=== PATIENT | female | born 1950 | race African-American/Black ===

== ENCOUNTER 2023-01-16 14:50 | Emergency (ER) | payer OTHER, MEDICAID, SELFPAY ==
--- NOTE | ~2023-01-16 | XR_ITS ---
EXAMINATION: XR CHEST CLINICAL INFORMATION: Cough and shortness of breath COMPARISON: None available. TECHNIQUE: 2 views of the chest were obtained. FINDINGS: The cardiac silhouette is slightly enlarged. The thoracic aorta is tortuous. Hilar and mediastinal contours are unremarkable. The lungs are clear. No pleural effusion or pneumothorax. Degenerative changes of the spine and right shoulder. Stent in the left upper arm. XR/XR chest 2V IMPRESSION: Slightly enlarged cardiac silhouette. No evidence for acute disease in the chest.
--- NOTE | ~2023-01-16 | CT_ITS ---
EXAMINATION: CT ABDOMEN AND PELVIS WITHOUT CONTRAST CLINICAL INFORMATION: Suprapubic abdominal pain. Nausea. COMPARISON: None available. TECHNIQUE: Multidetector volumetric imaging was performed from the superior aspect of the liver through the pubic symphysis. Sagittal and coronal reformatted images were obtained on the technologist's workstation. This CT examination was performed using dose optimization techniques as appropriate, variously including the following: *Automated exposure control *Adjustment of mA and/or kV according to patient size (this includes techniques or standardized protocols for targeted exams where dose is matched to indication/reason for exam; i.e. extremities or head) *Use of iterative reconstruction technique DLP: 768 mGy-cm FINDINGS: LUNG BASES: The visualized lung bases are clear. Coronary artery calcifications. LIVER, GALLBLADDER, AND BILIARY TREE: The liver is normal in size, shape, and attenuation. No biliary ductal dilatation. Nonspecific hypoattenuating lesion in segment 7 of the liver measuring 2.5 cm. This measures greater than simple fluid. Additional tiny liver lesions are too small to fully characterize.. Layering high attenuation in the gallbladder lumen could be stones or sludge. No wall thickening or adjacent inflammation. PANCREAS: Unremarkable. SPLEEN: Unremarkable. ADRENAL GLANDS: Unremarkable. KIDNEYS AND URETERS: Somewhat atrophic kidneys with polycystic appearance. These renal lesions, varying attenuation. While some of these have simple appearance, other lesions are hyperdense. For instance in the right lower pole there is a 1.9 cm hypodense lesion, series 3 image 48. This is a left lower pole 0.9 cm hypodense lesion on image 44. No hydronephrosis. Multiple right-sided calcifications are seen, possibly representing renal calculi at the mid to upper pole. These measure up to 0.3 cm, 11 cm from the posterior axillary line. BLADDER: Decompressed with no gross abnormality. GASTROINTESTINAL TRACT: Small hiatal hernia. Normal caliber small bowel. No obstruction. Normal appendix. No colonic wall thickening or acute inflammation. No free air or free fluid. ABDOMINAL WALL: No significant hernia is appreciated. LYMPH NODES: Normal. VASCULAR: Normal caliber aorta with mild atherosclerotic calcification. PELVIC VISCERA: Uterus not seen. No adnexal mass. OSSEOUS STRUCTURES: No acute or suspicious osseous abnormality. Mild degenerative change throughout the spine and of both hips. CT/CT abdomen pelvis wo IV con IMPRESSION: 1. No acute findings in the abdomen or pelvis. No inflammatory changes. 2. Atrophic kidneys with polycystic appearance. Multiple renal lesions are noted, some of which are simple cysts, while others are hyperdense. This could be evaluated with nonemergent MRI. 3. Nonspecific hypoattenuating lesion in the right lobe of the liver. This can also be evaluated at the time of MRI. 4. Possible small nonobstructing right renal calculi. 5. Layering high attenuation in the gallbladder lumen could be sludge or stones. No evidence of acute cholecystitis. Fleischner guidelines were followed.
--- NOTE | 2023-01-16 15:05 | ED.SOB ---
HPI - SOB/Dyspnea General Chief Complaint: General Medical Stated Complaint: Diff breathing/Lots of congestion Time Seen by Provider: 01/16/23 16:52 Source: patient, RN notes reviewed and old records reviewed Mode of arrival: ambulatory Limitations: no limitations History of Present Illness HPI Narrative: 72 year old female with history significant for ESRD on HD T/TH/Sun dialysis, HTN, DM, presenting to the ED complaining of intermittent shortness of breath, productive cough, and chest discomfort x months. Reports being seen in 2d ago for SOB and was told she needs a CT scan and CXR . Also reports suprapubic tenderness x years. Patient is anuric. Received HD today. Denies fever, chills, cough, chest pain, new or worsening LE edema, N/V/D, constipation. No hx of VTE or asthma. Related Data Allergies Allergy/AdvReac Type Severity Reaction Status Date / Time IV contrast Allergy Severe Anaphylaxis Uncoded 01/16/23 15:13 Review of Systems Review of Systems: Constitutional: No Fever, No Chills ENT/Mouth: No Ear Pain, No Nasal Congestion, No Sinus Pain, No Hoarseness, No sore throat, No Rhinorrhea, No Swallowing Difficulty Cardiovascular: + Chest discomfort, + SOB Respiratory: No Cough, No Sputum, No Wheezing Gastrointestinal: No Nausea, No Vomiting, No Diarrhea, No Constipation, + Abdominal pain Genitourinary: No Dysuria, No Urinary Frequency, No Hematuria, No Urinary Incontinence/retention, No Urgency, No Flank Pain Musculoskeletal: No joint pain, No Myalgias, No Joint Swelling Skin: No Skin Lesions, No rash Neuro: No Weakness, No Numbness, No Paresthesias Yes all other systems are reviewed and are negative Constitutional: Constitutional: Reports as per HPI [facility] Past Medical History Attestation statement: The following information was validated with the patient. Source: old records reviewed Social History Social History Alcohol intake: never Smoked in Last 30 Days: No Use of substances other than those prescribed or required for medical reasons: No Advance Directives: No Advance Directives Information Provided: No Physical Exam Vital Signs: Vital Signs: Last Vital Signs Temp 98.2 F 01/16/23 19:45 Pulse 94 01/16/23 19:45 Resp 18 01/16/23 19:45 BP 171/69 H 01/16/23 19:45 Pulse Ox 99 01/16/23 19:45 O2 Del Method Room Air 01/16/23 19:45 BMI result Body Mass Index 34.6 Const: General: cooperative, healthy appearing, no acute distress, alert and awake Orientation/consciousness: patient oriented x3 Limitations: no limitations HEENT: Head: Yes normal to inspection and Yes atraumatic Ears: hearing grossly normal bilaterally General nose exam: Normal external nose present Face and sinus: Yes normal facial exam Eyes: General: appearance normal, both eyes and all related structures EOM: EOMs intact bilaterally Neck: Neck: Yes normal visual inspection Chest: Chest palpation & inspection: normal inspection of the chest and normal palpation of entire chest wall Resp: Effort & Inspection: normal respiratory effort, able to speak in complete sentences, no audible wheezes, Actively coughing and no respiratory distress Auscultation: clear to auscultation bilaterally, no crackles and no wheezes Cardio: Rate: regular rate Rhythm: regular rhythm Heart sounds: S1 normal heart sound present and S2 normal heart sound present GI: Other: Abdomen without erythema, ecchymosis or obvious masses. + suprapubic region TTP. No rebound tenderness or guarding. Inspection: Yes normal to inspection, No abdominal wall ecchymosis, No distended and Yes obesity Palpation (GI): Soft to palpation, Tenderness to palpation present (GI) suprapubicly; with no rebound tenderness, no guarding and not rigid : General: Yes no CVA tenderness Back/Spine/Pelvis: Back: no CVA tenderness Skin: Rashes: no rashes Wounds: no wounds Neuro: General: patient oriented x3 and tone normal Gait exam (Neuro): Normal gait present Extrem: Other: Chronic LE edema General: Yes normal to inspection Course Course Course Narrative: RME - 72 yo female with history of ESRD on HD T//Sun, HTN, DM, who presents to the ER for evaluation of SOB and abdominal pain. She states she has been having SOB and productive cough for months. She was seen at Urgent Care 3 days ago for this and told she needed a CXR and CT scan. She also reports suprapubic pain for years, anuric. No fevers, chills, chest pain. Last had full HD session today. VSS in triage, speaking in complete sentences. Plan: CXR, basic labs - 1829 -- XR/XR chest 2V IMPRESSION: Slightly enlarged cardiac silhouette. No evidence for acute disease in the chest. -known CKD, otherwise labs reassuring -1929--ED care transferred to [facility] pending CTA PE and anticipated discharge Medical Decision Making Medical Decision Making [facility] Narrative: 72 year old female with history significant for ESRD on HD T//Sun dialysis, HTN, DM, presenting to the ED complaining of intermittent shortness of breath, productive cough, and chest discomfort x months. Also reports suprapubic tenderness x years. On exam VSS, +suprapubic tenderness without rebound or guarding. Lungs CTA b/l. Concern for PNA, bronchitis, viral syndrome. Lower suspicion for ACS/PE or CHF with chronicity of symptoms. Low suspicion for pulmonary embolism, ACS, pleural effusion, pericardial effusion. Concern for intra-abdominal pathology including diverticulitis/appendicitis. Lower suspicion for renal stone or ovarian pathology Plan: Labs, CXR, CT AP Please refer to course for remaining clinical decision making, interpretation of labs/imaging results, and discussions with consultants and/or family members. Differential Diagnosis Differential Diagnoses: The differential diagnosis associated with the presentation includes As above Lab Data [facility] Lab Attestation statement: I reviewed the patient's lab results. 01/16/23 15:27 01/16/23 15:27 Labs: Lab Results 01/16/23 01/16/23 Range/Units 15:27 15:27 WBC 5.4 (4.8-10.8) X10*3/uL RBC 4.09 L (4.20-5.50) X10*6/uL Hgb 10.5 L (12.0-16.0) g/dl Hct 33.7 L (37.0-47.0) % MCV 82.4 (80.0-98.0) fL MCH 25.7 L (27.0-33.0) pg MCHC 31.2 (31.0-35.0) g/dl RDW 19.1 H (11.0-16.0) % Plt Count 114 L (160-400) X10*3/uL MPV Not Reportable Immature Gran % (Auto) 0.4 (0.0-0.4) % Neut % (Auto) 78.0 H (45-73) % Lymph % (Auto) 13.4 L (20-40) % Posey % (Auto) 5.2 (2-11) % Eos % (Auto) 2.4 (0-4) % Baso % (Auto) 0.6 (0-2) % Lymph # (Auto) 0.7 L (1.2-4.9) X10*3/uL Posey # (Auto) 0.3 (0.1-1.2) X10*3/uL Eos # (Auto) 0.1 (0.0-0.4) X10*3/uL Baso # (Auto) 0.0 (0.0-0.2) X10*3/uL Abs Immat Gran (auto) 0.02 (0.00-0.03) X10*3/uL Absolute Neuts (auto) 4.2 (2.0-8.3) x10*3/uL Absolute Nucleated RBC 0.000 (0.0-0.012) X10*3/uL Nucleated RBC % (auto) 0.0 (0.0-0.2) /100WBC Sodium 140 (135-145) mmol/L Potassium 4.0 (3.3-5.1) mmol/L Chloride 102 (96-108) mmol/L Carbon Dioxide 31 H (22-29) mmol/L Anion Gap 11 L (12-20) BUN 13 (9-16) mg/dL Creatinine 3.80 H (0.5-1.4) mg/dL Estim Creat Clear Calc 13.5 Estimated GFR 12 Random Glucose 263 H (60-115) mg/dL Calcium 9.0 (8.4-10.2) mg/dL Magnesium 1.8 (1.6-2.6) mg/dL Total Bilirubin 1.1 H (0.0-1.0) mg/dL Direct Bilirubin 0.3 (0.0-0.5) mg/dL AST 12 (5-31) U/L ALT 6 (0-31) U/L Alkaline Phosphatase 100 (39-117) U/L Total Protein 6.6 (6.5-8.0) g/dL Albumin 3.8 (3.5-5.0) g/dL Independent Interpretation I performed an independent interpretation of an: Plain X-Ray and CT Scan Radiology Impression Discussion of test interpretation with radiology: I have reviewed the radiologist's reading. External Record Review External record reviewed: Inpatient record, Office record, Outpatient record, Prior outpatient labs, Prior outpatient radiology, Primary care record and Outside ED record Tests considered The following testing was considered but not selected: As above Chronic Conditions Patient?s care impacted by: Diabetes and Hypertension Discharge Plan Discharge Clinical Impression: Upper respiratory symptom, Abdominal pain, suprapubic Patient Disposition: Home, Self-Care Instructions: Abdominal Pain (ED) Additional Instructions: Your blood work is reassuring. Continue with home prescribed medications. You need to follow-up with your doctor Your x-rays unremarkable If symptoms persist or worsen return to the ED CT/CT abdomen pelvis wo IV con IMPRESSION: 1.? No acute findings in the abdomen or pelvis. No inflammatory changes. 2.? Atrophic kidneys with polycystic appearance. Multiple renal lesions are noted, some of which are simple cysts, while others are hyperdense. This could be evaluated with nonemergent MRI. 3.? Nonspecific hypoattenuating lesion in the right lobe of the liver. This can also be evaluated at the time of MRI. 4.? Possible small nonobstructing right renal calculi. 5.? Layering high attenuation in the gallbladder lumen could be sludge or stones. No evidence of acute cholecystitis. Referrals: [facility] [place] Gastroenterology Services [Provider Group] - 2 days [facility] [place] [facility] Kylie Marti [Provider Group] [facility] [place] [facility] [Provider Group]
[2023-01-16 15:07] VITALS: BP 142/57; PULSE 96; RESP 18; TEMP 37; O2SAT 100; BMI 34.6
[2023-01-16 15:33] LABS: MANUAL DIFF FLAG NO
[2023-01-16 15:41] LABS: Basophils Percent Auto 0.6 % (0-2); Eosinophils Absolute Auto 0.1 X10*3/uL (0.0-0.4); Eosinophils Percent Auto 2.4 % (0-4); Hematocrit 33.7 % (37.0-47.0); Hemoglobin 10.5 g/dl (12.0-16.0); Imm Gran Abs Auto 0.02 X10*3/uL (0.00-0.03); Imm Gran Pct Auto 0.4 % (0.0-0.4); Lymphocytes Absolute Auto 0.7 X10*3/uL (1.2-4.9); Lymphocytes Percent Auto 13.4 % (20-40); Mean Corpuscular HGB Conc 31.2 g/dl (31.0-35.0); Mean Corpuscular Hemoglobin 25.7 pg (27.0-33.0); Mean Corpuscular Volume 82.4 fL (80.0-98.0); Monocytes Absolute Auto 0.3 X10*3/uL (0.1-1.2); Monocytes Percent Auto 5.2 % (2-11); Neutrophils Absolute Auto 4.2 x10*3/uL (2.0-8.3); Platelet Count 114 X10*3/uL (160-400); Red Blood Count 4.09 X10*6/uL (4.20-5.50); Red Cell Distribution Width 19.1 % (11.0-16.0); White Blood Count 5.4 X10*3/uL (4.8-10.8)
[2023-01-16 15:52] LABS: Alanine Aminotransferase 6 U/L (0-31); Albumin Level 3.8 g/dL (3.5-5.0); Alkaline Phosphatase 100 U/L (39-117); Anion Gap 11 (12-20); Aspartate Amino Transferase 12 U/L (5-31); Bilirubin Direct 0.3 mg/dL (0.0-0.5); Bilirubin Total 1.1 mg/dL (0.0-1.0); Blood Urea Nitrogen 13 mg/dL (9-16); Carbon Dioxide 31 mmol/L (22-29); Chloride 102 mmol/L (96-108); Creatinine Clr Calc Pharmacy 13.5; Estimated Glomerular Filt Rate 12; Glucose Random 263 mg/dL (60-115); Magnesium 1.8 mg/dL (1.6-2.6); Sodium 140 mmol/L (135-145); Total Protein 6.6 g/dL (6.5-8.0)
[2023-01-16 19:45] VITALS: BP 171/69; PULSE 94; RESP 18; TEMP 36.8; O2SAT 99
--- NOTE | 2023-01-16 21:00 | PC.NURSE ---
IV started in patient's left hand, blood return noted. Patient getting IV antibiotics and fluids through IV now.
--- NOTE | 2023-01-16 21:03 | PC.NURSE ---
Patient resting on stretcher at this time, no s/s of distress noted. Awaiting CT results.
== END 2023-01-16 21:57 | disposition home or self-care (01) ==
PROVIDERS: Physician Assistant; Emergency Provider Emergency Medicine
DX: J06.9 Acute upper respiratory infection, unspecified (principal); R10.30 Lower abdominal pain, unspecified; R06.02 Shortness of breath; E11.22 Type 2 diabetes mellitus with diabetic chronic kidney disease; I12.0 Hypertensive chronic kidney disease with stage 5 chronic kidney disease or end stage renal disease; N18.6 End stage renal disease; Z99.2 Dependence on renal dialysis
CPT/HCPCS: 36415; 71046; 74176; 80048; 80076; 83735; 85025; 99284

== ENCOUNTER 2023-01-30 17:41 | Emergency (ER) | payer MEDICARE, MEDICAID, SELFPAY ==
--- NOTE | ~2023-01-30 | CT_ITS ---
EXAMINATION: CT HEAD WITHOUT CONTRAST CLINICAL INFORMATION: Altered mental status COMPARISON: None. TECHNIQUE: Contiguous axial imaging was performed from the skull base to vertex without intravenous administration of contrast. Coronal and sagittal reformatted images are performed at the CT scanner. [This CT examination was performed using dose optimization techniques as appropriate, variously including the following: *Automated exposure control *Adjustment of mA and/or kV according to patient size (this includes techniques or standardized protocols for targeted exams where dose is matched to indication/reason for exam; i.e. extremities or head) *Use of iterative reconstruction technique] DLP: 640 mGy-cm. FINDINGS: There is no evidence of acute intracranial hemorrhage or territorial infarction. No abnormal mass-effect or midline shift is seen. Givens to white matter differentiation is well preserved. No extra-axial fluid collections are identified. There is generalized global volume loss. There is moderate prominence of the ventricles and the sulci . There is mild hypodensity of the periventricular white matter due to chronic small vessel ischemic disease. There are vascular calcifications of the internal carotid arteries bilaterally. There is no osseous abnormality. The mastoid air cells and visualized portions of the paranasal sinuses are well-aerated. CT/CT head/brain wo IV con IMPRESSION: No acute intracranial pathology.
--- NOTE | ~2023-01-30 | XR_ITS ---
EXAMINATION: XR CHEST CLINICAL INFORMATION: Shortness of breath. COMPARISON: Chest x-ray 01/16/2023 TECHNIQUE: 2 views of the chest were obtained. FINDINGS: Lungs are clear. No pulmonary vascular congestion. There is no pleural effusion. The heart size is top normal. The cardiac and mediastinal contours are normal. There are calcifications of the thoracic aorta. There are multilevel degenerative changes of dorsal spine. Vascular stents in the left axillary region. XR/XR chest 2V IMPRESSION: No acute abnormality of chest.
[2023-01-30 17:57] VITALS: BP 185/67; PULSE 88; RESP 16; TEMP 36.3; O2SAT 99; BMI 33.1
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
--- NOTE | 2023-01-30 18:50 | MHC.EDTECH ---
patient blood drawn and sent to lab.
[2023-01-30 18:52] LABS: MANUAL DIFF FLAG NO
[2023-01-30 18:57] LABS: Basophils Percent Auto 0.8 % (0-2); Eosinophils Absolute Auto 0.2 X10*3/uL (0.0-0.4); Eosinophils Percent Auto 3.1 % (0-4); Hematocrit 29.7 % (37.0-47.0); Hemoglobin 9.4 g/dl (12.0-16.0); Imm Gran Abs Auto 0.02 X10*3/uL (0.00-0.03); Imm Gran Pct Auto 0.4 % (0.0-0.4); Lymphocytes Percent Auto 19.2 % (20-40); Mean Corpuscular HGB Conc 31.6 g/dl (31.0-35.0); Mean Corpuscular Hemoglobin 26.1 pg (27.0-33.0); Mean Corpuscular Volume 82.5 fL (80.0-98.0); Monocytes Absolute Auto 0.4 X10*3/uL (0.1-1.2); Monocytes Percent Auto 7.1 % (2-11); Neutrophils Absolute Auto 3.6 x10*3/uL (2.0-8.3); Neutrophils Percent Auto 69.4 % (45-73); Platelet Count 121 X10*3/uL (160-400); Red Cell Distribution Width 19.1 % (11.0-16.0); White Blood Count 5.2 X10*3/uL (4.8-10.8)
[2023-01-30 19:05] LABS: Ammonia 26 umol/L (13-55)
[2023-01-30 19:23] LABS: Alanine Aminotransferase 6 U/L (0-31); Albumin Level 3.6 g/dL (3.5-5.0); Alkaline Phosphatase 84 U/L (39-117); Anion Gap 16 (12-20); Aspartate Amino Transferase 9 U/L (5-31); Bilirubin Total 0.6 mg/dL (0.0-1.0); Blood Urea Nitrogen 64 mg/dL (9-16); Calcium 9.4 mg/dL (8.4-10.2); Carbon Dioxide 24 mmol/L (22-29); Chloride 104 mmol/L (96-108); Creatinine Clr Calc Pharmacy 5.6; Estimated Glomerular Filt Rate 4; Glucose Random 230 mg/dL (60-115); Lipase 28 U/L (8-78); Potassium 4.5 mmol/L (3.3-5.1); Sodium 139 mmol/L (135-145); Total Protein 6.6 g/dL (6.5-8.0)
--- NOTE | 2023-01-30 19:56 | PC.NURSE ---
pt brought into ED bed 17 from waiting room. pt ambulates into room, family at bedside. CT scan, xray, labs done in triage. pt waiting to be seen by ED provider. will CTM.
[2023-01-30 20:00] VITALS: BP 191/77; PULSE 89; RESP 16; TEMP 36.1; O2SAT 99
[2023-01-30] MEDS: amLODIPine Besylate 5 MG TABLET PO (22:13)
--- NOTE | 2023-01-30 23:51 | PC.NURSE ---
CM Nisha in room to see patient. Pt and sister at bedside being assessed. Per pt and sister, pt just moved here 3 weeks ago from [place]. pt brought with her whatever medications she had prescribed from [place], however has no pharmacy here as of yet so has not had any of her medications refilled. unsure of the pharmacy name in [place]. pt has not taken her blood pressure medications in 1 month. pt's pcp set up dialysis for her here prior to her moving from [place]. pt goes to [facility] and states they have a list of her current medications. Nurse will need to call in AM to obtain list of pt medications. CM questioning if patient has intellectual disability vs dementia and if pt has mental capacity to make health care decisions. Per CM will need psychiatry consult for capacity. Also need PT eval. Pt uses a walker at baseline and has it with her in ED. Pt unable to go home with sister as sister lives in [facility] for low income housing. For the past 3 weeks pt has been taking a bus from [facility] (vising sister) to hotel every night but recently has presented with increased confusion, missed dialysis today, and is becoming unable to care for self. Pt is an insulin dependent diabetic - MD Block aware and ordering SS for pt. Will CTM.
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
[2023-01-31] VITALS: BP 155/68; PULSE 77; RESP 16; TEMP 36.7; O2SAT 97
--- NOTE | 2023-01-31 03:53 | PC.NURSE ---
per provider repeat cbc & chemistry in AM to determine whether or not pt will need admission for dialysis prior to CM finding placement for pt.
[2023-01-31 04:35] VITALS: BP 174/65; PULSE 81; RESP 12; TEMP 36.7; O2SAT 99
[2023-01-31 05:14] LABS: MANUAL DIFF FLAG NO
[2023-01-31 05:16] LABS: Basophils Percent Auto 0.8 % (0-2); Eosinophils Absolute Auto 0.3 X10*3/uL (0.0-0.4); Eosinophils Percent Auto 5.2 % (0-4); Hematocrit 29.3 % (37.0-47.0); Hemoglobin 9.2 g/dl (12.0-16.0); Imm Gran Abs Auto 0.01 X10*3/uL (0.00-0.03); Imm Gran Pct Auto 0.2 % (0.0-0.4); Lymphocytes Absolute Auto 1.4 X10*3/uL (1.2-4.9); Lymphocytes Percent Auto 27.9 % (20-40); Mean Corpuscular HGB Conc 31.4 g/dl (31.0-35.0); Mean Corpuscular Hemoglobin 26.2 pg (27.0-33.0); Mean Corpuscular Volume 83.5 fL (80.0-98.0); Mean Platelet Volume 10.5 fL (9.4-12.3); Monocytes Absolute Auto 0.4 X10*3/uL (0.1-1.2); Monocytes Percent Auto 9.1 % (2-11); Neutrophils Absolute Auto 2.8 x10*3/uL (2.0-8.3); Neutrophils Percent Auto 56.8 % (45-73); Platelet Count 115 X10*3/uL (160-400); Red Blood Count 3.51 X10*6/uL (4.20-5.50); Red Cell Distribution Width 19.4 % (11.0-16.0); White Blood Count 4.8 X10*3/uL (4.8-10.8)
[2023-01-31 05:31] LABS: Anion Gap 20 (12-20); Blood Urea Nitrogen 66 mg/dL (9-16); Carbon Dioxide 22 mmol/L (22-29); Chloride 104 mmol/L (96-108); Creatinine Clr Calc Pharmacy 4.9; Estimated Glomerular Filt Rate 4; Glucose Random 160 mg/dL (60-115); Potassium 4.6 mmol/L (3.3-5.1); Sodium 141 mmol/L (135-145)
[2023-01-31 06:30] VITALS: BP 159/70; PULSE 82; RESP 18; TEMP 36.6; O2SAT 98
[2023-01-31 07:32] VITALS: BP 159/70; PULSE 82; O2SAT 98
[2023-01-31 08:09] LABS: Glucose, Whole Blood 236 mg/dL (60-115)
[2023-01-31] MEDS: Insulin Lispro 100 UNIT/ML 3 ML VIAL SUBCUT (08:20)
[2023-01-31 08:40] VITALS: BP 161/64; PULSE 83; RESP 16; TEMP 36.6; O2SAT 100
--- NOTE | 2023-01-31 09:35 | MHC.CM.ED ---
Patient remains in ER. Physical therapy eval completed. No therapy indicated. Patient is oriented. T/W spoke with Susan at [facility] in [place]. Patient is on a , , Sunday schedule for HD. Patient's last HD was 01/27. She missed 01/30. This is the first HD appointment she missed. They have a chair time available for her today at 245pm. Dr Hou aware and will discharge patient. They will arrange transport from HD to patient's home. Attempted to update patient's sister, Sita, via telephone at [phone]. Left message requesting return call. Attempted to meet with patient. Patient currently sleeping. Keiry ROBERSON and Dr Hou aware BLS transport booked for 145pm. Continue to monitor for d/c needs.
[2023-01-31 11:47] VITALS: BP 146/77; PULSE 79; RESP 16; TEMP 36.7; O2SAT 98
--- NOTE | 2023-01-31 12:44 | MHC.CM.ED ---
Received telephone call from [employer]. T/W is unsure of callers name. Capacity eval was requested because patient has been confused, wandering and missed multiple dialysis appointments. T/W explained patient only missed HD appointment on 01/30 due to confusion and came to the ER. T/W explained patient is now alert and oriented. Patient passed physical therapy and has actually been discharged. Patient is just waiting for 145pm transport to dialysis. Caller insistent on capacity eval. T/W explained it would not be appropriate in the ER and the [facility] [employer] could coordinate this outpatient. Caller stated It's not that easy. Thanks for nothing and hung up. Luciana Crump CM director aware.
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
== END 2023-01-31 13:50 | disposition home or self-care (01) ==
PROVIDERS: Physician Assistant; Emergency Provider Internal Medicine
DX: G93.41 Metabolic encephalopathy (principal); F03.90 Unspecified dementia, unspecified severity, without behavioral disturbance, psychotic disturbance, mood disturbance, and anxiety; E11.22 Type 2 diabetes mellitus with diabetic chronic kidney disease; R26.81 Unsteadiness on feet; I12.0 Hypertensive chronic kidney disease with stage 5 chronic kidney disease or end stage renal disease; R51.9 Headache, unspecified; N18.6 End stage renal disease; Z79.4 Long term (current) use of insulin; Z79.899 Other long term (current) drug therapy
CPT/HCPCS: 36415; 70450; 71046; 80048; 80053; 82140; 82947; 83690; 85025; 97161; 99284; 99285

== ENCOUNTER 2023-02-07 17:05 | Inpatient (IN) | payer MEDICARE, MEDICAID, SELFPAY ==
--- NOTE | ~2023-02-07 | XR_ITS ---
EXAMINATION: XR SHOULDER, RIGHT CLINICAL INFORMATION: Right shoulder pain. COMPARISON: None available. TECHNIQUE: Three views of the right shoulder. FINDINGS: Mild to moderate right glenohumeral and acromioclavicular degenerative joint changes are seen. There is no acute fracture or dislocation. A right subclavian vascular stent is noted in place. The visualized right ribs are intact. The soft tissues are unremarkable. XR/XR shoulder RT min 2V IMPRESSION: Mild to moderate right shoulder degenerative joint changes without overt fracture.
[2023-02-07 17:18] VITALS: BP 118/76; BP 157/68; PULSE 90; PULSE 94; RESP 18; TEMP 37.1; O2SAT 100; O2SAT 99; BMI 35.9
[2023-02-07 17:36] VITALS: BP 157/68; PULSE 89; RESP 15; O2SAT 100
--- NOTE | 2023-02-07 18:00 | ECG_ITS ---
Test Reason : Confusion Blood Pressure : / mmHG Vent. Rate : 086 BPM Atrial Rate : 086 BPM P-R Int : 150 ms QRS Dur : 138 ms QT Int : 428 ms P-R-T Axes : 036 -70 011 degrees QTc Int : 512 ms Normal sinus rhythm Right bundle branch block Left anterior fascicular block Bifascicular block Minimal voltage criteria for LVH, may be normal variant ( R in aVL ) Abnormal ECG No previous ECGs available Referred By: Destini Hidalgo Electronically Signed By:Alejandro Tuttle
[2023-02-07 18:12] VITALS: BP 158/65; PULSE 86; RESP 15; O2SAT 99
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
[2023-02-07 19:52] LABS: Alanine Aminotransferase 9 U/L (0-31); Albumin Level 3.7 g/dL (3.5-5.0); Alkaline Phosphatase 94 U/L (39-117); Anion Gap 14 (12-20); Aspartate Amino Transferase 13 U/L (5-31); Bilirubin Total 0.6 mg/dL (0.0-1.0); Blood Urea Nitrogen 29 mg/dL (9-16); Calcium 9.7 mg/dL (8.4-10.2); Carbon Dioxide 27 mmol/L (22-29); Chloride 99 mmol/L (96-108); Creatinine Clr Calc Pharmacy 9.4; Estimated Glomerular Filt Rate 7; Glucose Random 236 mg/dL (60-115); Potassium 4.5 mmol/L (3.3-5.1); Sodium 135 mmol/L (135-145); Total Protein 7.5 g/dL (6.5-8.0)
[2023-02-07 19:54] LABS: Imm Gran Abs Auto 0.03 X10*3/uL (0.00-0.03); Imm Gran Pct Auto 0.7 % (0.0-0.4); MANUAL DIFF FLAG SCAN; PLT CLUMP 1; Red Cell Distribution Width 19.6 % (11.0-16.0); SCAN SMEAR FLAG 1
[2023-02-07 19:56] LABS: Basophils Percent Auto 0.5 % (0-2); Eosinophils Absolute Auto 0.2 X10*3/uL (0.0-0.4); Eosinophils Percent Auto 3.4 % (0-4); Hematocrit 31.6 % (37.0-47.0); Lymphocytes Absolute Auto 0.8 X10*3/uL (1.2-4.9); Lymphocytes Percent Auto 18.6 % (20-40); Mean Corpuscular HGB Conc 31.6 g/dl (31.0-35.0); Mean Corpuscular Hemoglobin 26.6 pg (27.0-33.0); Monocytes Absolute Auto 0.4 X10*3/uL (0.1-1.2); Monocytes Percent Auto 8.4 % (2-11); Neutrophils Percent Auto 68.4 % (45-73); Red Blood Count 3.76 X10*6/uL (4.20-5.50)
[2023-02-07 20:04] LABS: PLT ABN DIST 1; White Blood Count 4.4 X10*3/uL (4.8-10.8)
[2023-02-07 20:15] LABS: SLIDE REVIEW VERIFIED
[2023-02-07 20:20] VITALS: BP 159/66; PULSE 85; RESP 16; TEMP 37; O2SAT 100
[2023-02-07 20:30] LABS: Ammonia 26 umol/L (13-55)
[2023-02-07 22:09] VITALS: BP 177/67; PULSE 85; RESP 16; TEMP 36.9; O2SAT 99
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
--- NOTE | 2023-02-07 22:52 | PC.NURSE ---
Patient alert and oriented x 3. Patient denies chest pain, sob, and dizziness. Patient ambulates with walker at baseline. Patient states does not know all her meds but told me what she knew. Patient has an old fistula on right arm that no longer works. Left av fisula + Bruit and thrill. Dialysis is on sunday, and sunday. Will continue with plan of care. Patient looking to be placed in facility.
[2023-02-07 23:38] VITALS: BP 129/51; PULSE 80; RESP 18; TEMP 36.8; O2SAT 97
--- NOTE | 2023-02-07 23:55 | MHC.EDTECH ---
this pct assumed care of pt at 2300 ,vitals sign taken ,pure wick in place pt was boosted up and reposition in bed ,red sock given ,pt belongings list done and at bedside ,pt drank sips of britni kaitlynn .
--- NOTE | 2023-02-08 05:17 | PC.NURSE ---
patint still in bed with eyes closed patient showing no distress at this time patient will continue to be monitored for safety
[2023-02-08 06:00] VITALS: BP 166/66; PULSE 79; RESP 18; TEMP 36.7; O2SAT 97
--- NOTE | 2023-02-08 06:14 | MHC.EDTECH ---
0600 ROUNDING DONE, VITALS SIGN TAKEN ,PATIENT SLEPT ALL NIGHT ,RN BRIJESH IS AWARE OF PT HIGH BLOOD PRESSURE ,PT SAID SHE TAKES BP MEDS IN THE MORNING ,UNABLE TO COLLECT URINE SAMPLE ,BECAUSE PATIENT SAID SHE DOES NOT MAKE ANY URINE .
--- NOTE | 2023-02-08 08:35 | MHC.CM.ED ---
Patient remains in ER. Outpatient dialysis was scheduled at 715am. Patient will not be able to make that chair time. T/W spoke with Sneha at [facility]. Only other available chair time today is 10:30am. It is unlikely that patient will be ready for this chair time because psych consult to see if patient has capacity is still pending. Luciana Crump CM director aware. LUCIEN Ferguson made aware and asked to follow up with nephrology about HD plan at this time. Alfred from [facility] made aware via telephone at [phone]. Continue to monitor for d/c needs.
--- NOTE | 2023-02-08 08:49 | PC.NURSE ---
spoke with bottom turning lathe tender, pt to receive dialysis this morning and return to emergency department. transporter to bring pt to dialysis
--- NOTE | 2023-02-08 13:02 | P.CONNP_ITS ---
History of Present Illness Reason for Consult Consult date: 02/21/23 Chief Complaint Chief complaint: increased confusion and HTN PMFSH Past Medical History Medical History Diabetes mellitus End stage renal disease Hemodialysis access site with arteriovenous graft Hypertension Social History Social History Alcohol intake: never Smoked in Last 30 Days: No Use of substances other than those prescribed or required for medical reasons: No Any prior treatment program specific to substance use: No Advance Directives: Yes Advance Directives on File: Yes Advance Directives Date on File: 01/31/23 Meds Allergies Allergy/AdvReac Type Severity Reaction Status Date / Time IV contrast Allergy Severe Anaphylaxis Uncoded 01/30/23 18:01 Active Medications: Current Medications Pharmacy Consult (Consult Rx Perform Med Rec) 1 each MISCELLANE ONCE PRN PRN Reason: Consult order Home Medications Medication Instructions Recorded Confirmed Last Taken Type albuterol sulfate 2.5 mg/3 mL 2.5 mg inhalation Q4H PRN 02/09/23 02/09/23 Unknown History (0.083 %) solution for nebulization Shortness Of Breath albuterol sulfate 90 mcg/actuation 1 puff inhalation QID PRN 02/09/23 02/09/23 Unknown History aerosol inhaler (ProAir HFA) Shortness Of Breath hydralazine 50 mg tablet 50 mg PO TID 02/09/23 02/09/23 Unknown History insulin glargine 100 unit/mL (3 20 unit subcut BEDTIME 02/09/23 02/09/23 Unknown History mL) subcutaneous pen (Lantus Solostar U-100 Insulin) metoprolol tartrate 25 mg tablet 12.5 mg PO BID 02/09/23 02/09/23 Unknown History repaglinide 0.5 mg tablet 0.5 mg PO TIDWM 02/09/23 02/09/23 Unknown History sevelamer carbonate 800 mg tablet 800 mg PO TIDWM 02/09/23 02/09/23 Unknown H istory (Renvela) Physical Exam Vital Signs: Last Vital Signs Temp 98.1 F 02/08/23 06:00 Pulse 79 02/08/23 06:00 Resp 18 02/08/23 06:00 BP 166/66 H 02/08/23 06:00 Pulse Ox 97 02/08/23 06:00 O2 Del Method Room Air 02/08/23 06:00 BMI result Body Mass Index 35.9 Results Lab Results 02/07/23 18:38 02/07/23 18:38 Lab results: Chemistry 02/07/23 18:38 Sodium 135 Potassium 4.5 Carbon Dioxide 27 BUN 29 H Creatinine 5.63 H* Calcium 9.7 D Hematology 02/07/23 18:38 WBC 4.4 L Hgb 10.0 L Plt Count TNP Assessment and Plan Time Spent With Patient Time: Total time managing care of this patient today ____ minutes. Procedures Date of Service Date of Service: 02/21/23
[2023-02-08 14:37] VITALS: BP 133/59; PULSE 80; RESP 16; TEMP 36.7; O2SAT 98
--- NOTE | 2023-02-08 14:40 | PC.NURSE ---
Pt returned from dialysis, denied any pain, stated she has some cramping to right leg but she is currently comfortable. Call peraza with in reach.
[2023-02-08 20:15] VITALS: BP 147/67; PULSE 79; RESP 18; TEMP 37.1; O2SAT 97
--- NOTE | 2023-02-08 21:29 | MHC.CM.ED ---
Awaiting psych consult. Pt in overflow unit. CM following for discharge planning.
--- NOTE | 2023-02-08 22:52 | PC.NURSE ---
Pt A+Ox3, no complaint of pain upon assessment, pt not on tele, left upper arm fistula + for thrill/ bruit, pt resting comfortably, plan of care continuing , call peraza within reach
[2023-02-09 05:17] VITALS: BP 139/61; PULSE 97; RESP 18; TEMP 36.4; O2SAT 96
[2023-02-09 06:00] VITALS: BP 135/64; PULSE 74; RESP 18; TEMP 36.6; O2SAT 93
--- NOTE | 2023-02-09 07:00 | PHA.MEDREC ---
Addendum entered by Caron Clark RPh 02/09/23 09:03: Med rec incomplete. Called dialysis center and got list of meds. amlodipine discontinued 01/16 Original Note: Pharmacy Consult ? Medication Reconciliation Pharmacy has completed the medication reconciliation. Completed by KAROL Wing
[2023-02-09 07:44] LABS: Glucose, Whole Blood 210 mg/dL (60-115)
[2023-02-09] MEDS: Insulin Lispro 100 UNIT/ML 3 ML VIAL SUBCUT ×3 (07:53→20:53)
[2023-02-09 09:20] LABS: MANUAL DIFF FLAG NO
[2023-02-09 09:26] LABS: Eosinophils Absolute Auto 0.2 X10*3/uL (0.0-0.4); Eosinophils Percent Auto 5.8 % (0-4); Hemoglobin 10.5 g/dl (12.0-16.0); Imm Gran Abs Auto 0.01 X10*3/uL (0.00-0.03); Imm Gran Pct Auto 0.2 % (0.0-0.4); Lymphocytes Absolute Auto 0.8 X10*3/uL (1.2-4.9); Lymphocytes Percent Auto 18.7 % (20-40); Mean Corpuscular HGB Conc 30.9 g/dl (31.0-35.0); Mean Corpuscular Hemoglobin 26.3 pg (27.0-33.0); Mean Corpuscular Volume 85.2 fL (80.0-98.0); Monocytes Absolute Auto 0.3 X10*3/uL (0.1-1.2); Monocytes Percent Auto 8.2 % (2-11); Neutrophils Absolute Auto 2.8 x10*3/uL (2.0-8.3); Neutrophils Percent Auto 66.1 % (45-73); Platelet Count 112 X10*3/uL (160-400); Red Blood Count 3.99 X10*6/uL (4.20-5.50); Red Cell Distribution Width 19.2 % (11.0-16.0); White Blood Count 4.2 X10*3/uL (4.8-10.8)
[2023-02-09] MEDS: hydrALAZINE HCl 50 MG TABLET PO ×3 (09:38→20:09)
[2023-02-09] MEDS: Metoprolol Tartrate 12.5 MG HALFTAB PO ×2 (09:38→20:09)
[2023-02-09 10:07] LABS: Alanine Aminotransferase 7 U/L (0-31); Albumin Level 3.4 g/dL (3.5-5.0); Alkaline Phosphatase 93 U/L (39-117); Anion Gap 16 (12-20); Aspartate Amino Transferase 9 U/L (5-31); Bilirubin Total 0.6 mg/dL (0.0-1.0); Blood Urea Nitrogen 21 mg/dL (9-16); Calcium 9.5 mg/dL (8.4-10.2); Carbon Dioxide 21 mmol/L (22-29); Chloride 101 mmol/L (96-108); Creatinine Clr Calc Pharmacy 9.4; Estimated Glomerular Filt Rate 8; Glucose Random 283 mg/dL (60-115); Phosphorus 2.5 mg/dL (2.7-4.5); Sodium 134 mmol/L (135-145); Total Protein 6.7 g/dL (6.5-8.0)
[2023-02-09 11:37] LABS: Glucose, Whole Blood 217 mg/dL (60-115)
--- NOTE | 2023-02-09 12:23 | MHC.CM.ED ---
Addendum entered by Kellie Morris 02/09/23 15:07: PT rec STR. [facility] have [facility] on site. Neither facilities have a bed available. Referral broadcasted to all facilities within 50 miles that are contracted with patient's insurance. Original Note: Patient remains in ER overflow. Psych consult completed. Per SHANNAN Silva, patient has capacity. Physical therapy eval ordered to see if patient can safely d/c home. If not, STR will be pursued. Continue to monitor for d/c needs.
[2023-02-09] MEDS: Sevelamer Carbonate Tablet 800 MG TABLET PO ×2 (12:58→18:36)
[2023-02-09 14:00] VITALS: BP 104/51; PULSE 92; RESP 18; TEMP 37; O2SAT 100
[2023-02-09 15:39] VITALS: BP 125/58; PULSE 75; RESP 19; TEMP 36.6; O2SAT 99
--- NOTE | 2023-02-09 15:48 | PM.PSYCN ---
History of Present Illness Date of Service: 02/09/2023 Chief Complaint: increased confusion and HTN Reason for Consult: capacity Discussed with referring provider: Yes Sources of Information: patient interviewed, chart reviewed and crisis/core team assessment reviewed HPI Narrative: Ms. Eleazar pa a 72 year-old woman with of ESRD on dialysis. Brought via EMS due to confusion. Sister expressed concern in terms of pt's ability to care for herself. This ad copy writer was not able to see pt on 02/08 as pt was in dialysis. Capacity assessment completed today. Pt presents as pleasant. She is fully oriented to place, month, and date. She reports she came to hospital 2 days ago at request of her sister who was concern about pt at times getting confused. Pt does report at times she gets confused and this worries her. She also reports that her sister is concern because she does not eat all her meals every day as she reports she is not hungry. She is able to describes all of her medical conditions and medications she receives for them. She is able to show understanding as to consequences of not treating or missing treatments. She indicates she has DM and even asked RN to correct diet from regular to DM one. She denies SI/HI. She denies depression or anxiety. No signs of psychosis or delusions. Unclear if some brief periods of confusion in between dialysis. But pt appears well aware. She identifies her sister as HCP. She agrees to additional supports in the community. [facility] Medical History Diabetes mellitus End stage renal disease Hemodialysis access site with arteriovenous graft Hypertension Diagnostics Vital Signs (24Hr): Vital Signs - 24 hr 02/08/23 20:15 02/09/23 05:17 02/09/23 06:00 Temperature 98.7 F 97.6 F 97.8 F Pulse Rate 79 97 74 Respiratory Rate 18 18 18 Blood Pressure 147/67 H 139/61 135/64 Pulse Oximetry 97 96 93 Oxygen Delivery Method Room Air Room Air Room Air 02/09/23 14:00 02/09/23 15:39 Temperature 98.6 F 97.9 F Pulse Rate 92 75 Respiratory Rate 18 19 Blood Pressure 104/51 L 125/58 L Pulse Oximetry 100 99 Oxygen Delivery Method Room Air Room Air BMI result Body Mass Index 35.9 Labs 02/09/23 09:12 02/09/23 09:12 Labs: Laboratory Results - last 48 hr 02/07/23 02/07/23 02/07/23 18:38 18:38 20:16 WBC 4.4 L RBC 3.76 L Hgb 10.0 L Hct 31.6 L MCV 84.0 MCH 26.6 L MCHC 31.6 RDW 19.6 H Plt Count TNP MPV Not Reportable Immature Gran % (Auto) 0.7 H Neut % (Auto) 68.4 Lymph % (Auto) 18.6 L [place] % (Auto) 8.4 Eos % (Auto) 3.4 Baso % (Auto) 0.5 Lymph # (Auto) 0.8 L [place] # (Auto) 0.4 Eos # (Auto) 0.2 Baso # (Auto) 0.0 Abs Immat Gran (auto) 0.03 Absolute Neuts (auto) 3.0 Absolute Nucleated RBC 0.000 Nucleated RBC % (auto) 0.0 Smear Tech's Comments VERIFIED Sodium 135 Potassium 4.5 Chloride 99 Carbon Dioxide 27 Anion Gap 14 BUN 29 H Creatinine 5.63 H* Estim Creat Clear Calc 9.4 Estimated GFR 7 POC Glucose Random Glucose 236 H Calcium 9.7 D Phosphorus Total Bilirubin 0.6 AST 13 ALT 9 Alkaline Phosphatase 94 Ammonia 26 Total Protein 7.5 Albumin 3.7 02/09/23 02/09/23 02/09/23 07:41 09:12 09:12 WBC 4.2 L RBC 3.99 L Hgb 10.5 L Hct 34.0 L MCV 85.2 MCH 26.3 L MCHC 30.9 L RDW 19.2 H Plt Count 112 L MPV Not Reportable Immature Gran % (Auto) 0.2 Neut % (Auto) 66.1 Lymph % (Auto) 18.7 L [place] % (Auto) 8.2 Eos % (Auto) 5.8 H Baso % (Auto) 1.0 Lymph # (Auto) 0.8 L [place] # (Auto) 0.3 Eos # (Auto) 0.2 Baso # (Auto) 0.0 Abs Immat Gran (auto) 0.01 Absolute Neuts (auto) 2.8 Absolute Nucleated RBC 0.000 Nucleated RBC % (auto) 0.0 Smear Tech's Comments Sodium 134 L Potassium 4.0 Chloride 101 Carbon Dioxide 21 L Anion Gap 16 BUN 21 H Creatinine 5.56 H* Estim Creat Clear Calc 9.4 Estimated GFR 8 POC Glucose 210 H Random Glucose 283 H Calcium 9.5 Phosphorus 2.5 L Total Bilirubin 0.6 AST 9 ALT 7 Alkaline Phosphatase 93 Ammonia Total Protein 6.7 Albumin 3.4 L 02/09/23 11:34 WBC RBC Hgb Hct MCV MCH MCHC RDW Plt Count MPV Immature Gran % (Auto) Neut % (Auto) Lymph % (Auto) [place] % (Auto) Eos % (Auto) Baso % (Auto) Lymph # (Auto) [place] # (Auto) Eos # (Auto) Baso # (Auto) Abs Immat Gran (auto) Absolute Neuts (auto) Absolute Nucleated RBC Nucleated RBC % (auto) Smear Tech's Comments Sodium Potassium Chloride Carbon Dioxide Anion Gap BUN Creatinine Estim Creat Clear Calc Estimated GFR POC Glucose 217 H Random Glucose Calcium Phosphorus Total Bilirubin AST ALT Alkaline Phosphatase Ammonia Total Protein Albumin Mental Status Exam Mental Status Exam Narrative: Appearance: wearing hospital gown, good hygiene, in NAD Behavior: cooperative and friendly Speech: clear, normal rate/rhythm/volume, spontaneous TP: linear TC: without signs of psychosis or delusions, accepting additional care if needed Mood: good Affect: congruent SI: none HI: none Delusions: none Insight/judgment: intact x 2. Memory/cog: alert, oriented to place, month, date, situation. grossly intact to conversational testing Medications Medications Current Medications Albuterol Sulfate (Albuterol Sulfate (0.083%) 2.5 Mg/3 Ml Vial.Neb) 2.5 mg INHALE Q4H PRN PRN Reason: Shortness Of Breath Albuterol Sulfate (Albuterol Sulfate 90 Mcg 8 Gm Inhaler) 1 puff INHALE QID PRN PRN Reason: Shortness Of Breath Dextrose (Dextrose 50 % 25 Gm/50 Ml Syringe) 25 gm IVPUSH Q15M PRN; Protocol PRN Reason: per Hypoglycemia Standing Ord. Glucose (Glucose Gel 15 Gm Gel..Gram.) 15 gm PO Q15M PRN; Protocol PRN Reason: per Hypoglycemia Standing Ord. Hydralazine HCl (Hydralazine Hcl 50 Mg Tablet) 50 mg PO TID NANCY; Protocol Last Admin: 02/09/23 15:14 Dose: 50 mg Insulin Glargine (Insulin Glargine,Hum.Rec.Anlog 100 Unit/Ml 10 Ml Vial) 20 unit SUBCUT BEDTIME [facility] Insulin Human Lispro (Insulin Lispro 100 Unit/Ml 3 Ml Vial) 0 unit SUBCUT QIDACHS NANCY; Protocol Last Admin: 02/09/23 12:46 Dose: 4 unit Metoprolol Tartrate (Metoprolol Tartrate 12.5 Mg Halftab) 12.5 mg PO BID [facility]; Protocol Last Admin: 02/09/23 09:38 Dose: 12.5 mg Sevelamer Carbonate (Sevelamer Carbonate Tablet 800 Mg Tablet) 800 mg PO TIDWM NANCY Last Admin: 02/09/23 12:58 Dose: 800 mg Allergies Allergies Allergy/AdvReac Type Severity Reaction Status Date / Time IV contrast Allergy Severe Anaphylaxis Uncoded 01/30/23 18:01 Assessment & Plan Assessment & Plan (1) ESRD on dialysis: Status: Acute Code(s): N18.6 - End stage renal disease; Z99.2 - Dependence on renal dialysis Plan Mrs. Bettencourt is a 72 year-old woman with ESRD on dialysis who was sent twice this month due to being confused. Her sister reports concern as to pt's ability to care for herself. However, pt presents as fully oriented, able to show understanding of medical condition and need for treatment. Pt knows her medications, the fact that she should be on DM diet. She does report at times some confusion and is in agreement to receive additional resources in the community. Pt HAS CAPACITY TO MAKE MEDICAL DECISIONS AT THIS TIME AND THROUGH UNDERSTANDING OF MEDICAL CONDITIONS AND TREATMENTS THAT SHE IS CURRENTLY RECEIVING. FURTHERMORE, SHE IS ABLE TO SHOW APPRECIATION OF RISK VERSUS BENEFITS OF MEDICAL TREATMENTS AND VERBALIZE HER DECISIONS. Total time managing care of this patient today ____ minutes.
[2023-02-09 16:14] LABS: Glucose, Whole Blood 116 mg/dL (60-115)
[2023-02-09 20:00] VITALS: BP 171/72; PULSE 82
[2023-02-09 20:42] LABS: Glucose, Whole Blood 275 mg/dL (60-115)
[2023-02-09] MEDS: Insulin Glargine,Hum.rec.anlog 100 UNIT/ML 10 ML VIAL 20 UNIT SUBCUT (20:52)
--- NOTE | 2023-02-09 23:45 | MHC.EDTECH ---
THIS PCT ASSUMED CARE OF PT AT 2300 ,PT AWAKE AND IS RESTING IN BED ,FLUIDS OFFER ,BUT PATIENT SAID SHE WAS FINE .
[2023-02-10 00:46] VITALS: BP 119/70; PULSE 87; RESP 16; TEMP 36.8; O2SAT 100
--- NOTE | 2023-02-10 00:53 | PC.NURSE ---
Assumed care for patient at 1900, A&O x3, denies pain, resting comfortably , call peraza within reach.
[2023-02-10 06:34] VITALS: BP 142/53; PULSE 71; RESP 16; TEMP 36.1; O2SAT 98
--- NOTE | 2023-02-10 10:20 | PC.NURSE ---
pt at the HD place since 07:00 transport by the transporter. when she coming back will give all other meds. will monitor for any symptoms changes.
--- NOTE | 2023-02-10 10:54 | PC.NURSE ---
pt finished w dialysis, transport notified.
[2023-02-10 11:57] VITALS: BP 139/60; PULSE 80; RESP 16; TEMP 36.8; O2SAT 99
[2023-02-10] MEDS: hydrALAZINE HCl 50 MG TABLET PO (11:58)
[2023-02-10] MEDS: Metoprolol Tartrate 12.5 MG HALFTAB PO (11:58)
[2023-02-10] MEDS: Sevelamer Carbonate Tablet 800 MG TABLET PO ×2 (11:58→16:54)
--- NOTE | 2023-02-10 12:01 | PC.NURSE ---
pt medicated per OCT. reports feeling tired after dialysis, but this is normal for pt, denies any pain, no insulin coverage needed, resting quietly.
--- NOTE | 2023-02-10 12:39 | PC.NURSE ---
pt ate 100% of lunch, 1 assist to bathroom with walker, pt washed her self independently with ready wipes, pt became dizzy and nauseous after bending over, one episode of vomiting, pt cleaned and assisted back into bed. linens changed and pt repositioned with warm blankets provided. pt denies any dizziness on returning to bed, nausea improved.
[2023-02-10 14:05] VITALS: BP 94/47; PULSE 78; RESP 16; TEMP 36.8; O2SAT 99
--- NOTE | 2023-02-10 14:24 | PC.NURSE ---
Addendum entered by Ariela Mreino 02/10/23 14:26: provider notified. Original Note: pt a&ox3, pt 94/47 - asymptomatic, denies any dizziness/nausea at this time, other vss, pt denies any needs at this time, resting quietly in bed.
[2023-02-10] MEDS: Insulin Lispro 100 UNIT/ML 3 ML VIAL SUBCUT ×2 (16:52→20:51)
--- NOTE | 2023-02-10 16:54 | PC.NURSE ---
pt medicated per MAR, insulin given in R upper arm per sliding scale protocol
[2023-02-10 20:49] VITALS: BP 99/52; PULSE 76; RESP 17; O2SAT 98
[2023-02-10] MEDS: Insulin Glargine,Hum.rec.anlog 100 UNIT/ML 10 ML VIAL 20 UNIT SUBCUT (20:51)
--- NOTE | 2023-02-10 21:47 | PC.NURSE ---
Pt BP 94/47 at 2044. BP meds held, ok per PA. Insulin administered and snack given. Pt resting comfortably in bed.
[2023-02-11 05:38] VITALS: BP 97/43; PULSE 75; RESP 17; TEMP 36.6; O2SAT 100
[2023-02-11 06:00] VITALS: BP 109/58; PULSE 77; RESP 16; TEMP 36.1; O2SAT 98
[2023-02-11] MEDS: Insulin Lispro 100 UNIT/ML 3 ML VIAL SUBCUT ×4 (07:40→20:55)
[2023-02-11] MEDS: Sevelamer Carbonate Tablet 800 MG TABLET PO ×3 (07:41→16:40)
[2023-02-11 14:00] VITALS: BP 103/50; PULSE 98; RESP 18; TEMP 37; O2SAT 98
[2023-02-11] MEDS: hydrALAZINE HCl 50 MG TABLET PO ×2 (16:00→20:54)
--- NOTE | 2023-02-11 17:05 | PC.NURSE ---
Pt very pleasant and cooperative. Up in recliner during the day. Offers no complaints. Awaiting rehab placement
[2023-02-11 20:39] VITALS: BP 106/49
[2023-02-11] MEDS: Metoprolol Tartrate 12.5 MG HALFTAB PO (20:54)
[2023-02-11] MEDS: Insulin Glargine,Hum.rec.anlog 100 UNIT/ML 10 ML VIAL 20 UNIT SUBCUT (20:55)
[2023-02-11 21:11] VITALS: BP 129/52; PULSE 89; RESP 18; TEMP 36.3; O2SAT 100
--- NOTE | 2023-02-11 22:47 | PC.NURSE ---
Assumed care of pt at 19:00. Pt alert & oriented x3, very pleasant and cooperative with care. Pt has a fistula to YENY, +for thrill/bruit with dialysis T/RANJEET/SAT. Pt reported feeling nauseous after being transferred to the bathroom. Pt medicated per MAR, Snacks provided to pt with insulin. Pt resting quietly in bed after being clean and repositioned. Call peraza within reach.
[2023-02-12 06:00] VITALS: BP 128/57; PULSE 74; RESP 16; TEMP 36.2; O2SAT 98
[2023-02-12] MEDS: Metoprolol Tartrate 12.5 MG HALFTAB PO ×2 (08:00→20:16)
[2023-02-12] MEDS: hydrALAZINE HCl 50 MG TABLET PO ×3 (08:00→20:16)
[2023-02-12] MEDS: Sevelamer Carbonate Tablet 800 MG TABLET PO ×3 (08:00→16:42)
--- NOTE | 2023-02-12 09:19 | PC.NURSE ---
Pt resting comfortably in bed. Denies pain. Tolerted breakfast
[2023-02-12] MEDS: Insulin Lispro 100 UNIT/ML 3 ML VIAL SUBCUT ×2 (11:39→21:06)
--- NOTE | 2023-02-12 14:38 | MHC.CM.ED ---
Addendum entered by Kellie Morris 02/12/23 14:41: Left a message for Fang at [facility] to see if they have a facility closer to [place] that patient would be able to go to HD at while receiving STR. Original Note: Patient remains in ER overflow. No bed offers at this time. [facility] still [facility]'t have a bed available. Trying to see if [facility] has a bed. Continue to monitor for d/c needs.
[2023-02-12 16:36] VITALS: BP 136/63; PULSE 63; RESP 16; TEMP 36.8; O2SAT 97
--- NOTE | 2023-02-12 16:37 | MHC.EDTECH ---
THIS PCT ASSUMED CARE OF PATIENT AT 1500 ,VITALS SXIGN TAKEN ,BLOOD SUGAR CHECK ,PT WAS REPOSITION AND BOOSTED UP IN BED ,PATIENT WAS SET UP WITH DINNER .
--- NOTE | 2023-02-12 17:25 | PC.NURSE ---
Pt been resting comfortably in bed throughout the day. Offers no complaints at this time
--- NOTE | 2023-02-12 18:00 | MHC.EDTECH ---
PATIENT ATE 100 % OF DINNER ,DRANK 240 ML FLUIDS .
[2023-02-12 20:17] VITALS: BP 111/60; PULSE 79; RESP 18; O2SAT 94
[2023-02-12 20:53] VITALS: BP 149/68; PULSE 78; RESP 16; TEMP 36.7; O2SAT 97
[2023-02-12] MEDS: Insulin Glargine,Hum.rec.anlog 100 UNIT/ML 10 ML VIAL 20 UNIT SUBCUT (21:05)
[2023-02-13 06:00] VITALS: BP 105/38; PULSE 73; RESP 16; TEMP 36.9; O2SAT 98
[2023-02-13] MEDS: Sevelamer Carbonate Tablet 800 MG TABLET PO ×3 (08:15→16:36)
[2023-02-13] MEDS: Metoprolol Tartrate 12.5 MG HALFTAB PO ×2 (08:15→20:18)
[2023-02-13] MEDS: hydrALAZINE HCl 50 MG TABLET PO ×3 (08:16→20:19)
--- NOTE | 2023-02-13 11:51 | MHC.CM.ED ---
ED CM met w/pt to review referrals - no offers: inquired on [facility] in and [facility] for any ? openings in next few days. Barriers to placement include no facility transport to HD. ? aggressive PT for a return to home with outpt HD services. ED CM to follow.
[2023-02-13 14:00] VITALS: BP 106/53; PULSE 74; RESP 16; TEMP 36.4; O2SAT 98
[2023-02-13] MEDS: Insulin Lispro 100 UNIT/ML 3 ML VIAL SUBCUT ×2 (16:35→20:19)
[2023-02-13 20:11] VITALS: BP 131/59; PULSE 85
[2023-02-13] MEDS: Insulin Glargine,Hum.rec.anlog 100 UNIT/ML 10 ML VIAL 20 UNIT SUBCUT (20:19)
--- NOTE | 2023-02-13 22:24 | PC.NURSE ---
Patient alert and oriented,resting quietly in bed,diabetic snack given,dialysis fistula present in left upper arm,denies pain.
[2023-02-13 22:51] VITALS: BP 109/48; PULSE 88; O2SAT 100
[2023-02-14 00:27] VITALS: TEMP 35.9
--- NOTE | 2023-02-14 00:51 | PC.NURSE ---
Patient resting comfortably. Denies pain . A&O x4, VSS.
[2023-02-14 05:06] VITALS: BP 139/63; PULSE 70; RESP 16; TEMP 36.1; O2SAT 93
[2023-02-14] MEDS: hydrALAZINE HCl 50 MG TABLET PO ×3 (07:47→20:26)
[2023-02-14] MEDS: Metoprolol Tartrate 12.5 MG HALFTAB PO ×2 (07:47→20:26)
[2023-02-14] MEDS: Sevelamer Carbonate Tablet 800 MG TABLET PO ×3 (07:48→16:44)
--- NOTE | 2023-02-14 09:29 | PC.NURSE ---
Patient resting on bed with eyes closed at this time.
[2023-02-14] MEDS: Insulin Lispro 100 UNIT/ML 3 ML VIAL SUBCUT ×3 (12:02→20:27)
--- NOTE | 2023-02-14 13:38 | MHC.CM.ED ---
Addendum entered by Kellie Morris 02/14/23 13:40: [facility] might have a female bed available tomorrow 02/15. Original Note: Patient remains in ER overflow. [facility] was following patient to see if HD could be moved to a location closer to their facility due to transporation issues. Closest facility is 30 miles away. They will not be able to accept patient. [facility] not [facility] beds. Physical therapy has been asked to re-eval patient to see if STR is still needed. Continue to monitor for d/c needs.
[2023-02-14 13:57] VITALS: BP 139/63; PULSE 70; O2SAT 93
[2023-02-14 14:00] VITALS: BP 142/63; PULSE 80; TEMP 37; O2SAT 100
--- NOTE | 2023-02-14 15:20 | PC.NURSE ---
Pt lying in bed with eyes closed. Answered questions appropriately. Denies pain or discomfort at this time. All needs in reach
--- NOTE | 2023-02-14 16:46 | PC.NURSE ---
Pt boosted up on bed and set up for dinner.
--- NOTE | 2023-02-14 18:06 | PC.NURSE ---
Pt ambulated to BR for BM. Currently BTB and resting watching TV
[2023-02-14] MEDS: Insulin Glargine,Hum.rec.anlog 100 UNIT/ML 10 ML VIAL 20 UNIT SUBCUT (20:27)
[2023-02-14 22:07] VITALS: BP 150/67; PULSE 78; RESP 17; TEMP 36.6; O2SAT 98
--- NOTE | 2023-02-15 02:52 | PC.NURSE ---
resting comfortably-- no distress. able to make needs known. mental status at baseline/speech clear. cont to monitor.
[2023-02-15 06:00] VITALS: BP 130/59; PULSE 76; RESP 16; TEMP 35.9; O2SAT 96
[2023-02-15 12:49] VITALS: BP 102/53; PULSE 72; TEMP 36.8; O2SAT 96
[2023-02-15] MEDS: Sevelamer Carbonate Tablet 800 MG TABLET PO ×2 (13:07→16:42)
[2023-02-15 14:53] VITALS: BP 110/57; PULSE 77
--- NOTE | 2023-02-15 15:16 | MHC.CM.ED ---
Patient remains in ER overflow. Received notification from Deedee ROBERSON that patient was requesting help obtaining a PCP. Attempted to meet with patient. Patient currently in HD. Will try to meet again to explain how patient can obtain a PCP. Continue to monitor for d/c needs.
[2023-02-15] MEDS: Insulin Lispro 100 UNIT/ML 3 ML VIAL SUBCUT ×2 (16:41→20:30)
--- NOTE | 2023-02-15 17:30 | PC.NURSE ---
Alert and oriented. BS 259, insulin given per MD order. No complaints of pain or discomfort. Ate well for dinner. On the phone talking with family.
[2023-02-15 20:21] VITALS: BP 111/56; PULSE 81; RESP 18; TEMP 36.3; O2SAT 97
[2023-02-15] MEDS: hydrALAZINE HCl 50 MG TABLET PO (20:29)
[2023-02-15] MEDS: Metoprolol Tartrate 12.5 MG HALFTAB PO (20:29)
[2023-02-15] MEDS: Insulin Glargine,Hum.rec.anlog 100 UNIT/ML 10 ML VIAL 20 UNIT SUBCUT (20:30)
[2023-02-16 05:34] VITALS: BP 117/51; PULSE 78; RESP 18; TEMP 36.5; O2SAT 99
[2023-02-16] MEDS: Insulin Lispro 100 UNIT/ML 3 ML VIAL SUBCUT ×3 (07:45→20:01)
[2023-02-16] MEDS: Sevelamer Carbonate Tablet 800 MG TABLET PO ×3 (07:45→16:42)
[2023-02-16 09:03] VITALS: BP 117/51; PULSE 78; O2SAT 99
[2023-02-16 09:27] VITALS: BP 147/57; PULSE 78; RESP 16; TEMP 36.6; O2SAT 94
[2023-02-16] MEDS: hydrALAZINE HCl 50 MG TABLET PO ×3 (09:45→20:00)
[2023-02-16] MEDS: Metoprolol Tartrate 12.5 MG HALFTAB PO ×2 (09:45→20:00)
--- NOTE | 2023-02-16 09:46 | PC.NURSE ---
pt alert and oriented, resting comfortably with no complaints at this time. medicated per mar with morning metoprolol and hydralazine, BP and HR checked by tech prior. Pt now dozing/watching television.
--- NOTE | 2023-02-16 11:53 | PC.NURSE ---
pt having lunch. POC 134, no listpro given per sliding scale. Renvela given while pt is eating. no distress noted or complaints, no pain reported. will ctm
[2023-02-16 15:15] VITALS: BP 146/65; PULSE 85; TEMP 36.2; O2SAT 99
--- NOTE | 2023-02-16 15:18 | PC.NURSE ---
pt resting, medicated per mar.
--- NOTE | 2023-02-16 16:45 | PC.NURSE ---
pt having dinner, lispro given per sliding scale.
--- NOTE | 2023-02-16 18:05 | PC.NURSE ---
pt ambulated to bathroom with steady gait and stanby assist. bed linens changed for pt comfort.
[2023-02-16 19:43] VITALS: BP 137/54; PULSE 78; RESP 14; TEMP 36.6; O2SAT 98
[2023-02-16] MEDS: Insulin Glargine,Hum.rec.anlog 100 UNIT/ML 10 ML VIAL 20 UNIT SUBCUT (20:01)
--- NOTE | 2023-02-17 08:24 | PC.NURSE ---
currently in dialysis
[2023-02-17 13:26] VITALS: BP 128/60; PULSE 62; RESP 15; TEMP 36.6; O2SAT 99
[2023-02-17] MEDS: hydrALAZINE HCl 50 MG TABLET PO ×2 (13:27→21:06)
[2023-02-17] MEDS: Sevelamer Carbonate Tablet 800 MG TABLET PO ×2 (13:29→17:06)
--- NOTE | 2023-02-17 15:32 | PC.NURSE ---
returned from dialysis around 1230, tolerated well, ate lunch. moved PT to room 6 as she stated she had a hard time sleeping last night. needs being met.
--- NOTE | 2023-02-17 16:18 | PC.NURSE ---
OOB to recliner.
[2023-02-17] MEDS: Insulin Lispro 100 UNIT/ML 3 ML VIAL SUBCUT (17:06)
--- NOTE | 2023-02-17 19:00 | PC.NURSE ---
Report received from RNKeiry about pts present condition, the reason pt is in the hospital and what the care plan is for pt during her hospital stay. Pt is resting on a recliner chair watching television. Pt states doing good, have no complaint . Pt asked if she wants anything for pain or any thing to eat or drink, but pt states she is content at the moment. Call peraza within reach, pt informed of the nurses name for any needs pt may need.
[2023-02-17 20:01] VITALS: BP 119/73; PULSE 75; RESP 16; TEMP 37; O2SAT 98
[2023-02-17] MEDS: Insulin Glargine,Hum.rec.anlog 100 UNIT/ML 10 ML VIAL 20 UNIT SUBCUT (21:06)
[2023-02-17] MEDS: Metoprolol Tartrate 12.5 MG HALFTAB PO (21:08)
--- NOTE | 2023-02-17 21:31 | PC.NURSE ---
pt is resting in the chair, denies any pain or issues at the moment. Pt given some ice chips per request.
--- NOTE | 2023-02-17 22:11 | PC.NURSE ---
pt transfers to room 10 from overflow
[2023-02-17 22:16] VITALS: BP 144/55; PULSE 82; RESP 14; TEMP 36.9; O2SAT 97
--- NOTE | 2023-02-17 22:33 | MHC.EDTECH ---
THIS PCT JUST ASSUMED CARE OF PATIENT ,UPON CHECKING VITALS ,THIS PCT NOTICE PATIENT HEART RATE WAS BETWEEN 170 -180 , AND O2 SAT WAS BETWEEN 70-80 ,RN KIWON AWARE AND PUT PATIENT ON 2 L 02 ,EKG TAKEN AND WAS READ BY PROVIDER ,PT NOW RESTING COMFORTABLE IN BED WARM BLANKET GIVEN .
[2023-02-17 22:38] VITALS: PULSE 140; O2SAT 88
[2023-02-18] VITALS (9 sets, daily range): BP systolic 132–174; BP diastolic 43–99; PULSE 71–97; RESP 16–18; TEMP 36.7–36.8; O2SAT 96–100
--- NOTE | 2023-02-18 06:20 | PC.NURSE ---
pt assessed during the shift, denies any complaints
[2023-02-18] MEDS: hydrALAZINE HCl 50 MG TABLET PO ×3 (08:54→21:22)
[2023-02-18] MEDS: Metoprolol Tartrate 12.5 MG HALFTAB PO ×2 (08:54→21:22)
[2023-02-18] MEDS: Sevelamer Carbonate Tablet 800 MG TABLET PO ×3 (08:55→18:39)
--- NOTE | 2023-02-18 08:56 | PC.NURSE ---
pt up oob walked approx 30 ft with a wheeled walker with supervision. medicated as charted pt in a bedside recliner
[2023-02-18] MEDS: Insulin Lispro 100 UNIT/ML 3 ML VIAL SUBCUT ×2 (12:58→21:22)
--- NOTE | 2023-02-18 14:20 | PC.NURSE ---
pt assisted back to bed after eating lunch.
--- NOTE | 2023-02-18 15:43 | MHC.CM.ED ---
Review of ED CM notes and referrals: No SNF offers as of this note: beds are not available, transportation to HD is not available, or pt's payor, [place], is not contracted w/facility. VM left for pt's sister Sita w/[employer] member services number for assistance w/PCP assignment. ( ) CM notes indicate this case has been escalated to [facility] management for assistance w/placement d/t d/c preventing barriers. CM to continue following
--- NOTE | 2023-02-18 17:58 | PC.NURSE ---
patient sitting up in chair, talking on the phone with family. resp equal and unlabored
--- NOTE | 2023-02-18 19:53 | MHC.EDTECH ---
Addendum entered by Rafaela Wright 02/18/23 19:55: to comfort and call peraza is within reach. Original Note: Tech assume care pt at 1900 pt ate supper 50% of meal and drank a can of britni kaitlynn. Vitals taken and pt reposinted
[2023-02-18] MEDS: Insulin Glargine,Hum.rec.anlog 100 UNIT/ML 10 ML VIAL 20 UNIT SUBCUT (21:22)
--- NOTE | 2023-02-19 01:13 | PC.NURSE ---
Report to Dianne ROBERSON for continued care
[2023-02-19 01:19] VITALS: BP 154/56; PULSE 68; RESP 18; TEMP 37.1; O2SAT 100
--- NOTE | 2023-02-19 03:00 | PC.NURSE ---
Addendum entered by Amna Pierre 02/19/23 06:43: Pt appears to be sleeping at this time, RR equal and non labored, no apparent distress noted. VSS, will CTM. Original Note: This freelance writer assumed care of this Pt at 0130, Pt A&Ox3, denies any pain, lying in bed at this time.
[2023-02-19 06:00] VITALS: BP 108/60; PULSE 71; RESP 16; TEMP 36.7; O2SAT 99
[2023-02-19 08:53] VITALS: BP 159/70; PULSE 75; RESP 20; TEMP 36; O2SAT 98
[2023-02-19] MEDS: Sevelamer Carbonate Tablet 800 MG TABLET PO ×3 (09:28→16:48)
[2023-02-19] MEDS: Metoprolol Tartrate 12.5 MG HALFTAB PO ×2 (09:28→20:28)
[2023-02-19] MEDS: hydrALAZINE HCl 50 MG TABLET PO ×3 (09:28→20:29)
--- NOTE | 2023-02-19 10:46 | PC.NURSE ---
assumed care of this pt at 0700. pt a&o x4, ate breakfast, and took meds per oct. pt did not need insulin coverage this am. pt currently resting quietly in bed in no apparent distress. rr even/unlabored. wctm pt appears to have a fungal rash under her belly. LUCIEN burger made aware and nystatin requested
--- NOTE | 2023-02-19 11:00 | PC.NURSE ---
pt washed up with assist from tech and bed linens changed
--- NOTE | 2023-02-19 11:38 | MHC.CM.ED ---
Patient remains in ER overflow. Clinical updates [facility] to [facility] and [facility]. Clifton, Dean Of Men, will reach out to [facility] directly see if there is anyway they can accommodate patient. Continue to monitor for d/c needs.
[2023-02-19 14:08] VITALS: BP 133/62; PULSE 72; RESP 20; TEMP 36.1; O2SAT 97
[2023-02-19 15:11] VITALS: BP 147/55; PULSE 68
--- NOTE | 2023-02-19 15:24 | PC.NURSE ---
pt medicated per mar and up to recliner. resting comfortably watching tv
[2023-02-19] MEDS: Insulin Lispro 100 UNIT/ML 3 ML VIAL SUBCUT ×2 (16:46→20:29)
[2023-02-19 20:24] LABS: Glucose, Whole Blood 191 mg/dL (60-115)
[2023-02-19 20:25] VITALS: BP 169/71; PULSE 74; RESP 18; TEMP 36; O2SAT 98
[2023-02-19] MEDS: Insulin Glargine,Hum.rec.anlog 100 UNIT/ML 10 ML VIAL 20 UNIT SUBCUT (20:30)
[2023-02-20 00:10] VITALS: BP 148/65; PULSE 77; RESP 15; TEMP 36.5; O2SAT 98
[2023-02-20 07:24] LABS: Glucose, Whole Blood 81 mg/dL (60-115)
[2023-02-20 07:31] VITALS: BP 156/61; PULSE 75; RESP 16; TEMP 35.9; O2SAT 99
[2023-02-20] MEDS: hydrALAZINE HCl 50 MG TABLET PO ×3 (07:56→20:51)
[2023-02-20] MEDS: Metoprolol Tartrate 12.5 MG HALFTAB PO ×2 (07:56→20:51)
[2023-02-20] MEDS: Sevelamer Carbonate Tablet 800 MG TABLET PO ×3 (07:56→16:46)
--- NOTE | 2023-02-20 08:16 | PC.NURSE ---
Pt off the unit to dialysis with transport.
[2023-02-20 12:24] LABS: Glucose, Whole Blood 87 mg/dL (60-115)
--- NOTE | 2023-02-20 12:36 | PC.NURSE ---
Pt returned from dialysis. Meal provided.
--- NOTE | 2023-02-20 13:19 | MHC.CM.ED ---
Patient remains in ER overflow. Clifton, Real Estate Agency Licensee, is waiting for Ashli to return his telephone call to see if they can offer a bed. Attempted to speak to Vashti at [facility]. Vashti is out of the office. Left a message for Kelli at [facility] at [phone] requesting voicemail to see if they would be able to offer out of network auth since placement has been difficult to find. Continue to monitor for d/c needs.
[2023-02-20 14:00] VITALS: BP 150/55; PULSE 81; RESP 16; TEMP 36.1; O2SAT 96
[2023-02-20 16:45] LABS: Glucose, Whole Blood 184 mg/dL (60-115)
[2023-02-20] MEDS: Insulin Lispro 100 UNIT/ML 3 ML VIAL SUBCUT ×2 (16:46→20:49)
--- NOTE | 2023-02-20 17:00 | PC.NURSE ---
Meal provided. pt repositioned for comfort. sister at bedside.
[2023-02-20 20:41] LABS: Glucose, Whole Blood 257 mg/dL (60-115)
[2023-02-20] MEDS: Insulin Glargine,Hum.rec.anlog 100 UNIT/ML 10 ML VIAL 20 UNIT SUBCUT (20:50)
--- NOTE | 2023-02-20 22:28 | PC.NURSE ---
pt assessed denies any complaints
[2023-02-21 06:15] VITALS: BP 142/70; PULSE 78; TEMP 36.9; O2SAT 97
[2023-02-21 07:22] LABS: Glucose, Whole Blood 46 mg/dL (60-115)
[2023-02-21 07:34] LABS: Glucose, Whole Blood 67 mg/dL (60-115)
--- NOTE | 2023-02-21 07:39 | PC.NURSE ---
POC this AM 47, patient not symptomatic. given 2 OJ and ate 2 packages of amairani crackers. rechecked and was 67.
[2023-02-21 08:10] VITALS: BP 142/70; PULSE 78; O2SAT 97
[2023-02-21 08:19] VITALS: BP 127/58; PULSE 86; RESP 20; O2SAT 99
[2023-02-21] MEDS: hydrALAZINE HCl 50 MG TABLET PO ×3 (08:20→20:23)
[2023-02-21] MEDS: Metoprolol Tartrate 12.5 MG HALFTAB PO ×2 (08:20→20:23)
[2023-02-21] MEDS: Sevelamer Carbonate Tablet 800 MG TABLET PO ×3 (08:20→17:05)
[2023-02-21 11:45] LABS: Glucose, Whole Blood 135 mg/dL (60-115)
[2023-02-21 14:29] VITALS: BP 151/54; PULSE 80; RESP 18; TEMP 36.8; O2SAT 99
[2023-02-21 15:59] VITALS: BP 177/74; PULSE 78; O2SAT 100
--- NOTE | 2023-02-21 16:26 | MHC.CM.PN ---
PEMA received telephone call from Joy Brenner LCSW at [facility] ([phone]). She visited with patient today. Was asking about housing search. PEMA explained that PT is recommending STR and CM is working on STR, not housing. Explained that we have no had any bed offers yet, and this was escalated to Clifton, Purchasing Administrative Assistant. Clifton is working with Dion Santos in hopes of gaining STR placement for this patient. CM will alert Joy when STR placement is found. Joy asked about continuing CM assistance when patient is discharge [facility]. PEMA explained that our department does not follow patients in the community. Joy asked about [facility]. Referral placed with [facility] to assess patient. Joy will also call them. CM will follow for discharge needs.
[2023-02-21 16:52] LABS: Glucose, Whole Blood 118 mg/dL (60-115)
--- NOTE | 2023-02-21 17:19 | PC.NURSE ---
pt was given meal and prescribed renvela tablet. Pt vomited approx 400 ml about 10 minutes after eating. Tech cleaned pt.
--- NOTE | 2023-02-21 17:24 | MHC.EDTECH ---
Patient vomited changed jovanny, socks, and brought warm water with mouth wash for rinsing.
--- NOTE | 2023-02-21 17:36 | PC.NURSE ---
Renvela given by mouth, Pt vomited it up 10 minutes after administration, Provider notified.
[2023-02-21 20:23] LABS: Glucose, Whole Blood 175 mg/dL (60-115)
[2023-02-21 20:24] VITALS: BP 163/69; PULSE 87; RESP 16; TEMP 36.1; O2SAT 99
[2023-02-21] MEDS: Insulin Glargine,Hum.rec.anlog 100 UNIT/ML 10 ML VIAL 20 UNIT SUBCUT (20:24)
[2023-02-21] MEDS: Insulin Lispro 100 UNIT/ML 3 ML VIAL SUBCUT (20:24)
--- NOTE | 2023-02-21 21:28 | PC.NURSE ---
A/O x4. provided snack/sandwich post insulin. speech clear, no complaints. to have dialysis in AM. cont to reinforce safety/monitor.
[2023-02-22 06:00] VITALS: BP 167/59; PULSE 83; RESP 16; TEMP 36.4; O2SAT 98
--- NOTE | 2023-02-22 06:19 | PC.NURSE ---
transported to dialysis by wheelchair without incident.
--- NOTE | 2023-02-22 07:32 | PC.NURSE ---
pt off unit at dialysis
[2023-02-22] MEDS: hydrALAZINE HCl 50 MG TABLET PO ×3 (10:12→20:42)
[2023-02-22] MEDS: Metoprolol Tartrate 12.5 MG HALFTAB PO ×2 (10:12→20:42)
[2023-02-22 10:30] LABS: Glucose, Whole Blood 133 mg/dL (60-115)
[2023-02-22 10:34] VITALS: BP 112/55; PULSE 92; RESP 20; TEMP 36.6; O2SAT 97
--- NOTE | 2023-02-22 10:52 | PC.NURSE ---
This patient is currently on dialysis & no longer prodcues urine. Unable to obtain and send UA specimen; ordered cancelled.
[2023-02-22] MEDS: Sevelamer Carbonate Tablet 800 MG TABLET PO ×2 (11:53→16:32)
[2023-02-22 16:12] VITALS: BP 109/48; PULSE 72; RESP 16; TEMP 36.2; O2SAT 99
[2023-02-22 16:40] LABS: Glucose, Whole Blood 202 mg/dL (60-115)
[2023-02-22] MEDS: Insulin Lispro 100 UNIT/ML 3 ML VIAL SUBCUT (16:45)
[2023-02-22] MEDS: Insulin Glargine,Hum.rec.anlog 100 UNIT/ML 10 ML VIAL 20 UNIT SUBCUT (20:42)
[2023-02-22 21:00] LABS: Glucose, Whole Blood 141 mg/dL (60-115)
--- NOTE | 2023-02-22 21:22 | MHC.EDTECH ---
pt provided with washcloths, towels, new mike and socks. pt washed up independently. t/w assisted pt with nystatin/baby powder application. pt provided with ice per request.
--- NOTE | 2023-02-22 21:40 | P.PNNP_ITS ---
Subjective Subjective Date of Service: 02/22/23 Interval history: Seen and examined on HD,events noted Physical Exam Vital Signs: Vital Signs: Last Vital Signs Temp 97.1 F 02/22/23 16:12 Pulse 72 02/22/23 16:12 Resp 16 02/22/23 16:12 BP 109/48 L 02/22/23 16:12 Pulse Ox 99 02/22/23 16:12 O2 Del Method Room Air 02/22/23 16:12 O2 Flow Rate 2 02/17/23 22:16 BMI result Body Mass Index 35.9 Objective Data Labs 02/09/23 09:12 02/09/23 09:12 Labs: Laboratory Results - last 24 hr 02/22/23 02/22/23 02/22/23 10:27 16:37 20:56 POC Glucose 133 H 202 H 141 H Procedures Date of Service Date of Service: 02/22/23 Assessment & Plan Assessment and plan (1) ESRD on dialysis: Status: Inactive Plan ESRD: TTS [facility] unit AMS Nephrogenic anemia MBD of CKD REC: ocnt HD TTS; meds as noted; d/cplanning to Rehab/SNF--consider [facility] vs [facility] where inhouse HD isavail Time Spent With Patient Time: Total time managing care of this patient today ____ minutes.
--- NOTE | 2023-02-22 22:30 | MHC.CM.ED ---
PEMA and Clifton Rawls, Production Cell Leader spoke with Ary Russo, Liaison for [facility] regarding possible STR bed for this patient with possible transition to LTC. MH is pending. Ary requested recent PT note and requested to obtain a copy of the [employer] application for review. PEMA explained that it was our understanding from patient's sister, Sita, that bonderite operator from [facility] assisted with this. CM will need to call [facility] regarding MH application in the morning. Ary will review and speak with the [facility] regarding this patient. Will also reach out to her sister facilities. Complicating STR is patient's ESRD and dialysis T,TH,SAT. PT notes uploaded. CM will continue to follow.
[2023-02-23 06:00] VITALS: BP 132/42; PULSE 84; RESP 18; TEMP 36.6; O2SAT 97
[2023-02-23 07:46] LABS: Glucose, Whole Blood 61 mg/dL (60-115)
[2023-02-23] MEDS: Sevelamer Carbonate Tablet 800 MG TABLET PO ×3 (08:02→18:04)
[2023-02-23] MEDS: hydrALAZINE HCl 50 MG TABLET PO ×3 (08:03→22:24)
[2023-02-23] MEDS: Metoprolol Tartrate 12.5 MG HALFTAB PO (08:03)
[2023-02-23 08:20] VITALS: BP 132/42; PULSE 84; O2SAT 97
[2023-02-23 08:26] LABS: Glucose, Whole Blood 116 mg/dL (60-115)
--- NOTE | 2023-02-23 10:36 | MHC.CM.ED ---
Addendum entered by Doris Hi 02/23/23 16:04: Received call back from [facility] - They are not able to verify if application has been submitted: states to call back on Sunday and ask for Christelle. ED CM to follow Original Note: Message left w/[facility] of [place] inquiring on [employer] application. Awaiting callback for information on completion and submission. Also awaiting callback from Ashli Henderson from [facility] about [facility] other affiliated centers.
[2023-02-23 10:55] LABS: Hematocrit 29.9 % (37.0-47.0); Hemoglobin 9.6 g/dl (12.0-16.0)
[2023-02-23 11:37] LABS: Anion Gap 17 (12-20); Blood Urea Nitrogen 44 mg/dL (9-16); Calcium 9.3 mg/dL (8.4-10.2); Carbon Dioxide 29 mmol/L (22-29); Chloride 93 mmol/L (96-108); Creatinine Clr Calc Pharmacy 8.7; Estimated Glomerular Filt Rate 7; Glucose Random 140 mg/dL (60-115); HBS Num1 192.25 mIU/mL (0-7.99); HBc Num1 0.13 S/CO (0.00-0.79); HBsAGNum1 0.34 S/CO (0.00-0.99); Hepatitis B Core Antibody Nonreactive (Nonreactive); Hepatitis B Surface Antigen Negative (Negative); Potassium 4.8 mmol/L (3.3-5.1); Sodium 134 mmol/L (135-145); ~Hepatitis B Surface Antibody REACTIVE (Nonreactive)
[2023-02-23 15:36] VITALS: BP 114/56; PULSE 98; RESP 18; TEMP 36.7; O2SAT 96
[2023-02-23 16:41] LABS: Glucose, Whole Blood 191 mg/dL (60-115)
[2023-02-23] MEDS: Insulin Lispro 100 UNIT/ML 3 ML VIAL SUBCUT (16:46)
[2023-02-23] MEDS: Insulin Glargine,Hum.rec.anlog 100 UNIT/ML 10 ML VIAL 20 UNIT SUBCUT (22:20)
--- NOTE | 2023-02-23 22:28 | PC.NURSE ---
patient accu check was 133 no coverage is needed at this time
[2023-02-23 22:29] LABS: Glucose, Whole Blood 133 mg/dL (60-115)
[2023-02-24 04:30] VITALS: RESP 18
[2023-02-24 10:04] LABS: Glucose, Whole Blood 118 mg/dL (60-115)
[2023-02-24] MEDS: Sevelamer Carbonate Tablet 800 MG TABLET PO ×3 (10:21→17:02)
[2023-02-24] MEDS: hydrALAZINE HCl 50 MG TABLET PO ×2 (10:21→15:30)
[2023-02-24] MEDS: Metoprolol Tartrate 12.5 MG HALFTAB PO (10:21)
[2023-02-24 14:00] VITALS: BP 102/52; PULSE 82; RESP 16; TEMP 37.1; O2SAT 98
[2023-02-24 15:45] VITALS: BP 125/56; PULSE 80; RESP 18; TEMP 36.5; O2SAT 99
[2023-02-24 16:07] LABS: Glucose, Whole Blood 129 mg/dL (60-115)
--- NOTE | 2023-02-24 18:24 | PC.NURSE ---
Pt A/Ox3. Return from dialysis at ~1100. Plesant and cooperative. Able to ambulate with walker. BM this evening. Awaiting placement
--- NOTE | 2023-02-24 19:30 | PC.NURSE ---
patient received in bed with eyes open patient showing no signs of distress at this time patient encouraged to open up to staff if any issues should occur patient vitals are stable at this time safety will continue to be maintained
--- NOTE | 2023-02-24 19:33 | PC.NURSE ---
patient received up in the chair with eyes open patient have no distress at this time patient will continue to be monitored for safety
[2023-02-24 19:42] VITALS: BP 105/54; PULSE 85; RESP 18; TEMP 37; O2SAT 98
--- NOTE | 2023-02-24 19:49 | MHC.EDTECH ---
This tech assumed care at 1900 vitals taken pt sitting in recliner pt is comfortable at this time and call peraza within reach.
[2023-02-24] MEDS: Insulin Glargine,Hum.rec.anlog 100 UNIT/ML 10 ML VIAL 20 UNIT SUBCUT (20:10)
[2023-02-24 21:07] LABS: Glucose, Whole Blood 186 mg/dL (60-115)
[2023-02-24] MEDS: Insulin Lispro 100 UNIT/ML 3 ML VIAL SUBCUT (21:09)
--- NOTE | 2023-02-24 21:09 | MHC.EDTECH ---
POC. taken it was 186 RN was made aware, pt was given a snack chicken salad sandwich per request of pt and a can of diet britni kaitlynn.
--- NOTE | 2023-02-24 22:57 | MHC.EDTECH ---
pt assisted back to bed from recliner pt is resting comfortably call peraza within reach.
--- NOTE | 2023-02-25 00:46 | PC.NURSE ---
patient in bed with eyes closed patient showing no distress at this time patient will continue to be monitored for safety
--- NOTE | 2023-02-25 02:12 | MHC.EDTECH ---
Completed hourly rounds,pt sleeping,resp rate within normal limits.
[2023-02-25 06:03] VITALS: BP 148/67; PULSE 80; RESP 18; TEMP 36.5; O2SAT 99
--- NOTE | 2023-02-25 07:07 | PC.NURSE ---
Resumed care of patient, she is currently awake watching TV, patient denies pain at this time, she is a/ox4. All personal items within reach, call peraza in place.
[2023-02-25 07:30] LABS: Glucose, Whole Blood 95 mg/dL (60-115)
[2023-02-25] MEDS: Metoprolol Tartrate 12.5 MG HALFTAB PO ×2 (07:39→20:08)
[2023-02-25] MEDS: Sevelamer Carbonate Tablet 800 MG TABLET PO ×3 (07:39→17:14)
[2023-02-25] MEDS: hydrALAZINE HCl 50 MG TABLET PO ×3 (07:40→20:08)
--- NOTE | 2023-02-25 09:37 | PC.NURSE ---
Pt able to ambulate with staff member using walker, pt utilized shower for hygiene care this AM, pt was indendent in shower, only needed some assistance with getting dressed again post shower
[2023-02-25 12:14] LABS: Glucose, Whole Blood 135 mg/dL (60-115)
[2023-02-25 14:00] VITALS: BP 123/58; PULSE 78; RESP 18; TEMP 36.6; O2SAT 100
[2023-02-25 16:48] LABS: Glucose, Whole Blood 144 mg/dL (60-115)
[2023-02-25 19:56] VITALS: BP 141/58; PULSE 80; RESP 16; TEMP 36.1; O2SAT 98
--- NOTE | 2023-02-25 19:56 | MHC.EDTECH ---
PATIENT WAS ASSISTED TO WALK TO BATHROOM WITH WALKER ,PT HAD MEDIUM FIRM BOWEL MOVEMENT ,BACK TO RECLINER ,BLOOD SUGAR CHECK ,RN SNEHAL AWARE OF RESULT OF 197 ,VITALS SIGN TAKEN ,PT IN GREAT SPRITS WATCHING TELEVISION .
[2023-02-25] MEDS: Insulin Lispro 100 UNIT/ML 3 ML VIAL SUBCUT (20:08)
[2023-02-25] MEDS: Insulin Glargine,Hum.rec.anlog 100 UNIT/ML 10 ML VIAL 20 UNIT SUBCUT (20:09)
[2023-02-25 20:39] LABS: Glucose, Whole Blood 197 mg/dL (60-115)
[2023-02-26 06:00] VITALS: BP 146/68; PULSE 74; RESP 16; TEMP 36.7; O2SAT 97
--- NOTE | 2023-02-26 06:27 | MHC.EDTECH ---
0600 ROUNDING DONE ,VITALS SIGN TAKEN ,PT SLEPT MOST OF THE NIGHT ,FRESH ICE WATER GIVEN.
[2023-02-26 07:30] VITALS: BP 146/61; PULSE 77; RESP 20; TEMP 36.7; O2SAT 98
[2023-02-26 07:30] LABS: Glucose, Whole Blood 96 mg/dL (60-115)
--- NOTE | 2023-02-26 07:55 | PC.NURSE ---
PT IS A/O X 4 NO SOB/VICKIE NOTED SPEAKS IN FULL SENTENCES. LUNGS - CTA. HEART SOUND REGULAR. ABD SOFT AND TENDER, PT C/O 7/10 LOWER ABD. BS+ = X 4 QUADS. 1+ EDEMA NOTED TO L ANKLE. PT IS SITTING UP IN RECLINER. PT AWARE OF PLAN OF CARE.
--- NOTE | 2023-02-26 08:00 | PC.NURSE ---
PT DENIES ANY SI/HI.
[2023-02-26] MEDS: Sevelamer Carbonate Tablet 800 MG TABLET PO ×3 (08:05→16:34)
[2023-02-26] MEDS: Metoprolol Tartrate 12.5 MG HALFTAB PO ×2 (08:06→20:23)
[2023-02-26] MEDS: hydrALAZINE HCl 50 MG TABLET PO ×3 (08:06→20:23)
[2023-02-26 11:18] LABS: Glucose, Whole Blood 137 mg/dL (60-115)
--- NOTE | 2023-02-26 12:28 | MHC.CM.ED ---
Patient remains in Er overflow. T/W attempted to reach Christelle at [facility] via telephone at [phone]. Left voicemail requesting return telephone call. Spoke with patient's sister, Sita, via telephone at [phone]. [employer] application was completed with Kane Rolle of [facility] in [place]. T/W attempted to contact this person from the [facility] Main Headquarters on [facility] in [place] via telephone at [phone]. Left message requesting return telephone call. Continue to monitor for d/c needs.
[2023-02-26 14:00] VITALS: BP 137/59; PULSE 71; RESP 20; TEMP 36.5; O2SAT 99
--- NOTE | 2023-02-26 15:09 | PC.NURSE ---
PT HAD SOME CONCERNS ABOUT HER PLAN OF CARE/TX AND WISHED TO SPEAK WITH THE MLP (LANI). MLP AT BEDSIDE AT LENGTH AND SHE ALSO SPOKE TO PT'S SISTER ON PT'S PHONE.
[2023-02-26 16:20] LABS: Glucose, Whole Blood 129 mg/dL (60-115)
[2023-02-26 17:45] VITALS: BP 122/54; PULSE 84; RESP 16; TEMP 36.2; O2SAT 98
--- NOTE | 2023-02-26 19:06 | PC.NURSE ---
REPORT GIVEN TO RN
[2023-02-26 20:19] LABS: Glucose, Whole Blood 174 mg/dL (60-115)
[2023-02-26] MEDS: Insulin Lispro 100 UNIT/ML 3 ML VIAL SUBCUT (20:23)
[2023-02-26] MEDS: Insulin Glargine,Hum.rec.anlog 100 UNIT/ML 10 ML VIAL 20 UNIT SUBCUT (20:24)
--- NOTE | 2023-02-26 21:10 | MHC.EDTECH ---
patient rang call karmen asked for HS snack. [place] sandwich and diet gingerale given at this time VSS
[2023-02-26 21:14] VITALS: BP 128/56; PULSE 88; RESP 16; TEMP 36.6; O2SAT 98
[2023-02-27 06:22] VITALS: BP 120/62; PULSE 66; RESP 16; TEMP 36.7; O2SAT 94
[2023-02-27 07:52] VITALS: BP 117/42; PULSE 74; RESP 15; TEMP 36.6; O2SAT 100
[2023-02-27] MEDS: hydrALAZINE HCl 50 MG TABLET PO ×3 (08:14→21:38)
[2023-02-27] MEDS: Sevelamer Carbonate Tablet 800 MG TABLET PO ×3 (08:14→18:04)
[2023-02-27] MEDS: Metoprolol Tartrate 12.5 MG HALFTAB PO ×2 (08:14→21:38)
[2023-02-27 08:21] LABS: Glucose, Whole Blood 69 mg/dL (60-115)
--- NOTE | 2023-02-27 09:17 | PC.NURSE ---
pt reported that they slept well, ate all of breakfast. No Lispro coverage needed this morning. Pt has no complaints. Transport took pt to Dialysis
--- NOTE | 2023-02-27 13:35 | MHC.CM.ED ---
Addendum entered by Kellie Morris 02/27/23 13:51: Received return telephone call from Kane Rolle. He can be reached via telephone at [phone]. He will drop off a copy of patient's MH claudia. Original Note: Patient remains in ER overflow. T/W is still trying to contact Kane Rolle of [facility] to obtain a copy of patient's [employer] application. Another message left with [facility]. Continue to monitor for d/c needs.
[2023-02-27 15:37] LABS: Glucose, Whole Blood 80 mg/dL (60-115)
[2023-02-27 16:32] VITALS: BP 139/58; PULSE 72; RESP 13; TEMP 36.6; O2SAT 99
[2023-02-27 17:29] LABS: Glucose, Whole Blood 118 mg/dL (60-115)
[2023-02-27 21:28] LABS: Glucose, Whole Blood 139 mg/dL (60-115)
[2023-02-27] MEDS: Insulin Glargine,Hum.rec.anlog 100 UNIT/ML 10 ML VIAL 20 UNIT SUBCUT (21:37)
[2023-02-27 22:04] VITALS: BP 144/63; PULSE 83; RESP 16; TEMP 36.4; O2SAT 98
--- NOTE | 2023-02-27 23:59 | PC.NURSE ---
patient received on bed with eyes closed patient have no distress at this time patient will continue to be monitored for safety
[2023-02-28] VITALS (7 sets, daily range): BP systolic 148–184; BP diastolic 57–84; PULSE 74–80; RESP 14–18; TEMP 36.1–36.6; O2SAT 97–100
--- NOTE | 2023-02-28 04:57 | PC.NURSE ---
patient in bed with eyes closed patient respirations are unlabored patient will continue to be monitored for safety
[2023-02-28 07:42] LABS: Glucose, Whole Blood 58 mg/dL (60-115)
[2023-02-28 08:20] LABS: Glucose, Whole Blood 118 mg/dL (60-115)
[2023-02-28] MEDS: Metoprolol Tartrate 12.5 MG HALFTAB PO ×2 (08:35→21:06)
[2023-02-28] MEDS: Sevelamer Carbonate Tablet 800 MG TABLET PO ×3 (08:35→17:20)
[2023-02-28] MEDS: hydrALAZINE HCl 50 MG TABLET PO ×3 (08:36→21:06)
[2023-02-28 11:54] LABS: Glucose, Whole Blood 122 mg/dL (60-115)
--- NOTE | 2023-02-28 12:37 | MHC.CM.ED ---
Patient remains in ER overflow. Copy of [employer] application obtained from Kane Rolle on 02/27. Sent to [facility]. [facility] doesn't have a bed at this time but is checking with their [place] facility. Patient aware and would be agreeable as long as patient could transfer to [facility] when a bed is available. Continue to monitor for d/c needs.
[2023-02-28 16:28] LABS: Glucose, Whole Blood 131 mg/dL (60-115)
[2023-02-28] MEDS: Ondansetron ODT 4 MG TAB.RAPDIS TRANSLINGU (19:19)
[2023-02-28 19:36] LABS: MANUAL DIFF FLAG NO
[2023-02-28 19:39] LABS: Basophils Percent Auto 0.8 % (0-2); Eosinophils Absolute Auto 0.1 X10*3/uL (0.0-0.4); Eosinophils Percent Auto 2.8 % (0-4); Hematocrit 30.1 % (37.0-47.0); Hemoglobin 9.7 g/dl (12.0-16.0); Imm Gran Abs Auto 0.02 X10*3/uL (0.00-0.03); Imm Gran Pct Auto 0.4 % (0.0-0.4); Lymphocytes Absolute Auto 0.9 X10*3/uL (1.2-4.9); Lymphocytes Percent Auto 17.4 % (20-40); Mean Corpuscular HGB Conc 32.2 g/dl (31.0-35.0); Mean Corpuscular Hemoglobin 27.1 pg (27.0-33.0); Mean Corpuscular Volume 84.1 fL (80.0-98.0); Mean Platelet Volume 11.1 fL (9.4-12.3); Monocytes Absolute Auto 0.4 X10*3/uL (0.1-1.2); Monocytes Percent Auto 8.1 % (2-11); Neutrophils Absolute Auto 3.5 x10*3/uL (2.0-8.3); Neutrophils Percent Auto 70.5 % (45-73); Platelet Count 171 X10*3/uL (160-400); Red Blood Count 3.58 X10*6/uL (4.20-5.50); Red Cell Distribution Width 17.2 % (11.0-16.0); White Blood Count 4.9 X10*3/uL (4.8-10.8)
--- NOTE | 2023-02-28 20:31 | PC.NURSE ---
Assumed care at 07:00. Patient alert, oriented x4, compliant. Patient had POC of 58 this morning, improved to WNL with 1 cup of orange juice, and BURNISHER notified and aware. Patient ate well until dinner, which she only ate 50%, then reported some abdominal pain, distal abdomen 8/10 something between sharp and dull about her bladder location; is anuric, bladderscanned for 0 ccs also, reports last BM was today and regular formed stool--discussed with PA, and new order for sucralfate once, SL zofran once, administered with pending effect, as well as labs. Patient reported this pain started around when we were talking about her stomach problems, by which she may be referring to her discussion of recent liver cysts versus lesions from abdominal CT on previous admission and a discussion with the BURNISHER today. Patient also had been screened for HBV today. She has a graft for HD on her left arm with + thrill, + bruit. Right arm only BP and venipunture, phlebotomy had to be contacted to draw labs. Showered today, ambulates with walker and 1 assist.
[2023-02-28 20:37] LABS: Glucose, Whole Blood 145 mg/dL (60-115)
[2023-02-28] MEDS: Sucralfate Oral Suspension 1 GM/10 ML ORAL.SUSP PO (21:10)
[2023-02-28] MEDS: Insulin Glargine,Hum.rec.anlog 100 UNIT/ML 10 ML VIAL 20 UNIT SUBCUT (21:11)
--- NOTE | 2023-02-28 22:37 | PC.NURSE ---
patient received in bed with no distress patient received al medications with no issues patient have no complaints of pain at this time patient will continue be monitored for safety
[2023-02-28 23:06] LABS: Alanine Aminotransferase 6 U/L (0-31); Albumin Level 3.5 g/dL (3.5-5.0); Alkaline Phosphatase 87 U/L (39-117); Anion Gap 20 (12-20); Aspartate Amino Transferase 10 U/L (5-31); Bilirubin Total 0.5 mg/dL (0.0-1.0); Blood Urea Nitrogen 65 mg/dL (9-16); Calcium 9.4 mg/dL (8.4-10.2); Carbon Dioxide 19 mmol/L (22-29); Chloride 93 mmol/L (96-108); Creatinine Clr Calc Pharmacy 7.1; Estimated Glomerular Filt Rate 5; Glucose Random 143 mg/dL (60-115); Lipase 49 U/L (8-78); Potassium 6.1 mmol/L (3.3-5.1); Sodium 126 mmol/L (135-145); Total Protein 6.7 g/dL (6.5-8.0)
--- NOTE | 2023-02-28 23:30 | PC.NURSE ---
Assumed care at 2300. Pt sleeping in her room. Received a critical labs of Creatinine 7.31 and Potassium 6.1 Results relayed to the ED Charge nurse as not sure who is the provider this time. Charge nurse will call back.
[2023-03-01 02:35] LABS: Anion Gap 17 (12-20); Blood Urea Nitrogen 70 mg/dL (9-16); Carbon Dioxide 21 mmol/L (22-29); Chloride 94 mmol/L (96-108); Creatinine Clr Calc Pharmacy 6.7; Estimated Glomerular Filt Rate 5; Glucose Random 92 mg/dL (60-115); Potassium 5.5 mmol/L (3.3-5.1); Sodium 126 mmol/L (135-145)
[2023-03-01 05:07] LABS: HBc Num1 0.16 S/CO (0.00-0.79); HBsAGNum1 0.27 S/CO (0.00-0.99); Hepatitis B Core Antibody Nonreactive (Nonreactive); Hepatitis B Surface Antigen Negative (Negative); ~Hepatitis B Surface Antibody REACTIVE (Nonreactive)
[2023-03-01 05:19] LABS: HBS Num1 241.92 mIU/mL (0-7.99); HBc Num1 0.13 S/CO (0.00-0.79); HBsAGNum1 0.22 S/CO (0.00-0.99); Hepatitis B Core Antibody Nonreactive (Nonreactive); Hepatitis B Surface Antigen Negative (Negative); ~Hepatitis B Surface Antibody REACTIVE (Nonreactive)
[2023-03-01 05:48] VITALS: BP 185/80; PULSE 68; RESP 18; TEMP 36; O2SAT 99
[2023-03-01] MEDS: Albuterol Sulfate (0.083%) 2.5 MG/3 ML VIAL.NEB 10 MG INHALE (06:16)
[2023-03-01 06:19] VITALS: PULSE 73; RESP 16; O2SAT 99
[2023-03-01 07:26] LABS: Glucose, Whole Blood 117 mg/dL (60-115)
--- NOTE | 2023-03-01 08:00 | PC.NURSE ---
Pt. with no IV access, unable to administer Calcium Gluconate. Called over to main ED for assistance from second RN.
--- NOTE | 2023-03-01 08:11 | PC.NURSE ---
Per LUCIEN Seymour, do not administer Calcium Gluconate. Pt. will be dialyzed today, unable to obtain IV access.
--- NOTE | 2023-03-01 12:33 | PC.NURSE ---
Received call from Anny in Dialysis. Pt. has completed Dialysis treatment and is returning to Overflow bed 6. Removed 1.1L fluids during her treatment today. Otherwise uneventful per Anny.
--- NOTE | 2023-03-01 13:20 | PC.NURSE ---
Pt. returned from dialysis
[2023-03-01 13:23] VITALS: BP 153/85; PULSE 98; RESP 18; TEMP 36.2; O2SAT 100
[2023-03-01 13:30] LABS: Glucose, Whole Blood 141 mg/dL (60-115)
[2023-03-01] MEDS: Sevelamer Carbonate Tablet 800 MG TABLET PO ×2 (13:34→17:07)
[2023-03-01 14:12] VITALS: BP 103/45; PULSE 96; RESP 16; O2SAT 99
[2023-03-01 16:06] LABS: Glucose, Whole Blood 227 mg/dL (60-115)
[2023-03-01] MEDS: Insulin Lispro 100 UNIT/ML 3 ML VIAL SUBCUT ×2 (16:11→22:20)
[2023-03-01] MEDS: hydrALAZINE HCl 50 MG TABLET PO ×2 (16:12→22:20)
[2023-03-01 20:08] LABS: Glucose, Whole Blood 207 mg/dL (60-115)
[2023-03-01 20:44] VITALS: BP 124/65; PULSE 91; RESP 17; TEMP 36.8; O2SAT 97
[2023-03-01] MEDS: Metoprolol Tartrate 12.5 MG HALFTAB PO (22:20)
[2023-03-01] MEDS: Insulin Glargine,Hum.rec.anlog 100 UNIT/ML 10 ML VIAL 20 UNIT SUBCUT (22:21)
[2023-03-02 04:39] VITALS: BP 146/37; PULSE 87; RESP 15; TEMP 36.8; O2SAT 98
[2023-03-02 07:24] LABS: Glucose, Whole Blood 50 mg/dL (60-115)
[2023-03-02] MEDS: hydrALAZINE HCl 50 MG TABLET PO ×3 (07:35→20:22)
[2023-03-02] MEDS: Metoprolol Tartrate 12.5 MG HALFTAB PO ×2 (07:35→20:22)
[2023-03-02] MEDS: Sevelamer Carbonate Tablet 800 MG TABLET PO ×3 (07:36→16:43)
[2023-03-02] MEDS: Glucose Gel 15 GM GEL..GRAM. PO (07:36)
[2023-03-02 07:40] VITALS: BP 146/37; PULSE 87; O2SAT 98
[2023-03-02 08:56] VITALS: BP 128/58; PULSE 88; RESP 20; TEMP 36.9; O2SAT 100
[2023-03-02 09:13] LABS: Glucose, Whole Blood 163 mg/dL (60-115)
--- NOTE | 2023-03-02 09:19 | MHC.EDTECH ---
Assisted patient to bathroom. Pt back in chair.
[2023-03-02 11:41] LABS: Glucose, Whole Blood 126 mg/dL (60-115)
[2023-03-02 13:50] VITALS: BP 152/70; PULSE 76; RESP 18; TEMP 36.6; O2SAT 100
--- NOTE | 2023-03-02 13:51 | MHC.EDTECH ---
Assisted pt to bathroom and then back into chair. Both feet elevated.
[2023-03-02 15:16] VITALS: BP 130/50; PULSE 76
--- NOTE | 2023-03-02 15:37 | PC.NURSE ---
Patient resting on recliner calm and cooperative. No s/s of distress noted at this time.
[2023-03-02 16:33] LABS: Glucose, Whole Blood 161 mg/dL (60-115)
[2023-03-02] MEDS: Insulin Lispro 100 UNIT/ML 3 ML VIAL SUBCUT (16:43)
--- NOTE | 2023-03-02 18:12 | MHC.EDTECH ---
Changed pads and purewick. Bed bath. Power applied. Purewick emptied.
[2023-03-02 20:00] VITALS: BP 159/59; PULSE 73; RESP 18; TEMP 36.6; O2SAT 100
[2023-03-02 20:18] LABS: Glucose, Whole Blood 103 mg/dL (60-115)
--- NOTE | 2023-03-02 21:43 | PC.NURSE ---
Pt sitting up in recliner, calm and cooperative. Blood glucose was 103, insulin held and Pt had a sandwich. BP was a little elevated, Pt received her scheduled BP meds. Call light within reach, Safety measures maintained.
[2023-03-03 06:00] LABS: Glucose, Whole Blood 93 mg/dL (60-115)
[2023-03-03 06:17] VITALS: BP 125/52; PULSE 78; RESP 16; TEMP 36.6; O2SAT 100
--- NOTE | 2023-03-03 07:15 | PC.NURSE ---
Assumed care of patient at this time.
[2023-03-03] MEDS: Sevelamer Carbonate Tablet 800 MG TABLET PO ×2 (07:57→15:43)
[2023-03-03] MEDS: hydrALAZINE HCl 50 MG TABLET PO ×3 (07:57→21:09)
[2023-03-03] MEDS: Metoprolol Tartrate 12.5 MG HALFTAB PO ×2 (07:57→21:09)
--- NOTE | 2023-03-03 08:11 | PC.NURSE ---
Patient to dialysis at this time.
[2023-03-03 12:23] LABS: Glucose, Whole Blood 90 mg/dL (60-115)
--- NOTE | 2023-03-03 12:28 | PC.NURSE ---
patient back to floor at this time
[2023-03-03 14:00] VITALS: BP 151/60; PULSE 80; RESP 18; TEMP 35.9; O2SAT 99
[2023-03-03 16:50] LABS: Glucose, Whole Blood 121 mg/dL (60-115)
[2023-03-03 20:21] LABS: Glucose, Whole Blood 135 mg/dL (60-115)
[2023-03-03 21:06] VITALS: BP 144/60; PULSE 85; RESP 20; TEMP 36.9; O2SAT 100
--- NOTE | 2023-03-03 22:00 | PC.NURSE ---
Pt sitting up in recliner, calm and cooperative.received her scheduled BP meds. Call light within reach, Safety measures maintained.
[2023-03-04 05:22] VITALS: BP 136/74; PULSE 66; RESP 14; TEMP 36.8; O2SAT 95
[2023-03-04 08:02] LABS: Glucose, Whole Blood 89 mg/dL (60-115)
[2023-03-04] MEDS: Sevelamer Carbonate Tablet 800 MG TABLET PO ×3 (08:41→17:28)
[2023-03-04] MEDS: Metoprolol Tartrate 12.5 MG HALFTAB PO ×2 (08:41→21:55)
[2023-03-04] MEDS: hydrALAZINE HCl 50 MG TABLET PO ×3 (08:41→21:55)
[2023-03-04 11:48] LABS: Glucose, Whole Blood 117 mg/dL (60-115)
[2023-03-04 14:00] VITALS: BP 118/58; PULSE 68; RESP 20; TEMP 36.5; O2SAT 100
[2023-03-04 16:48] LABS: Glucose, Whole Blood 114 mg/dL (60-115)
[2023-03-04 21:22] LABS: Glucose, Whole Blood 151 mg/dL (60-115)
[2023-03-04] MEDS: Insulin Glargine,Hum.rec.anlog 100 UNIT/ML 10 ML VIAL 20 UNIT SUBCUT (21:55)
[2023-03-04 21:58] VITALS: BP 112/56; PULSE 77; RESP 14; TEMP 36.4; O2SAT 99
--- NOTE | 2023-03-05 00:29 | PC.NURSE ---
Assumed care at 20:00. A&O x4, pleasant, compliant, cooperative. OOB to chair. Denies pain. hypertensive 197/95, administered scheduled hydralazine and metoprolol, recheck 112/51, manual BPs, asymptomatic. Refused 2 U lispro for POC of 151 out of abundance of caution related to history of morning hypoglycemia. Otherwise med compliant.
--- NOTE | 2023-03-05 04:57 | PC.NURSE ---
Assumed care for patient at 2330. A&O x4. Patient cooperative and compliant with care. VSS, Will continue to monitor.
[2023-03-05 06:00] VITALS: BP 157/67; PULSE 74; RESP 16; O2SAT 98
[2023-03-05 07:18] LABS: Glucose, Whole Blood 96 mg/dL (60-115)
[2023-03-05] MEDS: Metoprolol Tartrate 12.5 MG HALFTAB PO (08:01)
[2023-03-05] MEDS: hydrALAZINE HCl 50 MG TABLET PO ×2 (08:01→17:37)
[2023-03-05] MEDS: Sevelamer Carbonate Tablet 800 MG TABLET PO ×3 (08:01→17:37)
[2023-03-05 11:11] LABS: Glucose, Whole Blood 136 mg/dL (60-115)
--- NOTE | 2023-03-05 11:59 | PC.NURSE ---
eating lunch and watching tv in chair. visitor with pt talking. no respiratory distress. LIMON equally. +CSM. no pain. answers orientation questions appropriately; alert, conversing well. steady gait. LIMON equally. fistula c/d/i. no bp etc on left arm. poc taken no coverage needed
[2023-03-05 14:00] VITALS: BP 149/65; PULSE 77; RESP 20; TEMP 36.1; O2SAT 100
--- NOTE | 2023-03-05 15:39 | PC.NURSE ---
denies pain. declined po fluids/food. resting in chair watching tv. no distress. talks well
[2023-03-05 15:48] VITALS: BP 137/48; PULSE 78; RESP 18; TEMP 36.4; O2SAT 99
[2023-03-05 16:38] LABS: Glucose, Whole Blood 122 mg/dL (60-115)
[2023-03-05 17:36] VITALS: BP 150/63; PULSE 72; RESP 16; TEMP 36.1; O2SAT 100
--- NOTE | 2023-03-05 18:26 | PC.NURSE ---
ate dinner. meds given. reading. no distress. sitting in chair.
[2023-03-05 20:03] LABS: Glucose, Whole Blood 133 mg/dL (60-115)
[2023-03-05] MEDS: Insulin Glargine,Hum.rec.anlog 100 UNIT/ML 10 ML VIAL 20 UNIT SUBCUT (20:05)
[2023-03-05 20:08] VITALS: BP 171/70; PULSE 79; RESP 16; TEMP 36.5; O2SAT 99
--- NOTE | 2023-03-05 21:03 | PC.NURSE ---
patient received up in the chair eyes open patient have no distress at this time patient received all medications with no issues patient will continue to be monitored for safety
[2023-03-05 23:51] VITALS: BP 150/66; PULSE 80; RESP 16; TEMP 36.4; O2SAT 99
[2023-03-06 07:34] LABS: Glucose, Whole Blood 74 mg/dL (60-115)
[2023-03-06] MEDS: Sevelamer Carbonate Tablet 800 MG TABLET PO ×3 (08:05→16:52)
--- NOTE | 2023-03-06 08:52 | PC.NURSE ---
BP meds held for dialysis pt just left floor to dialysis
[2023-03-06 08:55] VITALS: BP 166/74; PULSE 80; RESP 18; TEMP 37.4; O2SAT 98
--- NOTE | 2023-03-06 09:47 | PC.NURSE ---
assumed care of pt at 0700. pt a&o x4, pleasant, calm, and cooperative. poc taken, no insulin coverage needed. pt ate breakfast and medicated per oct. currently on dialysis
--- NOTE | 2023-03-06 12:40 | PC.NURSE ---
pt back from dialysis
--- NOTE | 2023-03-06 12:44 | PC.NURSE ---
pt poc 99, no insulin coverage needed
[2023-03-06 12:45] VITALS: BP 166/68; PULSE 74; RESP 16; TEMP 37; O2SAT 97
[2023-03-06 12:46] LABS: Glucose, Whole Blood 99 mg/dL (60-115)
[2023-03-06] MEDS: hydrALAZINE HCl 50 MG TABLET PO ×2 (13:19→20:38)
--- NOTE | 2023-03-06 15:42 | PC.NURSE ---
pt sleeping in recliner. rr even/unlabored. wctm
[2023-03-06 16:17] VITALS: BP 167/68; PULSE 101; RESP 16; TEMP 36.9; O2SAT 98
--- NOTE | 2023-03-06 16:19 | MHC.EDTECH ---
THIS PCT ASSUMED CARE OF PT AT 1515 ,PATIENT IN GOOD SPRITS ,WATCHING TELEVISION ,SITTING IN RECLINER ,VITALS SIGN TAKEN .
[2023-03-06] MEDS: Insulin Lispro 100 UNIT/ML 3 ML VIAL SUBCUT (16:48)
--- NOTE | 2023-03-06 18:07 | MHC.EDTECH ---
PATIENT ATE 100 % SUPPER ,DRANK 240 ML RADHA JENY .
[2023-03-06 18:45] LABS: Glucose, Whole Blood 197 mg/dL (60-115)
--- NOTE | 2023-03-06 18:59 | MHC.CM.ED ---
CM met with patient with regards to updates. Pt aware that CM is continuing to look for STR with [facility] and their sister facility in [place]. No available beds yet. MH is still pending. Pt tells CM she is doing well here and feels safe at [facility]. States that her sister and her son have visited. CM continues to follow for discharge planning.
[2023-03-06] MEDS: Insulin Glargine,Hum.rec.anlog 100 UNIT/ML 10 ML VIAL 20 UNIT SUBCUT (20:37)
[2023-03-06 20:38] LABS: Glucose, Whole Blood 136 mg/dL (60-115)
[2023-03-06] MEDS: Metoprolol Tartrate 12.5 MG HALFTAB PO (20:38)
[2023-03-06 22:47] VITALS: BP 156/70; PULSE 81; RESP 19; TEMP 37.1; O2SAT 98
--- NOTE | 2023-03-07 06:30 | PC.NURSE ---
pt slept during the shift
[2023-03-07 06:39] VITALS: BP 150/76; PULSE 79; TEMP 35.9; O2SAT 99
[2023-03-07 07:23] LABS: Glucose, Whole Blood 49 mg/dL (60-115)
--- NOTE | 2023-03-07 07:23 | PC.NURSE ---
Resumed care of patient this morning, she is a/ox4, denies any complaints of pain at this time. POC checked for breakfast and was 49, OJ given, pt asymptomatic. Will reassess POC. All needs met at this time, call peraza within reach
[2023-03-07 07:52] LABS: Glucose, Whole Blood 68 mg/dL (60-115)
[2023-03-07] MEDS: Sevelamer Carbonate Tablet 800 MG TABLET PO ×3 (08:10→17:32)
[2023-03-07] MEDS: hydrALAZINE HCl 50 MG TABLET PO ×3 (08:10→21:08)
[2023-03-07] MEDS: Metoprolol Tartrate 12.5 MG HALFTAB PO ×2 (08:11→21:08)
[2023-03-07 10:35] VITALS: BP 150/76; PULSE 79; O2SAT 99
[2023-03-07 11:22] LABS: Glucose, Whole Blood 101 mg/dL (60-115)
[2023-03-07 14:00] VITALS: BP 140/55; PULSE 79; RESP 20; TEMP 36; O2SAT 100
--- NOTE | 2023-03-07 16:27 | MHC.EDTECH ---
Groomed patients hair.
[2023-03-07 16:35] LABS: Glucose, Whole Blood 94 mg/dL (60-115)
[2023-03-07 20:57] LABS: Glucose, Whole Blood 141 mg/dL (60-115)
[2023-03-07] MEDS: Insulin Glargine,Hum.rec.anlog 100 UNIT/ML 10 ML VIAL 20 UNIT SUBCUT (21:08)
[2023-03-07 21:12] VITALS: BP 183/72; PULSE 82; RESP 18; TEMP 36.7; O2SAT 100
--- NOTE | 2023-03-07 21:17 | PC.NURSE ---
assumed care of pt at 1900 - pt sitting up in recliner watching tv. medicated per mar with bedtime medications. vital signs updated, needs met. pt offers no current complaints,. A&Ox4, speaking clear full sentences. call peraza within reach. will ctm.
[2023-03-08 06:00] VITALS: BP 144/64; PULSE 73; RESP 20; TEMP 36.8
[2023-03-08 09:40] LABS: Glucose, Whole Blood 47 mg/dL (60-115)
[2023-03-08] MEDS: Glucose Gel 15 GM GEL..GRAM. PO (09:44)
[2023-03-08] MEDS: Sevelamer Carbonate Tablet 800 MG TABLET PO ×3 (09:45→18:15)
[2023-03-08] MEDS: hydrALAZINE HCl 50 MG TABLET PO ×3 (09:45→21:35)
[2023-03-08] MEDS: Metoprolol Tartrate 12.5 MG HALFTAB PO ×2 (09:45→21:35)
--- NOTE | 2023-03-08 09:49 | PC.NURSE ---
Patient arrived back from dialysis at 0930 via wheelchair. Patient A&O x3, complaining of 10/10 right shoulder pain and requesting Tylenol - provider notified. No other complaints, appears comfortable sitting up in bed in no apparent distress. Medication per EMAR. POC 47 - Glucose gel administered - POC to be rechecked at 1005.
[2023-03-08 10:08] LABS: Glucose, Whole Blood 79 mg/dL (60-115)
--- NOTE | 2023-03-08 10:11 | ECG_ITS ---
Test Reason : cp Blood Pressure : / mmHG Vent. Rate : 076 BPM Atrial Rate : 076 BPM P-R Int : 160 ms QRS Dur : 146 ms QT Int : 464 ms P-R-T Axes : 025 -69 -08 degrees QTc Int : 522 ms Sinus rhythm with occasional Premature ventricular complexes Left axis deviation Right bundle branch block Abnormal ECG When compared with ECG of 17-FEB-2023 22:25, Premature ventricular complexes are now Present T wave inversion more evident in Anterior leads Referred By: Jessica Sawant Electronically Signed By:BRETT YANCEY MD
[2023-03-08] MEDS: Acetaminophen 325 MG TABLET 650 MG PO (10:19)
[2023-03-08 11:03] LABS: MANUAL DIFF FLAG NO
[2023-03-08 11:15] LABS: Basophils Percent Auto 0.6 % (0-2); Eosinophils Absolute Auto 0.1 X10*3/uL (0.0-0.4); Eosinophils Percent Auto 2.7 % (0-4); Hematocrit 30.4 % (37.0-47.0); Imm Gran Abs Auto 0.01 X10*3/uL (0.00-0.03); Imm Gran Pct Auto 0.3 % (0.0-0.4); Lymphocytes Absolute Auto 0.4 X10*3/uL (1.2-4.9); Lymphocytes Percent Auto 12.5 % (20-40); Mean Corpuscular HGB Conc 32.9 g/dl (31.0-35.0); Mean Corpuscular Hemoglobin 27.2 pg (27.0-33.0); Mean Corpuscular Volume 82.8 fL (80.0-98.0); Mean Platelet Volume 11.7 fL (9.4-12.3); Monocytes Absolute Auto 0.2 X10*3/uL (0.1-1.2); Monocytes Percent Auto 6.5 % (2-11); Neutrophils Absolute Auto 2.6 x10*3/uL (2.0-8.3); Neutrophils Percent Auto 77.4 % (45-73); Platelet Count 132 X10*3/uL (160-400); Red Blood Count 3.67 X10*6/uL (4.20-5.50); Red Cell Distribution Width 16.8 % (11.0-16.0); White Blood Count 3.4 X10*3/uL (4.8-10.8)
[2023-03-08 11:17] LABS: Anion Gap 18 (12-20); Blood Urea Nitrogen 21 mg/dL (9-16); Calcium 9.1 mg/dL (8.4-10.2); Carbon Dioxide 19 mmol/L (22-29); Chloride 97 mmol/L (96-108); Creatinine Clr Calc Pharmacy 14.6; Estimated Glomerular Filt Rate 12; Glucose Random 113 mg/dL (60-115); Potassium 4.1 mmol/L (3.3-5.1); Sodium 130 mmol/L (135-145)
[2023-03-08 11:24] LABS: Troponin-I High Sensitivity 16.1 ng/L (<3.5-17.0)
[2023-03-08 11:39] LABS: Glucose, Whole Blood 171 mg/dL (60-115)
[2023-03-08] MEDS: Insulin Lispro 100 UNIT/ML 3 ML VIAL SUBCUT ×2 (11:40→21:32)
[2023-03-08 13:55] VITALS: BP 156/70; PULSE 71; RESP 18; TEMP 36.5; O2SAT 99
[2023-03-08 14:44] LABS: Troponin-I High Sensitivity 15.7 ng/L (<3.5-17.0)
--- NOTE | 2023-03-08 15:23 | P.HPHOSP_ITS ---
History of Present Illness Date of Service: 03/08/23 Chief Complaint: Needs dialysis, physical deconditioning A 72 years old lady with PMH of ESRD on HD, asthma, HTN, DMII among others luiz was brought to the hospital on 02/07 for confusion. She has been sitting in ED waiting placement since then. confusion improved and she has capacity per psychiatry evaluation. but could not be placed up to this point. Seen by PT who recommended STR. she is not safe to leave the hospital. She is able to describes all of her medical conditions and medications she takes for them. Denies any fever, chills, pain, nausea, vomiting, diarrhea or urinary symptoms Admitted for the need of dialysis pending safe discharge plan Review of Systems Review of Systems: No fever, chills or weakness No chest pain, palpitation No shortness of breath or coughing No abdominal pain, nausea or vomiting No urinary symptoms No any rash or wounds [facility] Medical History (Updated 03/08/23 @ 16:34 by Yousif Hood MD) Diabetes mellitus End stage renal disease Hemodialysis access site with arteriovenous graft Hypertension Social History Alcohol intake: never Smoked in Last 30 Days: No Use of substances other than those prescribed or required for medical reasons: No Any prior treatment program specific to substance use: No Advance Directives: Yes Advance Directives on File: Yes Advance Directives Date on File: 01/31/23 Meds Allergies Allergy/AdvReac Type Severity Reaction Status Date / Time IV contrast Allergy Severe Anaphylaxis Uncoded 01/30/23 18:01 Active Medications: Current Medications Acetaminophen (Acetaminophen 325 Mg Tablet) 650 mg PO QID PRN PRN Reason: Pain, Mild (Pain Scale 1-3) Last Admin: 03/08/23 10:19 Dose: 650 mg Albuterol Sulfate (Albuterol Sulfate 90 Mcg 8 Gm Inhaler) 1 puff INHALE QID PRN PRN Reason: Shortness Of Breath Dextrose (Dextrose 50 % 25 Gm/50 Ml Syringe) 25 gm IVPUSH Q15M PRN; Protocol PRN Reason: per Hypoglycemia Standing Ord. Glucose (Glucose Gel 15 Gm Gel..Gram.) 15 gm PO Q15M PRN; Protocol PRN Reason: per Hypoglycemia Standing Ord. Last Admin: 03/08/23 09:44 Dose: 15 gm Hydralazine HCl (Hydralazine Hcl 50 Mg Tablet) 50 mg PO TID [facility]; Protocol Last Admin: 03/08/23 14:05 Dose: 50 mg Insulin Glargine (Insulin Glargine,Hum.Rec.Anlog 100 Unit/Ml 10 Ml Vial) 20 unit SUBCUT BEDTIME [facility] Last Admin: 03/07/23 21:08 Dose: 20 unit Insulin Human Lispro (Insulin Lispro 100 Unit/Ml 3 Ml Vial) 0 unit SUBCUT QIDACHS [facility]; Protocol Last Admin: 03/08/23 11:40 Dose: 2 unit Metoprolol Tartrate (Metoprolol Tartrate 12.5 Mg Halftab) 12.5 mg PO BID [facility]; Protocol Last Admin: 03/08/23 09:45 Dose: 12.5 mg Sevelamer Carbonate (Sevelamer Carbonate Tablet 800 Mg Tablet) 800 mg PO TIDWM [facility] Last Admin: 03/08/23 11:40 Dose: 800 mg Home Medications Medication Instructions Recorded Confirmed Last Taken Type albuterol sulfate 2.5 mg/3 mL 2.5 mg inhalation Q4H PRN 02/09/23 02/09/23 U nknown History (0.083 %) solution for nebulization Shortness Of Breath albuterol sulfate 90 mcg/actuation 1 puff inhalation QID PRN 02/09/23 02/09/23 Unknown History aerosol inhaler (ProAir HFA) Shortness Of Breath hydralazine 50 mg tablet 50 mg PO TID 02/09/23 02/09/23 Unknown History insulin glargine 100 unit/mL (3 20 unit subcut BEDTIME 02/09/23 02/09/23 Unknown History mL) subcutaneous pen (Lantus Solostar U-100 Insulin) metoprolol tartrate 25 mg tablet 12.5 mg PO BID 02/09/23 02/09/23 Unknown History repaglinide 0.5 mg tablet 0.5 mg PO TIDWM 02/09/23 02/09/23 Unknown History sevelamer carbonate 800 mg tablet 800 mg PO TIDWM 02/09/23 02/09/23 Unknown His tory (Renvela) Physical Exam Vital Signs and Narrative: Vital Signs: Last Vital Signs Temp 97.7 F 03/08/23 13:55 Pulse 71 03/08/23 13:55 Resp 18 03/08/23 13:55 BP 156/70 H 03/08/23 13:55 Pulse Ox 99 03/08/23 13:55 O2 Del Method Room Air 03/08/23 13:55 O2 Flow Rate 97 03/08/23 06:00 BMI result Body Mass Index 35.9 Const: Other: Constitutional : Awake, interactive, not in distress Neck : Normal inspection, Supple Cardiovascular : RRR, no JVP, no lower extremity edema Respiratory : good bilateral air entry, no crackles, wheezes or rhonchi Gastrointestinal: soft, lax, Normal bowel sounds, Non tender Skin : Warm, Dry, fistula clean Neurological : Alert & oriented x3, No focal deficit Results Labs 03/08/23 10:44 03/08/23 10:44 Labs: Laboratory Results - last 24 hr 03/07/23 03/07/23 03/08/23 16:31 20:51 09:35 MCV MCH MCHC RDW Plt Count MPV Immature Gran % (Auto) Neut % (Auto) Lymph % (Auto) [facility] % (Auto) Eos % (Auto) Baso % (Auto) Lymph # (Auto) [facility] # (Auto) Eos # (Auto) Baso # (Auto) Abs Immat Gran (auto) Absolute Neuts (auto) Absolute Nucleated RBC Nucleated RBC % (auto) Anion Gap Estim Creat Clear Calc Estimated GFR POC Glucose 94 141 H 47 L* Random Glucose Calcium 03/08/23 03/08/23 03/08/23 10:04 10:44 10:44 MCV 82.8 MCH 27.2 MCHC 32.9 RDW 16.8 H Plt Count 132 L MPV 11.7 Immature Gran % (Auto) 0.3 Neut % (Auto) 77.4 H Lymph % (Auto) 12.[address] [place] % (Auto) 6.5 Eos % (Auto) 2.7 Baso % (Auto) 0.6 Lymph # (Auto) 0.[address] [place] # (Auto) 0.2 Eos # (Auto) 0.1 Baso # (Auto) 0.0 Abs Immat Gran (auto) 0.01 Absolute Neuts (auto) 2.6 Absolute Nucleated RBC 0.000 Nucleated RBC % (auto) 0.0 Anion Gap 18 Estim Creat Clear Calc 14.6 Estimated GFR 12 POC Glucose 79 Random Glucose 113 Calcium 9.1 03/08/23 11:31 MCV MCH MCHC RDW Plt Count MPV Immature Gran % (Auto) Neut % (Auto) Lymph % (Auto) [facility] [place] % (Auto) Eos % (Auto) Baso % (Auto) Lymph # (Auto) [facility] [place] [facility] # (Auto) Eos # (Auto) Baso # (Auto) Abs Immat Gran (auto) Absolute Neuts (auto) Absolute Nucleated RBC Nucleated RBC % (auto) Anion Gap Estim Creat Clear Calc Estimated GFR POC Glucose 171 H Random Glucose Calcium Imaging Radiologist's Impressions: Impressions Shoulder X-Ray 03/08/23 11:00 IMPRESSION: Mild to moderate right shoulder degenerative joint changes without overt fracture. Assessment and Plan (1) Physical deconditioning: Status: Acute (2) End stage renal disease: Status: Acute Plan A 72 years old lady with PMH of ESRD on HD, asthma, HTN, DMII among others whi w as brought to the hospital on 02/07 for confusion. ESRD on HD TTS Nephrology consult HTN continue Hydralazine, MEtoprolol DM II SSI, diabetic diet Lantus Physical deconditioning PT rec STR The patient needs inpatient stay for >2 days for the need of dialysis pending safe discharge plan Time Spent With Patient Time: Total time managing care of this patient today ____ minutes. Quality Stroke Does the patient have a stroke diagnosis?: No VTE Prior VTE?: No VTE Risk Level:: Medical - moderate - high VTE Device Contraindication: Treatment Not Indicated VTE Drug Contraindication: N/A - Med Ordered
[2023-03-08 16:37] LABS: Glucose, Whole Blood 105 mg/dL (60-115)
[2023-03-08 17:56] LABS: Glucose, Whole Blood 144 mg/dL (60-115)
[2023-03-08 18:20] VITALS: BP 170/70; PULSE 80; RESP 16; TEMP 35.8; O2SAT 99
[2023-03-08 19:56] VITALS: BP 164/68; PULSE 80; RESP 16; TEMP 35.9; O2SAT 99
[2023-03-08 20:04] LABS: Glucose, Whole Blood 180 mg/dL (60-115)
[2023-03-08] MEDS: Insulin Glargine,Hum.rec.anlog 100 UNIT/ML 10 ML VIAL 20 UNIT SUBCUT (21:31)
[2023-03-08] MEDS: Heparin Sodium,Porcine 5,000 UNIT/ML VIAL 5000 UNIT SUBCUT (21:34)
[2023-03-08] MEDS: 0.9 % Sodium Chloride Flush 3 ML SYRINGE IVFLUSH (21:36)
[2023-03-08 23:58] VITALS: BP 132/63; PULSE 89; RESP 16; TEMP 36.2; O2SAT 99
[2023-03-09 02:40] VITALS: BP 130/60; PULSE 85; RESP 16; TEMP 36.3; O2SAT 99
[2023-03-09] MEDS: Acetaminophen 325 MG TABLET 650 MG PO (03:15)
[2023-03-09] MEDS: Glucose Gel 15 GM GEL..GRAM. PO ×2 (06:28→06:52)
--- NOTE | 2023-03-09 06:37 | PM.EVENT ---
Event Note Date of Service: 03/09/23 Event Note: Patient hypoglycemic this morning with glucose in the 40s, on review have her glucose readings over the past several days she appears to have hypoglycemia every morning morning. At this time will stop Lantus Time Spent With Patient Time: Total time managing care of this patient today ____ minutes.
[2023-03-09 07:00] LABS: Glucose, Whole Blood 66 mg/dL (60-115)
[2023-03-09 07:00] LABS: Glucose, Whole Blood 42 mg/dL (60-115)
[2023-03-09 07:12] VITALS: BP 135/61; PULSE 76; RESP 20; TEMP 36.2; O2SAT 99
[2023-03-09 07:19] LABS: Glucose, Whole Blood 130 mg/dL (60-115)
--- NOTE | 2023-03-09 07:21 | PC.NURSE ---
Approximately around 06:15, pt complained about not feeling too well with dizziness, lightheadedness, and fatigue. Pt A&Ox4. Pt asked this RN to check POC. POC was 42 at 06:20. MD Chavez notified of the critical POC. 4oz of orange juice and 15 grams of glucose gel was given to pt. This RN rechecked POC and went up to 66. Another dose of 15 grams gluocse gel was given to pt at 06:52. This RN gave report of the critical POC to kye Pearson. ANTONINA GAITAN rechecked pt's POC and now is at 130. Will continue to monitor pt's POC.
[2023-03-09] MEDS: 0.9 % Sodium Chloride Flush 3 ML SYRINGE IVFLUSH ×2 (07:49→15:48)
[2023-03-09] MEDS: Sevelamer Carbonate Tablet 800 MG TABLET PO ×3 (08:42→16:51)
[2023-03-09] MEDS: Heparin Sodium,Porcine 5,000 UNIT/ML VIAL 5000 UNIT SUBCUT ×3 (08:42→21:27)
[2023-03-09] MEDS: hydrALAZINE HCl 50 MG TABLET PO ×3 (08:42→21:28)
[2023-03-09] MEDS: Metoprolol Tartrate 12.5 MG HALFTAB PO ×2 (08:43→21:28)
[2023-03-09 11:15] LABS: Glucose, Whole Blood 140 mg/dL (60-115)
--- NOTE | 2023-03-09 11:42 | MHC.CM.PN ---
IMM 03/09/23 DX Physical deconditioning. Patient moved back from [place] 1 mo ago. She is from this area. She resided in [place] for [address] Keya Loza has resumed as her PCP after all these years away. The pt states that she became lost in [place] . [employer] is involved. She is staying in a hotel on [address]. She states that she has a associate loan officer. The associate loan officer is assisting the patient with a search for permanent housing. The plan is an GROUP HOME. Area ALFs were listed for the patient. [facility] and [facility] are 1st choices r/t HD requirement. Her community HD center is [facility]. She receives assist with transport through [facility] [employer]. [facility] is assisting with [facility] application. A Financial rehabilitation specialist consult was placed. Patient is not sure were she is in the process of receiving [facility]. DP pending PT eval STR vs return to Hot. Transport via BLS vs Sister, if dc home.
--- NOTE | 2023-03-09 11:59 | HO.PM.IMPN ---
Subjective Subjective Date of Service: 03/09/23 Interval History: Seen and evaluated No complaints wants to talk to a therapist Review of Systems Review of Systems: Yes all other systems are reviewed and are negative Physical Exam Vital Signs: Vital Signs: Last Vital Signs Temp 97.2 F 03/09/23 07:12 Pulse 76 03/09/23 07:12 Resp 20 03/09/23 07:12 BP 135/61 03/09/23 07:12 Pulse Ox 99 03/09/23 07:12 O2 Del Method Room Air 03/09/23 07:12 O2 Flow Rate 97 03/08/23 06:00 BMI result Body Mass Index 35.9 Const: Other: Constitutional : Awake, interactive, not in distress Neck : Normal inspection, Supple Cardiovascular : RRR, no JVP, no lower extremity edema Respiratory : good bilateral air entry, no crackles, wheezes or rhonchi Gastrointestinal: soft, lax, Normal bowel sounds, Non tender Skin : Warm, Dry, fistula clean Neurological : Alert & oriented x3, No focal deficit Objective Data Active Medications Acetaminophen (Acetaminophen 325 Mg Tablet) 650 mg PO QID PRN PRN Reason: Pain, Mild (Pain Scale 1-3) Last Admin: 03/09/23 03:15 Dose: 650 mg Documented By: GALLO Albuterol Sulfate (Albuterol Sulfate 90 Mcg 8 Gm Inhaler) 1 puff INHALE QID PRN PRN Reason: Shortness Of Breath Dextrose (Dextrose 50 % 25 Gm/50 Ml Syringe) 25 gm IVPUSH Q15M PRN; Protocol PRN Reason: per Hypoglycemia Standing Ord. Glucose (Glucose Gel 15 Gm Gel..Gram.) 15 gm PO Q15M PRN; Protocol PRN Reason: per Hypoglycemia Standing Ord. Last Admin: 03/09/23 06:52 Dose: 15 gm Documented By: GALLO Heparin Sodium (Porcine) (Heparin Sodium,Porcine 5,000 Unit/Ml Vial) 5,000 unit SUBCUT Q12H [facility] Last Admin: 03/09/23 08:42 Dose: 5,000 unit Documented By: FALGUIN Hydralazine HCl (Hydralazine Hcl 50 Mg Tablet) 50 mg PO TID [facility]; Protocol Last Admin: 03/09/23 08:42 Dose: 50 mg Documented By: FALGUNI Insulin Human Lispro (Insulin Lispro 100 Unit/Ml 3 Ml Vial) 0 unit SUBCUT QIDACHS [facility]; Protocol Last Admin: 03/09/23 11:19 Dose: Not Given Documented By: FALGUNI Non-Admin Reason: No Insulin Coverage Metoprolol Tartrate (Metoprolol Tartrate 12.5 Mg Halftab) 12.5 mg PO BID [facility]; Protocol Last Admin: 03/09/23 08:43 Dose: 12.5 mg Documented By: FALGUNI Ondansetron HCl (Ondansetron Hcl 4 Mg/2 Ml Vial) 4 mg IVPUSH Q8H PRN PRN Reason: Nausea and Vomiting Sevelamer Carbonate (Sevelamer Carbonate Tablet 800 Mg Tablet) 800 mg PO TIDWM [facility] Last Admin: 03/09/23 11:42 Dose: 800 mg Documented By: FALGUNI Sodium Chloride (0.9 % Sodium Chloride Flush 3 Ml Syringe) 3 ml IVFLUSH QSHIFT [facility] Last Admin: 03/09/23 07:49 Dose: 3 ml Documented By: FALGUNI Labs 03/08/23 10:44 03/08/23 10:44 Labs: Laboratory Results - last 24 hr 03/08/23 03/08/23 03/08/23 16:32 17:51 19:59 POC Glucose 105 144 H 180 H 03/09/23 03/09/23 03/09/23 06:19 06:49 07:15 POC Glucose 42 L* 66 130 H 03/09/23 11:07 POC Glucose 140 H Assessment and Plan (1) Physical deconditioning: Status: Acute (2) End stage renal disease: Status: Acute (3) Hypoglycemia associated with type 2 diabetes mellitus: Status: Acute Plan A 72 years old lady with PMH of ESRD on HD, asthma, HTN, DMII among others [facility] was brought to the hospital on 02/07 for confusion. ESRD on HD TTS Nephrology consult HTN continue Hydralazine, MEtoprolol DM II w hypoglycemia event Dropped to 40s, responded to hypoglycemia protocol SSI, diabetic diet Lantus decreased to 10 units Physical deconditioning PT rec STR The patient needs inpatient stay overnight for the need of dialysis pending safe discharge plan Time Spent With Patient Time: Total time managing care of this patient today ____ minutes. Quality Stroke Does the patient have a stroke diagnosis?: No VTE Prior VTE?: No VTE Risk Level:: Medical - moderate - high VTE Device Contraindication: Treatment Not Indicated VTE Drug Contraindication: N/A - Med Ordered
[2023-03-09 15:29] VITALS: BP 136/64; PULSE 80; RESP 20; TEMP 36.2; O2SAT 99
[2023-03-09 16:28] LABS: Glucose, Whole Blood 114 mg/dL (60-115)
--- NOTE | 2023-03-09 16:57 | PM.PNNEP ---
Subjective Subjective Date of Service: 03/09/23 Interval history: Kathleen nd examied, events noted Physical Exam Vital Signs: Vital Signs: Last Vital Signs Temp 97.2 F 03/09/23 15:29 Pulse 80 03/09/23 15:29 Resp 20 03/09/23 15:29 BP 136/64 03/09/23 15:29 Pulse Ox 99 03/09/23 15:29 O2 Del Method Room Air 03/09/23 15:29 O2 Flow Rate 97 03/08/23 06:00 BMI result Body Mass Index 35.9 Const: Other: Constitutional : Awake, interactive, not in distress Neck : Normal inspection, Supple Cardiovascular : RRR, no JVP, no lower extremity edema Respiratory : good bilateral air entry, no crackles, wheezes or rhonchi Gastrointestinal: soft, lax, Normal bowel sounds, Non tender Skin : Warm, Dry, fistula clean Neurological : Alert & oriented x3, No focal deficit Objective Data Labs 03/08/23 10:44 03/08/23 10:44 Labs: Laboratory Results - last 24 hr 03/08/23 03/08/23 03/09/23 17:51 19:59 06:19 POC Glucose 144 H 180 H 42 L* 03/09/23 03/09/23 03/09/23 06:49 07:15 11:07 POC Glucose 66 130 H 140 H 03/09/23 16:10 POC Glucose 114 Procedures Date of Service Date of Service: 03/09/23 Assessment & Plan Assessment and plan (1) ESRD on dialysis: Status: Inactive Plan ESRD: TTS [facility] unit AMS:much improved Nephrogenic anemia MBD of CKD REC: cont HD TTS; meds as noted; d/c planning to Rehab/SNF--consider [facility] vs [facility] where inhouse HD is avail Time Spent With Patient Time: Total time managing care of this patient today ____ minutes. Progress Note: Quality Stroke Does the patient have a stroke diagnosis?: No
--- NOTE | 2023-03-09 19:00 | MHC.CM.PN ---
MH application submitted via [facility]. Pending.
[2023-03-09 19:37] VITALS: BP 147/70; PULSE 78; RESP 18; TEMP 36.1; O2SAT 100
[2023-03-09 20:49] LABS: Glucose, Whole Blood 147 mg/dL (60-115)
[2023-03-09] MEDS: Insulin Glargine,Hum.rec.anlog 100 UNIT/ML 10 ML VIAL 10 UNIT SUBCUT (22:15)
[2023-03-09 23:59] VITALS: BP 122/56; PULSE 76; RESP 18; TEMP 36.4; O2SAT 98
[2023-03-10 03:12] VITALS: BP 137/64; PULSE 81; RESP 18; TEMP 36.7; O2SAT 99
[2023-03-10 07:47] LABS: Glucose, Whole Blood 95 mg/dL (60-115)
[2023-03-10 10:24] LABS: Glucose, Whole Blood 112 mg/dL (60-115)
[2023-03-10] MEDS: Metoprolol Tartrate 12.5 MG HALFTAB PO ×2 (10:24→20:47)
[2023-03-10] MEDS: Acetaminophen 325 MG TABLET 650 MG PO ×2 (10:24→20:47)
[2023-03-10] MEDS: hydrALAZINE HCl 50 MG TABLET PO ×3 (10:24→20:47)
[2023-03-10 10:29] VITALS: BP 172/70; PULSE 70; RESP 16; TEMP 36; O2SAT 99
--- NOTE | 2023-03-10 11:02 | HO.PM.IMPN ---
Subjective Subjective Date of Service: 03/10/23 Interval History: Seen and evaluated having dialysis session No complaints Review of Systems No fever, chills or weakness No chest pain, palpitation No shortness of breath or coughing No abdominal pain, nausea or vomiting No urinary symptoms No any rash or wounds Physical Exam Vital Signs: Vital Signs: Last Vital Signs Temp 96.8 F 03/10/23 10:29 Pulse 70 03/10/23 10:29 Resp 16 03/10/23 10:29 BP 172/70 H 03/10/23 10:29 Pulse Ox 99 03/10/23 10:29 O2 Del Method Room Air 03/10/23 10:29 O2 Flow Rate 97 03/08/23 06:00 BMI result Body Mass Index 35.9 Const: Other: Constitutional : Awake, interactive, not in distress Neck : Normal inspection, Supple Cardiovascular : RRR, no JVP, no lower extremity edema Respiratory : good bilateral air entry, no crackles, wheezes or rhonchi Gastrointestinal: soft, lax, Normal bowel sounds, Non tender Skin : Warm, Dry, fistula clean Neurological : Alert & oriented x3, No focal deficit Objective Data Active Medications Acetaminophen (Acetaminophen 325 Mg Tablet) 650 mg PO QID PRN PRN Reason: Pain, Mild (Pain Scale 1-3) Last Admin: 03/10/23 10:24 Dose: 650 mg Documented By: TIFFANIE Albuterol Sulfate (Albuterol Sulfate 90 Mcg 8 Gm Inhaler) 1 puff INHALE QID PRN PRN Reason: Shortness Of Breath Dextrose (Dextrose 50 % 25 Gm/50 Ml Syringe) 25 gm IVPUSH Q15M PRN; Protocol PRN Reason: per Hypoglycemia Standing Ord. Glucose (Glucose Gel 15 Gm Gel..Gram.) 15 gm PO Q15M PRN; Protocol PRN Reason: per Hypoglycemia Standing Ord. Last Admin: 03/09/23 06:52 Dose: 15 gm Documented By: GALLO Heparin Sodium (Porcine) (Heparin Sodium,Porcine 5,000 Unit/Ml Vial) 5,000 unit SUBCUT Q12H [facility] Last Admin: 03/09/23 21:27 Dose: 5,000 unit Documented By: KYLAH Hydralazine HCl (Hydralazine Hcl 50 Mg Tablet) 50 mg PO TID [facility]; Protocol Last Admin: 03/10/23 10:24 Dose: 50 mg Documented By: TIFFANIE Insulin Glargine (Insulin Glargine,Hum.Rec.Anlog 100 Unit/Ml 10 Ml Vial) 10 unit SUBCUT BEDTIME [facility] Last Admin: 03/09/23 22:15 Dose: 10 unit Documented By: KYLAH Insulin Human Lispro (Insulin Lispro 100 Unit/Ml 3 Ml Vial) 0 unit SUBCUT QIDACHS [facility]; Protocol Last Admin: 03/10/23 08:03 Dose: Not Given Documented By: TIFFANIE Non-Admin Reason: No Insulin Coverage Metoprolol Tartrate (Metoprolol Tartrate 12.5 Mg Halftab) 12.5 mg PO BID [facility]; Protocol Last Admin: 03/10/23 10:24 Dose: 12.5 mg Documented By: TIFFANIE Ondansetron HCl (Ondansetron Hcl 4 Mg/2 Ml Vial) 4 mg IVPUSH Q8H PRN PRN Reason: Nausea and Vomiting Sevelamer Carbonate (Sevelamer Carbonate Tablet 800 Mg Tablet) 800 mg PO TIDWM [facility] Last Admin: 03/10/23 10:29 Dose: Not Given Documented By: TIFFANIE Non-Admin Reason: Off unit: Dialysis Sodium Chloride (0.9 % Sodium Chloride Flush 3 Ml Syringe) 3 ml IVFLUSH QSHIFT [facility] Last Admin: 03/10/23 08:03 Dose: Not Given Documented By: TIFFANIE Non-Admin Reason: Off unit: Dialysis Labs 03/08/23 10:44 03/08/23 10:44 Labs: Laboratory Results - last 24 hr 03/09/23 03/09/23 03/09/23 11:07 16:10 20:40 POC Glucose 140 H 114 147 H 03/10/23 03/10/23 07:41 10:16 POC Glucose 95 112 Assessment and Plan (1) Physical deconditioning: Status: Acute (2) End stage renal disease: Status: Acute Plan A 72 years old lady with PMH of ESRD on HD, asthma, HTN, DMII among others whi was brought to the hospital on 02/07 for confusion. ESRD on HD TTS Nephrology consult HTN continue Hydralazine, MEtoprolol DM II w hypoglycemia event resolved SSI, diabetic diet Lantus decreased to 10 units Physical deconditioning PT rec STR The patient needs inpatient stay overnight for the need of dialysis pending safe discharge plan Time Spent With Patient Time: Total time managing care of this patient today ____ minutes. Quality Stroke Does the patient have a stroke diagnosis?: No VTE Prior VTE?: No VTE Risk Level:: Medical - moderate - high VTE Device Contraindication: Treatment Not Indicated VTE Drug Contraindication: N/A - Med Ordered
[2023-03-10 11:16] LABS: Glucose, Whole Blood 145 mg/dL (60-115)
[2023-03-10] MEDS: Sevelamer Carbonate Tablet 800 MG TABLET PO ×2 (11:48→16:35)
[2023-03-10 14:34] VITALS: BP 120/59; PULSE 80
[2023-03-10] MEDS: 0.9 % Sodium Chloride Flush 3 ML SYRINGE IVFLUSH ×2 (14:37→20:55)
[2023-03-10 15:04] VITALS: BP 120/59; PULSE 80; RESP 18; TEMP 36.7; O2SAT 100
--- NOTE | 2023-03-10 15:41 | P.PNNP_ITS ---
Subjective Subjective Date of Service: 03/10/23 Interval history: Seen and examined, events noted Physical Exam Vital Signs: Vital Signs: Last Vital Signs Temp 98.1 F 03/10/23 15:04 Pulse 80 03/10/23 15:04 Resp 18 03/10/23 15:04 BP 120/59 L 03/10/23 15:04 Pulse Ox 100 03/10/23 15:04 O2 Del Method Room Air 03/10/23 10:29 O2 Flow Rate 97 03/08/23 06:00 BMI result Body Mass Index 35.9 Const: Other: Constitutional : Awake, interactive, not in distress Neck : Normal inspection, Supple Cardiovascular : RRR, no JVP, no lower extremity edema Respiratory : good bilateral air entry, no crackles, wheezes or rhonchi Gastrointestinal: soft, lax, Normal bowel sounds, Non tender Skin : Warm, Dry, fistula clean Neurological : Alert & oriented x3, No focal deficit Objective Data Labs 03/08/23 10:44 03/08/23 10:44 Labs: Laboratory Results - last 24 hr 03/09/23 03/09/23 03/10/23 16:10 20:40 07:41 POC Glucose 114 147 H 95 03/10/23 03/10/23 10:16 11:13 POC Glucose 112 145 H Procedures Date of Service Date of Service: 03/10/23 Assessment & Plan Assessment and plan (1) ESRD on dialysis: Status: Inactive Plan ESRD: TTS [facility] unit AMS:much improved Nephrogenic anemia MBD of CKD REC: cont HD TTS; meds as noted; d/c planning to Rehab/SNF--consider [facility] vs [facility] where inhouse HD is avail Time Spent With Patient Time: Total time managing care of this patient today ____ minutes. Progress Note: Quality Stroke Does the patient have a stroke diagnosis?: No
[2023-03-10 16:27] LABS: Glucose, Whole Blood 168 mg/dL (60-115)
[2023-03-10] MEDS: Insulin Lispro 100 UNIT/ML 3 ML VIAL SUBCUT (16:35)
[2023-03-10 20:44] VITALS: BP 168/69; PULSE 83; O2SAT 100
[2023-03-10] MEDS: Heparin Sodium,Porcine 5,000 UNIT/ML VIAL 5000 UNIT SUBCUT (20:45)
[2023-03-10] MEDS: Insulin Glargine,Hum.rec.anlog 100 UNIT/ML 10 ML VIAL 10 UNIT SUBCUT (20:46)
[2023-03-10 20:58] LABS: Glucose, Whole Blood 146 mg/dL (60-115)
[2023-03-10 23:23] VITALS: BP 120/58; PULSE 81; RESP 17; TEMP 36.6; O2SAT 98
[2023-03-11 03:26] VITALS: BP 125/57; PULSE 76; RESP 16; TEMP 36.7; O2SAT 99
[2023-03-11 07:34] LABS: Glucose, Whole Blood 60 mg/dL (60-115)
[2023-03-11] MEDS: Glucose Gel 15 GM GEL..GRAM. PO (07:42)
[2023-03-11] MEDS: 0.9 % Sodium Chloride Flush 3 ML SYRINGE IVFLUSH ×3 (07:44→20:37)
[2023-03-11 08:00] VITALS: BP 141/65; PULSE 79; RESP 16; TEMP 36.4; O2SAT 99
[2023-03-11 08:33] LABS: Glucose, Whole Blood 124 mg/dL (60-115)
--- NOTE | 2023-03-11 08:33 | PC.NURSE ---
POC at 0730 was 60, pt asymptomatic and given 1 tube of glocuse gel, rechecked POC is 124
[2023-03-11] MEDS: Heparin Sodium,Porcine 5,000 UNIT/ML VIAL 5000 UNIT SUBCUT ×2 (08:38→20:49)
[2023-03-11] MEDS: hydrALAZINE HCl 50 MG TABLET PO ×3 (08:38→20:49)
[2023-03-11] MEDS: Sevelamer Carbonate Tablet 800 MG TABLET PO ×3 (08:38→16:41)
[2023-03-11] MEDS: Metoprolol Tartrate 12.5 MG HALFTAB PO ×2 (08:39→20:48)
[2023-03-11 11:25] LABS: Glucose, Whole Blood 123 mg/dL (60-115)
--- NOTE | 2023-03-11 11:57 | P.PNIM_ITS ---
Subjective Subjective Date of Service: 03/11/23 Interval History: Seen and evaluated having dialysis session No complaints Review of Systems No fever, chills or weakness No chest pain, palpitation No shortness of breath or coughing No abdominal pain, nausea or vomiting No urinary symptoms No any rash or wounds Physical Exam Vital Signs: Vital Signs: Last Vital Signs Temp 97.6 F 03/11/23 08:00 Pulse 79 03/11/23 08:00 Resp 16 03/11/23 08:00 BP 141/65 H 03/11/23 08:00 Pulse Ox 99 03/11/23 08:00 O2 Del Method Room Air 03/11/23 08:00 O2 Flow Rate 97 03/08/23 06:00 BMI result Body Mass Index 35.9 Const: Other: Constitutional : Awake, interactive, not in distress Neck : Normal inspection, Supple Cardiovascular : RRR, no JVP, no lower extremity edema Respiratory : good bilateral air entry, no crackles, wheezes or rhonchi Gastrointestinal: soft, lax, Normal bowel sounds, Non tender Skin : Warm, Dry, fistula clean Neurological : Alert & oriented x3, No focal deficit Objective Data Active Medications Acetaminophen (Acetaminophen 325 Mg Tablet) 650 mg PO QID PRN PRN Reason: Pain, Mild (Pain Scale 1-3) Last Admin: 03/10/23 20:47 Dose: 650 mg Documented By: KYLAH Albuterol Sulfate (Albuterol Sulfate 90 Mcg 8 Gm Inhaler) 1 puff INHALE QID PRN PRN Reason: Shortness Of Breath Dextrose (Dextrose 50 % 25 Gm/50 Ml Syringe) 25 gm IVPUSH Q15M PRN; Protocol PRN Reason: per Hypoglycemia Standing Ord. Glucose (Glucose Gel 15 Gm Gel..Gram.) 15 gm PO Q15M PRN; Protocol PRN Reason: per Hypoglycemia Standing Ord. Last Admin: 03/11/23 07:42 Dose: 15 gm Documented By: RITA Heparin Sodium (Porcine) (Heparin Sodium,Porcine 5,000 Unit/Ml Vial) 5,000 unit SUBCUT Q12H [facility] Last Admin: 03/11/23 08:38 Dose: 5,000 unit Documented By: RITA Hydralazine HCl (Hydralazine Hcl 50 Mg Tablet) 50 mg PO TID NANCY; Protocol Last Admin: 03/11/23 08:38 Dose: 50 mg Documented By: RITA Insulin Glargine (Insulin Glargine,Hum.Rec.Anlog 100 Unit/Ml 10 Ml Vial) 8 unit SUBCUT BEDTIME [facility] Insulin Human Lispro (Insulin Lispro 100 Unit/Ml 3 Ml Vial) 0 unit SUBCUT QIDACHS [facility]; Protocol Last Admin: 03/11/23 11:26 Dose: Not Given Documented By: RITA Non-Admin Reason: No Insulin Coverage Metoprolol Tartrate (Metoprolol Tartrate 12.5 Mg Halftab) 12.5 mg PO BID [facility]; Protocol Last Admin: 03/11/23 08:39 Dose: 12.5 mg Documented By: RITA Ondansetron HCl (Ondansetron Hcl 4 Mg/2 Ml Vial) 4 mg IVPUSH Q8H PRN PRN Reason: Nausea and Vomiting Sevelamer Carbonate (Sevelamer Carbonate Tablet 800 Mg Tablet) 800 mg PO TIDWM [facility] Last Admin: 03/11/23 11:45 Dose: 800 mg Documented By: RITA Sodium Chloride (0.9 % Sodium Chloride Flush 3 Ml Syringe) 3 ml IVFLUSH QSHIFT [facility] Last Admin: 03/11/23 07:44 Dose: 3 ml Documented By: RITA Labs 03/08/23 10:44 03/08/23 10:44 Labs: Laboratory Results - last 24 hr 03/10/23 03/10/23 03/11/23 16:20 20:53 07:12 POC Glucose 168 H 146 H 60 03/11/23 03/11/23 08:28 11:21 POC Glucose 124 H 123 H Assessment and Plan (1) Hypoglycemia associated with type 2 diabetes mellitus: Status: Acute (2) Physical deconditioning: Status: Acute (3) End stage renal disease: Status: Acute Plan A 72 years old lady with PMH of ESRD on HD, asthma, HTN, DMII among others whi was brought to the hospital on 02/07 for confusion. ESRD on HD TTS Nephrology consult HTN continue Hydralazine, MEtoprolol DM II w hypoglycemia event low at 60, responded to oral SSI, diabetic diet Lantus decreased to 5 units Physical deconditioning PT rec STR The patient needs inpatient stay overnight for the need of dialysis pending safe discharge plan Time Spent With Patient Time: Total time managing care of this patient today ____ minutes. Quality Stroke Does the patient have a stroke diagnosis?: No VTE Prior VTE?: No VTE Risk Level:: Medical - moderate - high VTE Device Contraindication: Treatment Not Indicated VTE Drug Contraindication: N/A - Med Ordered
--- NOTE | 2023-03-11 12:49 | PM.PNNEP ---
Subjective Subjective Date of Service: 03/11/23 Interval history: Seen and evaluated No complaints Physical Exam Vital Signs: Vital Signs: Last Vital Signs Temp 97.6 F 03/11/23 08:00 Pulse 79 03/11/23 08:00 Resp 16 03/11/23 08:00 BP 141/65 H 03/11/23 08:00 Pulse Ox 99 03/11/23 08:00 O2 Del Method Room Air 03/11/23 08:00 O2 Flow Rate 97 03/08/23 06:00 BMI result Body Mass Index 35.9 Const: Other: Constitutional : Awake, interactive, not in distress Neck : Normal inspection, Supple Cardiovascular : RRR, no JVP, no lower extremity edema Respiratory : good bilateral air entry, no crackles, wheezes or rhonchi Gastrointestinal: soft, lax, Normal bowel sounds, Non tender Skin : Warm, Dry, fistula clean Neurological : Alert & oriented x3, No focal deficit Objective Data Labs 03/08/23 10:44 03/08/23 10:44 Labs: Laboratory Results - last 24 hr 03/10/23 03/10/23 03/11/23 16:20 20:53 07:12 POC Glucose 168 H 146 H 60 03/11/23 03/11/23 08:28 11:21 POC Glucose 124 H 123 H Procedures Date of Service Date of Service: 03/11/23 Assessment & Plan Assessment and plan (1) ESRD on dialysis: Status: Inactive Plan ESRD: TTS [facility] unit AMS:much improved Nephrogenic anemia MBD of CKD REC: no new recs; cont HD TTS; meds as noted; d/c planning to Rehab/SNF--consider [facility] vs [facility] where inhouse HD is avail Time Spent With Patient Time: Total time managing care of this patient today ____ minutes. Progress Note: Quality Stroke Does the patient have a stroke diagnosis?: No
[2023-03-11 15:39] VITALS: BP 162/70; PULSE 75; RESP 16; TEMP 35.9; O2SAT 100
[2023-03-11 16:12] LABS: Glucose, Whole Blood 155 mg/dL (60-115)
[2023-03-11] MEDS: Insulin Lispro 100 UNIT/ML 3 ML VIAL SUBCUT (16:41)
[2023-03-11 19:39] VITALS: BP 152/65; PULSE 76; RESP 18; TEMP 35.9; O2SAT 100
[2023-03-11 20:12] LABS: Glucose, Whole Blood 149 mg/dL (60-115)
[2023-03-11] MEDS: Insulin Glargine,Hum.rec.anlog 100 UNIT/ML 10 ML VIAL SUBCUT (20:49)
[2023-03-11 23:29] VITALS: BP 154/62; PULSE 75; RESP 18; TEMP 36.7; O2SAT 98
[2023-03-12 07:10] VITALS: BP 164/72; PULSE 72; RESP 17; TEMP 36.4; O2SAT 99
[2023-03-12 07:31] LABS: Glucose, Whole Blood 104 mg/dL (60-115)
[2023-03-12] MEDS: Sevelamer Carbonate Tablet 800 MG TABLET PO ×3 (07:43→17:36)
[2023-03-12] MEDS: hydrALAZINE HCl 50 MG TABLET PO (07:43)
[2023-03-12] MEDS: Metoprolol Tartrate 12.5 MG HALFTAB PO ×2 (07:44→22:06)
[2023-03-12] MEDS: Heparin Sodium,Porcine 5,000 UNIT/ML VIAL 5000 UNIT SUBCUT ×2 (07:44→22:07)
[2023-03-12] MEDS: 0.9 % Sodium Chloride Flush 3 ML SYRINGE IVFLUSH ×3 (07:45→19:13)
--- NOTE | 2023-03-12 11:30 | P.PNIM_ITS ---
Subjective Subjective Date of Service: 03/12/23 Interval History: Seen and evaluated No complaints Review of Systems Review of Systems: Yes all other systems are reviewed and are negative Physical Exam Vital Signs: Vital Signs: Last Vital Signs Temp 97.5 F 03/12/23 07:10 Pulse 72 03/12/23 07:10 Resp 17 03/12/23 07:10 BP 164/72 H 03/12/23 07:10 Pulse Ox 99 03/12/23 07:10 O2 Del Method Room Air 03/12/23 07:10 O2 Flow Rate 97 03/08/23 06:00 BMI result Body Mass Index 35.9 Const: Other: Constitutional : Awake, interactive, not in distress Neck : Normal inspection, Supple Cardiovascular : RRR, no JVP, no lower extremity edema Respiratory : good bilateral air entry, no crackles, wheezes or rhonchi Gastrointestinal: soft, lax, Normal bowel sounds, Non tender Skin : Warm, Dry, fistula clean Neurological : Alert & oriented x3, No focal deficit Objective Data Active Medications Acetaminophen (Acetaminophen 325 Mg Tablet) 650 mg PO QID PRN PRN Reason: Pain, Mild (Pain Scale 1-3) Last Admin: 03/10/23 20:47 Dose: 650 mg Documented By: KYLAH Albuterol Sulfate (Albuterol Sulfate 90 Mcg 8 Gm Inhaler) 1 puff INHALE QID PRN PRN Reason: Shortness Of Breath Dextrose (Dextrose 50 % 25 Gm/50 Ml Syringe) 25 gm IVPUSH Q15M PRN; Protocol PRN Reason: per Hypoglycemia Standing Ord. Glucose (Glucose Gel 15 Gm Gel..Gram.) 15 gm PO Q15M PRN; Protocol PRN Reason: per Hypoglycemia Standing Ord. Last Admin: 03/11/23 07:42 Dose: 15 gm Documented By: RITA Heparin Sodium (Porcine) (Heparin Sodium,Porcine 5,000 Unit/Ml Vial) 5,000 unit SUBCUT Q12H [facility] Last Admin: 03/12/23 07:44 Dose: 5,000 unit Documented By: MADDY Hydralazine HCl (Hydralazine Hcl 50 Mg Tablet) 50 mg PO TID [facility]; Protocol Last Admin: 03/12/23 07:43 Dose: 50 mg Documented By: MADDY Insulin Glargine (Insulin Glargine,Hum.Rec.Anlog 100 Unit/Ml 10 Ml Vial) 5 unit SUBCUT BEDTIME [facility] Last Admin: 03/11/23 20:49 Dose: 5 unit Documented By: MAGNUS Insulin Human Lispro (Insulin Lispro 100 Unit/Ml 3 Ml Vial) 0 unit SUBCUT QIDACHS [facility]; Protocol Last Admin: 03/12/23 07:32 Dose: Not Given Documented By: MADDY Non-Admin Reason: No Insulin Coverage Metoprolol Tartrate (Metoprolol Tartrate 12.5 Mg Halftab) 12.5 mg PO BID [facility]; Protocol Last Admin: 03/12/23 07:44 Dose: 12.5 mg Documented By: MADDY Ondansetron HCl (Ondansetron Hcl 4 Mg/2 Ml Vial) 4 mg IVPUSH Q8H PRN PRN Reason: Nausea and Vomiting Sevelamer Carbonate (Sevelamer Carbonate Tablet 800 Mg Tablet) 800 mg PO TIDWM [facility] Last Admin: 03/12/23 07:43 Dose: 800 mg Documented By: MADDY Sodium Chloride (0.9 % Sodium Chloride Flush 3 Ml Syringe) 3 ml IVFLUSH QSHIFT [facility] Last Admin: 03/12/23 07:45 Dose: 3 ml Documented By: MADDY Labs 03/08/23 10:44 03/08/23 10:44 Labs: Laboratory Results - last 24 hr 03/11/23 03/11/23 03/12/23 16:05 20:07 07:21 POC Glucose 155 H 149 H 104 Assessment and Plan (1) Hypoglycemia associated with type 2 diabetes mellitus: Status: Acute (2) Physical deconditioning: Status: Acute (3) End stage renal disease: Status: Acute Plan A 72 years old lady with PMH of ESRD on HD, asthma, HTN, DMII among others whi was brought to the hospital on 02/07 for confusion. ESRD on HD TTS Nephrology consult HTN continue Hydralazine, MEtoprolol to increase to dose of hydralazine to 75 mg for better control DM II w hypoglycemia event low at 60, responded to oral SSI, diabetic diet Lantus decreased to 5 units Physical deconditioning PT rec STR The patient needs inpatient stay overnight for the need of dialysis pending safe discharge plan Time Spent With Patient Time: Total time managing care of this patient today ____ minutes. Quality Stroke Does the patient have a stroke diagnosis?: No VTE Prior VTE?: No VTE Risk Level:: Medical - moderate - high VTE Device Contraindication: Treatment Not Indicated VTE Drug Contraindication: N/A - Med Ordered
[2023-03-12 11:31] LABS: Glucose, Whole Blood 124 mg/dL (60-115)
--- NOTE | 2023-03-12 11:52 | PM.PNNEP ---
Subjective Subjective Date of Service: 03/12/23 Interval history: seen and examined No complaints Physical Exam Vital Signs: Vital Signs: Last Vital Signs Temp 97.5 F 03/12/23 07:10 Pulse 72 03/12/23 07:10 Resp 17 03/12/23 07:10 BP 164/72 H 03/12/23 07:10 Pulse Ox 99 03/12/23 07:10 O2 Del Method Room Air 03/12/23 07:10 O2 Flow Rate 97 03/08/23 06:00 BMI result Body Mass Index 35.9 Const: General: no acute distress HEENT: Head: Yes normocephalic and Yes atraumatic Neck: Neck: Yes supple Resp: Auscultation: clear to auscultation bilaterally Cardio: Heart sounds: S1 normal heart sound present and S2 normal heart sound present GI: Palpation (GI): Soft to palpation and nontender Extrem: General: Yes normal to inspection Objective Data Labs 03/08/23 10:44 03/08/23 10:44 Labs: Laboratory Results - last 24 hr 03/11/23 03/11/23 03/12/23 16:05 20:07 07:21 POC Glucose 155 H 149 H 104 03/12/23 11:15 POC Glucose 124 H Procedures Date of Service Date of Service: 03/12/23 Assessment & Plan Assessment and plan (1) End stage renal disease: Status: Acute (2) Anemia: Status: Acute Plan usualy has HD at [facility] t-t-s nephrogenic anemia presented with AMS REC HD in am renal diet MIEK phosphate binders dc planning Time Spent With Patient Time: Total time managing care of this patient today ____ minutes. Progress Note: Quality Stroke Does the patient have a stroke diagnosis?: No
[2023-03-12] MEDS: ondansetron HCL 4 MG/2 ML VIAL IVPUSH (12:12)
--- NOTE | 2023-03-12 13:29 | MHC.CM.PN ---
per rpounds pt not reDY FOR DC AT THIS TIME CM WILL CONTINUE TO FOLLOW
[2023-03-12 15:22] VITALS: BP 140/60; PULSE 79; RESP 20; TEMP 36.6; O2SAT 100
[2023-03-12] MEDS: hydrALAZINE HCl 25 MG TABLET 75 MG PO ×2 (15:46→22:06)
[2023-03-12 16:16] LABS: Glucose, Whole Blood 129 mg/dL (60-115)
[2023-03-12 19:41] VITALS: BP 152/66; PULSE 79; RESP 20; TEMP 37.1; O2SAT 98
[2023-03-12 21:07] LABS: Glucose, Whole Blood 168 mg/dL (60-115)
[2023-03-12] MEDS: Insulin Lispro 100 UNIT/ML 3 ML VIAL SUBCUT (22:07)
[2023-03-12] MEDS: Insulin Glargine,Hum.rec.anlog 100 UNIT/ML 10 ML VIAL SUBCUT (22:07)
[2023-03-13 00:34] VITALS: BP 138/61; PULSE 76; RESP 18; TEMP 36.4; O2SAT 98
[2023-03-13 07:12] VITALS: BP 143/65; PULSE 73; RESP 17; TEMP 36.7; O2SAT 97
[2023-03-13 07:25] LABS: Glucose, Whole Blood 111 mg/dL (60-115)
[2023-03-13] MEDS: Heparin Sodium,Porcine 5,000 UNIT/ML VIAL 5000 UNIT SUBCUT ×2 (07:28→21:24)
[2023-03-13] MEDS: Metoprolol Tartrate 12.5 MG HALFTAB PO ×2 (07:28→21:25)
[2023-03-13] MEDS: Sevelamer Carbonate Tablet 800 MG TABLET PO ×3 (07:28→16:53)
[2023-03-13] MEDS: hydrALAZINE HCl 25 MG TABLET 75 MG PO ×3 (07:28→21:25)
[2023-03-13] MEDS: 0.9 % Sodium Chloride Flush 3 ML SYRINGE IVFLUSH ×3 (07:31→23:11)
[2023-03-13] MEDS: Acetaminophen 325 MG TABLET 650 MG PO (07:36)
--- NOTE | 2023-03-13 09:55 | HO.PM.IMPN ---
Subjective Subjective Date of Service: 03/13/23 Interval History: Seen and evaluated In dialysis session No complaints Review of Systems Review of Systems: Yes all other systems are reviewed and are negative Physical Exam Vital Signs: Vital Signs: Last Vital Signs Temp 98.0 F 03/13/23 07:12 Pulse 73 03/13/23 07:12 Resp 17 03/13/23 07:12 BP 143/65 H 03/13/23 07:12 Pulse Ox 97 03/13/23 07:12 O2 Del Method Room Air 03/13/23 07:12 O2 Flow Rate 97 03/08/23 06:00 BMI result Body Mass Index 35.9 Const: Other: Constitutional : Awake, interactive, not in distress Neck : Normal inspection, Supple Cardiovascular : RRR, no JVP, no lower extremity edema Respiratory : good bilateral air entry, no crackles, wheezes or rhonchi Gastrointestinal: soft, lax, Normal bowel sounds, Non tender Skin : Warm, Dry, fistula clean Neurological : Alert & oriented x3, No focal deficit Objective Data Active Medications Acetaminophen (Acetaminophen 325 Mg Tablet) 650 mg PO QID PRN PRN Reason: Pain, Mild (Pain Scale 1-3) Last Admin: 03/13/23 07:36 Dose: 650 mg Documented By: FALGUNI Albuterol Sulfate (Albuterol Sulfate 90 Mcg 8 Gm Inhaler) 1 puff INHALE QID PRN PRN Reason: Shortness Of Breath Dextrose (Dextrose 50 % 25 Gm/50 Ml Syringe) 25 gm IVPUSH Q15M PRN; Protocol PRN Reason: per Hypoglycemia Standing Ord. Glucose (Glucose Gel 15 Gm Gel..Gram.) 15 gm PO Q15M PRN; Protocol PRN Reason: per Hypoglycemia Standing Ord. Last Admin: 03/11/23 07:42 Dose: 15 gm Documented By: RITA Heparin Sodium (Porcine) (Heparin Sodium,Porcine 5,000 Unit/Ml Vial) 5,000 unit SUBCUT Q12H [facility] Last Admin: 03/13/23 07:28 Dose: 5,000 unit Documented By: FALGUNI Hydralazine HCl (Hydralazine Hcl 25 Mg Tablet) 75 mg PO TID [facility]; Protocol Last Admin: 03/13/23 07:28 Dose: 75 mg Documented By: FALGUNI Insulin Glargine (Insulin Glargine,Hum.Rec.Anlog 100 Unit/Ml 10 Ml Vial) 5 unit SUBCUT BEDTIME [facility] Last Admin: 03/12/23 22:07 Dose: 5 unit Documented By: MAGNUS Insulin Human Lispro (Insulin Lispro 100 Unit/Ml 3 Ml Vial) 0 unit SUBCUT QIDACHS [facility]; Protocol Last Admin: 03/13/23 07:38 Dose: Not Given Documented By: FALGUNI Non-Admin Reason: No Insulin Coverage Metoprolol Tartrate (Metoprolol Tartrate 12.5 Mg Halftab) 12.5 mg PO BID [facility]; Protocol Last Admin: 03/13/23 07:28 Dose: 12.5 mg Documented By: FALGUNI Multivitamins/Vitamin C (Multivitamin Tablet) 1 tab PO DAILY [facility] Ondansetron HCl (Ondansetron Hcl 4 Mg/2 Ml Vial) 4 mg IVPUSH Q8H PRN PRN Reason: Nausea and Vomiting Last Admin: 03/12/23 12:12 Dose: 4 mg Documented By: MADDY Sevelamer Carbonate (Sevelamer Carbonate Tablet 800 Mg Tablet) 800 mg PO TIDWM [facility] Last Admin: 03/13/23 07:28 Dose: 800 mg Documented By: FALGUNI Sodium Chloride (0.9 % Sodium Chloride Flush 3 Ml Syringe) 3 ml IVFLUSH QSHIFT [facility] Last Admin: 03/13/23 07:31 Dose: 3 ml Documented By: FALGUNI Labs 03/08/23 10:44 03/08/23 10:44 Labs: Laboratory Results - last 24 hr 03/12/23 03/12/23 03/12/23 11:15 16:07 20:49 POC Glucose 124 H 129 H 168 H 03/13/23 07:09 POC Glucose 111 Assessment and Plan (1) Physical deconditioning: Status: Acute (2) ESRD needing dialysis: Status: Acute Plan A 72 years old lady with PMH of ESRD on HD, asthma, HTN, DMII among others whi was brought to the hospital on 02/07 for confusion. ESRD on HD TTS Nephrology following HTN continue MEtoprolol increase to dose of hydralazine to 75 mg for better control DM II w hypoglycemia event better controlled SSI, diabetic diet Lantus decreased to 5 units Physical deconditioning PT rec STR The patient needs inpatient stay overnight for the need of dialysis pending safe discharge plan Time Spent With Patient Time: Total time managing care of this patient today ____ minutes. Quality Stroke Does the patient have a stroke diagnosis?: No VTE Prior VTE?: No VTE Risk Level:: Medical - moderate - high VTE Device Contraindication: Treatment Not Indicated VTE Drug Contraindication: N/A - Med Ordered
--- NOTE | 2023-03-13 10:08 | W.PM.DNNEP ---
Subjective Subjective This patient was seen during dialysis. Interval history: Seen and evaluated In dialysis session No complaints Physical Exam Vital Signs: Vital Signs: Last Vital Signs Temp 98.0 F 03/13/23 07:12 Pulse 73 03/13/23 07:12 Resp 17 03/13/23 07:12 BP 143/65 H 03/13/23 07:12 Pulse Ox 97 03/13/23 07:12 O2 Del Method Room Air 03/13/23 07:12 O2 Flow Rate 97 03/08/23 06:00 BMI result Body Mass Index 35.9 Comfortable Neck is supple Lung: Air entry equal Heart: S1,S2, normal. No rub Abd: Soft. BS + NS : Alert.No asterexis Ext: No edema Const: Other: Constitutional : Awake, interactive, not in distress Neck : Normal inspection, Supple Cardiovascular : RRR, no JVP, no lower extremity edema Respiratory : good bilateral air entry, no crackles, wheezes or rhonchi Gastrointestinal: soft, lax, Normal bowel sounds, Non tender Skin : Warm, Dry, fistula clean Neurological : Alert & oriented x3, No focal deficit General: no acute distress HEENT: Head: Yes normocephalic and Yes atraumatic Neck: Neck: Yes supple Resp: Auscultation: clear to auscultation bilaterally Cardio: Heart sounds: S1 normal heart sound present and S2 normal heart sound present GI: Palpation (GI): Soft to palpation and nontender Extrem: General: Yes normal to inspection Assessment & Plan Assessment and plan (1) Physical deconditioning: Status: Acute (2) ESRD needing dialysis: Status: Acute Plan A 72 years old lady with PMH of ESRD on HD, asthma, HTN, DMII among others whi was brought to the hospital on 02/07 for confusion. ESRD on HD TTS Nephrology following HTN continue MEtoprolol increase to dose of hydralazine to 75 mg for better control DM II w hypoglycemia event better controlled SSI, diabetic diet Lantus decreased to 5 units Physical deconditioning PT rec STR Time Spent With Patient Time: Total time managing care of this patient today ____ minutes. Procedures Date of Service Date of Service: 03/13/23
[2023-03-13] MEDS: Multivitamin TABLET 1 TAB PO (11:51)
[2023-03-13 12:03] LABS: Glucose, Whole Blood 103 mg/dL (60-115)
[2023-03-13 15:33] VITALS: BP 160/67; PULSE 75; RESP 20; TEMP 36.6; O2SAT 95
--- NOTE | 2023-03-13 15:52 | MHC.CM.PN ---
spoke with gss per [facility] done by [facility] is wrong [place] pt needs ltc cl[facility] faxed request to betty giles
[2023-03-13 16:28] LABS: Glucose, Whole Blood 177 mg/dL (60-115)
[2023-03-13] MEDS: Insulin Lispro 100 UNIT/ML 3 ML VIAL SUBCUT ×2 (16:43→21:23)
[2023-03-13 19:52] VITALS: BP 163/70; PULSE 83; RESP 20; TEMP 36.6; O2SAT 100
[2023-03-13 20:15] LABS: Glucose, Whole Blood 176 mg/dL (60-115)
[2023-03-13] MEDS: Insulin Glargine,Hum.rec.anlog 100 UNIT/ML 10 ML VIAL SUBCUT (21:23)
[2023-03-14 03:19] VITALS: BP 144/66; PULSE 92; RESP 17; TEMP 37.1; O2SAT 99
[2023-03-14 07:16] VITALS: BP 132/61; PULSE 81; RESP 17; TEMP 37.1; O2SAT 97
[2023-03-14 07:34] LABS: Glucose, Whole Blood 106 mg/dL (60-115)
[2023-03-14] MEDS: Heparin Sodium,Porcine 5,000 UNIT/ML VIAL 5000 UNIT SUBCUT ×2 (08:12→21:03)
[2023-03-14] MEDS: 0.9 % Sodium Chloride Flush 3 ML SYRINGE IVFLUSH ×3 (08:12→23:37)
[2023-03-14] MEDS: Metoprolol Tartrate 12.5 MG HALFTAB PO ×2 (08:13→21:04)
[2023-03-14] MEDS: hydrALAZINE HCl 25 MG TABLET 75 MG PO ×3 (08:13→21:04)
[2023-03-14] MEDS: Multivitamin TABLET 1 TAB PO (08:13)
[2023-03-14] MEDS: Sevelamer Carbonate Tablet 800 MG TABLET PO ×3 (08:13→16:56)
[2023-03-14 08:52] VITALS: BP 132/61; PULSE 81; O2SAT 97
--- NOTE | 2023-03-14 10:55 | HO.PM.IMPN ---
Subjective Subjective Date of Service: 03/14/23 Interval History: shoulder pain Physical Exam Vital Signs: Vital Signs: Last Vital Signs Temp 98.7 F 03/14/23 07:16 Pulse 81 03/14/23 08:52 Resp 17 03/14/23 07:16 BP 132/61 03/14/23 08:52 Pulse Ox 97 03/14/23 08:52 O2 Del Method Room Air 03/14/23 07:16 O2 Flow Rate 97 03/08/23 06:00 BMI result Body Mass Index 35.9 Comfortable Neck is supple Lung: Air entry equal Heart: S1,S2, normal. No rub Abd: Soft. BS + NS : Alert.No asterexis Ext: No edema Const: Other: Constitutional : Awake, interactive, not in distress Neck : Normal inspection, Supple Cardiovascular : RRR, no JVP, no lower extremity edema Respiratory : good bilateral air entry, no crackles, wheezes or rhonchi Gastrointestinal: soft, lax, Normal bowel sounds, Non tender Skin : Warm, Dry, fistula clean Neurological : Alert & oriented x3, No focal deficit General: no acute distress HEENT: Head: Yes normocephalic and Yes atraumatic Neck: Neck: Yes supple Resp: Auscultation: clear to auscultation bilaterally Cardio: Heart sounds: S1 normal heart sound present and S2 normal heart sound present GI: Palpation (GI): Soft to palpation and nontender Extrem: General: Yes normal to inspection Objective Data Active Medications Acetaminophen (Acetaminophen 325 Mg Tablet) 650 mg PO QID PRN PRN Reason: Pain, Mild (Pain Scale 1-3) Last Admin: 03/13/23 07:36 Dose: 650 mg Documented By: FALGUNI Albuterol Sulfate (Albuterol Sulfate 90 Mcg 8 Gm Inhaler) 1 puff INHALE QID PRN PRN Reason: Shortness Of Breath Dextrose (Dextrose 50 % 25 Gm/50 Ml Syringe) 25 gm IVPUSH Q15M PRN; Protocol PRN Reason: per Hypoglycemia Standing Ord. Glucose (Glucose Gel 15 Gm Gel..Gram.) 15 gm PO Q15M PRN; Protocol PRN Reason: per Hypoglycemia Standing Ord. Last Admin: 03/11/23 07:42 Dose: 15 gm Documented By: RITA Heparin Sodium (Porcine) (Heparin Sodium,Porcine 5,000 Unit/Ml Vial) 5,000 unit SUBCUT Q12H [facility] Last Admin: 03/14/23 08:12 Dose: 5,000 unit Documented By: FALGUNI Hydralazine HCl (Hydralazine Hcl 25 Mg Tablet) 75 mg PO TID [facility]; Protocol Last Admin: 03/14/23 08:13 Dose: 75 mg Documented By: FALGUNI Insulin Glargine (Insulin Glargine,Hum.Rec.Anlog 100 Unit/Ml 10 Ml Vial) 5 unit SUBCUT BEDTIME [facility] Last Admin: 03/13/23 21:23 Dose: 5 unit Documented By: JORGE LUIS-CHRISTINE Insulin Human Lispro (Insulin Lispro 100 Unit/Ml 3 Ml Vial) 0 unit SUBCUT QIDACHS [facility]; Protocol Last Admin: 03/14/23 07:37 Dose: Not Given Documented By: FALGUNI Non-Admin Reason: No Insulin Coverage Metoprolol Tartrate (Metoprolol Tartrate 12.5 Mg Halftab) 12.5 mg PO BID [facility]; Protocol Last Admin: 03/14/23 08:13 Dose: 12.5 mg Documented By: FALGUNI Multivitamins/Vitamin C (Multivitamin Tablet) 1 tab PO DAILY [facility] Last Admin: 03/14/23 08:13 Dose: 1 tab Documented By: FALGUNI Ondansetron HCl (Ondansetron Hcl 4 Mg/2 Ml Vial) 4 mg IVPUSH Q8H PRN PRN Reason: Nausea and Vomiting Last Admin: 03/12/23 12:12 Dose: 4 mg Documented By: MADDY Sevelamer Carbonate (Sevelamer Carbonate Tablet 800 Mg Tablet) 800 mg PO TIDWM [facility] Last Admin: 03/14/23 08:13 Dose: 800 mg Documented By: FALGUNI Sodium Chloride (0.9 % Sodium Chloride Flush 3 Ml Syringe) 3 ml IVFLUSH QSHIFT [facility] Last Admin: 03/14/23 08:12 Dose: 3 ml Documented By: FALGUNI Labs 03/08/23 10:44 03/08/23 10:44 Labs: Laboratory Results - last 24 hr 03/13/23 03/13/23 03/13/23 11:57 16:24 19:51 POC Glucose 103 177 H 176 H 03/14/23 07:21 POC Glucose 106 Assessment and Plan (1) Physical deconditioning: Status: Acute (2) ESRD needing dialysis: Status: Acute Plan A 72 years old lady with PMH of ESRD on HD, asthma, HTN, DMII among others whi was brought to the hospital on 02/07 for confusion. ESRD on HD TTS Nephrology following HTN continue MEtoprolol increase to dose of hydralazine to 75 mg for better control DM II w hypoglycemia event better controlled SSI, diabetic diet Lantus decreased to 5 units Physical deconditioning PT rec STR The patient needs inpatient stay overnight for the need of dialysis pending safe discharge plan Time Spent With Patient Time: Total time managing care of this patient today ____ minutes. Quality Stroke Does the patient have a stroke diagnosis?: No VTE Prior VTE?: No VTE Risk Level:: Medical - moderate - high VTE Device Contraindication: Treatment Not Indicated VTE Drug Contraindication: N/A - Med Ordered
[2023-03-14 11:41] LABS: Glucose, Whole Blood 131 mg/dL (60-115)
--- NOTE | 2023-03-14 14:29 | MHC.CM.PN ---
left message pts chd worker sharan quilesur [phone] and explined that [facility] completed [facility] and needs to be changed to a [facility] claudia ..request also faxed to betty giles in [facility] to change claudia to ltc
[2023-03-14 14:55] VITALS: BP 179/70
[2023-03-14 15:32] VITALS: BP 160/71; PULSE 75; RESP 20; TEMP 37.2; O2SAT 99
[2023-03-14 16:17] LABS: Glucose, Whole Blood 166 mg/dL (60-115)
[2023-03-14] MEDS: Insulin Lispro 100 UNIT/ML 3 ML VIAL SUBCUT ×2 (16:56→21:02)
[2023-03-14 19:47] VITALS: BP 141/93; PULSE 76; RESP 20; TEMP 37.1; O2SAT 99
[2023-03-14 20:23] LABS: Glucose, Whole Blood 161 mg/dL (60-115)
[2023-03-14] MEDS: Insulin Glargine,Hum.rec.anlog 100 UNIT/ML 10 ML VIAL SUBCUT (21:02)
[2023-03-15 02:55] VITALS: BP 166/70; PULSE 75; RESP 16; TEMP 36.1; O2SAT 100
[2023-03-15 07:22] VITALS: BP 163/69; PULSE 73; RESP 16; TEMP 36.4; O2SAT 99
[2023-03-15 07:42] LABS: Glucose, Whole Blood 99 mg/dL (60-115)
[2023-03-15] MEDS: Metoprolol Tartrate 12.5 MG HALFTAB PO ×2 (09:02→20:35)
[2023-03-15] MEDS: Multivitamin TABLET 1 TAB PO (09:02)
[2023-03-15] MEDS: hydrALAZINE HCl 25 MG TABLET 75 MG PO ×2 (09:02→20:36)
[2023-03-15] MEDS: Sevelamer Carbonate Tablet 800 MG TABLET PO ×3 (09:02→17:12)
[2023-03-15] MEDS: Heparin Sodium,Porcine 5,000 UNIT/ML VIAL 5000 UNIT SUBCUT ×2 (09:02→20:35)
[2023-03-15] MEDS: 0.9 % Sodium Chloride Flush 3 ML SYRINGE IVFLUSH ×3 (09:02→20:36)
--- NOTE | 2023-03-15 09:35 | HO.PM.IMPN ---
Subjective Subjective Date of Service: 03/15/23 Interval History: no complaints Physical Exam Vital Signs: Vital Signs: Last Vital Signs Temp 97.6 F 03/15/23 07:22 Pulse 73 03/15/23 07:22 Resp 16 03/15/23 07:22 BP 163/69 H 03/15/23 07:22 Pulse Ox 99 03/15/23 07:22 O2 Del Method Room Air 03/15/23 07:22 O2 Flow Rate 97 03/08/23 06:00 BMI result Body Mass Index 35.9 Comfortable Neck is supple Lung: Air entry equal Heart: S1,S2, normal. No rub Abd: Soft. BS + NS : Alert.No asterexis Ext: No edema Const: Other: Constitutional : Awake, interactive, not in distress Neck : Normal inspection, Supple Cardiovascular : RRR, no JVP, no lower extremity edema Respiratory : good bilateral air entry, no crackles, wheezes or rhonchi Gastrointestinal: soft, lax, Normal bowel sounds, Non tender Skin : Warm, Dry, fistula clean Neurological : Alert & oriented x3, No focal deficit General: no acute distress HEENT: Head: Yes normocephalic and Yes atraumatic Neck: Neck: Yes supple Resp: Auscultation: clear to auscultation bilaterally Cardio: Heart sounds: S1 normal heart sound present and S2 normal heart sound present GI: Palpation (GI): Soft to palpation and nontender Extrem: General: Yes normal to inspection Objective Data Active Medications Acetaminophen (Acetaminophen 325 Mg Tablet) 650 mg PO QID PRN PRN Reason: Pain, Mild (Pain Scale 1-3) Last Admin: 03/13/23 07:36 Dose: 650 mg Documented By: FALGUNI Albuterol Sulfate (Albuterol Sulfate 90 Mcg 8 Gm Inhaler) 1 puff INHALE QID PRN PRN Reason: Shortness Of Breath Dextrose (Dextrose 50 % 25 Gm/50 Ml Syringe) 25 gm IVPUSH Q15M PRN; Protocol PRN Reason: per Hypoglycemia Standing Ord. Glucose (Glucose Gel 15 Gm Gel..Gram.) 15 gm PO Q15M PRN; Protocol PRN Reason: per Hypoglycemia Standing Ord. Last Admin: 03/11/23 07:42 Dose: 15 gm Documented By: RITA Heparin Sodium (Porcine) (Heparin Sodium,Porcine 5,000 Unit/Ml Vial) 5,000 unit SUBCUT Q12H [facility] Last Admin: 03/15/23 09:02 Dose: 5,000 unit Documented By: DORETHA Hydralazine HCl (Hydralazine Hcl 25 Mg Tablet) 75 mg PO TID [facility]; Protocol Last Admin: 03/15/23 09:02 Dose: 75 mg Documented By: DORETHA Insulin Glargine (Insulin Glargine,Hum.Rec.Anlog 100 Unit/Ml 10 Ml Vial) 5 unit SUBCUT BEDTIME [facility] Last Admin: 03/14/23 21:02 Dose: 5 unit Documented By: TORRES Insulin Human Lispro (Insulin Lispro 100 Unit/Ml 3 Ml Vial) 0 unit SUBCUT QIDACHS [facility]; Protocol Last Admin: 03/15/23 08:49 Dose: Not Given Documented By: DORETHA Non-Admin Reason: No Insulin Coverage Metoprolol Tartrate (Metoprolol Tartrate 12.5 Mg Halftab) 12.5 mg PO BID [facility]; Protocol Last Admin: 03/15/23 09:02 Dose: 12.5 mg Documented By: DORETHA Multivitamins/Vitamin C (Multivitamin Tablet) 1 tab PO DAILY [facility] Last Admin: 03/15/23 09:02 Dose: 1 tab Documented By: DORETHA Ondansetron HCl (Ondansetron Hcl 4 Mg/2 Ml Vial) 4 mg IVPUSH Q8H PRN PRN Reason: Nausea and Vomiting Last Admin: 03/12/23 12:12 Dose: 4 mg Documented By: MADDY Sevelamer Carbonate (Sevelamer Carbonate Tablet 800 Mg Tablet) 800 mg PO TIDWM [facility] Last Admin: 03/15/23 09:02 Dose: 800 mg Documented By: DOREHTA Sodium Chloride (0.9 % Sodium Chloride Flush 3 Ml Syringe) 3 ml IVFLUSH QSHIFT [facility] Last Admin: 03/15/23 09:02 Dose: 3 ml Documented By: DORETHA Labs 03/08/23 10:44 03/08/23 10:44 Labs: Laboratory Results - last 24 hr 03/14/23 03/14/23 03/14/23 11:31 16:12 20:19 POC Glucose 131 H 166 H 161 H 03/15/23 07:29 POC Glucose 99 Assessment and Plan (1) Physical deconditioning: Status: Acute (2) ESRD needing dialysis: Status: Acute Plan A 72 years old lady with PMH of ESRD on HD, asthma, HTN, DMII among others whi was brought to the hospital on 02/07 for confusion. ESRD on HD TTS Nephrology following HTN continue MEtoprolol increase to dose of hydralazine to 75 mg for better control DM II w hypoglycemia event better controlled SSI, diabetic diet Lantus decreased to 5 units Physical deconditioning PT rec STR The patient needs inpatient stay overnight for the need of dialysis pending safe discharge plan Time Spent With Patient Time: Total time managing care of this patient today ____ minutes. Quality Stroke Does the patient have a stroke diagnosis?: No VTE Prior VTE?: No VTE Risk Level:: Medical - moderate - high VTE Device Contraindication: Treatment Not Indicated VTE Drug Contraindication: N/A - Med Ordered
--- NOTE | 2023-03-15 10:14 | P.PNNP_ITS ---
Subjective Subjective Date of Service: 03/19/23 Interval history: no complaints Physical Exam Vital Signs: Vital Signs: Last Vital Signs Temp 97.6 F 03/15/23 07:22 Pulse 73 03/15/23 07:22 Resp 16 03/15/23 07:22 BP 163/69 H 03/15/23 07:22 Pulse Ox 99 03/15/23 07:22 O2 Del Method Room Air 03/15/23 07:22 O2 Flow Rate 97 03/08/23 06:00 BMI result Body Mass Index 35.9 Const: General: no acute distress Neck: Neck: Yes supple Resp: Auscultation: clear to auscultation bilaterally GI: Palpation (GI): nontender Extrem: General: Yes normal to inspection Objective Data Labs 03/08/23 10:44 03/08/23 10:44 Labs: Laboratory Results - last 24 hr 03/14/23 03/14/23 03/14/23 11:31 16:12 20:19 POC Glucose 131 H 166 H 161 H 03/15/23 07:29 POC Glucose 99 Procedures Date of Service Date of Service: 03/19/23 Assessment & Plan Assessment and plan (1) Physical deconditioning: Status: Acute (2) ESRD needing dialysis: Status: Acute Plan ESRD: TTS [facility] unit AMS:much improved Nephrogenic anemia MBD of CKD Time Spent With Patient Time: Total time managing care of this patient today ____ minutes. Progress Note: Quality Stroke Does the patient have a stroke diagnosis?: No
[2023-03-15 11:29] LABS: Glucose, Whole Blood 161 mg/dL (60-115)
[2023-03-15] MEDS: Insulin Lispro 100 UNIT/ML 3 ML VIAL SUBCUT ×2 (11:35→20:55)
--- NOTE | 2023-03-15 13:32 | MHC.CM.PN ---
A VM was left for Jenn Knutson. T/W explained that the patients [employer] application needs to be addressed. A request for a return call was made. Looking for assist in locating the person that submitted the original form.
--- NOTE | 2023-03-15 14:49 | MHC.CM.PN ---
Addendum entered by Michelle Domingo 03/15/23 16:03: A call was received from KRISTI Fernández. She stated that she has been in touch with Phyllis, [facility] Financial controlled area checker. She works 08/14 [facility] 08/14 [facility] contact [phone]. She stated that Eddie, [facility] manager case, is also available to help [phone]. Original Note: [facility] was contacted re [employer] claudia. T/W spoke with Eddie PEREZ, pts manager case. He stated that they can not assist with the [employer] claudia. He stated that Kane Rolle, Community out reach (the person that filled out the claudia) would no longer have the patient financial information. He stated that Kane brought the info that he had to the hospital. The [employer] claudia is attached in forms+attachments. The claudia was done 3 months ago. He instructed to have our financial councilors submit the claudia. A referral has been sent to [facility] Financial councilors.
[2023-03-15 16:00] VITALS: BP 160/68; PULSE 70; RESP 16; TEMP 36.4; O2SAT 98
[2023-03-15 17:12] LABS: Glucose, Whole Blood 120 mg/dL (60-115)
[2023-03-15 19:04] VITALS: BP 142/63; PULSE 74; RESP 16; TEMP 36.8; O2SAT 99
[2023-03-15] MEDS: Insulin Glargine,Hum.rec.anlog 100 UNIT/ML 10 ML VIAL SUBCUT (20:36)
[2023-03-15 20:46] LABS: Glucose, Whole Blood 219 mg/dL (60-115)
--- NOTE | 2023-03-16 00:32 | PC.NURSE ---
pt IV site is over dated, this nurse tried twice and other nurse tried twice and we can't get it. however, asymptomatic of iv site, working okay for R.W. will CONT monitor s/s, or any changes it. will try new IV in the morning.
[2023-03-16 04:00] VITALS: BP 153/67; PULSE 79; RESP 18; TEMP 36.6; O2SAT 99
[2023-03-16 06:44] LABS: Hematocrit 25.3 % (37.0-47.0); Hemoglobin 8.2 g/dl (12.0-16.0); Mean Corpuscular HGB Conc 32.4 g/dl (31.0-35.0); Mean Corpuscular Hemoglobin 27.4 pg (27.0-33.0); Mean Corpuscular Volume 84.6 fL (80.0-98.0); Platelet Count 152 X10*3/uL (160-400); Red Blood Count 2.99 X10*6/uL (4.20-5.50); Red Cell Distribution Width 16.9 % (11.0-16.0); White Blood Count 3.9 X10*3/uL (4.8-10.8)
[2023-03-16 07:11] VITALS: BP 162/70; PULSE 79; RESP 18; TEMP 36.9; O2SAT 99
[2023-03-16 07:35] LABS: Anion Gap 14 (12-20); Blood Urea Nitrogen 43 mg/dL (9-16); Calcium 8.6 mg/dL (8.4-10.2); Carbon Dioxide 22 mmol/L (22-29); Chloride 102 mmol/L (96-108); Creatinine Clr Calc Pharmacy 10.8; Estimated Glomerular Filt Rate 9; Glucose Fasting 68 mg/dL (60-99); Potassium 4.4 mmol/L (3.3-5.1); Sodium 134 mmol/L (135-145)
[2023-03-16 07:44] LABS: Glucose, Whole Blood 95 mg/dL (60-115)
[2023-03-16] MEDS: Sevelamer Carbonate Tablet 800 MG TABLET PO ×3 (08:39→16:57)
[2023-03-16] MEDS: Heparin Sodium,Porcine 5,000 UNIT/ML VIAL 5000 UNIT SUBCUT ×2 (08:39→20:46)
[2023-03-16] MEDS: Metoprolol Tartrate 12.5 MG HALFTAB PO ×2 (08:39→20:46)
[2023-03-16] MEDS: Multivitamin TABLET 1 TAB PO (08:39)
[2023-03-16] MEDS: hydrALAZINE HCl 25 MG TABLET 75 MG PO ×3 (08:39→20:46)
[2023-03-16] MEDS: 0.9 % Sodium Chloride Flush 3 ML SYRINGE IVFLUSH ×3 (08:40→20:47)
--- NOTE | 2023-03-16 08:50 | HO.PM.IMPN ---
Subjective Subjective Date of Service: 03/16/23 Interval History: no complaints Physical Exam Vital Signs: Vital Signs: Last Vital Signs Temp 98.5 F 03/16/23 07:11 Pulse 79 03/16/23 07:11 Resp 18 03/16/23 07:11 BP 162/70 H 03/16/23 07:11 Pulse Ox 99 03/16/23 07:11 O2 Del Method Room Air 03/16/23 07:11 O2 Flow Rate 97 03/08/23 06:00 BMI result Body Mass Index 35.9 Const: General: no acute distress Neck: Neck: Yes supple Resp: Auscultation: clear to auscultation bilaterally GI: Palpation (GI): nontender Extrem: General: Yes normal to inspection Objective Data Active Medications Acetaminophen (Acetaminophen 325 Mg Tablet) 650 mg PO QID PRN PRN Reason: Pain, Mild (Pain Scale 1-3) Last Admin: 03/13/23 07:36 Dose: 650 mg Documented By: FALGUNI Albuterol Sulfate (Albuterol Sulfate 90 Mcg 8 Gm Inhaler) 1 puff INHALE QID PRN PRN Reason: Shortness Of Breath Dextrose (Dextrose 50 % 25 Gm/50 Ml Syringe) 25 gm IVPUSH Q15M PRN; Protocol PRN Reason: per Hypoglycemia Standing Ord. Glucose (Glucose Gel 15 Gm Gel..Gram.) 15 gm PO Q15M PRN; Protocol PRN Reason: per Hypoglycemia Standing Ord. Last Admin: 03/11/23 07:42 Dose: 15 gm Documented By: RITA Heparin Sodium (Porcine) (Heparin Sodium,Porcine 5,000 Unit/Ml Vial) 5,000 unit SUBCUT Q12H [facility] Last Admin: 03/16/23 08:39 Dose: 5,000 unit Documented By: NADEEM Hydralazine HCl (Hydralazine Hcl 25 Mg Tablet) 75 mg PO TID [facility]; Protocol Last Admin: 03/16/23 08:39 Dose: 75 mg Documented By: NADEEM Insulin Glargine (Insulin Glargine,Hum.Rec.Anlog 100 Unit/Ml 10 Ml Vial) 5 unit SUBCUT BEDTIME [facility] Last Admin: 03/15/23 20:36 Dose: 5 unit Documented By: NADEEM Insulin Human Lispro (Insulin Lispro 100 Unit/Ml 3 Ml Vial) 0 unit SUBCUT QIDACHS [facility]; Protocol Last Admin: 03/16/23 07:54 Dose: Not Given Documented By: NADEEM Non-Admin Reason: No Insulin Coverage Metoprolol Tartrate (Metoprolol Tartrate 12.5 Mg Halftab) 12.5 mg PO BID [facility]; Protocol Last Admin: 03/16/23 08:39 Dose: 12.5 mg Documented By: NADEEM Multivitamins/Vitamin C (Multivitamin Tablet) 1 tab PO DAILY [facility] Last Admin: 03/16/23 08:39 Dose: 1 tab Documented By: NADEEM Ondansetron HCl (Ondansetron Hcl 4 Mg/2 Ml Vial) 4 mg IVPUSH Q8H PRN PRN Reason: Nausea and Vomiting Last Admin: 03/12/23 12:12 Dose: 4 mg Documented By: MADDY Sevelamer Carbonate (Sevelamer Carbonate Tablet 800 Mg Tablet) 800 mg PO TIDWM [facility] Last Admin: 03/16/23 08:39 Dose: 800 mg Documented By: NADEEM Sodium Chloride (0.9 % Sodium Chloride Flush 3 Ml Syringe) 3 ml IVFLUSH QSHIFT [facility] Last Admin: 03/16/23 08:40 Dose: 3 ml Documented By: NADEEM Labs 03/16/23 05:42 03/16/23 05:42 Labs: Laboratory Results - last 24 hr 03/15/23 03/15/23 03/15/23 11:15 16:49 20:21 MCV MCH MCHC RDW Plt Count MPV Absolute Nucleated RBC Nucleated RBC % (auto) Anion Gap Estim Creat Clear Calc Estimated GFR POC Glucose 161 H 120 H 219 H Fasting Glucose Calcium 03/16/23 03/16/23 03/16/23 05:42 05:42 07:09 MCV 84.6 MCH 27.4 MCHC 32.4 RDW 16.9 H Plt Count 152 L MPV 11.0 Absolute Nucleated RBC 0.000 Nucleated RBC % (auto) 0.0 Anion Gap 14 Estim Creat Clear Calc 10.8 Estimated GFR 9 POC Glucose 95 Fasting Glucose 68 Calcium 8.6 Assessment and Plan (1) Physical deconditioning: Status: Acute (2) ESRD needing dialysis: Status: Acute Plan A 72 years old lady with PMH of ESRD on HD, asthma, HTN, DMII among others whi was brought to the hospital on 02/07 for confusion. ESRD on HD TTS Nephrology following HTN continue MEtoprolol increase to dose of hydralazine to 75 mg for better control DM II w hypoglycemia event better controlled SSI, diabetic diet Lantus decreased to 5 units Physical deconditioning PT rec STR The patient needs inpatient stay overnight for the need of dialysis pending safe discharge plan Time Spent With Patient Time: Total time managing care of this patient today ____ minutes. Quality Stroke Does the patient have a stroke diagnosis?: No VTE Prior VTE?: No VTE Risk Level:: Medical - moderate - high VTE Device Contraindication: Treatment Not Indicated VTE Drug Contraindication: N/A - Med Ordered
[2023-03-16 10:34] VITALS: BP 162/70; PULSE 79; O2SAT 99
[2023-03-16 11:46] LABS: Glucose, Whole Blood 110 mg/dL (60-115)
[2023-03-16 15:41] VITALS: BP 149/65; PULSE 82; RESP 18; TEMP 36.6; O2SAT 98
[2023-03-16 16:29] LABS: Glucose, Whole Blood 180 mg/dL (60-115)
[2023-03-16] MEDS: Insulin Lispro 100 UNIT/ML 3 ML VIAL SUBCUT ×2 (16:56→20:46)
--- NOTE | 2023-03-16 18:26 | P.PNNP_ITS ---
Subjective Subjective Date of Service: 03/16/23 Interval history: no complaints Physical Exam Vital Signs: Vital Signs: Last Vital Signs Temp 97.8 F 03/16/23 15:41 Pulse 82 03/16/23 15:41 Resp 18 03/16/23 15:41 BP 149/65 H 03/16/23 15:41 Pulse Ox 98 03/16/23 15:41 O2 Del Method Room Air 03/16/23 15:41 O2 Flow Rate 97 03/08/23 06:00 BMI result Body Mass Index 35.9 Const: Other: Constitutional : Awake, interactive, not in distress Neck : Normal inspection, Supple Cardiovascular : RRR, no JVP, no lower extremity edema Respiratory : good bilateral air entry, no crackles, wheezes or rhonchi Gastrointestinal: soft, lax, Normal bowel sounds, Non tender Skin : Warm, Dry, fistula clean Neurological : Alert & oriented x3, No focal deficit Objective Data Labs 03/16/23 05:42 03/16/23 05:42 Labs: Laboratory Results - last 24 hr 03/15/23 03/16/23 03/16/23 20:21 05:42 05:42 WBC 3.9 L RBC 2.99 L Hgb 8.2 L Hct 25.3 L MCV 84.6 MCH 27.4 MCHC 32.4 RDW 16.9 H Plt Count 152 L MPV 11.0 Absolute Nucleated RBC 0.000 Nucleated RBC % (auto) 0.0 Sodium 134 L Potassium 4.4 Chloride 102 Carbon Dioxide 22 Anion Gap 14 BUN 43 H Creatinine 4.86 H* Estim Creat Clear Calc 10.8 Estimated GFR 9 POC Glucose 219 H Fasting Glucose 68 Calcium 8.6 03/16/23 03/16/23 03/16/23 07:09 11:24 16:23 WBC RBC Hgb Hct MCV MCH MCHC RDW Plt Count MPV Absolute Nucleated RBC Nucleated RBC % (auto) Sodium Potassium Chloride Carbon Dioxide Anion Gap BUN Creatinine Estim Creat Clear Calc Estimated GFR POC Glucose 95 110 180 H Fasting Glucose Calcium Procedures Date of Service Date of Service: 03/16/23 Assessment & Plan Assessment and plan (1) Physical deconditioning: Status: Acute (2) ESRD needing dialysis: Status: Acute Plan will continue iHD on TTS schedule currently dialyzing at [facility] unit, patient asking if transfer possible. continue sevelamer continue hydralazine monitor for HTN Time Spent With Patient Time: Total time managing care of this patient today ____ minutes. Progress Note: Quality Stroke Does the patient have a stroke diagnosis?: No
[2023-03-16 19:09] VITALS: BP 149/67; PULSE 76; RESP 18; TEMP 36.7; O2SAT 98
[2023-03-16 20:15] LABS: Glucose, Whole Blood 154 mg/dL (60-115)
[2023-03-16] MEDS: Insulin Glargine,Hum.rec.anlog 100 UNIT/ML 10 ML VIAL SUBCUT (20:46)
[2023-03-17 03:50] VITALS: BP 176/75; PULSE 72; RESP 18; TEMP 36.2; O2SAT 99
[2023-03-17] MEDS: Multivitamin TABLET 1 TAB PO (09:29)
[2023-03-17] MEDS: Heparin Sodium,Porcine 5,000 UNIT/ML VIAL 5000 UNIT SUBCUT ×2 (09:29→21:04)
[2023-03-17] MEDS: Acetaminophen 325 MG TABLET 650 MG PO (09:29)
[2023-03-17] MEDS: 0.9 % Sodium Chloride Flush 3 ML SYRINGE IVFLUSH ×3 (09:30→21:05)
[2023-03-17] MEDS: hydrALAZINE HCl 25 MG TABLET 75 MG PO ×3 (09:49→21:05)
[2023-03-17] MEDS: Metoprolol Tartrate 12.5 MG HALFTAB PO ×2 (09:49→21:05)
[2023-03-17 09:52] LABS: Glucose, Whole Blood 100 mg/dL (60-115)
--- NOTE | 2023-03-17 09:57 | P.PNIM_ITS ---
Subjective Subjective Date of Service: 03/17/23 Interval History: no complaints Physical Exam Vital Signs: Vital Signs: Last Vital Signs Temp 97.2 F 03/17/23 03:50 Pulse 72 03/17/23 03:50 Resp 18 03/17/23 03:50 BP 176/75 H 03/17/23 03:50 Pulse Ox 99 03/17/23 03:50 O2 Del Method Room Air 03/17/23 03:50 O2 Flow Rate 97 03/08/23 06:00 BMI result Body Mass Index 35.9 Const: Other: Constitutional : Awake, interactive, not in distress Neck : Normal inspection, Supple Cardiovascular : RRR, no JVP, no lower extremity edema Respiratory : good bilateral air entry, no crackles, wheezes or rhonchi Gastrointestinal: soft, lax, Normal bowel sounds, Non tender Skin : Warm, Dry, fistula clean Neurological : Alert & oriented x3, No focal deficit Objective Data Active Medications Acetaminophen (Acetaminophen 325 Mg Tablet) 650 mg PO QID PRN PRN Reason: Pain, Mild (Pain Scale 1-3) Last Admin: 03/17/23 09:29 Dose: 650 mg Documented By: FALGUNI Albuterol Sulfate (Albuterol Sulfate 90 Mcg 8 Gm Inhaler) 1 puff INHALE QID PRN PRN Reason: Shortness Of Breath Dextrose (Dextrose 50 % 25 Gm/50 Ml Syringe) 25 gm IVPUSH Q15M PRN; Protocol PRN Reason: per Hypoglycemia Standing Ord. Glucose (Glucose Gel 15 Gm Gel..Gram.) 15 gm PO Q15M PRN; Protocol PRN Reason: per Hypoglycemia Standing Ord. Last Admin: 03/11/23 07:42 Dose: 15 gm Documented By: RITA Heparin Sodium (Porcine) (Heparin Sodium,Porcine 5,000 Unit/Ml Vial) 5,000 unit SUBCUT Q12H [facility] Last Admin: 03/17/23 09:29 Dose: 5,000 unit Documented By: FALGUNI Hydralazine HCl (Hydralazine Hcl 25 Mg Tablet) 75 mg PO TID [facility]; Protocol Last Admin: 03/17/23 09:49 Dose: 75 mg Documented By: FALGUNI Insulin Glargine (Insulin Glargine,Hum.Rec.Anlog 100 Unit/Ml 10 Ml Vial) 5 unit SUBCUT BEDTIME [facility] Last Admin: 03/16/23 20:46 Dose: 5 unit Documented By: NADEEM Insulin Human Lispro (Insulin Lispro 100 Unit/Ml 3 Ml Vial) 0 unit SUBCUT QIDACHS [facility]; Protocol Last Admin: 03/17/23 09:46 Dose: Not Given Documented By: FALGUNI Non-Admin Reason: No Insulin Coverage Metoprolol Tartrate (Metoprolol Tartrate 12.5 Mg Halftab) 12.5 mg PO BID [facility]; Protocol Last Admin: 03/17/23 09:49 Dose: 12.5 mg Documented By: FALGUNI Multivitamins/Vitamin C (Multivitamin Tablet) 1 tab PO DAILY [facility] Last Admin: 03/17/23 09:29 Dose: 1 tab Documented By: FALGUNI Ondansetron HCl (Ondansetron Hcl 4 Mg/2 Ml Vial) 4 mg IVPUSH Q8H PRN PRN Reason: Nausea and Vomiting Last Admin: 03/12/23 12:12 Dose: 4 mg Documented By: MADDY Sevelamer Carbonate (Sevelamer Carbonate Tablet 800 Mg Tablet) 800 mg PO TIDWM [facility] Last Admin: 03/16/23 16:57 Dose: 800 mg Documented By: MADDY Sodium Chloride (0.9 % Sodium Chloride Flush 3 Ml Syringe) 3 ml IVFLUSH QSHIFT [facility] Last Admin: 03/17/23 09:30 Dose: 3 ml Documented By: FALGUNI Labs 03/16/23 05:42 03/16/23 05:42 Labs: Laboratory Results - last 24 hr 03/16/23 03/16/23 03/16/23 11:24 16:23 19:54 POC Glucose 110 180 H 154 H 03/17/23 09:46 POC Glucose 100 Assessment and Plan (1) Physical deconditioning: Status: Acute (2) ESRD needing dialysis: Status: Acute Plan A 72 years old lady with PMH of ESRD on HD, asthma, HTN, DMII among others whi was brought to the hospital on 02/07 for confusion. ESRD on HD TTS Nephrology following HTN continue MEtoprolol increase to dose of hydralazine to 75 mg for better control DM II w hypoglycemia event better controlled SSI, diabetic diet Lantus decreased to 5 units Physical deconditioning PT rec STR The patient needs inpatient stay overnight for the need of dialysis pending safe discharge plan Time Spent With Patient Time: Total time managing care of this patient today ____ minutes. Quality Stroke Does the patient have a stroke diagnosis?: No VTE Prior VTE?: No VTE Risk Level:: Medical - moderate - high VTE Device Contraindication: Treatment Not Indicated VTE Drug Contraindication: N/A - Med Ordered
[2023-03-17] MEDS: Sevelamer Carbonate Tablet 800 MG TABLET PO ×3 (10:12→17:29)
[2023-03-17 11:51] LABS: Glucose, Whole Blood 110 mg/dL (60-115)
--- NOTE | 2023-03-17 14:46 | P.PNNP_ITS ---
Subjective Subjective Date of Service: 03/17/23 Interval history: evaluated on HD Physical Exam Vital Signs: Vital Signs: Last Vital Signs Temp 97.2 F 03/17/23 03:50 Pulse 72 03/17/23 03:50 Resp 18 03/17/23 03:50 BP 176/75 H 03/17/23 03:50 Pulse Ox 99 03/17/23 03:50 O2 Del Method Room Air 03/17/23 03:50 O2 Flow Rate 97 03/08/23 06:00 BMI result Body Mass Index 35.9 Const: Other: Constitutional : Awake, interactive, not in distress Neck : Normal inspection, Supple Cardiovascular : RRR, no JVP, no lower extremity edema Respiratory : good bilateral air entry, no crackles, wheezes or rhonchi Gastrointestinal: soft, lax, Normal bowel sounds, Non tender Skin : Warm, Dry, fistula clean Neurological : Alert & oriented x3, No focal deficit Objective Data Labs 03/16/23 05:42 03/16/23 05:42 Labs: Laboratory Results - last 24 hr 03/16/23 03/16/23 03/17/23 16:23 19:54 09:46 POC Glucose 180 H 154 H 100 03/17/23 11:37 POC Glucose 110 Procedures Date of Service Date of Service: 03/17/23 Assessment & Plan Assessment and plan (1) Physical deconditioning: Status: Acute (2) ESRD needing dialysis: Status: Acute Plan will continue iHD on TTS schedule currently dialyzing at [facility] [place] unit, patient asking if transfer possible. continue sevelamer continue hydralazine Add amlodipine for HTN Time Spent With Patient Time: Total time managing care of this patient today ____ minutes. Progress Note: Quality Stroke Does the patient have a stroke diagnosis?: No
[2023-03-17] MEDS: amLODIPine Besylate 5 MG TABLET PO (15:09)
[2023-03-17 15:50] VITALS: BP 151/65; PULSE 79; RESP 20; TEMP 36; O2SAT 99
[2023-03-17 16:16] LABS: Glucose, Whole Blood 133 mg/dL (60-115)
[2023-03-17 19:46] VITALS: BP 134/62; PULSE 76; RESP 20; TEMP 36.1; O2SAT 99
[2023-03-17 20:53] LABS: Glucose, Whole Blood 137 mg/dL (60-115)
[2023-03-17] MEDS: Insulin Glargine,Hum.rec.anlog 100 UNIT/ML 10 ML VIAL SUBCUT (21:05)
[2023-03-18 01:38] VITALS: BP 140/72; PULSE 75; RESP 18; TEMP 36.9; O2SAT 97
[2023-03-18 07:41] VITALS: BP 158/70; PULSE 76; RESP 18; TEMP 36.2; O2SAT 99
--- NOTE | 2023-03-18 07:57 | HO.PM.IMPN ---
Subjective Subjective Date of Service: 03/18/23 Interval History: no complaints Physical Exam Vital Signs: Vital Signs: Last Vital Signs Temp 97.2 F 03/18/23 07:41 Pulse 76 03/18/23 07:41 Resp 18 03/18/23 07:41 BP 158/70 H 03/18/23 07:41 Pulse Ox 99 03/18/23 07:41 O2 Del Method Room Air 03/18/23 07:41 O2 Flow Rate 97 03/08/23 06:00 BMI result Body Mass Index 35.9 Const: Other: Constitutional : Awake, interactive, not in distress Neck : Normal inspection, Supple Cardiovascular : RRR, no JVP, no lower extremity edema Respiratory : good bilateral air entry, no crackles, wheezes or rhonchi Gastrointestinal: soft, lax, Normal bowel sounds, Non tender Skin : Warm, Dry, fistula clean Neurological : Alert & oriented x3, No focal deficit Objective Data Active Medications Acetaminophen (Acetaminophen 325 Mg Tablet) 650 mg PO QID PRN PRN Reason: Pain, Mild (Pain Scale 1-3) Last Admin: 03/17/23 09:29 Dose: 650 mg Documented By: FALGUNI Albuterol Sulfate (Albuterol Sulfate 90 Mcg 8 Gm Inhaler) 1 puff INHALE QID PRN PRN Reason: Shortness Of Breath Amlodipine Besylate (Amlodipine Besylate 5 Mg Tablet) [address] [facility]; Protocol Last Admin: 03/17/23 15:09 Dose: 5 mg Documented By: FALGUNI Dextrose (Dextrose 50 % 25 Gm/50 Ml Syringe) 25 gm IVPUSH Q15M PRN; Protocol PRN Reason: per Hypoglycemia Standing Ord. Glucose (Glucose Gel 15 Gm Gel..Gram.) 15 gm PO Q15M PRN; Protocol PRN Reason: per Hypoglycemia Standing Ord. Last Admin: 03/11/23 07:42 Dose: 15 gm Documented By: RITA Heparin Sodium (Porcine) (Heparin Sodium,Porcine 5,000 Unit/Ml Vial) 5,[address] [facility] Last Admin: 03/17/23 21:04 Dose: 5,000 unit Documented By: NADEEM Hydralazine HCl (Hydralazine Hcl 25 Mg Tablet) [address] [facility]; Protocol Last Admin: 03/17/23 21:05 Dose: 75 mg Documented By: NADEEM Insulin Glargine (Insulin Glargine,Hum.Rec.Anlog 100 Unit/Ml 10 Ml Vial) [address] [facility] Last Admin: 03/17/23 21:05 Dose: 5 unit Documented By: NADEEM Insulin Human Lispro (Insulin Lispro 100 Unit/Ml 3 Ml Vial) [address] [facility]; Protocol Last Admin: 03/17/23 20:57 Dose: Not Given Documented By: NADEEM Non-Admin Reason: No Insulin Coverage Metoprolol Tartrate (Metoprolol Tartrate 12.5 Mg Halftab) 12.[address] [facility]; Protocol Last Admin: 03/17/23 21:05 Dose: 12.5 mg Documented By: NADEEM Multivitamins/Vitamin C (Multivitamin Tablet) [address] [facility] Last Admin: 03/17/23 09:29 Dose: 1 tab Documented By: FALGUNI Ondansetron HCl (Ondansetron Hcl 4 Mg/2 Ml Vial) 4 mg IVPUSH Q8H PRN PRN Reason: Nausea and Vomiting Last Admin: 03/12/23 12:12 Dose: 4 mg Documented By: MADDY Sevelamer Carbonate (Sevelamer Carbonate Tablet 800 Mg Tablet) [address] [facility] Last Admin: 03/17/23 17:29 Dose: 800 mg Documented By: FALGUNI Sodium Chloride (0.9 % Sodium Chloride Flush 3 Ml Syringe) [address] [facility] Last Admin: 03/17/23 21:05 Dose: 3 ml Documented By: NADEEM Labs 03/16/23 05:42 03/16/23 05:42 Labs: Laboratory Results - last 24 hr 03/17/23 03/17/23 03/17/23 09:46 11:37 16:11 POC Glucose 100 110 133 H 03/17/23 20:46 POC Glucose 137 H Assessment and Plan (1) Physical deconditioning: Status: Acute (2) ESRD needing dialysis: Status: Acute Plan A 72 years old lady with PMH of ESRD on HD, asthma, HTN, DMII among others whi was brought to the hospital on 02/07 for confusion. ESRD on HD TTS Nephrology following HTN continue MEtoprolol increase to dose of hydralazine to 75 mg for better control DM II w hypoglycemia event better controlled SSI, diabetic diet Lantus decreased to 5 units Physical deconditioning PT rec STR The patient needs inpatient stay overnight for the need of dialysis pending safe discharge plan Time Spent With Patient Time: Total time managing care of this patient today ____ minutes. Quality Stroke Does the patient have a stroke diagnosis?: No VTE Prior VTE?: No VTE Risk Level:: Medical - moderate - high VTE Device Contraindication: Treatment Not Indicated VTE Drug Contraindication: N/A - Med Ordered
[2023-03-18 08:20] LABS: Glucose, Whole Blood 88 mg/dL (60-115)
[2023-03-18] MEDS: hydrALAZINE HCl 25 MG TABLET 75 MG PO ×3 (08:27→21:30)
[2023-03-18] MEDS: Sevelamer Carbonate Tablet 800 MG TABLET PO ×3 (08:27→17:30)
[2023-03-18] MEDS: amLODIPine Besylate 5 MG TABLET PO (08:27)
[2023-03-18] MEDS: Heparin Sodium,Porcine 5,000 UNIT/ML VIAL 5000 UNIT SUBCUT ×2 (08:28→21:41)
[2023-03-18] MEDS: Multivitamin TABLET 1 TAB PO (08:28)
[2023-03-18] MEDS: 0.9 % Sodium Chloride Flush 3 ML SYRINGE IVFLUSH ×3 (08:28→23:23)
[2023-03-18] MEDS: Metoprolol Tartrate 12.5 MG HALFTAB PO ×2 (08:29→21:30)
--- NOTE | 2023-03-18 11:48 | PM.PNNEP ---
Subjective Subjective Date of Service: 03/18/23 Interval history: no complaints Physical Exam Vital Signs: Vital Signs: Last Vital Signs Temp 97.2 F 03/18/23 07:41 Pulse 76 03/18/23 07:41 Resp 18 03/18/23 07:41 BP 158/70 H 03/18/23 07:41 Pulse Ox 99 03/18/23 07:41 O2 Del Method Room Air 03/18/23 07:41 O2 Flow Rate 97 03/08/23 06:00 BMI result Body Mass Index 35.9 Const: Other: Constitutional : Awake, interactive, not in distress Neck : Normal inspection, Supple Cardiovascular : RRR, no JVP, no lower extremity edema Respiratory : good bilateral air entry, no crackles, wheezes or rhonchi Gastrointestinal: soft, lax, Normal bowel sounds, Non tender Skin : Warm, Dry, fistula clean Neurological : Alert & oriented x3, No focal deficit Objective Data Labs 03/16/23 05:42 03/16/23 05:42 Labs: Laboratory Results - last 24 hr 03/17/23 03/17/23 03/17/23 11:37 16:11 20:46 POC Glucose 110 133 H 137 H 03/18/23 07:38 POC Glucose 88 Procedures Date of Service Date of Service: 03/18/23 Assessment & Plan Assessment and plan (1) Physical deconditioning: Status: Acute (2) ESRD needing dialysis: Status: Acute Plan will continue iHD on TTS schedule currently dialyzing at [facility] unit continue sevelamer continue hydralazine Add amlodipine for HTN Time Spent With Patient Time: Total time managing care of this patient today ____ minutes. Progress Note: Quality Stroke Does the patient have a stroke diagnosis?: No
[2023-03-18 12:02] LABS: Glucose, Whole Blood 122 mg/dL (60-115)
[2023-03-18 15:47] VITALS: BP 148/66; PULSE 69; RESP 18; TEMP 36.1; O2SAT 100
[2023-03-18 16:00] VITALS: BP 159/66; PULSE 68; RESP 18; TEMP 36.1; O2SAT 100
[2023-03-18 17:00] LABS: Glucose, Whole Blood 130 mg/dL (60-115)
[2023-03-18 19:54] VITALS: BP 148/52; PULSE 74; RESP 17; TEMP 36.7; O2SAT 100
[2023-03-18 20:45] LABS: Glucose, Whole Blood 175 mg/dL (60-115)
[2023-03-18] MEDS: Acetaminophen 325 MG TABLET 650 MG PO (21:30)
[2023-03-18] MEDS: Insulin Lispro 100 UNIT/ML 3 ML VIAL SUBCUT (21:40)
[2023-03-18] MEDS: Insulin Glargine,Hum.rec.anlog 100 UNIT/ML 10 ML VIAL SUBCUT (21:40)
[2023-03-19] VITALS (7 sets, daily range): BP systolic 140–172; BP diastolic 62–74; PULSE 66–75; RESP 18–19; TEMP 36.6–36.9; O2SAT 98–100
[2023-03-19 07:29] LABS: Glucose, Whole Blood 113 mg/dL (60-115)
[2023-03-19] MEDS: Multivitamin TABLET 1 TAB PO (07:29)
[2023-03-19] MEDS: Sevelamer Carbonate Tablet 800 MG TABLET PO ×3 (07:29→16:46)
[2023-03-19] MEDS: hydrALAZINE HCl 25 MG TABLET 75 MG PO ×3 (07:29→20:13)
[2023-03-19] MEDS: amLODIPine Besylate 5 MG TABLET PO (07:29)
[2023-03-19] MEDS: Heparin Sodium,Porcine 5,000 UNIT/ML VIAL 5000 UNIT SUBCUT ×2 (07:29→20:13)
[2023-03-19] MEDS: Metoprolol Tartrate 12.5 MG HALFTAB PO ×2 (07:29→20:13)
[2023-03-19] MEDS: 0.9 % Sodium Chloride Flush 3 ML SYRINGE IVFLUSH ×2 (07:30→16:47)
--- NOTE | 2023-03-19 08:37 | HO.PM.IMPN ---
Subjective Subjective Date of Service: 03/19/23 Interval History: no complaints Physical Exam Vital Signs: Vital Signs: Last Vital Signs Temp 98.1 F 03/19/23 07:21 Pulse 73 03/19/23 07:21 Resp 18 03/19/23 07:21 BP 172/74 H 03/19/23 07:21 Pulse Ox 100 03/19/23 07:21 O2 Del Method Room Air 03/19/23 07:21 O2 Flow Rate 97 03/08/23 06:00 BMI result Body Mass Index 35.9 Const: Other: Constitutional : Awake, interactive, not in distress Neck : Normal inspection, Supple Cardiovascular : RRR, no JVP, no lower extremity edema Respiratory : good bilateral air entry, no crackles, wheezes or rhonchi Gastrointestinal: soft, lax, Normal bowel sounds, Non tender Skin : Warm, Dry, fistula clean Neurological : Alert & oriented x3, No focal deficit Objective Data Active Medications Acetaminophen (Acetaminophen 325 Mg Tablet) 650 mg PO QID PRN PRN Reason: Pain, Mild (Pain Scale 1-3) Last Admin: 03/18/23 21:30 Dose: 650 mg Documented By: VINCE Albuterol Sulfate (Albuterol Sulfate 90 Mcg 8 Gm Inhaler) 1 puff INHALE QID PRN PRN Reason: Shortness Of Breath Amlodipine Besylate (Amlodipine Besylate 5 Mg Tablet) 5 mg PO DAILY [facility]; Protocol Last Admin: 03/19/23 07:29 Dose: 5 mg Documented By: JAYANT Dextrose (Dextrose 50 % 25 Gm/50 Ml Syringe) 25 gm IVPUSH Q15M PRN; Protocol PRN Reason: per Hypoglycemia Standing Ord. Glucose (Glucose Gel 15 Gm Gel..Gram.) 15 gm PO Q15M PRN; Protocol PRN Reason: per Hypoglycemia Standing Ord. Last Admin: 03/11/23 07:42 Dose: 15 gm Documented By: RITA Heparin Sodium (Porcine) (Heparin Sodium,Porcine 5,000 Unit/Ml Vial) 5,000 unit SUBCUT Q12H [facility] Last Admin: 03/19/23 07:29 Dose: 5,000 unit Documented By: JAYANT Hydralazine HCl (Hydralazine Hcl 25 Mg Tablet) 75 mg PO TID [facility]; Protocol Last Admin: 03/19/23 07:29 Dose: 75 mg Documented By: JAYANT Insulin Glargine (Insulin Glargine,Hum.Rec.Anlog 100 Unit/Ml 10 Ml Vial) 5 unit SUBCUT BEDTIME [facility] Last Admin: 03/18/23 21:40 Dose: 5 unit Documented By: VINCE Insulin Human Lispro (Insulin Lispro 100 Unit/Ml 3 Ml Vial) 0 unit SUBCUT QIDACHS [facility]; Protocol Last Admin: 03/19/23 07:25 Dose: Not Given Documented By: JAYANT Non-Admin Reason: No Insulin Coverage Metoprolol Tartrate (Metoprolol Tartrate 12.5 Mg Halftab) 12.5 mg PO BID [facility]; Protocol Last Admin: 03/19/23 07:29 Dose: 12.5 mg Documented By: JAYANT Multivitamins/Vitamin C (Multivitamin Tablet) 1 tab PO DAILY [facility] Last Admin: 03/19/23 07:29 Dose: 1 tab Documented By: JAYANT Ondansetron HCl (Ondansetron Hcl 4 Mg/2 Ml Vial) 4 mg IVPUSH Q8H PRN PRN Reason: Nausea and Vomiting Last Admin: 03/12/23 12:12 Dose: 4 mg Documented By: MADDY Sevelamer Carbonate (Sevelamer Carbonate Tablet 800 Mg Tablet) 800 mg PO TIDWM [facility] Last Admin: 03/19/23 07:29 Dose: 800 mg Documented By: JAYANT Sodium Chloride (0.9 % Sodium Chloride Flush 3 Ml Syringe) 3 ml IVFLUSH QSHIFT [facility] Last Admin: 03/19/23 07:30 Dose: 3 ml Documented By: JAYANT Labs 03/16/23 05:42 03/16/23 05:42 Labs: Laboratory Results - last 24 hr 03/18/23 03/18/23 03/18/23 11:48 16:46 20:41 POC Glucose 122 H 130 H 175 H 03/19/23 07:23 POC Glucose 113 Assessment and Plan (1) Physical deconditioning: Status: Acute (2) ESRD needing dialysis: Status: Acute Plan A 72 years old lady with PMH of ESRD on HD, asthma, HTN, DMII among others whi was brought to the hospital on 02/07 for confusion. ESRD on HD TTS Nephrology following HTN continue MEtoprolol increased to dose of hydralazine to 75 mg for better control DM II w hypoglycemia event better controlled SSI, diabetic diet Lantus decreased to 5 units Physical deconditioning PT rec STR The patient needs inpatient stay overnight for the need of dialysis pending safe discharge plan Time Spent With Patient Time: Total time managing care of this patient today ____ minutes. Quality Stroke Does the patient have a stroke diagnosis?: No VTE Prior VTE?: No VTE Risk Level:: Medical - moderate - high VTE Device Contraindication: Treatment Not Indicated VTE Drug Contraindication: N/A - Med Ordered
--- NOTE | 2023-03-19 10:18 | P.PNNP_ITS ---
Subjective Subjective Date of Service: 03/20/23 Interval history: no complaints Physical Exam Vital Signs: Vital Signs: Last Vital Signs Temp 98.1 F 03/19/23 07:21 Pulse 73 03/19/23 07:21 Resp 18 03/19/23 07:21 BP 172/74 H 03/19/23 07:21 Pulse Ox 100 03/19/23 07:21 O2 Del Method Room Air 03/19/23 07:21 O2 Flow Rate 97 03/08/23 06:00 BMI result Body Mass Index 35.9 Const: Other: Constitutional : Awake, interactive, not in distress Neck : Normal inspection, Supple Cardiovascular : RRR, no JVP, no lower extremity edema Respiratory : good bilateral air entry, no crackles, wheezes or rhonchi Gastrointestinal: soft, lax, Normal bowel sounds, Non tender Skin : Warm, Dry, fistula clean Neurological : Alert & oriented x3, No focal deficit Objective Data Labs 03/16/23 05:42 03/16/23 05:42 Labs: Laboratory Results - last 24 hr 03/18/23 03/18/23 03/18/23 11:48 16:46 20:41 POC Glucose 122 H 130 H 175 H 03/19/23 07:23 POC Glucose 113 Procedures Date of Service Date of Service: 03/20/23 Assessment & Plan Assessment and plan (1) Physical deconditioning: Status: Acute (2) ESRD needing dialysis: Status: Acute Plan ESRD: TTS [facility] unit AMS: improved Nephrogenic anemia MBD of CKD Await Placement Time Spent With Patient Time: Total time managing care of this patient today ____ minutes. Progress Note: Quality Stroke Does the patient have a stroke diagnosis?: No
[2023-03-19 11:28] LABS: Glucose, Whole Blood 140 mg/dL (60-115)
[2023-03-19] MEDS: Acetaminophen 325 MG TABLET 650 MG PO ×2 (12:25→20:21)
--- NOTE | 2023-03-19 14:37 | MHC.CM.PN ---
EMR REVIEWED, PT REMAINS READY FOR DC HOWEVER LTC PLACEMENT/A CENTER THAT CAN MANAGE HD ARE STILL PENDING. REFERRALS UPDATED, CM CONTINUE TO FOLLOW.
[2023-03-19 16:28] LABS: Glucose, Whole Blood 181 mg/dL (60-115)
[2023-03-19] MEDS: Insulin Lispro 100 UNIT/ML 3 ML VIAL SUBCUT ×2 (16:46→20:14)
--- NOTE | 2023-03-19 17:00 | PC.NURSE ---
IV outdated,Dr. Shah notified,ok to remove and keep it out
--- NOTE | 2023-03-19 17:07 | PC.NURSE ---
Dialysis fistula present in left upper arm,positive for thrill and bruit
[2023-03-19 19:56] LABS: Glucose, Whole Blood 170 mg/dL (60-115)
[2023-03-19] MEDS: Insulin Glargine,Hum.rec.anlog 100 UNIT/ML 10 ML VIAL SUBCUT (20:14)
[2023-03-20 03:40] VITALS: BP 150/69; PULSE 73; RESP 16; TEMP 36; O2SAT 98
[2023-03-20 06:30] LABS: Hematocrit 24.9 % (37.0-47.0); Hemoglobin 8.3 g/dl (12.0-16.0); Mean Corpuscular HGB Conc 33.3 g/dl (31.0-35.0); Mean Corpuscular Hemoglobin 27.8 pg (27.0-33.0); Mean Corpuscular Volume 83.3 fL (80.0-98.0); Mean Platelet Volume 12.6 fL (9.4-12.3); Platelet Count 170 X10*3/uL (160-400); Red Blood Count 2.99 X10*6/uL (4.20-5.50); Red Cell Distribution Width 16.2 % (11.0-16.0); White Blood Count 4.5 X10*3/uL (4.8-10.8)
[2023-03-20 06:31] LABS: Anion Gap 19 (12-20); Blood Urea Nitrogen 98 mg/dL (9-16); Calcium 8.6 mg/dL (8.4-10.2); Carbon Dioxide 19 mmol/L (22-29); Chloride 93 mmol/L (96-108); Creatinine Clr Calc Pharmacy 5.6; Estimated Glomerular Filt Rate 4; Glucose Fasting 104 mg/dL (60-99); Potassium 5.2 mmol/L (3.3-5.1); Sodium 126 mmol/L (135-145)
[2023-03-20 07:16] VITALS: BP 166/71; PULSE 74; RESP 16; TEMP 36.7; O2SAT 98
[2023-03-20 07:22] LABS: Glucose, Whole Blood 106 mg/dL (60-115)
[2023-03-20] MEDS: Heparin Sodium,Porcine 5,000 UNIT/ML VIAL 5000 UNIT SUBCUT ×2 (07:45→21:00)
[2023-03-20] MEDS: Metoprolol Tartrate 12.5 MG HALFTAB PO ×2 (07:45→21:03)
[2023-03-20] MEDS: Multivitamin TABLET 1 TAB PO (07:45)
[2023-03-20] MEDS: amLODIPine Besylate 5 MG TABLET PO (07:45)
[2023-03-20] MEDS: Sevelamer Carbonate Tablet 800 MG TABLET PO ×3 (07:45→16:25)
[2023-03-20] MEDS: hydrALAZINE HCl 25 MG TABLET 75 MG PO ×3 (07:45→21:03)
[2023-03-20] MEDS: Acetaminophen 325 MG TABLET 650 MG PO ×2 (08:02→12:44)
--- NOTE | 2023-03-20 08:46 | HO.PM.IMPN ---
Subjective Subjective Date of Service: 03/20/23 Interval History: no complaints Physical Exam Vital Signs: Vital Signs: Last Vital Signs Temp 98.0 F 03/20/23 07:16 Pulse 74 03/20/23 07:16 Resp 16 03/20/23 07:16 BP 166/71 H 03/20/23 07:16 Pulse Ox 98 03/20/23 07:16 O2 Del Method Room Air 03/20/23 07:16 O2 Flow Rate 97 03/08/23 06:00 BMI result Body Mass Index 35.9 Const: Other: Constitutional : Awake, interactive, not in distress Neck : Normal inspection, Supple Cardiovascular : RRR, no JVP, no lower extremity edema Respiratory : good bilateral air entry, no crackles, wheezes or rhonchi Gastrointestinal: soft, lax, Normal bowel sounds, Non tender Skin : Warm, Dry, fistula clean Neurological : Alert & oriented x3, No focal deficit Objective Data Active Medications Acetaminophen (Acetaminophen 325 Mg Tablet) 650 mg PO QID PRN PRN Reason: Pain, Mild (Pain Scale 1-3) Last Admin: 03/20/23 08:02 Dose: 650 mg Documented By: DAVID Albuterol Sulfate (Albuterol Sulfate 90 Mcg 8 Gm Inhaler) 1 puff INHALE QID PRN PRN Reason: Shortness Of Breath Amlodipine Besylate (Amlodipine Besylate 5 Mg Tablet) 5 mg PO DAILY [facility]; Protocol Last Admin: 03/20/23 07:45 Dose: 5 mg Documented By: DAVID Dextrose (Dextrose 50 % 25 Gm/50 Ml Syringe) 25 gm IVPUSH Q15M PRN; Protocol PRN Reason: per Hypoglycemia Standing Ord. Glucose (Glucose Gel 15 Gm Gel..Gram.) 15 gm PO Q15M PRN; Protocol PRN Reason: per Hypoglycemia Standing Ord. Last Admin: 03/11/23 07:42 Dose: 15 gm Documented By: RITA Heparin Sodium (Porcine) (Heparin Sodium,Porcine 5,000 Unit/Ml Vial) 5,000 unit SUBCUT Q12H [facility] Last Admin: 03/20/23 07:45 Dose: 5,000 unit Documented By: DAVID Hydralazine HCl (Hydralazine Hcl 25 Mg Tablet) 75 mg PO TID [facility]; Protocol Last Admin: 03/20/23 07:45 Dose: 75 mg Documented By: DAVID Insulin Glargine (Insulin Glargine,Hum.Rec.Anlog 100 Unit/Ml 10 Ml Vial) 5 unit SUBCUT BEDTIME [facility] Last Admin: 03/19/23 20:14 Dose: 5 unit Documented By: MEAGHAN Insulin Human Lispro (Insulin Lispro 100 Unit/Ml 3 Ml Vial) 0 unit SUBCUT QIDACHS [facility]; Protocol Last Admin: 03/20/23 07:25 Dose: Not Given Documented By: DAVID Non-Admin Reason: No Insulin Coverage Metoprolol Tartrate (Metoprolol Tartrate 12.5 Mg Halftab) 12.5 mg PO BID [facility]; Protocol Last Admin: 03/20/23 07:45 Dose: 12.5 mg Documented By: DAVID Multivitamins/Vitamin C (Multivitamin Tablet) 1 tab PO DAILY [facility] Last Admin: 03/20/23 07:45 Dose: 1 tab Documented By: DAVID Ondansetron HCl (Ondansetron Hcl 4 Mg/2 Ml Vial) 4 mg IVPUSH Q8H PRN PRN Reason: Nausea and Vomiting Last Admin: 03/12/23 12:12 Dose: 4 mg Documented By: MADDY Sevelamer Carbonate (Sevelamer Carbonate Tablet 800 Mg Tablet) 800 mg PO TIDWM [facility] Last Admin: 03/20/23 07:45 Dose: 800 mg Documented By: DAVID Sodium Chloride (0.9 % Sodium Chloride Flush 3 Ml Syringe) 3 ml IVFLUSH QSHIFT [facility] Last Admin: 03/20/23 07:46 Dose: Not Given Documented By: DAVID Non-Admin Reason: No Access Labs 03/20/23 05:19 03/20/23 05:19 Labs: Laboratory Results - last 24 hr 03/19/23 03/19/23 03/19/23 11:17 16:24 19:53 MCV MCH MCHC RDW Plt Count MPV Absolute Nucleated RBC Nucleated RBC % (auto) Anion Gap Estim Creat Clear Calc Estimated GFR POC Glucose 140 H 181 H 170 H Fasting Glucose Calcium 03/20/23 03/20/23 03/20/23 05:19 05:19 07:18 MCV 83.3 MCH 27.8 MCHC 33.3 RDW 16.2 H Plt Count 170 MPV 12.6 H Absolute Nucleated RBC 0.000 Nucleated RBC % (auto) 0.0 Anion Gap 19 Estim Creat Clear Calc 5.6 Estimated GFR 4 POC Glucose 106 Fasting Glucose 104 H Calcium 8.6 Assessment and Plan (1) Physical deconditioning: Status: Acute (2) ESRD needing dialysis: Status: Acute Plan A 72 years old lady with PMH of ESRD on HD, asthma, HTN, DMII among others whi was brought to the hospital on 02/07 for confusion. ESRD on HD TTS Nephrology following HTN continue MEtoprolol increased to dose of hydralazine to 75 mg for better control DM II w hypoglycemia event better controlled SSI, diabetic diet Lantus decreased to 5 units Physical deconditioning PT rec STR The patient needs inpatient stay overnight for the need of dialysis pending safe discharge plan Time Spent With Patient Time: Total time managing care of this patient today ____ minutes. Quality Stroke Does the patient have a stroke diagnosis?: No VTE Prior VTE?: No VTE Risk Level:: Medical - moderate - high VTE Device Contraindication: Treatment Not Indicated VTE Drug Contraindication: N/A - Med Ordered
--- NOTE | 2023-03-20 10:19 | P.PNNPD_ITS ---
Subjective Subjective This patient was seen during dialysis. Interval history: no complaints Physical Exam Vital Signs: Vital Signs: Last Vital Signs Temp 98.0 F 03/20/23 07:16 Pulse 74 03/20/23 07:16 Resp 16 03/20/23 07:16 BP 166/71 H 03/20/23 07:16 Pulse Ox 98 03/20/23 07:16 O2 Del Method Room Air 03/20/23 07:16 O2 Flow Rate 97 03/08/23 06:00 BMI result Body Mass Index 35.9 Const: Other: Constitutional : Awake, interactive, not in distress Neck : Normal inspection, Supple Cardiovascular : RRR, no JVP, no lower extremity edema Respiratory : good bilateral air entry, no crackles, wheezes or rhonchi Gastrointestinal: soft, lax, Normal bowel sounds, Non tender Skin : Warm, Dry, fistula clean Neurological : Alert & oriented x3, No focal deficit General: no acute distress HEENT: Head: Yes normocephalic and Yes atraumatic Neck: Neck: Yes supple Resp: Auscultation: clear to auscultation bilaterally Cardio: Heart sounds: S1 normal heart sound present and S2 normal heart sound present GI: Palpation (GI): Soft to palpation and nontender Extrem: General: Yes normal to inspection Assessment & Plan Assessment and plan (1) Physical deconditioning: Status: Acute (2) ESRD needing dialysis: Status: Acute Plan ESRD: TTS [facility] unit AMS: improved Nephrogenic anemia MBD of CKD Await Placement Time Spent With Patient Time: Total time managing care of this patient today ____ minutes. Procedures Date of Service Date of Service: 03/22/23
[2023-03-20 12:24] LABS: Glucose, Whole Blood 162 mg/dL (60-115)
[2023-03-20] MEDS: Insulin Lispro 100 UNIT/ML 3 ML VIAL SUBCUT ×2 (12:38→21:02)
[2023-03-20 12:41] VITALS: BP 149/63; PULSE 77; RESP 18; TEMP 36.6; O2SAT 100
[2023-03-20 15:17] VITALS: BP 150/66; PULSE 80; RESP 18; TEMP 37.1; O2SAT 99
[2023-03-20 16:17] LABS: Glucose, Whole Blood 140 mg/dL (60-115)
[2023-03-20 19:21] VITALS: BP 155/66; PULSE 82; RESP 18; TEMP 36.7; O2SAT 99
[2023-03-20 19:48] LABS: Glucose, Whole Blood 157 mg/dL (60-115)
[2023-03-20] MEDS: Insulin Glargine,Hum.rec.anlog 100 UNIT/ML 10 ML VIAL SUBCUT (21:01)
[2023-03-21 03:49] VITALS: BP 170/70; PULSE 83; RESP 16; TEMP 36; O2SAT 98
[2023-03-21 07:22] LABS: Glucose, Whole Blood 103 mg/dL (60-115)
[2023-03-21 07:38] VITALS: BP 172/62; PULSE 82; RESP 18; TEMP 36.8; O2SAT 98
[2023-03-21 07:56] VITALS: BP 172/62; PULSE 82; O2SAT 98
[2023-03-21] MEDS: Heparin Sodium,Porcine 5,000 UNIT/ML VIAL 5000 UNIT SUBCUT ×2 (08:25→21:19)
[2023-03-21] MEDS: Sevelamer Carbonate Tablet 800 MG TABLET PO ×3 (08:25→16:43)
[2023-03-21] MEDS: hydrALAZINE HCl 25 MG TABLET 75 MG PO ×3 (08:25→21:18)
[2023-03-21] MEDS: amLODIPine Besylate 5 MG TABLET PO (08:25)
[2023-03-21] MEDS: Metoprolol Tartrate 12.5 MG HALFTAB PO ×2 (08:25→21:18)
[2023-03-21] MEDS: Multivitamin TABLET 1 TAB PO (08:25)
--- NOTE | 2023-03-21 10:13 | HO.PM.IMPN ---
Subjective Subjective Date of Service: 03/21/23 Interval History: Seen and evaluated No complaints Review of Systems No fever, chills or weakness No chest pain, palpitation No shortness of breath or coughing No abdominal pain, nausea or vomiting No urinary symptoms No any rash or wounds Physical Exam Vital Signs: Vital Signs: Last Vital Signs Temp 98.3 F 03/21/23 07:38 Pulse 82 03/21/23 07:56 Resp 18 03/21/23 07:38 BP 172/62 H 03/21/23 07:56 Pulse Ox 98 03/21/23 07:56 O2 Del Method Room Air 03/21/23 07:38 O2 Flow Rate 97 03/08/23 06:00 BMI result Body Mass Index 35.9 Const: Other: Constitutional : Awake, interactive, not in distress Neck : Normal inspection, Supple Cardiovascular : RRR, no JVP, no lower extremity edema Respiratory : good bilateral air entry, no crackles, wheezes or rhonchi Gastrointestinal: soft, lax, Normal bowel sounds, Non tender Skin : Warm, Dry, fistula clean Neurological : Alert & oriented x3, No focal deficit Objective Data Active Medications Acetaminophen (Acetaminophen 325 Mg Tablet) 650 mg PO QID PRN PRN Reason: Pain, Mild (Pain Scale 1-3) Last Admin: 03/20/23 12:44 Dose: 650 mg Documented By: DAVID Albuterol Sulfate (Albuterol Sulfate 90 Mcg 8 Gm Inhaler) 1 puff INHALE QID PRN PRN Reason: Shortness Of Breath Amlodipine Besylate (Amlodipine Besylate 5 Mg Tablet) 5 mg PO DAILY [facility]; Protocol Last Admin: 03/21/23 08:25 Dose: 5 mg Documented By: DAVID Dextrose (Dextrose 50 % 25 Gm/50 Ml Syringe) 25 gm IVPUSH Q15M PRN; Protocol PRN Reason: per Hypoglycemia Standing Ord. Glucose (Glucose Gel 15 Gm Gel..Gram.) 15 gm PO Q15M PRN; Protocol PRN Reason: per Hypoglycemia Standing Ord. Last Admin: 03/11/23 07:42 Dose: 15 gm Documented By: RITA Heparin Sodium (Porcine) (Heparin Sodium,Porcine 5,000 Unit/Ml Vial) 5,000 unit SUBCUT Q12H [facility] Last Admin: 03/21/23 08:25 Dose: 5,000 unit Documented By: DAVID Hydralazine HCl (Hydralazine Hcl 25 Mg Tablet) 75 mg PO TID [facility]; Protocol Last Admin: 03/21/23 08:25 Dose: 75 mg Documented By: DAVID Insulin Glargine (Insulin Glargine,Hum.Rec.Anlog 100 Unit/Ml 10 Ml Vial) 5 unit SUBCUT BEDTIME [facility] Last Admin: 03/20/23 21:01 Dose: 5 unit Documented By: MEAGHAN Insulin Human Lispro (Insulin Lispro 100 Unit/Ml 3 Ml Vial) 0 unit SUBCUT QIDACHS [facility]; Protocol Last Admin: 03/21/23 07:44 Dose: Not Given Documented By: DAVID Non-Admin Reason: No Insulin Coverage Metoprolol Tartrate (Metoprolol Tartrate 12.5 Mg Halftab) 12.5 mg PO BID [facility]; Protocol Last Admin: 03/21/23 08:25 Dose: 12.5 mg Documented By: DAVID Multivitamins/Vitamin C (Multivitamin Tablet) 1 tab PO DAILY [facility] Last Admin: 03/21/23 08:25 Dose: 1 tab Documented By: DAVID Ondansetron HCl (Ondansetron Hcl 4 Mg/2 Ml Vial) 4 mg IVPUSH Q8H PRN PRN Reason: Nausea and Vomiting Last Admin: 03/12/23 12:12 Dose: 4 mg Documented By: MADDY Sevelamer Carbonate (Sevelamer Carbonate Tablet 800 Mg Tablet) 800 mg PO TIDWM [facility] Last Admin: 03/21/23 08:25 Dose: 800 mg Documented By: DAVID Sodium Chloride (0.9 % Sodium Chloride Flush 3 Ml Syringe) 3 ml IVFLUSH QSHIFT [facility] Last Admin: 03/21/23 08:26 Dose: Not Given Documented By: DAVID Non-Admin Reason: No Access Labs 03/20/23 05:19 03/20/23 05:19 Labs: Laboratory Results - last 24 hr 03/20/23 03/20/23 03/20/23 12:21 16:13 19:39 POC Glucose 162 H 140 H 157 H 03/21/23 07:18 POC Glucose 103 Assessment and Plan (1) ESRD needing dialysis: Status: Acute (2) Physical deconditioning: Status: Acute Plan A 72 years old lady with PMH of ESRD on HD, asthma, HTN, DMII among others whi was brought to the hospital on 02/07 for confusion. ESRD on HD TTS Nephrology following HTN continue MEtoprolol increased to dose of hydralazine to 75 mg for better control DM II w hypoglycemia event better controlled SSI, diabetic diet Lantus decreased to 5 units Physical deconditioning PT rec STR The patient needs inpatient stay overnight for the need of dialysis pending safe discharge plan Time Spent With Patient Time: Total time managing care of this patient today ____ minutes. Quality Stroke Does the patient have a stroke diagnosis?: No VTE Prior VTE?: No VTE Risk Level:: Medical - moderate - high VTE Device Contraindication: Treatment Not Indicated VTE Drug Contraindication: N/A - Med Ordered
[2023-03-21 11:25] LABS: Glucose, Whole Blood 137 mg/dL (60-115)
[2023-03-21 14:07] VITALS: BP 138/63; PULSE 74; O2SAT 100
[2023-03-21 15:06] VITALS: BP 158/62; PULSE 77; RESP 18; TEMP 36.6; O2SAT 100
[2023-03-21 16:16] LABS: Glucose, Whole Blood 121 mg/dL (60-115)
[2023-03-21 20:00] VITALS: BP 130/62; PULSE 70; RESP 17; TEMP 36.4; O2SAT 97
[2023-03-21 20:05] LABS: Glucose, Whole Blood 188 mg/dL (60-115)
[2023-03-21] MEDS: Insulin Glargine,Hum.rec.anlog 100 UNIT/ML 10 ML VIAL SUBCUT (21:20)
[2023-03-21] MEDS: Insulin Lispro 100 UNIT/ML 3 ML VIAL SUBCUT (21:21)
[2023-03-22 03:46] VITALS: BP 161/68; PULSE 80; RESP 17; TEMP 36.2; O2SAT 97
[2023-03-22 07:11] VITALS: BP 164/62; PULSE 80; RESP 20; TEMP 36.2; O2SAT 99
[2023-03-22 07:47] LABS: Glucose, Whole Blood 87 mg/dL (60-115)
[2023-03-22] MEDS: amLODIPine Besylate 5 MG TABLET PO (08:17)
[2023-03-22] MEDS: Multivitamin TABLET 1 TAB PO (08:17)
[2023-03-22] MEDS: Heparin Sodium,Porcine 5,000 UNIT/ML VIAL 5000 UNIT SUBCUT ×2 (08:17→21:46)
[2023-03-22] MEDS: Sevelamer Carbonate Tablet 800 MG TABLET PO ×3 (08:17→16:19)
[2023-03-22] MEDS: hydrALAZINE HCl 25 MG TABLET 75 MG PO ×3 (08:17→21:49)
[2023-03-22] MEDS: Acetaminophen 325 MG TABLET 650 MG PO (08:18)
[2023-03-22] MEDS: Metoprolol Tartrate 12.5 MG HALFTAB PO ×2 (08:23→21:49)
--- NOTE | 2023-03-22 08:56 | PC.NURSE ---
patient off of unit to dialysis at this time
--- NOTE | 2023-03-22 09:28 | P.PNIM_ITS ---
Subjective Subjective Date of Service: 03/22/23 Interval History: Seen and evaluated No complaints Plan for dialysis Review of Systems Review of Systems: Yes all other systems are reviewed and are negative Physical Exam Vital Signs: Vital Signs: Last Vital Signs Temp 97.2 F 03/22/23 07:11 Pulse 80 03/22/23 07:11 Resp 20 03/22/23 07:11 BP 164/62 H 03/22/23 07:11 Pulse Ox 99 03/22/23 07:11 O2 Del Method Room Air 03/22/23 07:11 O2 Flow Rate 97 03/08/23 06:00 BMI result Body Mass Index 35.9 Const: Other: Constitutional : Awake, interactive, not in distress Cardiovascular : RRR, no lower extremity edema Respiratory : not in distress , chest wall moving bilaterally Gastrointestinal: soft, lax, Normal bowel sounds, Non tender Skin : Warm, Dry, fistula clean Neurological : Alert & oriented x3, No focal deficit Objective Data Active Medications Acetaminophen (Acetaminophen 325 Mg Tablet) 650 mg PO QID PRN PRN Reason: Pain, Mild (Pain Scale 1-3) Last Admin: 03/22/23 08:18 Dose: 650 mg Documented By: NILES Albuterol Sulfate (Albuterol Sulfate 90 Mcg 8 Gm Inhaler) 1 puff INHALE QID PRN PRN Reason: Shortness Of Breath Amlodipine Besylate (Amlodipine Besylate 5 Mg Tablet) 5 mg PO DAILY [facility]; Protocol Last Admin: 03/22/23 08:17 Dose: 5 mg Documented By: NILES Dextrose (Dextrose 50 % 25 Gm/50 Ml Syringe) 25 gm IVPUSH Q15M PRN; Protocol PRN Reason: per Hypoglycemia Standing Ord. Glucose (Glucose Gel 15 Gm Gel..Gram.) 15 gm PO Q15M PRN; Protocol PRN Reason: per Hypoglycemia Standing Ord. Last Admin: 03/11/23 07:42 Dose: 15 gm Documented By: RITA Heparin Sodium (Porcine) (Heparin Sodium,Porcine 5,000 Unit/Ml Vial) 5,000 unit SUBCUT Q12H [facility] Last Admin: 03/22/23 08:17 Dose: 5,000 unit Documented By: NILES Hydralazine HCl (Hydralazine Hcl 25 Mg Tablet) 75 mg PO TID [facility]; Protocol Last Admin: 03/22/23 08:17 Dose: 75 mg Documented By: NILES Insulin Glargine (Insulin Glargine,Hum.Rec.Anlog 100 Unit/Ml 10 Ml Vial) 5 unit SUBCUT BEDTIME [facility] Last Admin: 03/21/23 21:20 Dose: 5 unit Documented By: ALVINA Insulin Human Lispro (Insulin Lispro 100 Unit/Ml 3 Ml Vial) 0 unit SUBCUT QIDACHS [facility]; Protocol Last Admin: 03/22/23 07:59 Dose: Not Given Documented By: NILES Non-Admin Reason: No Insulin Coverage Metoprolol Tartrate (Metoprolol Tartrate 12.5 Mg Halftab) 12.5 mg PO BID [facility]; Protocol Last Admin: 03/22/23 08:23 Dose: 12.5 mg Documented By: NILES Multivitamins/Vitamin C (Multivitamin Tablet) 1 tab PO DAILY [facility] Last Admin: 03/22/23 08:17 Dose: 1 tab Documented By: NILES Ondansetron HCl (Ondansetron Hcl 4 Mg/2 Ml Vial) 4 mg IVPUSH Q8H PRN PRN Reason: Nausea and Vomiting Last Admin: 03/12/23 12:12 Dose: 4 mg Documented By: MADDY Sevelamer Carbonate (Sevelamer Carbonate Tablet 800 Mg Tablet) 800 mg PO TIDWM [facility] Last Admin: 03/22/23 08:17 Dose: 800 mg Documented By: NILES Sodium Chloride (0.9 % Sodium Chloride Flush 3 Ml Syringe) 3 ml IVFLUSH QSHIFT [facility] Last Admin: 03/22/23 08:17 Dose: Not Given Documented By: NILES Non-Admin Reason: No Access Labs 03/20/23 05:19 03/20/23 05:19 Labs: Laboratory Results - last 24 hr 03/21/23 03/21/23 03/21/23 11:21 15:49 19:51 POC Glucose 137 H 121 H 188 H 03/22/23 07:43 POC Glucose 87 Assessment and Plan (1) ESRD needing dialysis: Status: Acute Plan A 72 years old lady with PMH of ESRD on HD, asthma, HTN, DMII among others whi was brought to the hospital on 02/07 for confusion. ESRD on HD TTS Nephrology following HTN continue MEtoprolol increased to dose of hydralazine to 75 mg for better control DM II w hypoglycemia event better controlled SSI, diabetic diet Lantus decreased to 5 units Physical deconditioning PT rec STR The patient needs inpatient stay overnight for the need of dialysis pending safe discharge plan Time Spent With Patient Time: Total time managing care of this patient today ____ minutes. Quality Stroke Does the patient have a stroke diagnosis?: No VTE Prior VTE?: No VTE Risk Level:: Medical - moderate - high VTE Device Contraindication: Treatment Not Indicated VTE Drug Contraindication: N/A - Med Ordered
--- NOTE | 2023-03-22 10:41 | P.PNNPD_ITS ---
Subjective Subjective This patient was seen during dialysis. Interval history: Seen and evaluated No complaints Plan for dialysis Physical Exam Vital Signs: Vital Signs: Last Vital Signs Temp 97.2 F 03/22/23 07:11 Pulse 80 03/22/23 07:11 Resp 20 03/22/23 07:11 BP 164/62 H 03/22/23 07:11 Pulse Ox 99 03/22/23 07:11 O2 Del Method Room Air 03/22/23 07:11 O2 Flow Rate 97 03/08/23 06:00 BMI result Body Mass Index 35.9 Const: Other: Constitutional : Awake, interactive, not in distress Neck : Normal inspection, Supple Cardiovascular : RRR, no JVP, no lower extremity edema Respiratory : good bilateral air entry, no crackles, wheezes or rhonchi Gastrointestinal: soft, lax, Normal bowel sounds, Non tender Skin : Warm, Dry, fistula clean Neurological : Alert & oriented x3, No focal deficit Assessment & Plan Assessment and plan (1) Physical deconditioning: Status: Acute (2) ESRD needing dialysis: Status: Acute Plan ESRD: TTS [facility] unit AMS: improved Nephrogenic anemia MBD of CKD Await Placement Time Spent With Patient Time: Total time managing care of this patient today ____ minutes. Procedures Date of Service Date of Service: 03/22/23
[2023-03-22 13:13] LABS: Glucose, Whole Blood 109 mg/dL (60-115)
[2023-03-22 15:37] VITALS: BP 143/63; PULSE 72; RESP 20; TEMP 36.2; O2SAT 100
[2023-03-22 16:01] LABS: Glucose, Whole Blood 156 mg/dL (60-115)
[2023-03-22] MEDS: Artificial Tears 15 ML DROPS 2 DROP EYE-LEFT ×2 (16:19→21:50)
[2023-03-22] MEDS: Insulin Lispro 100 UNIT/ML 3 ML VIAL SUBCUT (16:20)
[2023-03-22 19:29] VITALS: BP 131/60; PULSE 81; RESP 18; TEMP 36.2; O2SAT 98
[2023-03-22 20:33] LABS: Glucose, Whole Blood 129 mg/dL (60-115)
[2023-03-22] MEDS: Insulin Glargine,Hum.rec.anlog 100 UNIT/ML 10 ML VIAL SUBCUT (21:48)
[2023-03-23 03:13] VITALS: BP 169/74; PULSE 82; RESP 18; TEMP 36.1; O2SAT 98
[2023-03-23 06:50] VITALS: BP 162/80; PULSE 78; RESP 18; TEMP 36.6; O2SAT 99
[2023-03-23 07:15] LABS: Glucose, Whole Blood 86 mg/dL (60-115)
[2023-03-23] MEDS: amLODIPine Besylate 5 MG TABLET PO (08:34)
[2023-03-23] MEDS: Metoprolol Tartrate 12.5 MG HALFTAB PO (08:34)
[2023-03-23] MEDS: Sevelamer Carbonate Tablet 800 MG TABLET PO ×3 (08:34→16:28)
[2023-03-23] MEDS: Heparin Sodium,Porcine 5,000 UNIT/ML VIAL 5000 UNIT SUBCUT ×2 (08:35→21:34)
[2023-03-23] MEDS: hydrALAZINE HCl 25 MG TABLET 75 MG PO ×3 (08:35→21:36)
[2023-03-23] MEDS: Multivitamin TABLET 1 TAB PO (08:35)
[2023-03-23 09:10] VITALS: BP 162/80; PULSE 78; O2SAT 99
--- NOTE | 2023-03-23 11:09 | HO.PM.IMPN ---
Subjective Subjective Date of Service: 03/23/23 Interval History: Seen and evaluated No complaints left eyelid edema Review of Systems No fever, chills or weakness No chest pain, palpitation No shortness of breath or coughing No abdominal pain, nausea or vomiting No urinary symptoms No any rash or wounds Physical Exam Vital Signs: Vital Signs: Last Vital Signs Temp 98 F 03/23/23 06:50 Pulse 78 03/23/23 09:10 Resp 18 03/23/23 06:50 BP 162/80 H 03/23/23 09:10 Pulse Ox 99 03/23/23 09:10 O2 Del Method Room Air 03/23/23 06:50 O2 Flow Rate 97 03/08/23 06:00 BMI result Body Mass Index 35.9 Const: Other: Constitutional : Awake, interactive, not in distress Eyes: normal vision. left eyelid edema, no tenderness or redness Cardiovascular : RRR, no lower extremity edema Respiratory : not in distress , chest wall moving bilaterally Gastrointestinal: soft, lax, Normal bowel sounds, Non tender Skin : Warm, Dry, fistula clean Neurological : Alert & oriented x3, No focal deficit Objective Data Active Medications Acetaminophen (Acetaminophen 325 Mg Tablet) 650 mg PO QID PRN PRN Reason: Pain, Mild (Pain Scale 1-3) Last Admin: 03/22/23 08:18 Dose: 650 mg Documented By: NILES Albuterol Sulfate (Albuterol Sulfate 90 Mcg 8 Gm Inhaler) 1 puff INHALE QID PRN PRN Reason: Shortness Of Breath Amlodipine Besylate (Amlodipine Besylate 5 Mg Tablet) 5 mg PO DAILY NANCY; Protocol Last Admin: 03/23/23 08:34 Dose: 5 mg Documented By: JANE Artificial Tears (Artificial Tears 15 Ml Drops) 2 drop EYE-LEFT Q4H PRN PRN Reason: Dry Eyes Last Admin: 03/22/23 21:50 Dose: 2 drop Documented By: MEAGHAN Dextrose (Dextrose 50 % 25 Gm/50 Ml Syringe) 25 gm IVPUSH Q15M PRN; Protocol PRN Reason: per Hypoglycemia Standing Ord. Glucose (Glucose Gel 15 Gm Gel..Gram.) 15 gm PO Q15M PRN; Protocol PRN Reason: per Hypoglycemia Standing Ord. Last Admin: 03/11/23 07:42 Dose: 15 gm Documented By: RITA Heparin Sodium (Porcine) (Heparin Sodium,Porcine 5,000 Unit/Ml Vial) 5,000 unit SUBCUT Q12H [facility], [facility] Last Admin: 03/23/23 08:35 Dose: 5,000 unit Documented By: JANE Hydralazine HCl (Hydralazine Hcl 25 Mg Tablet) 75 mg PO TID [facility], [facility]; Protocol Last Admin: 03/23/23 08:35 Dose: 75 mg Documented By: JANE Insulin Glargine (Insulin Glargine,Hum.Rec.Anlog 100 Unit/Ml 10 Ml Vial) 5 unit SUBCUT BEDTIME [facility], 1928[facility]1983 Last Admin: 03/22/23 21:48 Dose: 5 unit Documented By: MEAGHAN Insulin Human Lispro (Insulin Lispro 100 Unit/Ml 3 Ml Vial) 0 unit SUBCUT QIDACHS [facility], [facility]1983; Protocol Last Admin: 03/23/23 08:38 Dose: Not Given Documented By: JANE Non-Admin Reason: No Insulin Coverage Metoprolol Tartrate (Metoprolol Tartrate 12.5 Mg Halftab) 12.5 mg PO BID [facility], [facility]; Protocol Last Admin: 03/23/23 08:34 Dose: 12.5 mg Documented By: JAEN Multivitamins/Vitamin C (Multivitamin Tablet) 1 tab PO DAILY [facility] Last Admin: 03/23/23 08:35 Dose: 1 tab Documented By: JANE Ondansetron HCl (Ondansetron Hcl 4 Mg/2 Ml Vial) 4 mg IVPUSH Q8H PRN PRN Reason: Nausea and Vomiting Last Admin: 03/12/23 12:12 Dose: 4 mg Documented By: MADDY Sevelamer Carbonate (Sevelamer Carbonate Tablet 800 Mg Tablet) 800 mg PO TIDWM [facility] Last Admin: 03/23/23 08:34 Dose: 800 mg Documented By: JANE Sodium Chloride (0.9 % Sodium Chloride Flush 3 Ml Syringe) 3 ml IVFLUSH QSHIFT [facility] Last Admin: 03/23/23 08:38 Dose: Not Given Documented By: JANE Non-Admin Reason: No Access Labs 03/20/23 05:19 03/20/23 05:19 Labs: Laboratory Results - last 24 hr 03/22/23 03/22/23 03/22/23 13:10 15:53 20:25 POC Glucose 109 156 H 129 H 03/23/23 06:51 POC Glucose 86 Assessment and Plan (1) ESRD needing dialysis: Status: Acute (2) Hypoglycemia associated with type 2 diabetes mellitus: Status: Acute (3) Physical deconditioning: Status: Acute Plan A 72 years old lady with PMH of ESRD on HD, asthma, HTN, DMII among others whi was brought to the hospital on 02/07 for confusion. ESRD on HD TTS Nephrology following Eyelid swelling warm compressors artificial tears HTN continue MEtoprolol hydralazine to 75 mg for better control DM II w hypoglycemia event better controlled SSI, diabetic diet Lantus decreased to 5 units Physical deconditioning PT rec STR The patient needs inpatient stay overnight for the need of dialysis pending safe discharge plan Time Spent With Patient Time: Total time managing care of this patient today ____ minutes. Quality Stroke Does the patient have a stroke diagnosis?: No VTE Prior VTE?: No VTE Risk Level:: Medical - moderate - high VTE Device Contraindication: Treatment Not Indicated VTE Drug Contraindication: N/A - Med Ordered
[2023-03-23 11:19] LABS: Glucose, Whole Blood 131 mg/dL (60-115)
--- NOTE | 2023-03-23 11:35 | MHC.CM.PN ---
request faxed to financial counselor requesting update on staus of medicaid claudia
--- NOTE | 2023-03-23 12:35 | MHC.CM.PN ---
spoke with evaristo montaño /financial counselor who is working on imfo on pts funds in [facility] ..imfo needed to complete [facility] for [facility]
[2023-03-23 14:15] VITALS: BP 141/62; PULSE 78
[2023-03-23 15:34] VITALS: BP 151/67; PULSE 79; RESP 18; TEMP 36.6; O2SAT 100
[2023-03-23] MEDS: polyethylene glycoL 3350 17 GM POWD.PACK PO (16:28)
[2023-03-23] MEDS: Insulin Lispro 100 UNIT/ML 3 ML VIAL SUBCUT ×2 (16:28→21:34)
[2023-03-23 16:34] LABS: Glucose, Whole Blood 161 mg/dL (60-115)
--- NOTE | 2023-03-23 17:31 | PM.PNNEP ---
Subjective Subjective Date of Service: 03/23/23 Interval history: Seen and evaluated No complaints Apparently recently homeless Confused prior to admission Physical Exam Vital Signs: Vital Signs: Last Vital Signs Temp 97.9 F 03/23/23 15:34 Pulse 79 03/23/23 15:34 Resp 18 03/23/23 15:34 BP 151/67 H 03/23/23 15:34 Pulse Ox 100 03/23/23 15:34 O2 Del Method Room Air 03/23/23 15:34 O2 Flow Rate 97 03/08/23 06:00 BMI result Body Mass Index 35.9 Const: Other: Constitutional : Awake, interactive, not in distress Eyes: normal vision. left eyelid edema, no tenderness or redness Cardiovascular : RRR, no lower extremity edema Respiratory : not in distress , chest wall moving bilaterally Gastrointestinal: soft, lax, Normal bowel sounds, Non tender Skin : Warm, Dry, fistula clean Neurological : Alert & oriented x3, No focal deficit General: no acute distress HEENT: Head: Yes normocephalic and Yes atraumatic Neck: Neck: Yes supple Resp: Auscultation: clear to auscultation bilaterally Cardio: Heart sounds: S1 normal heart sound present and S2 normal heart sound present GI: Palpation (GI): Soft to palpation and nontender Extrem: General: Yes normal to inspection Objective Data Labs 03/20/23 05:19 03/20/23 05:19 Labs: Laboratory Results - last 24 hr 03/22/23 03/23/23 03/23/23 20:25 06:51 11:05 POC Glucose 129 H 86 131 H 03/23/23 16:14 POC Glucose 161 H Procedures Date of Service Date of Service: 03/23/23 Assessment & Plan Assessment and plan (1) ESRD needing dialysis: Status: Acute Assessment and Plan: HD T S (2) Hypoglycemia associated with type 2 diabetes mellitus: Status: Acute (3) Physical deconditioning: Status: Acute Plan A 72 years old lady with PMH of ESRD on HD, asthma, HTN, DMII among others whi was brought to the hospital on 02/07 for confusion. ESRD on HD TTS HTN continue MEtoprolol hydralazine DM II w hypoglycemia event better controlled SSI, diabetic diet Lantus decreased to 5 units Time Spent With Patient Time: Total time managing care of this patient today ____ minutes. Progress Note: Quality Stroke Does the patient have a stroke diagnosis?: No
[2023-03-23 19:31] VITALS: BP 165/73; PULSE 77; RESP 18; TEMP 36.4; O2SAT 99
[2023-03-23 20:19] LABS: Glucose, Whole Blood 171 mg/dL (60-115)
[2023-03-23] MEDS: Insulin Glargine,Hum.rec.anlog 100 UNIT/ML 10 ML VIAL SUBCUT (21:35)
[2023-03-23] MEDS: Metoprolol Tartrate 25 MG TABLET PO (21:36)
[2023-03-24 03:35] VITALS: BP 156/68; PULSE 74; RESP 16; TEMP 36.1; O2SAT 97
[2023-03-24 07:12] VITALS: BP 147/65; PULSE 72; RESP 18; TEMP 36.6; O2SAT 98
[2023-03-24 07:18] LABS: Glucose, Whole Blood 102 mg/dL (60-115)
[2023-03-24] MEDS: Sevelamer Carbonate Tablet 800 MG TABLET PO ×3 (08:02→16:31)
--- NOTE | 2023-03-24 11:31 | P.PNIM_ITS ---
Subjective Subjective Date of Service: 03/24/23 Interval History: Seen and evaluated No complaints left eyelid edema improving Review of Systems No fever, chills or weakness No chest pain, palpitation No shortness of breath or coughing No abdominal pain, nausea or vomiting No urinary symptoms No any rash or wounds Physical Exam Vital Signs: Vital Signs: Last Vital Signs Temp 97.8 F 03/24/23 07:12 Pulse 72 03/24/23 07:12 Resp 18 03/24/23 07:12 BP 147/65 H 03/24/23 07:12 Pulse Ox 98 03/24/23 07:12 O2 Del Method Room Air 03/24/23 07:12 O2 Flow Rate 97 03/08/23 06:00 BMI result Body Mass Index 35.9 Const: Other: Constitutional : Awake, interactive, not in distress Eyes: normal vision. left eyelid edema, no tenderness or redness Cardiovascular : RRR, no lower extremity edema Respiratory : not in distress , chest wall moving bilaterally Gastrointestinal: soft, lax, Normal bowel sounds, Non tender Skin : Warm, Dry, fistula clean Neurological : Alert & oriented x3, No focal deficit Objective Data Active Medications Acetaminophen (Acetaminophen 325 Mg Tablet) 650 mg PO QID PRN PRN Reason: Pain, Mild (Pain Scale 1-3) Last Admin: 03/22/23 08:18 Dose: 650 mg Documented By: NILES Albuterol Sulfate (Albuterol Sulfate 90 Mcg 8 Gm Inhaler) 1 puff INHALE QID PRN PRN Reason: Shortness Of Breath Amlodipine Besylate (Amlodipine Besylate 5 Mg Tablet) 5 mg PO DAILY NANCY; Protocol Last Admin: 03/23/23 08:34 Dose: 5 mg Documented By: JANE Artificial Tears (Artificial Tears 15 Ml Drops) 2 drop EYE-LEFT Q4H PRN PRN Reason: Dry Eyes Last Admin: 03/22/23 21:50 Dose: 2 drop Documented By: MEAGHAN Dextrose (Dextrose 50 % 25 Gm/50 Ml Syringe) 25 gm IVPUSH Q15M PRN; Protocol PRN Reason: per Hypoglycemia Standing Ord. Glucose (Glucose Gel 15 Gm Gel..Gram.) 15 gm PO Q15M PRN; Protocol PRN Reason: per Hypoglycemia Standing Ord. Last Admin: 03/11/23 07:42 Dose: 15 gm Documented By: RITA Heparin Sodium (Porcine) (Heparin Sodium,Porcine 5,000 Unit/Ml Vial) 5,000 unit SUBCUT Q12H ON LICENSE OF [facility] Last Admin: 03/23/23 21:34 Dose: 5,000 unit Documented By: KYLAH Hydralazine HCl (Hydralazine Hcl 25 Mg Tablet) 75 mg PO TID ON LICENSE OF [facility]; Protocol Last Admin: 03/23/23 21:36 Dose: 75 mg Documented By: KYLAH Insulin Glargine (Insulin Glargine,Hum.Rec.Anlog 100 Unit/Ml 10 Ml Vial) 5 unit SUBCUT BEDTIME ON LICENSE OF [facility] Last Admin: 03/23/23 21:35 Dose: 5 unit Documented By: KYLAH Insulin Human Lispro (Insulin Lispro 100 Unit/Ml 3 Ml Vial) 0 unit SUBCUT QIDACHS ON LICENSE OF [facility]; Protocol Last Admin: 03/24/23 07:14 Dose: Not Given Documented By: JANE Non-Admin Reason: No Insulin Coverage Metoprolol Tartrate (Metoprolol Tartrate 25 Mg Tablet) 25 mg PO BID ON LICENSE OF [facility]; Protocol Last Admin: 03/23/23 21:36 Dose: 25 mg Documented By: KYLAH Multivitamins/Vitamin C (Multivitamin Tablet) 1 tab PO DAILY ON LICENSE OF [facility] Last Admin: 03/23/23 08:35 Dose: 1 tab Documented By: JANE Ondansetron HCl (Ondansetron Hcl 4 Mg/2 Ml Vial) 4 mg IVPUSH Q8H PRN PRN Reason: Nausea and Vomiting Last Admin: 03/12/23 12:12 Dose: 4 mg Documented By: MADDY Polyethylene Glycol (Polyethylene Glycol 3350 17 Gm Powd.Pack) 17 gm PO DAILY ON LICENSE OF [facility] Last Admin: 03/23/23 16:28 Dose: 17 gm Documented By: DESI Sevelamer Carbonate (Sevelamer Carbonate Tablet 800 Mg Tablet) 800 mg PO TIDWM ON LICENSE OF [facility] Last Admin: 03/24/23 08:02 Dose: 800 mg Documented By: JANE Sodium Chloride (0.9 % Sodium Chloride Flush 3 Ml Syringe) 3 ml IVFLUSH QSHIFT ON LICENSE OF [facility] Last Admin: 03/24/23 07:13 Dose: Not Given Documented By: JANE Non-Admin Reason: No Access Labs 03/20/23 05:19 03/20/23 05:19 Labs: Laboratory Results - last 24 hr 03/23/23 03/23/23 03/24/23 16:14 20:07 07:11 POC Glucose 161 H 171 H 102 Assessment and Plan (1) ESRD needing dialysis: Status: Acute (2) Physical deconditioning: Status: Acute Plan A 72 years old lady with PMH of ESRD on HD, asthma, HTN, DMII among others whi was brought to the hospital on 02/07 for confusion. ESRD on HD TTS Nephrology following Eyelid swelling warm compressors artificial tears HTN continue MEtoprolol hydralazine to 75 mg for better control DM II w hypoglycemia event better controlled SSI, diabetic diet Lantus decreased to 5 units Physical deconditioning PT rec STR The patient needs inpatient stay overnight for the need of dialysis pending safe discharge plan Time Spent With Patient Time: Total time managing care of this patient today ____ minutes. Quality Stroke Does the patient have a stroke diagnosis?: No VTE Prior VTE?: No VTE Risk Level:: Medical - moderate - high VTE Device Contraindication: Treatment Not Indicated VTE Drug Contraindication: N/A - Med Ordered
[2023-03-24 12:54] VITALS: BP 139/63; PULSE 72; RESP 17; TEMP 36.6; O2SAT 98
[2023-03-24] MEDS: Multivitamin TABLET 1 TAB PO (12:55)
[2023-03-24] MEDS: amLODIPine Besylate 5 MG TABLET PO (12:55)
[2023-03-24] MEDS: Metoprolol Tartrate 25 MG TABLET PO ×2 (12:55→21:07)
[2023-03-24] MEDS: polyethylene glycoL 3350 17 GM POWD.PACK PO (12:56)
--- NOTE | 2023-03-24 14:57 | PM.PNNEP ---
Subjective Subjective Date of Service: 03/24/23 Interval history: Seen and evaluated No complaints [facility] TODAY WITHOUT EVENT Physical Exam Vital Signs: Vital Signs: Last Vital Signs Temp 98 F 03/24/23 12:54 Pulse 72 03/24/23 12:54 Resp 17 03/24/23 12:54 BP 139/63 03/24/23 12:54 Pulse Ox 98 03/24/23 12:54 O2 Del Method Room Air 03/24/23 12:54 O2 Flow Rate 97 03/08/23 06:00 BMI result Body Mass Index 35.9 Const: Other: Constitutional : Awake, interactive, not in distress Eyes: normal vision. left eyelid edema, no tenderness or redness Cardiovascular : RRR, no lower extremity edema Respiratory : not in distress , chest wall moving bilaterally Gastrointestinal: soft, lax, Normal bowel sounds, Non tender Skin : Warm, Dry, fistula clean Neurological : Alert & oriented x3, No focal deficit General: no acute distress HEENT: Head: Yes normocephalic and Yes atraumatic Neck: Neck: Yes supple Resp: Auscultation: clear to auscultation bilaterally Cardio: Heart sounds: S1 normal heart sound present and S2 normal heart sound present GI: Palpation (GI): Soft to palpation and nontender Extrem: General: Yes normal to inspection Objective Data Labs 03/20/23 05:19 03/20/23 05:19 Labs: Laboratory Results - last 24 hr 03/23/23 03/23/23 03/24/23 16:14 20:07 07:11 POC Glucose 161 H 171 H 102 Procedures Date of Service Date of Service: 03/24/23 Assessment & Plan Assessment and plan (1) ESRD needing dialysis: Status: Acute Assessment and Plan: dialysis today (2) Physical deconditioning: Status: Acute Plan Will continue t th s dialysis schedule disposition being sorted out Time Spent With Patient Time: Total time managing care of this patient today ____ minutes. Progress Note: Quality Stroke Does the patient have a stroke diagnosis?: No
[2023-03-24 14:59] LABS: Glucose, Whole Blood 140 mg/dL (60-115)
[2023-03-24 15:18] VITALS: BP 172/67; PULSE 73; RESP 18; TEMP 36.2; O2SAT 99
[2023-03-24] MEDS: hydrALAZINE HCl 25 MG TABLET 75 MG PO ×2 (15:26→21:07)
[2023-03-24 16:36] LABS: Glucose, Whole Blood 135 mg/dL (60-115)
[2023-03-24 19:28] VITALS: BP 111/56; PULSE 78; RESP 16; TEMP 36.2; O2SAT 98
[2023-03-24 20:24] LABS: Glucose, Whole Blood 146 mg/dL (60-115)
[2023-03-24] MEDS: Heparin Sodium,Porcine 5,000 UNIT/ML VIAL 5000 UNIT SUBCUT (21:06)
[2023-03-24] MEDS: Insulin Glargine,Hum.rec.anlog 100 UNIT/ML 10 ML VIAL SUBCUT (21:06)
[2023-03-25 02:37] VITALS: BP 153/70; PULSE 77; RESP 16; TEMP 36.6; O2SAT 99
[2023-03-25] MEDS: Artificial Tears 15 ML DROPS 2 DROP EYE-LEFT ×2 (07:12→22:21)
[2023-03-25 07:28] LABS: Glucose, Whole Blood 97 mg/dL (60-115)
[2023-03-25 07:43] VITALS: BP 146/62; PULSE 82; RESP 18; TEMP 36.7; O2SAT 99
[2023-03-25] MEDS: Metoprolol Tartrate 25 MG TABLET PO ×2 (07:55→22:16)
[2023-03-25] MEDS: amLODIPine Besylate 5 MG TABLET PO (07:55)
[2023-03-25] MEDS: Multivitamin TABLET 1 TAB PO (07:55)
[2023-03-25] MEDS: Sevelamer Carbonate Tablet 800 MG TABLET PO ×3 (07:55→17:09)
[2023-03-25] MEDS: Heparin Sodium,Porcine 5,000 UNIT/ML VIAL 5000 UNIT SUBCUT ×2 (07:55→22:16)
[2023-03-25] MEDS: hydrALAZINE HCl 25 MG TABLET 75 MG PO ×3 (07:55→22:16)
[2023-03-25] MEDS: polyethylene glycoL 3350 17 GM POWD.PACK PO (07:56)
--- NOTE | 2023-03-25 10:18 | P.PNIM_ITS ---
Subjective Subjective Date of Service: 03/25/23 Interval History: Seen and evaluated No complaints left eyelid edema improving Had HD yesterday Review of Systems Review of Systems: Yes all other systems are reviewed and are negative Physical Exam Vital Signs: Vital Signs: Last Vital Signs Temp 98.1 F 03/25/23 07:43 Pulse 82 03/25/23 07:43 Resp 18 03/25/23 07:43 BP 146/62 H 03/25/23 07:43 Pulse Ox 99 03/25/23 07:43 O2 Del Method Room Air 03/25/23 07:43 O2 Flow Rate 97 03/08/23 06:00 BMI result Body Mass Index 35.9 Const: Other: Constitutional : Awake, interactive, not in distress Eyes: normal vision. left eyelid edema, no tenderness or redness Cardiovascular : RRR, no lower extremity edema Respiratory : not in distress , chest wall moving bilaterally Gastrointestinal: soft, lax, Normal bowel sounds, Non tender Skin : Warm, Dry, fistula clean Neurological : Alert & oriented x3, No focal deficit Objective Data Active Medications Acetaminophen (Acetaminophen 325 Mg Tablet) 650 mg PO QID PRN PRN Reason: Pain, Mild (Pain Scale 1-3) Last Admin: 03/22/23 08:18 Dose: 650 mg Documented By: NILES Albuterol Sulfate (Albuterol Sulfate 90 Mcg 8 Gm Inhaler) 1 puff INHALE QID PRN PRN Reason: Shortness Of Breath Amlodipine Besylate (Amlodipine Besylate 5 Mg Tablet) 5 mg PO DAILY NANCY; Protocol Last Admin: 03/25/23 07:55 Dose: 5 mg Documented By: JANE Artificial Tears (Artificial Tears 15 Ml Drops) 2 drop EYE-LEFT Q4H PRN PRN Reason: Dry Eyes Last Admin: 03/25/23 07:12 Dose: 2 drop Documented By: JANE Dextrose (Dextrose 50 % 25 Gm/50 Ml Syringe) 25 gm IVPUSH Q15M PRN; Protocol PRN Reason: per Hypoglycemia Standing Ord. Glucose (Glucose Gel 15 Gm Gel..Gram.) 15 gm PO Q15M PRN; Protocol PRN Reason: per Hypoglycemia Standing Ord. Last Admin: 03/11/23 07:42 Dose: 15 gm Documented By: RITA Heparin Sodium (Porcine) (Heparin Sodium,Porcine 5,000 Unit/Ml Vial) 5,000 unit SUBCUT Q12H [facility] Last Admin: 03/25/23 07:55 Dose: 5,000 unit Documented By: JANE Hydralazine HCl (Hydralazine Hcl 25 Mg Tablet) 75 mg PO TID [facility]; Protocol Last Admin: 03/25/23 07:55 Dose: 75 mg Documented By: JANE Insulin Glargine (Insulin Glargine,Hum.Rec.Anlog 100 Unit/Ml 10 Ml Vial) 5 unit SUBCUT BEDTIME [facility] Last Admin: 03/24/23 21:06 Dose: 5 unit Documented By: JOYCE Insulin Human Lispro (Insulin Lispro 100 Unit/Ml 3 Ml Vial) 0 unit SUBCUT QIDACHS [facility]; Protocol Last Admin: 03/25/23 07:34 Dose: Not Given Documented By: JANE Non-Admin Reason: No Insulin Coverage Metoprolol Tartrate (Metoprolol Tartrate 25 Mg Tablet) 25 mg PO BID [facility]; Protocol Last Admin: 03/25/23 07:55 Dose: 25 mg Documented By: JANE Multivitamins/Vitamin C (Multivitamin Tablet) 1 tab PO DAILY [facility] Last Admin: 03/25/23 07:55 Dose: 1 tab Documented By: JANE Ondansetron HCl (Ondansetron Hcl 4 Mg/2 Ml Vial) 4 mg IVPUSH Q8H PRN PRN Reason: Nausea and Vomiting Last Admin: 03/12/23 12:12 Dose: 4 mg Documented By: MADDY Polyethylene Glycol (Polyethylene Glycol 3350 17 Gm Powd.Pack) 17 gm PO DAILY [facility] Last Admin: 03/25/23 07:56 Dose: 17 gm Documented By: JANE Sevelamer Carbonate (Sevelamer Carbonate Tablet 800 Mg Tablet) 800 mg PO TIDWM [facility] Last Admin: 03/25/23 07:55 Dose: 800 mg Documented By: JANE Sodium Chloride (0.9 % Sodium Chloride Flush 3 Ml Syringe) 3 ml IVFLUSH QSHIFT [facility] Last Admin: 03/25/23 07:35 Dose: Not Given Documented By: JANE Non-Admin Reason: No Access Labs 03/20/23 05:19 03/20/23 05:19 Labs: Laboratory Results - last 24 hr 03/24/23 03/24/23 03/24/23 12:52 16:27 20:13 POC Glucose 140 H 135 H 146 H 03/25/23 07:21 POC Glucose 97 Assessment and Plan (1) ESRD needing dialysis: Status: Acute Plan A 72 years old lady with PMH of ESRD on HD, asthma, HTN, DMII among others whi was brought to the hospital on 02/07 for confusion. ESRD on HD TTS Nephrology following Eyelid swelling warm compressors artificial tears HTN continue MEtoprolol hydralazine to 75 mg for better control DM II w hypoglycemia event better controlled SSI, diabetic diet Lantus decreased to 5 units Physical deconditioning PT rec STR The patient needs inpatient stay overnight for the need of dialysis pending safe discharge plan Time Spent With Patient Time: Total time managing care of this patient today ____ minutes. Quality Stroke Does the patient have a stroke diagnosis?: No VTE Prior VTE?: No VTE Risk Level:: Medical - moderate - high VTE Device Contraindication: Treatment Not Indicated VTE Drug Contraindication: N/A - Med Ordered
[2023-03-25 11:39] LABS: Glucose, Whole Blood 156 mg/dL (60-115)
[2023-03-25] MEDS: Insulin Lispro 100 UNIT/ML 3 ML VIAL SUBCUT ×2 (11:59→22:18)
[2023-03-25 14:44] VITALS: BP 121/58; PULSE 87
[2023-03-25 15:13] VITALS: BP 108/55; PULSE 83; RESP 18; TEMP 36.1; O2SAT 98
[2023-03-25 16:19] LABS: Glucose, Whole Blood 91 mg/dL (60-115)
[2023-03-25 19:26] VITALS: BP 162/67; PULSE 85; RESP 18; TEMP 36; O2SAT 99
[2023-03-25 20:47] LABS: Glucose, Whole Blood 180 mg/dL (60-115)
[2023-03-25] MEDS: Insulin Glargine,Hum.rec.anlog 100 UNIT/ML 10 ML VIAL SUBCUT (22:17)
[2023-03-26 03:13] VITALS: BP 165/70; PULSE 77; RESP 18; TEMP 36.4; O2SAT 98
[2023-03-26 07:38] LABS: Glucose, Whole Blood 104 mg/dL (60-115)
[2023-03-26] MEDS: hydrALAZINE HCl 25 MG TABLET 75 MG PO ×3 (07:56→20:33)
[2023-03-26] MEDS: Heparin Sodium,Porcine 5,000 UNIT/ML VIAL 5000 UNIT SUBCUT ×2 (07:57→20:34)
[2023-03-26] MEDS: Multivitamin TABLET 1 TAB PO (07:57)
[2023-03-26] MEDS: Sevelamer Carbonate Tablet 800 MG TABLET PO ×3 (07:57→16:56)
[2023-03-26] MEDS: amLODIPine Besylate 5 MG TABLET PO (07:57)
[2023-03-26] MEDS: Metoprolol Tartrate 25 MG TABLET PO ×2 (07:57→20:33)
[2023-03-26] MEDS: polyethylene glycoL 3350 17 GM POWD.PACK PO (07:57)
[2023-03-26] MEDS: Acetaminophen 325 MG TABLET 650 MG PO (07:59)
--- NOTE | 2023-03-26 09:24 | PM.PNNEP ---
Subjective Subjective Date of Service: 03/26/23 Interval history: Seen AM. Feels good. Had HD Sunday Physical Exam Vital Signs: Vital Signs: Last Vital Signs Temp 97.5 F 03/26/23 03:13 Pulse 77 03/26/23 03:13 Resp 18 03/26/23 03:13 BP 165/70 H 03/26/23 03:13 Pulse Ox 98 03/26/23 03:13 O2 Del Method Room Air 03/26/23 03:13 O2 Flow Rate 97 03/08/23 06:00 BMI result Body Mass Index 35.9 Const: General: comfortable Eyes: EOM: EOMs intact bilaterally Neck: Neck: Yes supple Resp: Auscultation: diminished lung sounds Cardio: Rate: regular rate GI: Palpation (GI): Soft to palpation Neuro: General: moves all extremities Objective Data Labs 03/20/23 05:19 03/20/23 05:19 Labs: Laboratory Results - last 24 hr 03/25/23 03/25/23 03/25/23 11:24 16:10 20:38 POC Glucose 156 H 91 180 H 03/26/23 07:13 POC Glucose 104 Procedures Date of Service Date of Service: 03/26/23 Assessment & Plan Assessment and plan (1) ESRD needing dialysis: Status: Acute Assessment and Plan: Continue HD on TTS schedule currently dialyzing at [facility] unit continue sevelamer with meals May have to increase Amlodipine Procrit [id number] Units once a week Next HD tomorrow Progress Note: Quality Stroke Does the patient have a stroke diagnosis?: No
[2023-03-26 10:52] LABS: Glucose, Whole Blood 167 mg/dL (60-115)
[2023-03-26] MEDS: Insulin Lispro 100 UNIT/ML 3 ML VIAL SUBCUT ×2 (11:41→20:34)
[2023-03-26] MEDS: Artificial Tears 15 ML DROPS 2 DROP EYE-LEFT ×2 (11:43→20:41)
--- NOTE | 2023-03-26 12:18 | P.PNIM_ITS ---
Subjective Subjective Date of Service: 03/26/23 Interval History: Seen and evaluated No complaints left eyelid edema improving Review of Systems Review of Systems: Yes all other systems are reviewed and are negative Physical Exam Vital Signs: Vital Signs: Last Vital Signs Temp 97.5 F 03/26/23 03:13 Pulse 77 03/26/23 03:13 Resp 18 03/26/23 03:13 BP 165/70 H 03/26/23 03:13 Pulse Ox 98 03/26/23 03:13 O2 Del Method Room Air 03/26/23 03:13 O2 Flow Rate 97 03/08/23 06:00 BMI result Body Mass Index 35.9 Const: Other: Constitutional : Awake, interactive, not in distress Eyes: normal vision. left eyelid edema, no tenderness or redness Cardiovascular : RRR, no lower extremity edema Respiratory : not in distress , chest wall moving bilaterally Gastrointestinal: soft, lax, Normal bowel sounds, Non tender Skin : Warm, Dry, fistula clean Neurological : Alert & oriented x3, No focal deficit Objective Data Active Medications Acetaminophen (Acetaminophen 325 Mg Tablet) 650 mg PO QID PRN PRN Reason: Pain, Mild (Pain Scale 1-3) Last Admin: 03/26/23 07:59 Dose: 650 mg Documented By: BRIDGET Albuterol Sulfate (Albuterol Sulfate 90 Mcg 8 Gm Inhaler) 1 puff INHALE QID PRN PRN Reason: Shortness Of Breath Amlodipine Besylate (Amlodipine Besylate 5 Mg Tablet) 5 mg PO DAILY [facility]; Protocol Last Admin: 03/26/23 07:57 Dose: 5 mg Documented By: AMANDAEMA Artificial Tears (Artificial Tears 15 Ml Drops) 2 drop EYE-LEFT Q4H PRN PRN Reason: Dry Eyes Last Admin: 03/26/23 11:43 Dose: 2 drop Documented By: AMANDAEMA Dextrose (Dextrose 50 % 25 Gm/50 Ml Syringe) 25 gm IVPUSH Q15M PRN; Protocol PRN Reason: per Hypoglycemia Standing Ord. Glucose (Glucose Gel 15 Gm Gel..Gram.) 15 gm PO Q15M PRN; Protocol PRN Reason: per Hypoglycemia Standing Ord. Last Admin: 03/11/23 07:42 Dose: 15 gm Documented By: RITA Heparin Sodium (Porcine) (Heparin Sodium,Porcine 5,000 Unit/Ml Vial) 5,000 unit SUBCUT Q12H [facility] Last Admin: 03/26/23 07:57 Dose: 5,000 unit Documented By: BRIDGET Hydralazine HCl (Hydralazine Hcl 25 Mg Tablet) 75 mg PO TID [facility]; Protocol Last Admin: 03/26/23 07:56 Dose: 75 mg Documented By: BRIDGET Insulin Glargine (Insulin Glargine,Hum.Rec.Anlog 100 Unit/Ml 10 Ml Vial) 5 unit SUBCUT BEDTIME [facility] Last Admin: 03/25/23 22:17 Dose: 5 unit Documented By: KYLAH Insulin Human Lispro (Insulin Lispro 100 Unit/Ml 3 Ml Vial) 0 unit SUBCUT QIDACHS [facility]; Protocol Last Admin: 03/26/23 11:41 Dose: 2 unit Documented By: BRIDGET Metoprolol Tartrate (Metoprolol Tartrate 25 Mg Tablet) 25 mg PO BID [facility]; Protocol Last Admin: 03/26/23 07:57 Dose: 25 mg Documented By: BRIDGET Multivitamins/Vitamin C (Multivitamin Tablet) 1 tab PO DAILY [facility] Last Admin: 03/26/23 07:57 Dose: 1 tab Documented By: BRIDGET Ondansetron HCl (Ondansetron Hcl 4 Mg/2 Ml Vial) 4 mg IVPUSH Q8H PRN PRN Reason: Nausea and Vomiting Last Admin: 03/12/23 12:12 Dose: 4 mg Documented By: MOHAMER Polyethylene Glycol (Polyethylene Glycol 3350 17 Gm Powd.Pack) 17 gm PO DAILY [facility] Last Admin: 03/26/23 07:57 Dose: 17 gm Documented By: BRIDGET Sevelamer Carbonate (Sevelamer Carbonate Tablet 800 Mg Tablet) 800 mg PO TIDWM [facility] Last Admin: 03/26/23 11:41 Dose: 800 mg Documented By: BRIDGET Sodium Chloride (0.9 % Sodium Chloride Flush 3 Ml Syringe) 3 ml IVFLUSH QSHIFT [facility] Last Admin: 03/26/23 07:42 Dose: Not Given Documented By: BRIDGET Non-Admin Reason: No Access Labs 03/20/23 05:19 03/20/23 05:19 Labs: Laboratory Results - last 24 hr 08/13/23 08/13/23 08/14/23 16:10 20:38 07:13 POC Glucose 91 180 H 104 03/26/23 10:41 POC Glucose 167 H Assessment and Plan (1) ESRD needing dialysis: Status: Acute Plan A 72 years old lady with PMH of ESRD on HD, asthma, HTN, DMII among others whi was brought to the hospital on 02/07 for confusion. ESRD on HD TTS Nephrology following Eyelid swelling warm compressors artificial tears HTN continue MEtoprolol hydralazine to 75 mg for better control DM II w hypoglycemia event better controlled SSI, diabetic diet Lantus decreased to 5 units Physical deconditioning PT rec STR The patient needs inpatient stay overnight for the need of dialysis pending safe discharge plan Time Spent With Patient Time: Total time managing care of this patient today ____ minutes. Quality Stroke Does the patient have a stroke diagnosis?: No VTE Prior VTE?: No VTE Risk Level:: Medical - moderate - high VTE Device Contraindication: Treatment Not Indicated VTE Drug Contraindication: N/A - Med Ordered
[2023-03-26 13:58] VITALS: BP 165/70; PULSE 77; O2SAT 98
[2023-03-26 16:20] LABS: Glucose, Whole Blood 129 mg/dL (60-115)
[2023-03-26 16:56] VITALS: BP 149/64; PULSE 75; RESP 20; TEMP 36.9; O2SAT 99
[2023-03-26 19:29] VITALS: BP 154/58; PULSE 80; RESP 18; TEMP 36.4; O2SAT 98
[2023-03-26 20:29] LABS: Glucose, Whole Blood 202 mg/dL (60-115)
[2023-03-26] MEDS: Insulin Glargine,Hum.rec.anlog 100 UNIT/ML 10 ML VIAL SUBCUT (20:35)
[2023-03-27 03:11] VITALS: BP 148/96; PULSE 78; RESP 18; TEMP 36.1; O2SAT 99
[2023-03-27 05:55] LABS: Hematocrit 26.5 % (37.0-47.0); Hemoglobin 8.4 g/dl (12.0-16.0); Mean Corpuscular HGB Conc 31.7 g/dl (31.0-35.0); Mean Corpuscular Hemoglobin 27.2 pg (27.0-33.0); Mean Corpuscular Volume 85.8 fL (80.0-98.0); Mean Platelet Volume 10.2 fL (9.4-12.3); Platelet Count 176 X10*3/uL (160-400); Red Blood Count 3.09 X10*6/uL (4.20-5.50); Red Cell Distribution Width 16.7 % (11.0-16.0); White Blood Count 4.7 X10*3/uL (4.8-10.8)
[2023-03-27 06:25] LABS: Anion Gap 20 (12-20); Blood Urea Nitrogen 91 mg/dL (9-16); Calcium 9.6 mg/dL (8.4-10.2); Carbon Dioxide 21 mmol/L (22-29); Chloride 99 mmol/L (96-108); Creatinine Clr Calc Pharmacy 5.3; Estimated Glomerular Filt Rate 4; Glucose Random 103 mg/dL (60-115); Sodium 134 mmol/L (135-145)
[2023-03-27 06:35] LABS: Potassium 6.1 mmol/L (3.3-5.1)
[2023-03-27 07:22] VITALS: BP 165/72; PULSE 72; RESP 20; TEMP 36.6; O2SAT 92
[2023-03-27 07:34] LABS: Glucose, Whole Blood 115 mg/dL (60-115)
[2023-03-27] MEDS: Sevelamer Carbonate Tablet 800 MG TABLET PO ×3 (07:39→16:27)
[2023-03-27] MEDS: Multivitamin TABLET 1 TAB PO (07:39)
[2023-03-27] MEDS: Metoprolol Tartrate 25 MG TABLET PO ×2 (07:39→21:14)
[2023-03-27] MEDS: amLODIPine Besylate 5 MG TABLET PO (07:40)
[2023-03-27] MEDS: hydrALAZINE HCl 25 MG TABLET 75 MG PO ×3 (07:40→21:14)
[2023-03-27] MEDS: Artificial Tears 15 ML DROPS 2 DROP EYE-LEFT ×2 (07:42→21:18)
--- NOTE | 2023-03-27 11:23 | HO.PM.IMPN ---
Subjective Subjective Date of Service: 03/27/23 Interval History: Seen and evaluated No complaints having dialysis left eyelid edema Physical Exam Vital Signs: Vital Signs: Last Vital Signs Temp 97.8 F 03/27/23 07:22 Pulse 72 03/27/23 07:22 Resp 20 03/27/23 07:22 BP 165/72 H 03/27/23 07:22 Pulse Ox 92 03/27/23 07:22 O2 Del Method Room Air 03/27/23 07:22 O2 Flow Rate 97 03/08/23 06:00 BMI result Body Mass Index 35.9 Const: Other: Constitutional : Awake, interactive, not in distress Eyes: normal vision. left eyelid edema, no tenderness or redness Cardiovascular : RRR, no lower extremity edema Respiratory : not in distress , chest wall moving bilaterally Gastrointestinal: soft, lax, Normal bowel sounds, Non tender Skin : Warm, Dry, fistula clean Neurological : Alert & oriented x3, No focal deficit Objective Data Active Medications Acetaminophen (Acetaminophen 325 Mg Tablet) 650 mg PO QID PRN PRN Reason: Pain, Mild (Pain Scale 1-3) Last Admin: 03/26/23 07:59 Dose: 650 mg Documented By: BRIDGET Albuterol Sulfate (Albuterol Sulfate 90 Mcg 8 Gm Inhaler) 1 puff INHALE QID PRN PRN Reason: Shortness Of Breath Amlodipine Besylate (Amlodipine Besylate 5 Mg Tablet) 5 mg PO DAILY [facility]; Protocol Last Admin: 03/27/23 07:40 Dose: 5 mg Documented By: ALMA ROSA Artificial Tears (Artificial Tears 15 Ml Drops) 2 drop EYE-LEFT Q4H PRN PRN Reason: Dry Eyes Last Admin: 03/27/23 07:42 Dose: 2 drop Documented By: ALMA ROSA Dextrose (Dextrose 50 % 25 Gm/50 Ml Syringe) 25 gm IVPUSH Q15M PRN; Protocol PRN Reason: per Hypoglycemia Standing Ord. Glucose (Glucose Gel 15 Gm Gel..Gram.) 15 gm PO Q15M PRN; Protocol PRN Reason: per Hypoglycemia Standing Ord. Last Admin: 03/11/23 07:42 Dose: 15 gm Documented By: RITA Heparin Sodium (Porcine) (Heparin Sodium,Porcine 5,000 Unit/Ml Vial) 5,000 unit SUBCUT Q12H [facility] Last Admin: 03/27/23 07:40 Dose: Not Given Documented By: ALMA ROSA Non-Admin Reason: dialysis Hydralazine HCl (Hydralazine Hcl 25 Mg Tablet) 75 mg PO TID [facility]; Protocol Last Admin: 03/27/23 07:40 Dose: 75 mg Documented By: ALMA ROSA Insulin Glargine (Insulin Glargine,Hum.Rec.Anlog 100 Unit/Ml 10 Ml Vial) 5 unit SUBCUT BEDTIME [facility] Last Admin: 03/26/23 20:35 Dose: 5 unit Documented By: ALVINA Insulin Human Lispro (Insulin Lispro 100 Unit/Ml 3 Ml Vial) 0 unit SUBCUT QIDACHS [facility]; Protocol Last Admin: 03/27/23 07:22 Dose: Not Given Documented By: ALMA ROSA Non-Admin Reason: No Insulin Coverage Metoprolol Tartrate (Metoprolol Tartrate 25 Mg Tablet) 25 mg PO BID [facility]; Protocol Last Admin: 03/27/23 07:39 Dose: 25 mg Documented By: ALMA ROSA Multivitamins/Vitamin C (Multivitamin Tablet) 1 tab PO DAILY [facility] Last Admin: 03/27/23 07:39 Dose: 1 tab Documented By: ALMA ROSA Ondansetron HCl (Ondansetron Hcl 4 Mg/2 Ml Vial) 4 mg IVPUSH Q8H PRN PRN Reason: Nausea and Vomiting Last Admin: 03/12/23 12:12 Dose: 4 mg Documented By: MADDY Polyethylene Glycol (Polyethylene Glycol 3350 17 Gm Powd.Pack) 17 gm PO DAILY [facility] Last Admin: 03/27/23 07:21 Dose: Not Given Documented By: ALMA ROSA Non-Admin Reason: loose stools Sevelamer Carbonate (Sevelamer Carbonate Tablet 800 Mg Tablet) 800 mg PO TIDWM [facility] Last Admin: 03/27/23 07:39 Dose: 800 mg Documented By: ALMA ROSA Sodium Chloride (0.9 % Sodium Chloride Flush 3 Ml Syringe) 3 ml IVFLUSH QSHIFT [facility] Last Admin: 03/27/23 07:19 Dose: Not Given Documented By: ALMA ROSA Non-Admin Reason: No Access Labs 03/27/23 05:47 03/27/23 05:47 Labs: Laboratory Results - last 24 hr 03/26/23 03/26/23 03/27/23 15:32 20:20 05:47 MCV 85.8 MCH 27.2 MCHC 31.7 RDW 16.7 H Plt Count 176 MPV 10.2 Absolute Nucleated RBC 0.000 Nucleated RBC % (auto) 0.0 Anion Gap Estim Creat Clear Calc Estimated GFR POC Glucose 129 H 202 H Random Glucose Calcium 03/27/23 03/27/23 05:47 07:21 MCV MCH MCHC RDW Plt Count MPV Absolute Nucleated RBC Nucleated RBC % (auto) Anion Gap 20 Estim Creat Clear Calc 5.3 Estimated GFR 4 POC Glucose 115 Random Glucose 103 Calcium 9.6 D Assessment and Plan (1) ESRD needing dialysis: Status: Acute Plan A 72 years old lady with PMH of ESRD on HD, asthma, HTN, DMII among others whi was brought to the hospital on 02/07 for confusion. ESRD on HD TTS Nephrology following Eyelid swelling warm compressors artificial tears HTN continue MEtoprolol hydralazine to 75 mg for better control DM II w hypoglycemia event better controlled SSI, diabetic diet Lantus decreased to 5 units Physical deconditioning PT rec STR The patient needs inpatient stay overnight for the need of dialysis pending safe discharge plan Time Spent With Patient Time: Total time managing care of this patient today ____ minutes. Quality Stroke Does the patient have a stroke diagnosis?: No VTE Prior VTE?: No VTE Risk Level:: Medical - moderate - high VTE Device Contraindication: Treatment Not Indicated VTE Drug Contraindication: N/A - Med Ordered
--- NOTE | 2023-03-27 12:05 | P.PNNP_ITS ---
Subjective Subjective Date of Service: 03/27/23 Interval history: On HD. All recent data reviewed Physical Exam Vital Signs: Vital Signs: Last Vital Signs Temp 97.8 F 03/27/23 07:22 Pulse 72 03/27/23 07:22 Resp 20 03/27/23 07:22 BP 165/72 H 03/27/23 07:22 Pulse Ox 92 03/27/23 07:22 O2 Del Method Room Air 03/27/23 07:22 O2 Flow Rate 97 03/08/23 06:00 BMI result Body Mass Index 35.9 Const: General: no acute distress Orientation/consciousness: patient oriented x3 Eyes: EOM: EOMs intact bilaterally Resp: Auscultation: diminished lung sounds Cardio: Rate: regular rate GI: Palpation (GI): Soft to palpation Neuro: General: patient oriented x3 Objective Data Labs 03/27/23 05:47 03/27/23 05:47 Labs: Laboratory Results - last 24 hr 03/26/23 03/26/23 03/27/23 15:32 20:20 05:47 WBC 4.7 L RBC 3.09 L Hgb 8.4 L Hct 26.5 L MCV 85.8 MCH 27.2 MCHC 31.7 RDW 16.7 H Plt Count 176 MPV 10.2 Absolute Nucleated RBC 0.000 Nucleated RBC % (auto) 0.0 Sodium Potassium Chloride Carbon Dioxide Anion Gap BUN Creatinine Estim Creat Clear Calc Estimated GFR POC Glucose 129 H 202 H Random Glucose Calcium 03/27/23 03/27/23 05:47 07:21 WBC RBC Hgb Hct MCV MCH MCHC RDW Plt Count MPV Absolute Nucleated RBC Nucleated RBC % (auto) Sodium 134 L Potassium 6.1 H* Chloride 99 Carbon Dioxide 21 L Anion Gap 20 BUN 91 H Creatinine 9.89 H* Estim Creat Clear Calc 5.3 Estimated GFR 4 POC Glucose 115 Random Glucose 103 Calcium 9.6 D Procedures Date of Service Date of Service: 03/27/23 Assessment & Plan Assessment and plan (1) ESRD needing dialysis: Status: Acute Assessment and Plan: Continue HD on TTS schedule- On HD currently dialyzing at [facility] unit continue sevelamer [place] [id number] Units once a week Progress Note: Quality Stroke Does the patient have a stroke diagnosis?: No
[2023-03-27 12:35] LABS: Glucose, Whole Blood 154 mg/dL (60-115)
[2023-03-27] MEDS: Insulin Lispro 100 UNIT/ML 3 ML VIAL SUBCUT ×3 (12:47→21:14)
[2023-03-27 15:23] VITALS: BP 137/58; PULSE 80; RESP 18; TEMP 36; O2SAT 100
[2023-03-27 16:15] LABS: Glucose, Whole Blood 161 mg/dL (60-115)
[2023-03-27 19:26] VITALS: BP 142/65; PULSE 78; RESP 18; TEMP 36.2; O2SAT 99
[2023-03-27 20:17] LABS: Glucose, Whole Blood 156 mg/dL (60-115)
[2023-03-27] MEDS: Insulin Glargine,Hum.rec.anlog 100 UNIT/ML 10 ML VIAL SUBCUT (21:13)
[2023-03-27] MEDS: Heparin Sodium,Porcine 5,000 UNIT/ML VIAL 5000 UNIT SUBCUT (21:14)
[2023-03-28 04:00] VITALS: BP 147/86; PULSE 79; RESP 16; TEMP 36.7; O2SAT 100
[2023-03-28 07:37] VITALS: BP 139/63; PULSE 80; RESP 18; TEMP 36.4; O2SAT 99
[2023-03-28 08:01] LABS: Glucose, Whole Blood 91 mg/dL (60-115)
[2023-03-28] MEDS: Multivitamin TABLET 1 TAB PO (08:25)
[2023-03-28] MEDS: Metoprolol Tartrate 25 MG TABLET PO ×2 (08:25→21:40)
[2023-03-28] MEDS: amLODIPine Besylate 5 MG TABLET PO (08:25)
[2023-03-28] MEDS: Heparin Sodium,Porcine 5,000 UNIT/ML VIAL 5000 UNIT SUBCUT ×2 (08:25→21:54)
[2023-03-28] MEDS: Sevelamer Carbonate Tablet 800 MG TABLET PO ×3 (08:25→16:44)
[2023-03-28] MEDS: hydrALAZINE HCl 25 MG TABLET 75 MG PO ×3 (08:25→21:39)
[2023-03-28 08:45] VITALS: BP 139/63; PULSE 80; O2SAT 99
[2023-03-28 11:40] LABS: Glucose, Whole Blood 131 mg/dL (60-115)
--- NOTE | 2023-03-28 12:27 | PM.PNNEP ---
Subjective Subjective Date of Service: 03/28/23 Interval history: Events noted; All recent data reviewed Physical Exam Vital Signs: Vital Signs: Last Vital Signs Temp 97.5 F 03/28/23 07:37 Pulse 80 03/28/23 08:45 Resp 18 03/28/23 07:37 BP 139/63 03/28/23 08:45 Pulse Ox 99 03/28/23 08:45 O2 Del Method Room Air 03/28/23 07:37 O2 Flow Rate 97 03/08/23 06:00 BMI result Body Mass Index 35.9 Const: General: no acute distress Eyes: EOM: EOMs intact bilaterally Resp: Auscultation: diminished lung sounds Cardio: Rate: regular rate GI: Palpation (GI): Soft to palpation Neuro: General: moves all extremities Objective Data Labs 03/27/23 05:47 03/27/23 05:47 Labs: Laboratory Results - last 24 hr 03/27/23 03/27/23 03/27/23 12:31 16:09 20:10 POC Glucose 154 H 161 H 156 H 03/28/23 03/28/23 07:35 11:33 POC Glucose 91 131 H Procedures Date of Service Date of Service: 03/28/23 Assessment & Plan Assessment and plan (1) ESRD needing dialysis: Status: Acute Assessment and Plan: Continue HD on TTS schedule currently dialyzing at [facility] unit continue sevelamer with meals [place] [id number] Units once a week Progress Note: Quality Stroke Does the patient have a stroke diagnosis?: No
--- NOTE | 2023-03-28 13:27 | P.PNIM_ITS ---
Subjective Subjective Date of Service: 03/28/23 Interval History: Seen and evaluated No complaints left eyelid edema Review of Systems No fever, chills or weakness No chest pain, palpitation No shortness of breath or coughing No abdominal pain, nausea or vomiting No urinary symptoms No any rash or wounds Physical Exam Vital Signs: Vital Signs: Last Vital Signs Temp 97.5 F 03/28/23 07:37 Pulse 80 03/28/23 08:45 Resp 18 03/28/23 07:37 BP 139/63 03/28/23 08:45 Pulse Ox 99 03/28/23 08:45 O2 Del Method Room Air 03/28/23 07:37 O2 Flow Rate 97 03/08/23 06:00 BMI result Body Mass Index 35.9 Const: Other: Constitutional : Awake, interactive, not in distress Eyes: normal vision. left eyelid edema, no tenderness or redness Cardiovascular : RRR, no lower extremity edema Respiratory : not in distress , chest wall moving bilaterally Gastrointestinal: soft, lax, Normal bowel sounds, Non tender Skin : Warm, Dry, fistula clean Neurological : Alert & oriented x3, No focal deficit Objective Data Active Medications Acetaminophen (Acetaminophen 325 Mg Tablet) 650 mg PO QID PRN PRN Reason: Pain, Mild (Pain Scale 1-3) Last Admin: 03/26/23 07:59 Dose: 650 mg Documented By: COTCHARLY Albuterol Sulfate (Albuterol Sulfate 90 Mcg 8 Gm Inhaler) 1 puff INHALE QID PRN PRN Reason: Shortness Of Breath Amlodipine Besylate (Amlodipine Besylate 5 Mg Tablet) 5 mg PO DAILY [facility]; Protocol Last Admin: 03/28/23 08:25 Dose: 5 mg Documented By: ALMA ROSA Artificial Tears (Artificial Tears 15 Ml Drops) 2 drop EYE-LEFT Q4H PRN PRN Reason: Dry Eyes Last Admin: 03/27/23 21:18 Dose: 2 drop Documented By: PAIGE Dextrose (Dextrose 50 % 25 Gm/50 Ml Syringe) 25 gm IVPUSH Q15M PRN; Protocol PRN Reason: per Hypoglycemia Standing Ord. Glucose (Glucose Gel 15 Gm Gel..Gram.) 15 gm PO Q15M PRN; Protocol PRN Reason: per Hypoglycemia Standing Ord. Last Admin: 03/11/23 07:42 Dose: 15 gm Documented By: RITA Heparin Sodium (Porcine) (Heparin Sodium,Porcine 5,000 Unit/Ml Vial) 5,000 unit SUBCUT Q12H [facility] Last Admin: 03/28/23 08:25 Dose: 5,000 unit Documented By: ALMA ROSA Hydralazine HCl (Hydralazine Hcl 25 Mg Tablet) 75 mg PO TID [facility]; Protocol Last Admin: 03/28/23 08:25 Dose: 75 mg Documented By: ALMA ROSA Insulin Glargine (Insulin Glargine,Hum.Rec.Anlog 100 Unit/Ml 10 Ml Vial) 5 unit SUBCUT BEDTIME [facility] Last Admin: 03/27/23 21:13 Dose: 5 unit Documented By: PAIGE Insulin Human Lispro (Insulin Lispro 100 Unit/Ml 3 Ml Vial) 0 unit SUBCUT QIDACHS [facility]; Protocol Last Admin: 03/28/23 11:42 Dose: Not Given Documented By: ALMA ROSA Non-Admin Reason: No Insulin Coverage Metoprolol Tartrate (Metoprolol Tartrate 25 Mg Tablet) 25 mg PO BID [facility]; Protocol Last Admin: 03/28/23 08:25 Dose: 25 mg Documented By: ALMA ROSA Multivitamins/Vitamin C (Multivitamin Tablet) 1 tab PO DAILY [facility] Last Admin: 03/28/23 08:25 Dose: 1 tab Documented By: ALMA ROSA Ondansetron HCl (Ondansetron Hcl 4 Mg/2 Ml Vial) 4 mg IVPUSH Q8H PRN PRN Reason: Nausea and Vomiting Last Admin: 03/12/23 12:12 Dose: 4 mg Documented By: MADDY Polyethylene Glycol (Polyethylene Glycol 3350 17 Gm Powd.Pack) 17 gm PO DAILY [facility] Last Admin: 03/28/23 08:25 Dose: Not Given Documented By: ALMA ROSA Non-Admin Reason: Patient Refused Sevelamer Carbonate (Sevelamer Carbonate Tablet 800 Mg Tablet) 800 mg PO TIDWM [facility] Last Admin: 03/28/23 11:42 Dose: 800 mg Documented By: ALMA ROSA Sodium Chloride (0.9 % Sodium Chloride Flush 3 Ml Syringe) 3 ml IVFLUSH QSHIFT [facility] Last Admin: 03/28/23 07:53 Dose: Not Given Documented By: ALMA ROSA Non-Admin Reason: No Access Labs 03/27/23 05:47 03/27/23 05:47 Labs: Laboratory Results - last 24 hr 03/27/23 03/27/23 03/28/23 16:09 20:10 07:35 POC Glucose 161 H 156 H 91 03/28/23 11:33 POC Glucose 131 H Assessment and Plan (1) ESRD needing dialysis: Status: Acute Plan A 72 years old lady with PMH of ESRD on HD, asthma, HTN, DMII among others whi was brought to the hospital on 02/07 for confusion. ESRD on HD TTS Nephrology following Eyelid swelling warm compressors artificial tears HTN continue MEtoprolol hydralazine to 75 mg for better control DM II w hypoglycemia event better controlled SSI, diabetic diet Lantus decreased to 5 units Physical deconditioning PT rec STR The patient needs inpatient stay overnight for the need of dialysis pending safe discharge plan Time Spent With Patient Time: Total time managing care of this patient today ____ minutes. Quality Stroke Does the patient have a stroke diagnosis?: No VTE Prior VTE?: No VTE Risk Level:: Medical - moderate - high VTE Device Contraindication: Treatment Not Indicated VTE Drug Contraindication: N/A - Med Ordered
[2023-03-28 15:48] VITALS: BP 150/69; PULSE 82; RESP 20; TEMP 36.3; O2SAT 98
[2023-03-28 16:25] LABS: Glucose, Whole Blood 169 mg/dL (60-115)
[2023-03-28] MEDS: Insulin Lispro 100 UNIT/ML 3 ML VIAL SUBCUT (16:44)
[2023-03-28 19:34] VITALS: BP 152/65; PULSE 82; RESP 20; TEMP 36; O2SAT 99
[2023-03-28 20:14] LABS: Glucose, Whole Blood 137 mg/dL (60-115)
[2023-03-28] MEDS: Artificial Tears 15 ML DROPS 2 DROP EYE-LEFT (21:39)
[2023-03-28] MEDS: Insulin Glargine,Hum.rec.anlog 100 UNIT/ML 10 ML VIAL SUBCUT ×2 (21:53→21:54)
[2023-03-29 04:00] VITALS: BP 140/66; PULSE 75; RESP 16; TEMP 36.4; O2SAT 99
[2023-03-29 10:19] VITALS: BP 131/60; PULSE 70; RESP 18; TEMP 36.3; O2SAT 98
[2023-03-29] MEDS: Acetaminophen 325 MG TABLET 650 MG PO (10:28)
[2023-03-29] MEDS: Heparin Sodium,Porcine 5,000 UNIT/ML VIAL 5000 UNIT SUBCUT ×2 (10:28→21:35)
[2023-03-29] MEDS: Multivitamin TABLET 1 TAB PO (10:28)
[2023-03-29 11:05] LABS: Glucose, Whole Blood 116 mg/dL (60-115)
[2023-03-29] MEDS: Sevelamer Carbonate Tablet 800 MG TABLET PO ×2 (11:46→16:43)
--- NOTE | 2023-03-29 11:54 | P.PNIM_ITS ---
Subjective Subjective Date of Service: 03/29/23 Interval History: Seen and evaluated No complaints left eyelid edema improving Having dialysis session Review of Systems No fever, chills or weakness No chest pain, palpitation No shortness of breath or coughing No abdominal pain, nausea or vomiting No urinary symptoms No any rash or wounds Physical Exam Vital Signs: Vital Signs: Last Vital Signs Temp 97.3 F 03/29/23 10:19 Pulse 70 03/29/23 10:19 Resp 18 03/29/23 10:19 BP 131/60 03/29/23 10:19 Pulse Ox 98 03/29/23 10:19 O2 Del Method Room Air 03/29/23 10:19 O2 Flow Rate 97 03/08/23 06:00 BMI result Body Mass Index 35.9 Const: Other: Constitutional : Awake, interactive, not in distress Eyes: normal vision. left eyelid edema, no tenderness or redness Cardiovascular : RRR, no lower extremity edema Respiratory : not in distress , chest wall moving bilaterally Gastrointestinal: soft, lax, Normal bowel sounds, Non tender Skin : Warm, Dry, fistula clean Neurological : Alert & oriented x3, No focal deficit Objective Data Active Medications Acetaminophen (Acetaminophen 325 Mg Tablet) 650 mg PO QID PRN PRN Reason: Pain, Mild (Pain Scale 1-3) Last Admin: 03/29/23 10:28 Dose: 650 mg Documented By: TIFFANIE Albuterol Sulfate (Albuterol Sulfate 90 Mcg 8 Gm Inhaler) 1 puff INHALE QID PRN PRN Reason: Shortness Of Breath Amlodipine Besylate (Amlodipine Besylate 5 Mg Tablet) 5 mg PO DAILY [facility]; Protocol Last Admin: 03/29/23 10:22 Dose: Not Given Documented By: TIFFANIE Non-Admin Reason: Off unit: Dialysis Artificial Tears (Artificial Tears 15 Ml Drops) 2 drop EYE-LEFT Q4H PRN PRN Reason: Dry Eyes Last Admin: 03/28/23 21:39 Dose: 2 drop Documented By: FERMÍN Dextrose (Dextrose 50 % 25 Gm/50 Ml Syringe) 25 gm IVPUSH Q15M PRN; Protocol PRN Reason: per Hypoglycemia Standing Ord. Glucose (Glucose Gel 15 Gm Gel..Gram.) 15 gm PO Q15M PRN; Protocol PRN Reason: per Hypoglycemia Standing Ord. Last Admin: 03/11/23 07:42 Dose: 15 gm Documented By: RITA Heparin Sodium (Porcine) (Heparin Sodium,Porcine 5,000 Unit/Ml Vial) 5,000 unit SUBCUT Q12H [facility] Last Admin: 03/29/23 10:28 Dose: 5,000 unit Documented By: TIFFANIE Hydralazine HCl (Hydralazine Hcl 25 Mg Tablet) 75 mg PO TID [facility]; Protocol Last Admin: 03/29/23 10:23 Dose: Not Given Documented By: TIFFANIE Non-Admin Reason: Off unit: Dialysis Insulin Glargine (Insulin Glargine,Hum.Rec.Anlog 100 Unit/Ml 10 Ml Vial) 5 unit SUBCUT BEDTIME [facility] Last Admin: 03/28/23 21:53 Dose: 5 unit Documented By: JORGE LUIS-GLENN Insulin Human Lispro (Insulin Lispro 100 Unit/Ml 3 Ml Vial) 0 unit SUBCUT QIDACHS [facility]; Protocol Last Admin: 03/29/23 11:13 Dose: Not Given Documented By: TIFFANIE Non-Admin Reason: No Insulin Coverage Metoprolol Tartrate (Metoprolol Tartrate 25 Mg Tablet) 25 mg PO BID [facility]; Protocol Last Admin: 03/29/23 10:23 Dose: Not Given Documented By: TIFFANIE Non-Charu Reason: Off unit: Dialysis Multivitamins/Vitamin C (Multivitamin Tablet) 1 tab PO DAILY [facility] Last Admin: 03/29/23 10:28 Dose: 1 tab Documented By: TIFFANIE Ondansetron HCl (Ondansetron Hcl 4 Mg/2 Ml Vial) 4 mg IVPUSH Q8H PRN PRN Reason: Nausea and Vomiting Last Admin: 03/12/23 12:12 Dose: 4 mg Documented By: MADDY Polyethylene Glycol (Polyethylene Glycol 3350 17 Gm Powd.Pack) 17 gm PO DAILY [facility] Last Admin: 03/29/23 10:21 Dose: Not Given Documented By: TIFFANIE Non-Admin Reason: Patient Refused Sevelamer Carbonate (Sevelamer Carbonate Tablet 800 Mg Tablet) 800 mg PO TIDWM [facility] Last Admin: 03/29/23 11:46 Dose: 800 mg Documented By: TIFFANIE Sodium Chloride (0.9 % Sodium Chloride Flush 3 Ml Syringe) 3 ml IVFLUSH QSHIFT [facility] Last Admin: 03/29/23 07:08 Dose: Not Given Documented By: TIFFANIE Non-Admin Reason: No Access Labs 03/27/23 05:47 03/27/23 05:47 Labs: Laboratory Results - last 24 hr 03/28/23 03/28/23 03/29/23 16:21 20:02 10:15 POC Glucose 169 H 137 H 116 H Assessment and Plan (1) ESRD needing dialysis: Status: Acute Plan A 72 years old lady with PMH of ESRD on HD, asthma, HTN, DMII among others whi was brought to the hospital on 02/07 for confusion. ESRD on HD TTS Nephrology following Eyelid swelling warm compressors artificial tears HTN continue MEtoprolol hydralazine to 75 mg for better control DM II w hypoglycemia event better controlled SSI, diabetic diet Lantus decreased to 5 units Physical deconditioning PT rec STR The patient needs inpatient stay overnight for the need of dialysis pending safe discharge plan Time Spent With Patient Time: Total time managing care of this patient today ____ minutes. Quality Stroke Does the patient have a stroke diagnosis?: No VTE Prior VTE?: No VTE Risk Level:: Medical - moderate - high VTE Device Contraindication: Treatment Not Indicated VTE Drug Contraindication: N/A - Med Ordered
--- NOTE | 2023-03-29 12:25 | PM.PNNEP ---
Subjective Subjective Date of Service: 03/29/23 Interval history: Seen and evaluated on HD. All recent data reviewed Physical Exam Vital Signs: Vital Signs: Last Vital Signs Temp 97.3 F 03/29/23 10:19 Pulse 70 03/29/23 10:19 Resp 18 03/29/23 10:19 BP 131/60 03/29/23 10:19 Pulse Ox 98 03/29/23 10:19 O2 Del Method Room Air 03/29/23 10:19 O2 Flow Rate 97 03/08/23 06:00 BMI result Body Mass Index 35.9 Const: General: no acute distress Eyes: EOM: EOMs intact bilaterally Resp: Auscultation: diminished lung sounds Cardio: Rate: regular rate GI: Palpation (GI): Soft to palpation Neuro: General: moves all extremities Objective Data Labs 03/27/23 05:47 03/27/23 05:47 Labs: Laboratory Results - last 24 hr 03/28/23 03/28/23 03/29/23 16:21 20:02 10:15 POC Glucose 169 H 137 H 116 H Procedures Date of Service Date of Service: 03/29/23 Assessment & Plan Assessment and plan (1) ESRD needing dialysis: Status: Acute Assessment and Plan: Continue HD on TTS schedule- Seen on HD currently dialyzing at [facility] unit continue sevelamer with meals Procrit [id number] Units once a week Progress Note: Quality Stroke Does the patient have a stroke diagnosis?: No
[2023-03-29 14:21] VITALS: BP 122/58; PULSE 80
[2023-03-29] MEDS: hydrALAZINE HCl 25 MG TABLET 75 MG PO ×2 (14:22→21:22)
[2023-03-29] MEDS: Artificial Tears 15 ML DROPS 2 DROP EYE-LEFT ×2 (14:23→21:21)
[2023-03-29 15:30] VITALS: BP 128/60; PULSE 81; RESP 20; TEMP 36; O2SAT 98
[2023-03-29 16:22] LABS: Glucose, Whole Blood 134 mg/dL (60-115)
[2023-03-29 17:08] VITALS: BP 133/63
[2023-03-29 20:00] VITALS: BP 126/58; PULSE 82; RESP 20; TEMP 36.3; O2SAT 99
[2023-03-29 20:51] LABS: Glucose, Whole Blood 160 mg/dL (60-115)
[2023-03-29] MEDS: Insulin Lispro 100 UNIT/ML 3 ML VIAL SUBCUT (21:22)
[2023-03-29] MEDS: Metoprolol Tartrate 25 MG TABLET PO (21:22)
[2023-03-30 04:00] VITALS: BP 140/60; PULSE 74; RESP 16; TEMP 36.1; O2SAT 100
[2023-03-30 07:45] VITALS: BP 151/64; PULSE 75; RESP 18; TEMP 36; O2SAT 100
[2023-03-30 07:54] LABS: Glucose, Whole Blood 134 mg/dL (60-115)
[2023-03-30] MEDS: polyethylene glycoL 3350 17 GM POWD.PACK PO (08:23)
[2023-03-30] MEDS: Heparin Sodium,Porcine 5,000 UNIT/ML VIAL 5000 UNIT SUBCUT ×2 (08:23→20:58)
[2023-03-30] MEDS: Sevelamer Carbonate Tablet 800 MG TABLET PO ×3 (08:24→16:34)
[2023-03-30] MEDS: hydrALAZINE HCl 25 MG TABLET 75 MG PO ×3 (08:24→20:57)
[2023-03-30] MEDS: amLODIPine Besylate 5 MG TABLET PO (08:24)
[2023-03-30] MEDS: Multivitamin TABLET 1 TAB PO (08:24)
[2023-03-30] MEDS: Metoprolol Tartrate 25 MG TABLET PO ×2 (08:24→20:58)
[2023-03-30 09:08] VITALS: BP 151/64; PULSE 75; O2SAT 100
[2023-03-30 11:44] LABS: Glucose, Whole Blood 161 mg/dL (60-115)
[2023-03-30] MEDS: Insulin Lispro 100 UNIT/ML 3 ML VIAL SUBCUT ×2 (11:45→20:58)
--- NOTE | 2023-03-30 14:34 | HO.PM.IMPN ---
Subjective Subjective Date of Service: 03/30/23 Interval History: Offers no acute complaints, denies blurring of vision, eye pain photophobia or eye discharge feels swelling is getting better, no other acute issues overnight tolerating diet and hemodialysis. Review of Systems All other systems reviewed and negative. Physical Exam Vital Signs: Vital Signs: Last Vital Signs Temp 96.8 F 03/30/23 07:45 Pulse 75 03/30/23 09:08 Resp 18 03/30/23 07:45 BP 151/64 H 03/30/23 09:08 Pulse Ox 100 03/30/23 09:08 O2 Del Method Room Air 03/30/23 07:45 O2 Flow Rate 97 03/08/23 06:00 BMI result Body Mass Index 35.9 Const: Other: Constitutional : A wake, alert in no acute distress Eye s: normal vision. left eyelid mild s welling, dry scaly skin, no drainage , no tenderness or redness Cardiovas cular : RRR, no lo wer extremity law a Respiratory : no t in distress , ch est wall moving bi laterally Gastroin testinal:? soft, N ormal bowel sounds , Non tender Skin : Warm, Dry, fistu la in place. Neuro logical : Alert & oriented x3, No fo chapito deficit Objective Data Active Medications Acetaminophen (Acetaminophen 325 Mg Tablet) 650 mg PO QID PRN PRN Reason: Pain, Mild (Pain Scale 1-3) Last Admin: 03/29/23 10:28 Dose: 650 mg Documented By: TIFFANIE Albuterol Sulfate (Albuterol Sulfate 90 Mcg 8 Gm Inhaler) 1 puff INHALE QID PRN PRN Reason: Shortness Of Breath Amlodipine Besylate (Amlodipine Besylate 5 Mg Tablet) 5 mg PO DAILY [facility]; Protocol Last Admin: 03/30/23 08:24 Dose: 5 mg Documented By: TIFFANIE Artificial Tears (Artificial Tears 15 Ml Drops) 2 drop EYE-LEFT Q4H PRN PRN Reason: Dry Eyes Last Admin: 03/29/23 21:21 Dose: 2 drop Documented By: FREDYZELebron Dextrose (Dextrose 50 % 25 Gm/50 Ml Syringe) 25 gm IVPUSH Q15M PRN; Protocol PRN Reason: per Hypoglycemia Standing Ord. Glucose (Glucose Gel 15 Gm Gel..Gram.) 15 gm PO Q15M PRN; Protocol PRN Reason: per Hypoglycemia Standing Ord. Last Admin: 03/11/23 07:42 Dose: 15 gm Documented By: RITA Heparin Sodium (Porcine) (Heparin Sodium,Porcine 5,000 Unit/Ml Vial) 5,000 unit SUBCUT Q12H [facility] Last Admin: 03/30/23 08:23 Dose: 5,000 unit Documented By: TIFFANIE Hydralazine HCl (Hydralazine Hcl 25 Mg Tablet) 75 mg PO TID [facility]; Protocol Last Admin: 03/30/23 08:24 Dose: 75 mg Documented By: TIFFANIE Insulin Glargine (Insulin Glargine,Hum.Rec.Anlog 100 Unit/Ml 10 Ml Vial) 5 unit SUBCUT BEDTIME [facility] Last Admin: 03/28/23 21:53 Dose: 5 unit Documented By: JORGE LUIS-NATANAELZELebron Insulin Human Lispro (Insulin Lispro 100 Unit/Ml 3 Ml Vial) 0 unit SUBCUT QIDACHS [facility]; Protocol Last Admin: 03/30/23 11:45 Dose: 2 unit Documented By: TIFFANIE Metoprolol Tartrate (Metoprolol Tartrate 25 Mg Tablet) 25 mg PO BID [facility]; Protocol Last Admin: 03/30/23 08:24 Dose: 25 mg Documented By: TIFFANIE Multivitamins/Vitamin C (Multivitamin Tablet) 1 tab PO DAILY [facility] Last Admin: 03/30/23 08:24 Dose: 1 tab Documented By: TIFFANIE Ondansetron HCl (Ondansetron Hcl 4 Mg/2 Ml Vial) 4 mg IVPUSH Q8H PRN PRN Reason: Nausea and Vomiting Last Admin: 03/12/23 12:12 Dose: 4 mg Documented By: MADDY Polyethylene Glycol (Polyethylene Glycol 3350 17 Gm Powd.Pack) 17 gm PO DAILY [facility] Last Admin: 03/30/23 08:23 Dose: 17 gm Documented By: TIFFANIE Sevelamer Carbonate (Sevelamer Carbonate Tablet 800 Mg Tablet) 800 mg PO TIDWM [facility] Last Admin: 03/30/23 11:31 Dose: 800 mg Documented By: TIFFANEI Sodium Chloride (0.9 % Sodium Chloride Flush 3 Ml Syringe) 3 ml IVFLUSH QSHIFT [facility] Last Admin: 03/30/23 07:04 Dose: Not Given Documented By: TIFFANIE Non-Admin Reason: No Access Labs 03/27/23 05:47 03/27/23 05:47 Labs: Laboratory Results - last 24 hr 03/29/23 03/29/23 03/30/23 16:18 20:42 07:49 POC Glucose 134 H 160 H 134 H 03/30/23 11:34 POC Glucose 161 H Assessment and Plan (1) ESRD needing dialysis: Status: Acute Plan A 72 years old lady with PMH of ESRD on HD, asthma, HTN, DMII among others whi was brought to the hospital on 02/07 for confusion. ESRD on HD TTS Nephrology following Eyelid swelling No evidence of eye infection, close monitoring artificial tears HTN continue Metoprolol 25 b.i.d., Norvasc 5 mg daily and on hydralazine to 75 mg tid , few high blood pressure readings follow BP closely DM II w hypoglycemia event better controlled now bs between 130-160 SSI, diabetic diet Lantus decreased to 5 units Physical deconditioning PT rec STR patient needs inpatient stay for the need of dialysis pending safe discharge plan. Time Spent With Patient Time: Total time managing care of this patient today ____ minutes. Quality Stroke Does the patient have a stroke diagnosis?: No VTE Prior VTE?: No VTE Risk Level:: Medical - moderate - high VTE Device Contraindication: Treatment Not Indicated VTE Drug Contraindication: N/A - Med Ordered
[2023-03-30 15:29] VITALS: BP 158/68; PULSE 64; RESP 15; TEMP 36.2; O2SAT 100
[2023-03-30] MEDS: 0.9 % Sodium Chloride Flush 3 ML SYRINGE IVFLUSH (15:30)
[2023-03-30 16:03] LABS: Glucose, Whole Blood 124 mg/dL (60-115)
--- NOTE | 2023-03-30 18:46 | PM.PNNEP ---
Subjective Subjective Date of Service: 03/30/23 Interval history: Seen ad examined, events noted Physical Exam Vital Signs: Vital Signs: Last Vital Signs Temp 97.2 F 03/30/23 15:29 Pulse 64 03/30/23 15:29 Resp 15 03/30/23 15:29 BP 158/68 H 03/30/23 15:29 Pulse Ox 100 03/30/23 15:29 O2 Del Method Room Air 03/30/23 15:29 O2 Flow Rate 97 03/08/23 06:00 BMI result Body Mass Index 35.9 Objective Data Labs 03/27/23 05:47 03/27/23 05:47 Labs: Laboratory Results - last 24 hr 03/29/23 03/30/23 03/30/23 20:42 07:49 11:34 POC Glucose 160 H 134 H 161 H 03/30/23 15:55 POC Glucose 124 H Procedures Date of Service Date of Service: 03/30/23 Assessment & Plan Assessment and plan (1) ESRD needing dialysis: Status: Acute Plan ESRD: tts Anemia: cont epo MBD: cont renvela Time Spent With Patient Time: Total time managing care of this patient today ____ minutes. Progress Note: Quality Stroke Does the patient have a stroke diagnosis?: No
[2023-03-30 18:59] VITALS: BP 147/61; PULSE 73; RESP 14; TEMP 36.1; O2SAT 100
[2023-03-30] MEDS: Ondansetron ODT 4 MG TAB.RAPDIS TRANSLINGU (19:45)
[2023-03-30 20:22] VITALS: BP 148/62
[2023-03-30 20:23] LABS: Glucose, Whole Blood 169 mg/dL (60-115)
[2023-03-30] MEDS: Insulin Glargine,Hum.rec.anlog 100 UNIT/ML 10 ML VIAL SUBCUT (20:58)
[2023-03-31] MEDS: Acetaminophen 325 MG TABLET 650 MG PO ×3 (03:07→21:35)
[2023-03-31 04:00] VITALS: BP 152/66; PULSE 71; RESP 16; TEMP 35.7; O2SAT 98
[2023-03-31] MEDS: Sevelamer Carbonate Tablet 800 MG TABLET PO ×3 (07:50→16:50)
[2023-03-31 07:53] LABS: Glucose, Whole Blood 109 mg/dL (60-115)
[2023-03-31 08:00] VITALS: BP 161/72; PULSE 72; RESP 20; TEMP 36.2; O2SAT 100
[2023-03-31 12:25] LABS: Glucose, Whole Blood 115 mg/dL (60-115)
--- NOTE | 2023-03-31 13:19 | P.PNIM_ITS ---
Subjective Subjective Date of Service: 03/31/23 Interval History: Complaining of right shoulder pain with underlying history of [id number] right shoulder degenerative joint disease, denies left eye discomfort, denies fever, no chills, receiving hemodialysis at present no other acute issues overnight. Review of Systems All other system reviewed and negative Physical Exam Vital Signs: Vital Signs: Last Vital Signs Temp 97.2 F 03/31/23 08:00 Pulse 72 03/31/23 08:00 Resp 20 03/31/23 08:00 BP 161/72 H 03/31/23 08:00 Pulse Ox 100 03/31/23 08:00 O2 Del Method Room Air 03/31/23 08:00 O2 Flow Rate 97 03/08/23 06:00 BMI result Body Mass Index 35.9 Const: Other: Constitutional : Awake, alert in noacute distress Eyes: normal vision.left eyelid swelling > rt, no drainage, no tenderness or?redness of both eyes Cardiovascular : RRR, no lower extremity edema Respiratory : not in distress , chest wall moving bilaterally Gastrointestinal:? soft, Normal bowel sounds, Non tender Skin: Warm, Dry, fistula in place. Neurological : Alert &oriented x3, No focal deficit Psych appropriate affect Objective Data Active Medications Acetaminophen (Acetaminophen 325 Mg Tablet) 650 mg PO QID PRN PRN Reason: Pain, Mild (Pain Scale 1-3) Last Admin: 03/31/23 10:16 Dose: 650 mg Documented By: CRICKET Albuterol Sulfate (Albuterol Sulfate 90 Mcg 8 Gm Inhaler) 1 puff INHALE QID PRN PRN Reason: Shortness Of Breath Amlodipine Besylate (Amlodipine Besylate 5 Mg Tablet) 5 mg PO DAILY [facility]; Protocol Last Admin: 03/31/23 09:31 Dose: Not Given Documented By: CRICKET Non-Admin Reason: Off unit: Dialysis Artificial Tears (Artificial Tears 15 Ml Drops) 2 drop EYE-LEFT Q4H PRN PRN Reason: Dry Eyes Last Admin: 03/29/23 21:21 Dose: 2 drop Documented By: FERMÍN Dextrose (Dextrose 50 % 25 Gm/50 Ml Syringe) 25 gm IVPUSH Q15M PRN; Protocol PRN Reason: per Hypoglycemia Standing Ord. Glucose (Glucose Gel 15 Gm Gel..Gram.) 15 gm PO Q15M PRN; Protocol PRN Reason: per Hypoglycemia Standing Ord. Last Admin: 03/11/23 07:42 Dose: 15 gm Documented By: RITA Heparin Sodium (Porcine) (Heparin Sodium,Porcine 5,000 Unit/Ml Vial) 5,000 unit SUBCUT Q12H [facility] Last Admin: 03/31/23 09:31 Dose: Not Given Documented By: CRICKET Non-Admin Reason: Off unit: Dialysis Hydralazine HCl (Hydralazine Hcl 25 Mg Tablet) 75 mg PO TID [facility]; Protocol Last Admin: 03/31/23 09:31 Dose: Not Given Documented By: CRICKET Non-Admin Reason: Off unit: Dialysis Insulin Glargine (Insulin Glargine,Hum.Rec.Anlog 100 Unit/Ml 10 Ml Vial) 5 unit SUBCUT BEDTIME [facility] Last Admin: 03/30/23 20:58 Dose: 5 unit Documented By: VINCE Insulin Human Lispro (Insulin Lispro 100 Unit/Ml 3 Ml Vial) 0 unit SUBCUT QIDACHS [facility]; Protocol Last Admin: 03/31/23 12:29 Dose: Not Given Documented By: CRICKET Non-Admin Reason: No Insulin Coverage Metoprolol Tartrate (Metoprolol Tartrate 25 Mg Tablet) 25 mg PO BID [facility]; Protocol Last Admin: 03/31/23 09:31 Dose: Not Given Documented By: CRICKET Non-Admin Reason: Off unit: Dialysis Multivitamins/Vitamin C (Multivitamin Tablet) 1 tab PO DAILY [facility] Last Admin: 03/31/23 09:31 Dose: Not Given Documented By: CRICKET Non-Admin Reason: Off unit: Dialysis Ondansetron HCl (Ondansetron Hcl 4 Mg/2 Ml Vial) 4 mg IVPUSH Q8H PRN PRN Reason: Nausea and Vomiting Last Admin: 03/12/23 12:12 Dose: 4 mg Documented By: MADDY Ondansetron HCl (Ondansetron Odt 4 Mg Tab.Rapdis) 4 mg TRANSLINGU Q6H PRN PRN Reason: Nausea and Vomiting Last Admin: 03/30/23 19:45 Dose: 4 mg Documented By: VINCE Polyethylene Glycol (Polyethylene Glycol 3350 17 Gm Powd.Pack) 17 gm PO DAILY [facility] Last Admin: 03/31/23 09:31 Dose: Not Given Documented By: CRICKET Non-Admin Reason: Off unit: Dialysis Sevelamer Carbonate (Sevelamer Carbonate Tablet 800 Mg Tablet) 800 mg PO TIDWM [facility] Last Admin: 03/31/23 12:34 Dose: 800 mg Documented By: CRICKET Sodium Chloride (0.9 % Sodium Chloride Flush 3 Ml Syringe) 3 ml IVFLUSH QSHIFT [facility] Last Admin: 03/31/23 09:32 Dose: Not Given Documented By: CRICKET Non-Admin Reason: No Access Labs 03/27/23 05:47 03/27/23 05:47 Labs: Laboratory Results - last 24 hr 03/30/23 03/30/23 03/31/23 15:55 20:09 07:49 POC Glucose 124 H 169 H 109 03/31/23 12:20 POC Glucose 115 Assessment and Plan (1) ESRD needing dialysis: Status: Acute Plan A 72 years old lady with PMH of ESRD on HD, asthma, HTN, DMII among others whi was brought to the hospital on 02/07 for confusion. ESRD on HD TTS Case discussed with Nephrology Left Eyelid swelling greater than right No evidence of eye infection, close monitoring, discussed with Nephrology not related to renal disease, recommend outpatient pulmonology follow-up since patient has prior history of eye injections patient unsure of diagnosis HTN continue Metoprolol 25 b.i.d., Norvasc 5 mg daily and on hydralazine to 75 mg tid , few high blood pressure readings follow BP closely DM II w hypoglycemia event stable blood sugars SSI, diabetic diet Lantus 5 units /d Physical deconditioning PT rec STR patient needs inpatient stay for the need of dialysis pending safe discharge plan. Time Spent With Patient Time: Total time managing care of this patient today ____ minutes. Quality Stroke Does the patient have a stroke diagnosis?: No VTE Prior VTE?: No VTE Risk Level:: Medical - moderate - high VTE Device Contraindication: Treatment Not Indicated VTE Drug Contraindication: N/A - Med Ordered
[2023-03-31] MEDS: hydrALAZINE HCl 25 MG TABLET 75 MG PO ×2 (14:32→21:34)
[2023-03-31 15:51] LABS: Glucose, Whole Blood 189 mg/dL (60-115)
[2023-03-31 16:00] VITALS: BP 161/72; PULSE 85; RESP 20; TEMP 36.6; O2SAT 97
--- NOTE | 2023-03-31 16:33 | PM.PNNEP ---
Subjective Subjective Date of Service: 03/31/23 Interval history: Seen and examined, events noted, C/O R eyelid swelling Physical Exam Vital Signs: Vital Signs: Last Vital Signs Temp 97.8 F 03/31/23 16:00 Pulse 85 03/31/23 16:00 Resp 20 03/31/23 16:00 BP 161/72 H 03/31/23 16:00 Pulse Ox 97 03/31/23 16:00 O2 Del Method Room Air 03/31/23 16:00 O2 Flow Rate 97 03/08/23 06:00 BMI result Body Mass Index 35.9 Const: Other: Constitutional : Awake, interactive, not in distress Eyes: normal vision. left eyelid edema, no tenderness or redness Cardiovascular : RRR, no lower extremity edema Respiratory : not in distress , chest wall moving bilaterally Gastrointestinal: soft, lax, Normal bowel sounds, Non tender Skin : Warm, Dry, fistula clean Neurological : Alert & oriented x3, No focal deficit General: comfortable and no acute distress Orientation/consciousness: patient oriented x3 HEENT: Head: Yes normocephalic and Yes atraumatic Eyes: EOM: EOMs intact bilaterally Neck: Neck: Yes supple Resp: Auscultation: clear to auscultation bilaterally and diminished lung sounds Cardio: Rate: regular rate Heart sounds: S1 normal heart sound present and S2 normal heart sound present GI: Palpation (GI): Soft to palpation and nontender Neuro: General: patient oriented x3 and moves all extremities Extrem: General: Yes normal to inspection Objective Data Labs 03/27/23 05:47 03/27/23 05:47 Labs: Laboratory Results - last 24 hr 03/30/23 03/31/23 03/31/23 20:09 07:49 12:20 POC Glucose 169 H 109 115 03/31/23 15:48 POC Glucose 189 H Procedures Date of Service Date of Service: 03/31/23 Assessment & Plan Assessment and plan (1) ESRD needing dialysis: Status: Acute Plan ESRD: tts Anemia: cont epo MBD: cont renvela Eyelid swelling: will need optho eval D/C planning Time Spent With Patient Time: Total time managing care of this patient today ____ minutes. Progress Note: Quality Stroke Does the patient have a stroke diagnosis?: No
[2023-03-31] MEDS: Insulin Lispro 100 UNIT/ML 3 ML VIAL SUBCUT (16:50)
[2023-03-31 19:51] VITALS: BP 168/69; PULSE 82; RESP 17; TEMP 36.2; O2SAT 100
[2023-03-31 20:45] LABS: Glucose, Whole Blood 146 mg/dL (60-115)
[2023-03-31] MEDS: Metoprolol Tartrate 25 MG TABLET PO (21:34)
[2023-03-31] MEDS: Insulin Glargine,Hum.rec.anlog 100 UNIT/ML 10 ML VIAL SUBCUT (21:34)
[2023-03-31] MEDS: Heparin Sodium,Porcine 5,000 UNIT/ML VIAL 5000 UNIT SUBCUT (21:34)
[2023-04-01 03:11] VITALS: BP 157/66; PULSE 76; RESP 18; TEMP 36.4; O2SAT 100
[2023-04-01 07:38] VITALS: BP 152/65; PULSE 74; RESP 20; TEMP 36.3; O2SAT 100
[2023-04-01] MEDS: Metoprolol Tartrate 25 MG TABLET PO ×2 (07:51→21:17)
[2023-04-01] MEDS: Multivitamin TABLET 1 TAB PO (07:51)
[2023-04-01] MEDS: Heparin Sodium,Porcine 5,000 UNIT/ML VIAL 5000 UNIT SUBCUT ×2 (07:51→21:19)
[2023-04-01] MEDS: Sevelamer Carbonate Tablet 800 MG TABLET PO ×3 (07:51→16:49)
[2023-04-01] MEDS: hydrALAZINE HCl 25 MG TABLET 75 MG PO ×3 (07:52→21:17)
[2023-04-01] MEDS: amLODIPine Besylate 5 MG TABLET PO (07:52)
[2023-04-01] MEDS: Acetaminophen 325 MG TABLET 650 MG PO ×2 (07:57→21:18)
[2023-04-01 07:58] LABS: Glucose, Whole Blood 88 mg/dL (60-115)
[2023-04-01 11:15] LABS: Glucose, Whole Blood 121 mg/dL (60-115)
--- NOTE | 2023-04-01 11:40 | P.PNIM_ITS ---
Subjective Subjective Date of Service: 04/01/23 Interval History: offers no acute complaints, no pain in left eye, no change in left eyelid swelling, no fevers no chills, tolerating diet, had hemodialysis session yesterday, BP elevated. Review of Systems All other system reviewed and negative. Constitutional Constitutional : Awake, alert in noacute distress Eyes: normal vision.left eyelid swelling > rt, no drainage, no tenderness or?redness of both eyes Cardiovascular : RRR, no lower extremity edema Respiratory : not in distress , chest wall moving bilaterally Gastrointestinal:? soft, Normal bowel sounds, Non tender Skin: Warm, Dry, fistula in place. Neurological : Alert &oriented x3, No focal deficit Psych appropriate affect Physical Exam Vital Signs: Vital Signs: Last Vital Signs Temp 97.4 F 04/01/23 07:38 Pulse 74 04/01/23 07:38 Resp 20 04/01/23 07:38 BP 152/65 H 04/01/23 07:38 Pulse Ox 100 04/01/23 07:38 O2 Del Method Room Air 04/01/23 07:38 O2 Flow Rate 97 03/08/23 06:00 BMI result Body Mass Index 35.9 Objective Data Active Medications Acetaminophen (Acetaminophen 325 Mg Tablet) 650 mg PO QID PRN PRN Reason: Pain, Mild (Pain Scale 1-3) Last Admin: 04/01/23 07:57 Dose: 650 mg Documented By: VINCE Albuterol Sulfate (Albuterol Sulfate 90 Mcg 8 Gm Inhaler) 1 puff INHALE QID PRN PRN Reason: Shortness Of Breath Amlodipine Besylate (Amlodipine Besylate 5 Mg Tablet) 5 mg PO DAILY [facility]; Protocol Last Admin: 04/01/23 07:52 Dose: 5 mg Documented By: VINCE Artificial Tears (Artificial Tears 15 Ml Drops) 2 drop EYE-LEFT Q4H PRN PRN Reason: Dry Eyes Last Admin: 03/29/23 21:21 Dose: 2 drop Documented By: FERMÍN Dextrose (Dextrose 50 % 25 Gm/50 Ml Syringe) 25 gm IVPUSH Q15M PRN; Protocol PRN Reason: per Hypoglycemia Standing Ord. Glucose (Glucose Gel 15 Gm Gel..Gram.) 15 gm PO Q15M PRN; Protocol PRN Reason: per Hypoglycemia Standing Ord. Last Admin: 03/11/23 07:42 Dose: 15 gm Documented By: RITA Heparin Sodium (Porcine) (Heparin Sodium,Porcine 5,000 Unit/Ml Vial) 5,000 unit SUBCUT Q12H [facility] Last Admin: 04/01/23 07:51 Dose: 5,000 unit Documented By: VINCE Hydralazine HCl (Hydralazine Hcl 25 Mg Tablet) 75 mg PO TID [facility]; Protocol Last Admin: 04/01/23 07:52 Dose: 75 mg Documented By: VINCE Insulin Glargine (Insulin Glargine,Hum.Rec.Anlog 100 Unit/Ml 10 Ml Vial) 5 unit SUBCUT BEDTIME [facility] Last Admin: 03/31/23 21:34 Dose: 5 unit Documented By: VINCE Insulin Human Lispro (Insulin Lispro 100 Unit/Ml 3 Ml Vial) 0 unit SUBCUT QIDACHS [facility]; Protocol Last Admin: 04/01/23 11:09 Dose: Not Given Documented By: NELDA Non-Admin Reason: No Access Metoprolol Tartrate (Metoprolol Tartrate 25 Mg Tablet) 25 mg PO BID [facility]; Protocol Last Admin: 04/01/23 07:51 Dose: 25 mg Documented By: VINCE Multivitamins/Vitamin C (Multivitamin Tablet) 1 tab PO DAILY [facility] Last Admin: 04/01/23 07:51 Dose: 1 tab Documented By: VINCE Ondansetron HCl (Ondansetron Hcl 4 Mg/2 Ml Vial) 4 mg IVPUSH Q8H PRN PRN Reason: Nausea and Vomiting Last Admin: 03/12/23 12:12 Dose: 4 mg Documented By: MADDY Ondansetron HCl (Ondansetron Odt 4 Mg Tab.Rapdis) 4 mg TRANSLINGU Q6H PRN PRN Reason: Nausea and Vomiting Last Admin: 03/30/23 19:45 Dose: 4 mg Documented By: VINCE Polyethylene Glycol (Polyethylene Glycol 3350 17 Gm Powd.Pack) 17 gm PO DAILY [facility] Last Admin: 04/01/23 07:51 Dose: Not Given Documented By: VINCE Non-Admin Reason: Patient Refused Sevelamer Carbonate (Sevelamer Carbonate Tablet 800 Mg Tablet) 800 mg PO TIDWM [facility] Last Admin: 04/01/23 11:33 Dose: 800 mg Documented By: NELDA Sodium Chloride (0.9 % Sodium Chloride Flush 3 Ml Syringe) 3 ml IVFLUSH QSHIFT [facility] Last Admin: 04/01/23 07:01 Dose: Not Given Documented By: VINCE Non-Admin Reason: No Access Labs 03/27/23 05:47 03/27/23 05:47 Labs: Laboratory Results - last 24 hr 03/31/23 03/31/23 03/31/23 12:20 15:48 20:41 POC Glucose 115 189 H 146 H 04/01/23 04/01/23 07:39 11:07 POC Glucose 88 121 H Assessment and Plan (1) ESRD needing dialysis: Status: Acute Plan A 72 years old lady with PMH of ESRD on HD, asthma, HTN, DMII among others whi was brought to the hospital on 02/07 for confusion. ESRD on HD tolerated hemodialysis yesterday, being followed by Nephrology continue hemodialysis TTS. Left Eyelid swelling greater than right No evidence of eye infection, close monitoring, discussed with Nephrology not related to renal disease, recommend outpatient opthalmology follow-up since patient has prior history of eye injections, patient unsure of diagnosis HTN continue Metoprolol 25 b.i.d., Norvasc 5 mg daily and on hydralazine to 75 mg tid , few high blood pressure readings follow BP closely DM II w hypoglycemia event, stable blood sugars ,on SSI, diabetic diet, Lantus 5 units /d Physical deconditioning PT rec STR patient needs inpatient stay for the need of dialysis pending safe discharge pl an. Time Spent With Patient Time: Total time managing care of this patient today ____ minutes. Quality Stroke Does the patient have a stroke diagnosis?: No VTE Prior VTE?: No VTE Risk Level:: Medical - moderate - high VTE Device Contraindication: Treatment Not Indicated VTE Drug Contraindication: N/A - Med Ordered
[2023-04-01] MEDS: Loratadine 10 MG TABLET PO (15:05)
[2023-04-01 16:20] LABS: Glucose, Whole Blood 134 mg/dL (60-115)
[2023-04-01 20:00] VITALS: BP 131/67; PULSE 66; RESP 18; TEMP 36.3; O2SAT 98
[2023-04-01 20:31] LABS: Glucose, Whole Blood 187 mg/dL (60-115)
[2023-04-01] MEDS: Insulin Glargine,Hum.rec.anlog 100 UNIT/ML 10 ML VIAL SUBCUT (21:15)
[2023-04-01] MEDS: Insulin Lispro 100 UNIT/ML 3 ML VIAL SUBCUT (21:16)
[2023-04-01] MEDS: 0.9 % Sodium Chloride Flush 3 ML SYRINGE IVFLUSH (21:18)
[2023-04-02 03:48] VITALS: BP 157/70; PULSE 81; RESP 18; TEMP 36.2; O2SAT 99
[2023-04-02 07:07] VITALS: BP 193/80; PULSE 80; RESP 18; TEMP 36.1; O2SAT 100
[2023-04-02 07:24] LABS: Glucose, Whole Blood 94 mg/dL (60-115)
[2023-04-02] MEDS: amLODIPine Besylate 5 MG TABLET PO (08:17)
[2023-04-02] MEDS: Metoprolol Tartrate 25 MG TABLET PO ×2 (08:17→20:59)
[2023-04-02] MEDS: hydrALAZINE HCl 25 MG TABLET 75 MG PO ×3 (08:17→20:59)
[2023-04-02] MEDS: Sevelamer Carbonate Tablet 800 MG TABLET PO ×3 (08:18→16:48)
[2023-04-02] MEDS: Multivitamin TABLET 1 TAB PO (08:18)
[2023-04-02] MEDS: Heparin Sodium,Porcine 5,000 UNIT/ML VIAL 5000 UNIT SUBCUT ×2 (08:18→21:00)
[2023-04-02] MEDS: Loratadine 10 MG TABLET PO (08:18)
[2023-04-02] MEDS: polyethylene glycoL 3350 17 GM POWD.PACK PO (08:19)
--- NOTE | 2023-04-02 09:26 | HO.PM.IMPN ---
Subjective Subjective Date of Service: 04/02/23 Interval History: feeling good slept well Claritin helping with allergy symptoms with less is sneezing and congestion, offers no other acute complaints no nausea, no vomiting, no abdominal pain, tolerating diet, denies left eye discomfort, no change in left eye swelling. Review of Systems All other system reviewed and negative. Physical Exam Vital Signs: Vital Signs: Last Vital Signs Temp 97.0 F 04/02/23 07:07 Pulse 80 04/02/23 07:07 Resp 18 04/02/23 07:07 BP 193/80 H 04/02/23 07:07 Pulse Ox 100 04/02/23 07:07 O2 Del Method Room Air 04/02/23 07:07 O2 Flow Rate 97 03/08/23 06:00 BMI result Body Mass Index 35.9 Const: Other: Constitutional : Awake, alert in no acute distress Eyes: normal vision.left eyelid swelling > rt, no warmth,no tenderness or?redness of both eyes, no drainage Cardiovascular : RRR, no lower extremity edema Respiratory : not in distress , chest wall moving bilaterally Gastrointestinal:? soft, Normal bowel sounds, Non tender Skin: Warm, Dry, fistula in place. Neurological : Alert &oriented x3, No focal deficit Psych appropriate affect Objective Data Active Medications Acetaminophen (Acetaminophen 325 Mg Tablet) 650 mg PO QID PRN PRN Reason: Pain, Mild (Pain Scale 1-3) Last Admin: 04/01/23 21:18 Dose: 650 mg Documented By: ELLEORALLebron Albuterol Sulfate (Albuterol Sulfate 90 Mcg 8 Gm Inhaler) 1 puff INHALE QID PRN PRN Reason: Shortness Of Breath Amlodipine Besylate (Amlodipine Besylate 5 Mg Tablet) 5 mg PO DAILY [facility]; Protocol Last Admin: 04/02/23 08:17 Dose: 5 mg Documented By: JANE Artificial Tears (Artificial Tears 15 Ml Drops) 2 drop EYE-LEFT Q4H PRN PRN Reason: Dry Eyes Last Admin: 03/29/23 21:21 Dose: 2 drop Documented By: FERMÍN Dextrose (Dextrose 50 % 25 Gm/50 Ml Syringe) 25 gm IVPUSH Q15M PRN; Protocol PRN Reason: per Hypoglycemia Standing Ord. Glucose (Glucose Gel 15 Gm Gel..Gram.) 15 gm PO Q15M PRN; Protocol PRN Reason: per Hypoglycemia Standing Ord. Last Admin: 03/11/23 07:42 Dose: 15 gm Documented By: RIAT Heparin Sodium (Porcine) (Heparin Sodium,Porcine 5,000 Unit/Ml Vial) 5,000 unit SUBCUT Q12H [facility] Last Admin: 04/02/23 08:18 Dose: 5,000 unit Documented By: JANE Hydralazine HCl (Hydralazine Hcl 25 Mg Tablet) 75 mg PO TID [facility]; Protocol Last Admin: 04/02/23 08:17 Dose: 75 mg Documented By: JANE Insulin Glargine (Insulin Glargine,Hum.Rec.Anlog 100 Unit/Ml 10 Ml Vial) 5 unit SUBCUT BEDTIME [facility] Last Admin: 04/01/23 21:15 Dose: 5 unit Documented By: SERGIO Insulin Human Lispro (Insulin Lispro 100 Unit/Ml 3 Ml Vial) 0 unit SUBCUT QIDACHS [facility]; Protocol Last Admin: 04/02/23 07:19 Dose: Not Given Documented By: JANE Non-Admin Reason: No Insulin Coverage Loratadine (Loratadine 10 Mg Tablet) 10 mg PO DAILY [facility] Last Admin: 04/02/23 08:18 Dose: 10 mg Documented By: JANE Metoprolol Tartrate (Metoprolol Tartrate 25 Mg Tablet) 25 mg PO BID [facility]; Protocol Last Admin: 04/02/23 08:17 Dose: 25 mg Documented By: JANE Multivitamins/Vitamin C (Multivitamin Tablet) 1 tab PO DAILY [facility] Last Admin: 04/02/23 08:18 Dose: 1 tab Documented By: JANE Ondansetron HCl (Ondansetron Hcl 4 Mg/2 Ml Vial) 4 mg IVPUSH Q8H PRN PRN Reason: Nausea and Vomiting Last Admin: 03/12/23 12:12 Dose: 4 mg Documented By: MADDY Ondansetron HCl (Ondansetron Odt 4 Mg Tab.Rapdis) 4 mg TRANSLINGU Q6H PRN PRN Reason: Nausea and Vomiting Last Admin: 03/30/23 19:45 Dose: 4 mg Documented By: VINCE Polyethylene Glycol (Polyethylene Glycol 3350 17 Gm Powd.Pack) 17 gm PO DAILY [facility] Last Admin: 04/02/23 08:19 Dose: 17 gm Documented By: JANE Sevelamer Carbonate (Sevelamer Carbonate Tablet 800 Mg Tablet) 800 mg PO TIDWM [facility] Last Admin: 04/02/23 08:18 Dose: 800 mg Documented By: JANE Sodium Chloride (0.9 % Sodium Chloride Flush 3 Ml Syringe) 3 ml IVFLUSH QSHIFT [facility] Last Admin: 04/02/23 08:53 Dose: Not Given Documented By: JANE Non-Admin Reason: No Access Labs 03/27/23 05:47 03/27/23 05:47 Labs: Laboratory Results - last 24 hr 04/01/23 04/01/23 04/01/23 11:07 16:15 20:19 POC Glucose 121 H 134 H 187 H 04/02/23 07:08 POC Glucose 94 Assessment and Plan (1) ESRD needing dialysis: Status: Acute Plan A 72 years old lady with PMH of ESRD on HD, asthma, HTN, DMII among others whi was brought to the hospital on 02/07 for confusion. ESRD on HD tolerated hemodialysis yesterday, being followed by Nephrology continue hemodialysis TTS. Left Eyelid swelling greater than right No evidence of eye infection, close monitoring, discussed with Nephrology not related to renal disease, recommend outpatient opthalmology follow-up since patient has prior history of eye injections. added Claritin for allergy symptoms. HTN continue Metoprolol 25 b.i.d., Norvasc 5 mg daily and hydralazine 75 mg tid , few high blood pressure readings , will discuss antihypertensive with Nephrology DM II w hypoglycemia event, stable blood sugars ,on SSI, diabetic diet, Lantus 5 units /d Physical deconditioning PT rec STR patient needs inpatient stay for the need of dialysis pending safe discharge plan. Time Spent With Patient Time: Total time managing care of this patient today ____ minutes. Quality Stroke Does the patient have a stroke diagnosis?: No VTE Prior VTE?: No VTE Risk Level:: Medical - moderate - high VTE Device Contraindication: Treatment Not Indicated VTE Drug Contraindication: N/A - Med Ordered
[2023-04-02 11:26] LABS: Glucose, Whole Blood 130 mg/dL (60-115)
[2023-04-02] MEDS: Acetaminophen 325 MG TABLET 650 MG PO ×2 (11:53→20:59)
[2023-04-02 15:14] VITALS: BP 150/70; PULSE 77; RESP 15; TEMP 37; O2SAT 99
--- NOTE | 2023-04-02 15:33 | MHC.CM.PN ---
pt remains ready for dc pending finacial completion of [employer]audia
[2023-04-02 16:23] LABS: Glucose, Whole Blood 134 mg/dL (60-115)
[2023-04-02 16:25] VITALS: BP 150/70; PULSE 77; O2SAT 99
[2023-04-02 19:10] VITALS: BP 143/92; PULSE 81; RESP 18; TEMP 36.6; O2SAT 100
[2023-04-02 20:32] LABS: Glucose, Whole Blood 184 mg/dL (60-115)
[2023-04-02] MEDS: Insulin Glargine,Hum.rec.anlog 100 UNIT/ML 10 ML VIAL SUBCUT (21:00)
[2023-04-02] MEDS: Insulin Lispro 100 UNIT/ML 3 ML VIAL SUBCUT (21:00)
[2023-04-03 03:07] VITALS: BP 154/66; PULSE 75; RESP 18; TEMP 36.1; O2SAT 100
[2023-04-03 07:16] VITALS: BP 172/74; PULSE 81; RESP 16; TEMP 36.1; O2SAT 100
[2023-04-03] MEDS: Sevelamer Carbonate Tablet 800 MG TABLET PO ×3 (07:38→17:06)
[2023-04-03] MEDS: hydrALAZINE HCl 25 MG TABLET 75 MG PO ×3 (07:38→20:34)
[2023-04-03] MEDS: Loratadine 10 MG TABLET PO (07:38)
[2023-04-03] MEDS: Metoprolol Tartrate 25 MG TABLET PO ×2 (07:38→20:34)
[2023-04-03] MEDS: amLODIPine Besylate 5 MG TABLET PO (07:38)
[2023-04-03] MEDS: Multivitamin TABLET 1 TAB PO (07:38)
[2023-04-03 07:39] LABS: Glucose, Whole Blood 88 mg/dL (60-115)
[2023-04-03 11:16] VITALS: BP 174/72
[2023-04-03 11:18] VITALS: BP 132/74; TEMP 36.8
[2023-04-03 11:19] LABS: Glucose, Whole Blood 134 mg/dL (60-115)
[2023-04-03] MEDS: Acetaminophen 325 MG TABLET 650 MG PO (12:05)
--- NOTE | 2023-04-03 14:51 | HO.PM.IMPN ---
Subjective Subjective Date of Service: 04/03/23 Interval History: resting comfortably offers no acute complaints scheduled for hemodialysis today, denies nausea, no vomiting, no abdominal pain, no headache, no dizziness, no change in left upper lid swelling. No eye pain. Review of Systems All other system reviewed and negative. Physical Exam Vital Signs: Vital Signs: Last Vital Signs Temp 98.3 F 04/03/23 11:18 Pulse 81 04/03/23 07:16 Resp 16 04/03/23 07:16 BP 132/74 04/03/23 11:18 Pulse Ox 100 04/03/23 07:16 O2 Del Method Room Air 04/03/23 07:16 O2 Flow Rate 97 03/08/23 06:00 BMI result Body Mass Index 35.9 Const: Other: Constitutional : Awake, alert in no acute distress Eyes: normal vision.left eyelid swelling > rt,? no warmth,no tenderness or?redness of both eyes, no drainage Cardiovascular : RRR, no lower extremity edema Respiratory : not in distress , chest wall moving bilaterally Gastrointestinal:? soft, Normal bowel sounds, Non tender Skin: Warm, Dry, fistula in place. Neurological : Alert &oriented x3, No focal deficit Psych appropriate affect Objective Data Active Medications Acetaminophen (Acetaminophen 325 Mg Tablet) 650 mg PO QID PRN PRN Reason: Pain, Mild (Pain Scale 1-3) Last Admin: 04/03/23 12:05 Dose: 650 mg Documented By: ALMA ROSA Albuterol Sulfate (Albuterol Sulfate 90 Mcg 8 Gm Inhaler) 1 puff INHALE QID PRN PRN Reason: Shortness Of Breath Amlodipine Besylate (Amlodipine Besylate 5 Mg Tablet) 5 mg PO DAILY [facility]; Protocol Last Admin: 04/03/23 07:38 Dose: 5 mg Documented By: ALMA ROSA Artificial Tears (Artificial Tears 15 Ml Drops) 2 drop EYE-LEFT Q4H PRN PRN Reason: Dry Eyes Last Admin: 03/29/23 21:21 Dose: 2 drop Documented By: FERMÍN Dextrose (Dextrose 50 % 25 Gm/50 Ml Syringe) 25 gm IVPUSH Q15M PRN; Protocol PRN Reason: per Hypoglycemia Standing Ord. Glucose (Glucose Gel 15 Gm Gel..Gram.) 15 gm PO Q15M PRN; Protocol PRN Reason: per Hypoglycemia Standing Ord. Last Admin: 03/11/23 07:42 Dose: 15 gm Documented By: RITA Heparin Sodium (Porcine) (Heparin Sodium,Porcine 5,000 Unit/Ml Vial) 5,000 unit SUBCUT Q12H [facility] Last Admin: 04/03/23 07:34 Dose: Not Given Documented By: ALMA ROSA Non-Admin Reason: dialysis Hydralazine HCl (Hydralazine Hcl 25 Mg Tablet) 75 mg PO TID [facility]; Protocol Last Admin: 04/03/23 07:38 Dose: 75 mg Documented By: ALMA ROSA Insulin Glargine (Insulin Glargine,Hum.Rec.Anlog 100 Unit/Ml 10 Ml Vial) 5 unit SUBCUT BEDTIME [facility] Last Admin: 04/02/23 21:00 Dose: 5 unit Documented By: SERGIO Insulin Human Lispro (Insulin Lispro 100 Unit/Ml 3 Ml Vial) 0 unit SUBCUT QIDACHS [facility]; Protocol Last Admin: 04/03/23 11:32 Dose: Not Given Documented By: ALMA ROSA Non-Admin Reason: No Insulin Coverage Loratadine (Loratadine 10 Mg Tablet) 10 mg PO DAILY [facility] Last Admin: 04/03/23 07:38 Dose: 10 mg Documented By: ALMA ROSA Metoprolol Tartrate (Metoprolol Tartrate 25 Mg Tablet) 25 mg PO BID [facility]; Protocol Last Admin: 04/03/23 07:38 Dose: 25 mg Documented By: ALMA ROSA Multivitamins/Vitamin C (Multivitamin Tablet) 1 tab PO DAILY [facility] Last Admin: 04/03/23 07:38 Dose: 1 tab Documented By: ALMA ROSA Ondansetron HCl (Ondansetron Hcl 4 Mg/2 Ml Vial) 4 mg IVPUSH Q8H PRN PRN Reason: Nausea and Vomiting Last Admin: 03/12/23 12:12 Dose: 4 mg Documented By: MADDY Ondansetron HCl (Ondansetron Odt 4 Mg Tab.Rapdis) 4 mg TRANSLINGU Q6H PRN PRN Reason: Nausea and Vomiting Last Admin: 03/30/23 19:45 Dose: 4 mg Documented By: VINCE Polyethylene Glycol (Polyethylene Glycol 3350 17 Gm Powd.Pack) 17 gm PO DAILY [facility] Last Admin: 04/03/23 07:38 Dose: Not Given Documented By: ALMA ROSA Non-Admin Reason: Patient Refused Sevelamer Carbonate (Sevelamer Carbonate Tablet 800 Mg Tablet) 800 mg PO TIDWM [facility] Last Admin: 04/03/23 12:05 Dose: 800 mg Documented By: ALMA ROSA Sodium Chloride (0.9 % Sodium Chloride Flush 3 Ml Syringe) 3 ml IVFLUSH QSHIFT [facility] Last Admin: 04/03/23 07:19 Dose: Not Given Documented By: ALMA ROSA Non-Admin Reason: No Access Labs 03/27/23 05:47 03/27/23 05:47 Labs: Laboratory Results - last 24 hr 04/02/23 04/02/23 04/03/23 15:53 20:19 07:07 POC Glucose 134 H 184 H 88 04/03/23 11:14 POC Glucose 134 H Assessment and Plan (1) ESRD needing dialysis: Status: Acute Plan A 72 years old lady with PMH of ESRD on HD, asthma, HTN, DMII among others wh was brought to the hospital on 02/07 for confusion. ESRD on HD scheduled for hemodialysis today, being followed by Nephrology continue hemodialysis TTS. Left Eyelid swelling greater than right No evidence of eye infection, close monitoring, discussed with Nephrology not related to renal disease, recommend outpatient opthalmology follow-up since patient has prior history of eye injections. added Claritin for allergy symptoms. HTN continue Metoprolol 25 b.i.d., Norvasc 5 mg daily and hydralazine 75 mg tid , few high blood pressure readings , will discuss antihypertensive with Nephrology DM II w hypoglycemia event, stable blood sugars ,on SSI, diabetic diet, Lantus 5 units /d Physical deconditioning PT rec STR patient needs inpatient stay for the need of dialysis pending safe discharge plan. Time Spent With Patient Time: Total time managing care of this patient today ____ minutes. Quality Stroke Does the patient have a stroke diagnosis?: No VTE Prior VTE?: No VTE Risk Level:: Medical - moderate - high VTE Device Contraindication: Treatment Not Indicated VTE Drug Contraindication: N/A - Med Ordered
[2023-04-03 16:00] VITALS: BP 140/73; PULSE 81; RESP 20; TEMP 36; O2SAT 100
[2023-04-03 17:13] LABS: Glucose, Whole Blood 118 mg/dL (60-115)
[2023-04-03 20:00] VITALS: BP 148/65; PULSE 87; RESP 20; TEMP 36; O2SAT 99
[2023-04-03] MEDS: Insulin Glargine,Hum.rec.anlog 100 UNIT/ML 10 ML VIAL SUBCUT (20:34)
[2023-04-03] MEDS: Heparin Sodium,Porcine 5,000 UNIT/ML VIAL 5000 UNIT SUBCUT (20:34)
[2023-04-03 20:53] LABS: Glucose, Whole Blood 212 mg/dL (60-115)
[2023-04-03] MEDS: Insulin Lispro 100 UNIT/ML 3 ML VIAL SUBCUT (21:18)
[2023-04-04 03:24] VITALS: BP 168/71; PULSE 84; RESP 18; TEMP 36.2; O2SAT 98
[2023-04-04 07:12] VITALS: BP 173/70; PULSE 79; RESP 18; TEMP 36.2; O2SAT 100
[2023-04-04 07:40] LABS: Glucose, Whole Blood 100 mg/dL (60-115)
[2023-04-04] MEDS: hydrALAZINE HCl 25 MG TABLET 75 MG PO ×3 (07:47→21:00)
[2023-04-04] MEDS: Sevelamer Carbonate Tablet 800 MG TABLET PO ×3 (07:47→16:25)
[2023-04-04] MEDS: amLODIPine Besylate 5 MG TABLET PO (07:47)
[2023-04-04] MEDS: Metoprolol Tartrate 25 MG TABLET PO ×2 (07:48→21:00)
[2023-04-04] MEDS: Heparin Sodium,Porcine 5,000 UNIT/ML VIAL 5000 UNIT SUBCUT ×2 (07:48→21:00)
[2023-04-04] MEDS: Multivitamin TABLET 1 TAB PO (07:48)
[2023-04-04] MEDS: Loratadine 10 MG TABLET PO (07:48)
[2023-04-04] MEDS: polyethylene glycoL 3350 17 GM POWD.PACK PO (07:49)
[2023-04-04 09:33] VITALS: BP 173/70; PULSE 79; O2SAT 100
[2023-04-04 11:15] LABS: Glucose, Whole Blood 138 mg/dL (60-115)
--- NOTE | 2023-04-04 15:18 | P.PNIM_ITS ---
Subjective Subjective Date of Service: 04/04/23 Interval History: Seen and evaluated No complaints left eyelid edema improving Review of Systems Review of Systems: Yes all other systems are reviewed and are negative Physical Exam Vital Signs: Vital Signs: Last Vital Signs Temp 97.1 F 04/04/23 07:12 Pulse 79 04/04/23 09:33 Resp 18 04/04/23 07:12 BP 173/70 H 04/04/23 09:33 Pulse Ox 100 04/04/23 09:33 O2 Del Method Room Air 04/04/23 07:12 O2 Flow Rate 97 03/08/23 06:00 BMI result Body Mass Index 35.9 Const: Other: Constitutional : Awake, interactive, not in distress Eyes: normal vision. left eyelid edema, no tenderness or redness Cardiovascular : RRR, no lower extremity edema Respiratory : not in distress , chest wall moving bilaterally Gastrointestinal: soft, lax, Normal bowel sounds, Non tender Skin : Warm, Dry, fistula clean Neurological : Alert & oriented x3, No focal deficit Objective Data Active Medications Acetaminophen (Acetaminophen 325 Mg Tablet) 650 mg PO QID PRN PRN Reason: Pain, Mild (Pain Scale 1-3) Last Admin: 04/03/23 12:05 Dose: 650 mg Documented By: ALMA ROSA Albuterol Sulfate (Albuterol Sulfate 90 Mcg 8 Gm Inhaler) 1 puff INHALE QID PRN PRN Reason: Shortness Of Breath Amlodipine Besylate (Amlodipine Besylate 5 Mg Tablet) 5 mg PO DAILY [facility]; Protocol Last Admin: 04/04/23 07:47 Dose: 5 mg Documented By: ALMA ROSA Artificial Tears (Artificial Tears 15 Ml Drops) 2 drop EYE-LEFT Q4H PRN PRN Reason: Dry Eyes Last Admin: 03/29/23 21:21 Dose: 2 drop Documented By: FERMÍN Dextrose (Dextrose 50 % 25 Gm/50 Ml Syringe) 25 gm IVPUSH Q15M PRN; Protocol PRN Reason: per Hypoglycemia Standing Ord. Glucose (Glucose Gel 15 Gm Gel..Gram.) 15 gm PO Q15M PRN; Protocol PRN Reason: per Hypoglycemia Standing Ord. Last Admin: 03/11/23 07:42 Dose: 15 gm Documented By: RITA Heparin Sodium (Porcine) (Heparin Sodium,Porcine 5,000 Unit/Ml Vial) 5,000 unit SUBCUT Q12H [facility] Last Admin: 04/04/23 07:48 Dose: 5,000 unit Documented By: ALMA ROSA Hydralazine HCl (Hydralazine Hcl 25 Mg Tablet) 75 mg PO TID [facility]; Protocol Last Admin: 04/04/23 07:47 Dose: 75 mg Documented By: ALMA ROSA Insulin Glargine (Insulin Glargine,Hum.Rec.Anlog 100 Unit/Ml 10 Ml Vial) 5 unit SUBCUT BEDTIME [facility] Last Admin: 04/03/23 20:34 Dose: 5 unit Documented By: ODRISM Insulin Human Lispro (Insulin Lispro 100 Unit/Ml 3 Ml Vial) 0 unit SUBCUT QIDACHS [facility]; Protocol Last Admin: 04/04/23 12:00 Dose: Not Given Documented By: ALMA ROSA Non-Admin Reason: No Insulin Coverage Loratadine (Loratadine 10 Mg Tablet) 10 mg PO DAILY [facility] Last Admin: 04/04/23 07:48 Dose: 10 mg Documented By: ALMA ROSA Metoprolol Tartrate (Metoprolol Tartrate 25 Mg Tablet) 25 mg PO BID [facility]; Protocol Last Admin: 04/04/23 07:48 Dose: 25 mg Documented By: ALMA ROSA Multivitamins/Vitamin C (Multivitamin Tablet) 1 tab PO DAILY [facility] Last Admin: 04/04/23 07:48 Dose: 1 tab Documented By: ALMA ROSA Ondansetron HCl (Ondansetron Hcl 4 Mg/2 Ml Vial) 4 mg IVPUSH Q8H PRN PRN Reason: Nausea and Vomiting Last Admin: 03/12/23 12:12 Dose: 4 mg Documented By: MADDY Ondansetron HCl (Ondansetron Odt 4 Mg Tab.Rapdis) 4 mg TRANSLINGU Q6H PRN PRN Reason: Nausea and Vomiting Last Admin: 03/30/23 19:45 Dose: 4 mg Documented By: VINCE Polyethylene Glycol (Polyethylene Glycol 3350 17 Gm Powd.Pack) 17 gm PO DAILY [facility] Last Admin: 04/04/23 07:49 Dose: 17 gm Documented By: ALMA ROSA Sevelamer Carbonate (Sevelamer Carbonate Tablet 800 Mg Tablet) 800 mg PO TIDWM [facility] Last Admin: 08/23/23 12:04 Dose: 800 mg Documented By: ALMA ROSA Sodium Chloride (0.9 % Sodium Chloride Flush 3 Ml Syringe) 3 ml IVFLUSH QSHIFT [facility] Last Admin: 04/04/23 07:46 Dose: Not Given Documented By: ALMA ROSA Non-Admin Reason: No Access Labs 03/27/23 05:47 03/27/23 05:47 Labs: Laboratory Results - last 24 hr 04/03/23 04/03/23 04/04/23 17:03 20:45 07:18 POC Glucose 118 H 212 H 100 04/04/23 11:08 POC Glucose 138 H Assessment and Plan (1) ESRD needing dialysis: Status: Acute (2) Hypoglycemia associated with type 2 diabetes mellitus: Status: Acute (3) Physical deconditioning: Status: Acute Plan A 72 years old lady with PMH of ESRD on HD, asthma, HTN, DMII among others whi was brought to the hospital on 02/07 for confusion. ESRD on HD TTS Nephrology following Left Eyelid swelling No evidence of eye infection, close monitoring, discussed with Nephrology not related to renal disease, recommend outpatient opthalmology follow-up since patient has prior history of eye injections. ?added Claritin for allergy symptoms. warm compressors artificial tears HTN continue MEtoprolol, amlodipine hydralazine to 75 mg for better control DM II w hypoglycemia event SSI, diabetic diet Lantus decreased to 5 units Physical deconditioning PT rec STR The patient needs inpatient stay overnight for the need of dialysis pending safe discharge plan Time Spent With Patient Time: Total time managing care of this patient today ____ minutes. Quality Stroke Does the patient have a stroke diagnosis?: No VTE Prior VTE?: No VTE Risk Level:: Medical - moderate - high VTE Device Contraindication: Treatment Not Indicated VTE Drug Contraindication: N/A - Med Ordered
[2023-04-04 15:37] VITALS: BP 147/79; PULSE 75; RESP 20; TEMP 36; O2SAT 100
[2023-04-04 16:04] LABS: Glucose, Whole Blood 119 mg/dL (60-115)
[2023-04-04 19:21] VITALS: BP 158/70; PULSE 82; RESP 20; TEMP 36.1; O2SAT 99
[2023-04-04 20:37] LABS: Glucose, Whole Blood 148 mg/dL (60-115)
[2023-04-04] MEDS: Insulin Glargine,Hum.rec.anlog 100 UNIT/ML 10 ML VIAL SUBCUT (21:00)
[2023-04-05 04:00] VITALS: BP 148/72; PULSE 82; RESP 18; TEMP 36.2; O2SAT 99
[2023-04-05 07:08] VITALS: BP 183/74; PULSE 82; RESP 16; TEMP 36.1; O2SAT 100
[2023-04-05] MEDS: Metoprolol Tartrate 25 MG TABLET PO ×2 (07:31→20:25)
[2023-04-05] MEDS: Multivitamin TABLET 1 TAB PO (07:31)
[2023-04-05] MEDS: Sevelamer Carbonate Tablet 800 MG TABLET PO ×3 (07:31→16:21)
[2023-04-05] MEDS: Loratadine 10 MG TABLET PO (07:31)
[2023-04-05] MEDS: amLODIPine Besylate 5 MG TABLET PO (07:31)
[2023-04-05] MEDS: hydrALAZINE HCl 25 MG TABLET 75 MG PO ×3 (07:31→20:25)
[2023-04-05 07:32] LABS: Glucose, Whole Blood 87 mg/dL (60-115)
[2023-04-05] MEDS: Acetaminophen 325 MG TABLET 650 MG PO (07:35)
--- NOTE | 2023-04-05 09:29 | P.PNIM_ITS ---
Subjective Subjective Date of Service: 04/05/23 Interval History: Seen and evaluated No complaints left eyelid edema Review of Systems Review of Systems: Yes all other systems are reviewed and are negative Physical Exam Vital Signs: Vital Signs: Last Vital Signs Temp 96.9 F 04/05/23 07:08 Pulse 82 04/05/23 07:08 Resp 16 04/05/23 07:08 BP 183/74 H 04/05/23 07:08 Pulse Ox 100 04/05/23 07:08 O2 Del Method Room Air 04/05/23 07:08 O2 Flow Rate 97 03/08/23 06:00 BMI result Body Mass Index 35.9 Const: Other: Constitutional : Awake, interactive, not in distress Eyes: normal vision. left eyelid edema, no tenderness or redness Cardiovascular : RRR, no lower extremity edema Respiratory : not in distress , chest wall moving bilaterally Gastrointestinal: soft, lax, Normal bowel sounds, Non tender Skin : Warm, Dry, fistula clean Neurological : Alert & oriented x3, No focal deficit Objective Data Active Medications Acetaminophen (Acetaminophen 325 Mg Tablet) 650 mg PO QID PRN PRN Reason: Pain, Mild (Pain Scale 1-3) Last Admin: 04/05/23 07:35 Dose: 650 mg Documented By: ALAM ROSA Albuterol Sulfate (Albuterol Sulfate 90 Mcg 8 Gm Inhaler) 1 puff INHALE QID PRN PRN Reason: Shortness Of Breath Amlodipine Besylate (Amlodipine Besylate 5 Mg Tablet) 5 mg PO DAILY [facility]; Protocol Last Admin: 04/05/23 07:31 Dose: 5 mg Documented By: ALMA ROSA Artificial Tears (Artificial Tears 15 Ml Drops) 2 drop EYE-LEFT Q4H PRN PRN Reason: Dry Eyes Last Admin: 03/29/23 21:21 Dose: 2 drop Documented By: FERMÍN Dextrose (Dextrose 50 % 25 Gm/50 Ml Syringe) 25 gm IVPUSH Q15M PRN; Protocol PRN Reason: per Hypoglycemia Standing Ord. Glucose (Glucose Gel 15 Gm Gel..Gram.) 15 gm PO Q15M PRN; Protocol PRN Reason: per Hypoglycemia Standing Ord. Last Admin: 03/11/23 07:42 Dose: 15 gm Documented By: RITA Heparin Sodium (Porcine) (Heparin Sodium,Porcine 5,000 Unit/Ml Vial) 5,000 unit SUBCUT Q12H [facility] Last Admin: 04/05/23 07:33 Dose: Not Given Documented By: ALMA ROSA Non-Admin Reason: dialysis Hydralazine HCl (Hydralazine Hcl 25 Mg Tablet) 75 mg PO TID [facility]; Protocol Last Admin: 04/05/23 07:31 Dose: 75 mg Documented By: ALMA ROSA Insulin Glargine (Insulin Glargine,Hum.Rec.Anlog 100 Unit/Ml 10 Ml Vial) 5 unit SUBCUT BEDTIME [facility] Last Admin: 04/04/23 21:00 Dose: 5 unit Documented By: ODRISLiza Insulin Human Lispro (Insulin Lispro 100 Unit/Ml 3 Ml Vial) 0 unit SUBCUT QIDACHS [facility]; Protocol Last Admin: 04/05/23 07:32 Dose: Not Given Documented By: ALMA ROSA Non-Admin Reason: No Insulin Coverage Loratadine (Loratadine 10 Mg Tablet) 10 mg PO DAILY [facility] Last Admin: 04/05/23 07:31 Dose: 10 mg Documented By: ALMA ROSA Metoprolol Tartrate (Metoprolol Tartrate 25 Mg Tablet) 25 mg PO BID [facility]; Protocol Last Admin: 04/05/23 07:31 Dose: 25 mg Documented By: ALMA ROSA Multivitamins/Vitamin C (Multivitamin Tablet) 1 tab PO DAILY [facility] Last Admin: 04/05/23 07:31 Dose: 1 tab Documented By: ALMA ROSA Ondansetron HCl (Ondansetron Hcl 4 Mg/2 Ml Vial) 4 mg IVPUSH Q8H PRN PRN Reason: Nausea and Vomiting Last Admin: 03/12/23 12:12 Dose: 4 mg Documented By: MADDY Ondansetron HCl (Ondansetron Odt 4 Mg Tab.Rapdis) 4 mg TRANSLINGU Q6H PRN PRN Reason: Nausea and Vomiting Last Admin: 03/30/23 19:45 Dose: 4 mg Documented By: VINCE Polyethylene Glycol (Polyethylene Glycol 3350 17 Gm Powd.Pack) 17 gm PO DAILY [facility] Last Admin: 04/05/23 07:33 Dose: Not Given Documented By: ALMA ROSA Non-Admin Reason: Patient Refused Sevelamer Carbonate (Sevelamer Carbonate Tablet 800 Mg Tablet) 800 mg PO TIDWM [facility] Last Admin: 04/05/23 07:31 Dose: 800 mg Documented By: DABIvan Sodium Chloride (0.9 % Sodium Chloride Flush 3 Ml Syringe) 3 ml IVFLUSH QSHIFT [facility] Last Admin: 04/05/23 07:32 Dose: Not Given Documented By: ALMA ROSA Non-Admin Reason: No Access Labs 03/27/23 05:47 03/27/23 05:47 Labs: Laboratory Results - last 24 hr 04/04/23 04/04/23 04/04/23 11:08 15:57 20:30 POC Glucose 138 H 119 H 148 H 04/05/23 07:16 POC Glucose 87 Assessment and Plan (1) ESRD needing dialysis: Status: Acute (2) Physical deconditioning: Status: Acute Plan A 72 years old lady with PMH of ESRD on HD, asthma, HTN, DMII among others whi was brought to the hospital on 02/07 for confusion. ESRD on HD TTS Nephrology following Left Eyelid swelling No evidence of eye infection, close monitoring, discussed with Nephrology not related to renal disease, recommend outpatient opthalmology follow-up since patient has prior history of eye injections. added Claritin for allergy symptoms. 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 Quality Stroke Does the patient have a stroke diagnosis?: No VTE Prior VTE?: No VTE Risk Level:: Medical - moderate - high VTE Device Contraindication: Treatment Not Indicated VTE Drug Contraindication: N/A - Med Ordered
--- NOTE | 2023-04-05 09:56 | P.PNNPD_ITS ---
Subjective Subjective This patient was seen during dialysis. Interval history: Seen and evaluated No complaints Physical Exam Vital Signs: Vital Signs: Last Vital Signs Temp 96.9 F 04/05/23 07:08 Pulse 82 04/05/23 07:08 Resp 16 04/05/23 07:08 BP 183/74 H 04/05/23 07:08 Pulse Ox 100 04/05/23 07:08 O2 Del Method Room Air 04/05/23 07:08 O2 Flow Rate 97 03/08/23 06:00 BMI result Body Mass Index 35.9 Const: Other: Constitutional : Awake, interactive, not in distress Eyes: normal vision. left eyelid edema, no tenderness or redness Cardiovascular : RRR, no lower extremity edema Respiratory : not in distress , chest wall moving bilaterally Gastrointestinal: soft, lax, Normal bowel sounds, Non tender Skin : Warm, Dry, fistula clean Neurological : Alert & oriented x3, No focal deficit Assessment & Plan Assessment and plan (1) Physical deconditioning: Status: Acute (2) ESRD needing dialysis: Status: Acute Plan ESRD: TTS [facility] unit AMS: improved Nephrogenic anemia MBD of CKD Await Placement Time Spent With Patient Time: Total time managing care of this patient today ____ minutes. Procedures Date of Service Date of Service: 04/07/23
[2023-04-05 11:59] VITALS: BP 138/61; PULSE 76; RESP 16; TEMP 36.2; O2SAT 100
[2023-04-05 12:08] LABS: Glucose, Whole Blood 119 mg/dL (60-115)
[2023-04-05 15:49] VITALS: BP 140/64; PULSE 88; RESP 20; TEMP 36; O2SAT 97
[2023-04-05 16:18] LABS: Glucose, Whole Blood 149 mg/dL (60-115)
[2023-04-05 19:27] VITALS: BP 137/60; PULSE 83; RESP 20; TEMP 36; O2SAT 99
[2023-04-05 20:18] LABS: Glucose, Whole Blood 154 mg/dL (60-115)
[2023-04-05] MEDS: Insulin Glargine,Hum.rec.anlog 100 UNIT/ML 10 ML VIAL SUBCUT (20:26)
[2023-04-05] MEDS: Insulin Lispro 100 UNIT/ML 3 ML VIAL SUBCUT (20:26)
[2023-04-05] MEDS: Heparin Sodium,Porcine 5,000 UNIT/ML VIAL 5000 UNIT SUBCUT (20:27)
[2023-04-06 03:40] VITALS: BP 139/63; PULSE 84; RESP 18; TEMP 36.1; O2SAT 99
[2023-04-06 07:45] LABS: Glucose, Whole Blood 89 mg/dL (60-115)
[2023-04-06 07:57] VITALS: BP 149/66; PULSE 78; RESP 18; TEMP 36.7; O2SAT 98
[2023-04-06] MEDS: Loratadine 10 MG TABLET PO (08:08)
[2023-04-06] MEDS: amLODIPine Besylate 10 MG TABLET PO (08:08)
[2023-04-06] MEDS: hydrALAZINE HCl 25 MG TABLET 75 MG PO ×3 (08:08→20:58)
[2023-04-06] MEDS: Metoprolol Tartrate 25 MG TABLET PO ×2 (08:08→20:59)
[2023-04-06] MEDS: Sevelamer Carbonate Tablet 800 MG TABLET PO ×3 (08:08→16:21)
[2023-04-06] MEDS: Multivitamin TABLET 1 TAB PO (08:08)
[2023-04-06] MEDS: polyethylene glycoL 3350 17 GM POWD.PACK PO (08:09)
[2023-04-06] MEDS: Heparin Sodium,Porcine 5,000 UNIT/ML VIAL 5000 UNIT SUBCUT ×2 (08:09→20:58)
--- NOTE | 2023-04-06 09:34 | HO.PM.IMPN ---
Subjective Subjective Date of Service: 04/06/23 Interval History: Seen and evaluated No complaints Physical Exam Vital Signs: Vital Signs: Last Vital Signs Temp 98.1 F 04/06/23 07:57 Pulse 78 04/06/23 07:57 Resp 18 04/06/23 07:57 BP 149/66 H 04/06/23 07:57 Pulse Ox 98 04/06/23 07:57 O2 Del Method Room Air 04/06/23 07:57 O2 Flow Rate 97 03/08/23 06:00 BMI result Body Mass Index 35.9 Const: Other: Constitutional : Awake, interactive, not in distress Eyes: normal vision. left eyelid edema, no tenderness or redness Cardiovascular : RRR, no lower extremity edema Respiratory : not in distress , chest wall moving bilaterally Gastrointestinal: soft, lax, Normal bowel sounds, Non tender Skin : Warm, Dry, fistula clean Neurological : Alert & oriented x3, No focal deficit Objective Data Active Medications Acetaminophen (Acetaminophen 325 Mg Tablet) 650 mg PO QID PRN PRN Reason: Pain, Mild (Pain Scale 1-3) Last Admin: 04/05/23 07:35 Dose: 650 mg Documented By: ALMA ROSA Albuterol Sulfate (Albuterol Sulfate 90 Mcg 8 Gm Inhaler) 1 puff INHALE QID PRN PRN Reason: Shortness Of Breath Amlodipine Besylate (Amlodipine Besylate 10 Mg Tablet) 10 mg PO DAILY [facility]; Protocol Last Admin: 04/06/23 08:08 Dose: 10 mg Documented By: CLAIR Artificial Tears (Artificial Tears 15 Ml Drops) 2 drop EYE-LEFT Q4H PRN PRN Reason: Dry Eyes Last Admin: 03/29/23 21:21 Dose: 2 drop Documented By: FERMÍN Dextrose (Dextrose 50 % 25 Gm/50 Ml Syringe) 25 gm IVPUSH Q15M PRN; Protocol PRN Reason: per Hypoglycemia Standing Ord. Glucose (Glucose Gel 15 Gm Gel..Gram.) 15 gm PO Q15M PRN; Protocol PRN Reason: per Hypoglycemia Standing Ord. Last Admin: 03/11/23 07:42 Dose: 15 gm Documented By: RITA Heparin Sodium (Porcine) (Heparin Sodium,Porcine 5,000 Unit/Ml Vial) 5,000 unit SUBCUT Q12H [facility] Last Admin: 04/06/23 08:09 Dose: 5,000 unit Documented By: CLAIR Hydralazine HCl (Hydralazine Hcl 25 Mg Tablet) 75 mg PO TID [facility]; Protocol Last Admin: 04/06/23 08:08 Dose: 75 mg Documented By: CLAIR Insulin Glargine (Insulin Glargine,Hum.Rec.Anlog 100 Unit/Ml 10 Ml Vial) 5 unit SUBCUT BEDTIME [facility] Last Admin: 04/05/23 20:26 Dose: 5 unit Documented By: RODRIGUZE Insulin Human Lispro (Insulin Lispro 100 Unit/Ml 3 Ml Vial) 0 unit SUBCUT QIDACHS [facility]; Protocol Last Admin: 04/06/23 07:47 Dose: Not Given Documented By: CLAIR Non-Admin Reason: No Insulin Coverage Loratadine (Loratadine 10 Mg Tablet) 10 mg PO DAILY [facility] Last Admin: 04/06/23 08:08 Dose: 10 mg Documented By: CLAIR Metoprolol Tartrate (Metoprolol Tartrate 25 Mg Tablet) 25 mg PO BID [facility]; Protocol Last Admin: 04/06/23 08:08 Dose: 25 mg Documented By: CLAIR Multivitamins/Vitamin C (Multivitamin Tablet) 1 tab PO DAILY [facility] Last Admin: 04/06/23 08:08 Dose: 1 tab Documented By: CLAIR Ondansetron HCl (Ondansetron Hcl 4 Mg/2 Ml Vial) 4 mg IVPUSH Q8H PRN PRN Reason: Nausea and Vomiting Last Admin: 03/12/23 12:12 Dose: 4 mg Documented By: MADDY Ondansetron HCl (Ondansetron Odt 4 Mg Tab.Rapdis) 4 mg TRANSLINGU Q6H PRN PRN Reason: Nausea and Vomiting Last Admin: 03/30/23 19:45 Dose: 4 mg Documented By: VINCE Polyethylene Glycol (Polyethylene Glycol 3350 17 Gm Powd.Pack) 17 gm PO DAILY [facility] Last Admin: 04/06/23 08:09 Dose: 17 gm Documented By: CLAIR Sevelamer Carbonate (Sevelamer Carbonate Tablet 800 Mg Tablet) 800 mg PO TIDWM [facility] Last Admin: 04/06/23 08:08 Dose: 800 mg Documented By: CLAIR Sodium Chloride (0.9 % Sodium Chloride Flush 3 Ml Syringe) 3 ml IVFLUSH QSHIFT [facility] Last Admin: 04/06/23 07:47 Dose: Not Given Documented By: CLAIR Non-Admin Reason: No Access Labs 03/27/23 05:47 03/27/23 05:47 Labs: Laboratory Results - last 24 hr 04/05/23 04/05/23 04/05/23 12:04 16:14 20:12 POC Glucose 119 H 149 H 154 H 04/06/23 07:37 POC Glucose 89 Assessment and Plan (1) ESRD needing dialysis: Status: Acute (2) Physical deconditioning: Status: Acute Plan A 72 years old lady with PMH of ESRD on HD, asthma, HTN, DMII among others whi was brought to the hospital on 02/07 for confusion. ESRD on HD TTS Nephrology following Left Eyelid swelling No evidence of eye infection, close monitoring, discussed with Nephrology not related to renal disease, recommend outpatient opthalmology follow-up since patient has prior history of eye injections. added Claritin for allergy symptoms. 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 Quality Stroke Does the patient have a stroke diagnosis?: No VTE Prior VTE?: No VTE Risk Level:: Medical - moderate - high VTE Device Contraindication: Treatment Not Indicated VTE Drug Contraindication: N/A - Med Ordered
[2023-04-06 11:15] VITALS: BP 149/66; PULSE 78; O2SAT 98
[2023-04-06 11:16] LABS: Glucose, Whole Blood 134 mg/dL (60-115)
--- NOTE | 2023-04-06 11:40 | MHC.CM.PN ---
AWAITING COMPLETION OF MH APPLICATION AND FINANCIAL INFORMATION NEEDED TO COMPLETE. CM CONTINUES TO FOLLOW FOR DC PLAN/NEEDS.
[2023-04-06 15:42] VITALS: BP 139/60; PULSE 79; RESP 20; TEMP 36; O2SAT 99
[2023-04-06 16:12] LABS: Glucose, Whole Blood 125 mg/dL (60-115)
[2023-04-06 19:42] VITALS: BP 140/65; PULSE 88; RESP 18; TEMP 36.4; O2SAT 98
[2023-04-06 20:43] LABS: Glucose, Whole Blood 139 mg/dL (60-115)
[2023-04-06] MEDS: Insulin Glargine,Hum.rec.anlog 100 UNIT/ML 10 ML VIAL SUBCUT (20:58)
[2023-04-07 03:00] VITALS: BP 137/62; PULSE 75; RESP 16; TEMP 36.1; O2SAT 98
[2023-04-07 06:59] VITALS: BP 153/69; PULSE 75; RESP 18; TEMP 36.6; O2SAT 98
[2023-04-07 07:19] LABS: Glucose, Whole Blood 95 mg/dL (60-115)
--- NOTE | 2023-04-07 09:54 | P.PNIM_ITS ---
Subjective Subjective Date of Service: 04/07/23 Interval History: Seen and evaluated Having dialysis session No complaints Review of Systems No fever, chills or weakness No chest pain, palpitation No shortness of breath or coughing No abdominal pain, nausea or vomiting No urinary symptoms No any rash or wounds Physical Exam Vital Signs: Vital Signs: Last Vital Signs Temp 98 F 04/07/23 06:59 Pulse 75 04/07/23 06:59 Resp 18 04/07/23 06:59 BP 153/69 H 04/07/23 06:59 Pulse Ox 98 04/07/23 06:59 O2 Del Method Room Air 04/07/23 06:59 O2 Flow Rate 97 03/08/23 06:00 BMI result Body Mass Index 35.9 Const: Other: Constitutional : Awake, interactive, not in distress Eyes: normal vision. left eyelid edema, no tenderness or redness Cardiovascular : RRR, no lower extremity edema Respiratory : not in distress , chest wall moving bilaterally Gastrointestinal: soft, lax, Normal bowel sounds, Non tender Skin : Warm, Dry, fistula clean Neurological : Alert & oriented x3, No focal deficit Objective Data Active Medications Acetaminophen (Acetaminophen 325 Mg Tablet) 650 mg PO QID PRN PRN Reason: Pain, Mild (Pain Scale 1-3) Last Admin: 04/05/23 07:35 Dose: 650 mg Documented By: ALMA ROSA Albuterol Sulfate (Albuterol Sulfate 90 Mcg 8 Gm Inhaler) 1 puff INHALE QID PRN PRN Reason: Shortness Of Breath Amlodipine Besylate (Amlodipine Besylate 10 Mg Tablet) 10 mg PO DAILY [facility]; Protocol Last Admin: 04/06/23 08:08 Dose: 10 mg Documented By: CLAIR Artificial Tears (Artificial Tears 15 Ml Drops) 2 drop EYE-LEFT Q4H PRN PRN Reason: Dry Eyes Last Admin: 03/29/23 21:21 Dose: 2 drop Documented By: FERMÍN Dextrose (Dextrose 50 % 25 Gm/50 Ml Syringe) 25 gm IVPUSH Q15M PRN; Protocol PRN Reason: per Hypoglycemia Standing Ord. Glucose (Glucose Gel 15 Gm Gel..Gram.) 15 gm PO Q15M PRN; Protocol PRN Reason: per Hypoglycemia Standing Ord. Last Admin: 03/11/23 07:42 Dose: 15 gm Documented By: RITA Heparin Sodium (Porcine) (Heparin Sodium,Porcine 5,000 Unit/Ml Vial) 5,000 unit SUBCUT Q12H [facility] Last Admin: 04/06/23 20:58 Dose: 5,000 unit Documented By: BAILEY Hydralazine HCl (Hydralazine Hcl 25 Mg Tablet) 75 mg PO TID [facility]; Protocol Last Admin: 04/07/23 09:27 Dose: Not Given Documented By: DAVID Non-Admin Reason: Off unit: Dialysis Insulin Glargine (Insulin Glargine,Hum.Rec.Anlog 100 Unit/Ml 10 Ml Vial) 5 unit SUBCUT BEDTIME [facility] Last Admin: 04/06/23 20:58 Dose: 5 unit Documented By: BAILEY Insulin Human Lispro (Insulin Lispro 100 Unit/Ml 3 Ml Vial) 0 unit SUBCUT QIDACHS [facility]; Protocol Last Admin: 04/07/23 08:10 Dose: Not Given Documented By: DAVID Non-Admin Reason: No Insulin Coverage Loratadine (Loratadine 10 Mg Tablet) 10 mg PO DAILY [facility] Last Admin: 04/06/23 08:08 Dose: 10 mg Documented By: CLAIR Metoprolol Tartrate (Metoprolol Tartrate 25 Mg Tablet) 25 mg PO BID [facility]; Protocol Last Admin: 04/06/23 20:59 Dose: 25 mg Documented By: BAILEY Multivitamins/Vitamin C (Multivitamin Tablet) 1 tab PO DAILY [facility] Last Admin: 04/06/23 08:08 Dose: 1 tab Documented By: CLAIR Ondansetron HCl (Ondansetron Hcl 4 Mg/2 Ml Vial) 4 mg IVPUSH Q8H PRN PRN Reason: Nausea and Vomiting Last Admin: 03/12/23 12:12 Dose: 4 mg Documented By: MADDY Ondansetron HCl (Ondansetron Odt 4 Mg Tab.Rapdis) 4 mg TRANSLINGU Q6H PRN PRN Reason: Nausea and Vomiting Last Admin: 03/30/23 19:45 Dose: 4 mg Documented By: VINCE Polyethylene Glycol (Polyethylene Glycol 3350 17 Gm Powd.Pack) 17 gm PO DAILY [facility] Last Admin: 04/06/23 08:09 Dose: 17 gm Documented By: CLAIR Sevelamer Carbonate (Sevelamer Carbonate Tablet 800 Mg Tablet) 800 mg PO TIDWM [facility] Last Admin: 04/07/23 09:27 Dose: Not Given Documented By: DAVID Non-Admin Reason: Off unit: Dialysis Sodium Chloride (0.9 % Sodium Chloride Flush 3 Ml Syringe) 3 ml IVFLUSH QSHIFT [facility] Last Admin: 04/07/23 09:27 Dose: Not Given Documented By: DAVID Non-Admin Reason: No Access Labs 03/27/23 05:47 03/27/23 05:47 Labs: Laboratory Results - last 24 hr 04/06/23 04/06/23 04/06/23 10:52 16:08 20:37 POC Glucose 134 H 125 H 139 H 04/07/23 06:59 POC Glucose 95 Assessment and Plan (1) ESRD needing dialysis: Status: Acute (2) Physical deconditioning: Status: Acute Plan A 72 years old lady with PMH of ESRD on HD, asthma, HTN, DMII among others whi was brought to the hospital on 02/07 for confusion. ESRD on HD TTS Nephrology following Left Eyelid swelling No evidence of eye infection, close monitoring, discussed with Nephrology not related to renal disease, recommend outpatient opthalmology follow-up since patient has prior history of eye injections. added Claritin for allergy symptoms. 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 Quality Stroke Does the patient have a stroke diagnosis?: No VTE Prior VTE?: No VTE Risk Level:: Medical - moderate - high VTE Device Contraindication: Treatment Not Indicated VTE Drug Contraindication: N/A - Med Ordered
--- NOTE | 2023-04-07 11:49 | W.PM.DNNEP ---
Subjective Subjective This patient was seen during dialysis. Interval history: Seen and evaluated Having dialysis session No complaints Physical Exam Vital Signs: Vital Signs: Last Vital Signs Temp 98 F 04/07/23 06:59 Pulse 75 04/07/23 06:59 Resp 18 04/07/23 06:59 BP 153/69 H 04/07/23 06:59 Pulse Ox 98 04/07/23 06:59 O2 Del Method Room Air 04/07/23 06:59 O2 Flow Rate 97 03/08/23 06:00 BMI result Body Mass Index 35.9 Const: Other: Constitutional : Awake, interactive, not in distress Eyes: normal vision. left eyelid edema, no tenderness or redness Cardiovascular : RRR, no lower extremity edema Respiratory : not in distress , chest wall moving bilaterally Gastrointestinal: soft, lax, Normal bowel sounds, Non tender Skin : Warm, Dry, fistula clean Neurological : Alert & oriented x3, No focal deficit Assessment & Plan Assessment and plan (1) Physical deconditioning: Status: Acute (2) ESRD needing dialysis: Status: Acute Plan ESRD: TTS [facility] unit AMS: improved Nephrogenic anemia MBD of CKD Await Placement Time Spent With Patient Time: Total time managing care of this patient today ____ minutes. Procedures Date of Service Date of Service: 04/07/23
[2023-04-07 11:53] VITALS: BP 133/60; PULSE 77; RESP 18; TEMP 36.6; O2SAT 98
[2023-04-07 11:58] LABS: Glucose, Whole Blood 168 mg/dL (60-115)
[2023-04-07] MEDS: Sevelamer Carbonate Tablet 800 MG TABLET PO ×2 (12:05→16:55)
[2023-04-07] MEDS: Metoprolol Tartrate 25 MG TABLET PO ×2 (12:05→20:35)
[2023-04-07] MEDS: Loratadine 10 MG TABLET PO (12:05)
[2023-04-07] MEDS: Multivitamin TABLET 1 TAB PO (12:05)
[2023-04-07] MEDS: hydrALAZINE HCl 25 MG TABLET 75 MG PO ×2 (12:06→20:34)
[2023-04-07] MEDS: amLODIPine Besylate 10 MG TABLET PO (12:06)
[2023-04-07] MEDS: Heparin Sodium,Porcine 5,000 UNIT/ML VIAL 5000 UNIT SUBCUT ×2 (12:06→20:35)
[2023-04-07] MEDS: Insulin Lispro 100 UNIT/ML 3 ML VIAL SUBCUT ×3 (12:11→20:35)
[2023-04-07 14:51] VITALS: BP 150/72; PULSE 77; RESP 18; TEMP 36; O2SAT 97
[2023-04-07 16:42] LABS: Glucose, Whole Blood 154 mg/dL (60-115)
[2023-04-07 20:00] VITALS: BP 140/70; PULSE 78; RESP 18; TEMP 36.1; O2SAT 98
[2023-04-07 20:18] LABS: Glucose, Whole Blood 153 mg/dL (60-115)
[2023-04-07] MEDS: Insulin Glargine,Hum.rec.anlog 100 UNIT/ML 10 ML VIAL SUBCUT (20:36)
[2023-04-08] MEDS: Acetaminophen 325 MG TABLET 650 MG PO (00:11)
[2023-04-08 04:00] VITALS: BP 176/70; PULSE 80; RESP 18; TEMP 36; O2SAT 97
[2023-04-08 07:06] VITALS: BP 158/70; PULSE 83; RESP 16; TEMP 36.6; O2SAT 100
[2023-04-08 07:08] LABS: Glucose, Whole Blood 105 mg/dL (60-115)
[2023-04-08] MEDS: hydrALAZINE HCl 25 MG TABLET 75 MG PO ×3 (09:07→20:48)
[2023-04-08] MEDS: Multivitamin TABLET 1 TAB PO (09:07)
[2023-04-08] MEDS: Heparin Sodium,Porcine 5,000 UNIT/ML VIAL 5000 UNIT SUBCUT ×2 (09:07→20:50)
[2023-04-08] MEDS: polyethylene glycoL 3350 17 GM POWD.PACK PO (09:07)
[2023-04-08] MEDS: Loratadine 10 MG TABLET PO (09:08)
[2023-04-08] MEDS: amLODIPine Besylate 10 MG TABLET PO (09:08)
[2023-04-08] MEDS: Metoprolol Tartrate 25 MG TABLET PO ×2 (09:08→20:48)
[2023-04-08] MEDS: 0.9 % Sodium Chloride Flush 3 ML SYRINGE IVFLUSH (09:08)
[2023-04-08] MEDS: Sevelamer Carbonate Tablet 800 MG TABLET PO ×3 (09:11→17:21)
--- NOTE | 2023-04-08 10:39 | HO.PM.IMPN ---
Subjective Subjective Date of Service: 04/08/23 Interval History: Seen and evaluated No complaints Review of Systems No fever, chills or weakness No chest pain, palpitation No shortness of breath or coughing No abdominal pain, nausea or vomiting No urinary symptoms No any rash or wounds Physical Exam Vital Signs: Vital Signs: Last Vital Signs Temp 98 F 04/08/23 07:06 Pulse 83 04/08/23 07:06 Resp 16 04/08/23 07:06 BP 158/70 H 04/08/23 07:06 Pulse Ox 100 04/08/23 07:06 O2 Del Method Room Air 04/08/23 07:06 O2 Flow Rate 97 03/08/23 06:00 BMI result Body Mass Index 35.9 Const: Other: Constitutional : Awake, interactive, not in distress Eyes: normal vision. left eyelid edema, no tenderness or redness Cardiovascular : RRR, no lower extremity edema Respiratory : not in distress , chest wall moving bilaterally Gastrointestinal: soft, lax, Normal bowel sounds, Non tender Skin : Warm, Dry, fistula clean Neurological : Alert & oriented x3, No focal deficit Objective Data Active Medications Acetaminophen (Acetaminophen 325 Mg Tablet) 650 mg PO QID PRN PRN Reason: Pain, Mild (Pain Scale 1-3) Last Admin: 04/08/23 00:11 Dose: 650 mg Documented By: FARHAD Albuterol Sulfate (Albuterol Sulfate 90 Mcg 8 Gm Inhaler) 1 puff INHALE QID PRN PRN Reason: Shortness Of Breath Amlodipine Besylate (Amlodipine Besylate 10 Mg Tablet) 10 mg PO DAILY [facility]; Protocol Last Admin: 04/08/23 09:08 Dose: 10 mg Documented By: DAVID Artificial Tears (Artificial Tears 15 Ml Drops) 2 drop EYE-LEFT Q4H PRN PRN Reason: Dry Eyes Last Admin: 03/29/23 21:21 Dose: 2 drop Documented By: FERMÍN Dextrose (Dextrose 50 % 25 Gm/50 Ml Syringe) 25 gm IVPUSH Q15M PRN; Protocol PRN Reason: per Hypoglycemia Standing Ord. Glucose (Glucose Gel 15 Gm Gel..Gram.) 15 gm PO Q15M PRN; Protocol PRN Reason: per Hypoglycemia Standing Ord. Last Admin: 03/11/23 07:42 Dose: 15 gm Documented By: HO.PARROWA Heparin Sodium (Porcine) (Heparin Sodium,Porcine 5,000 Unit/Ml Vial) 5,000 unit SUBCUT Q12H [facility] Last Admin: 04/08/23 09:07 Dose: 5,000 unit Documented By: DAVID Hydralazine HCl (Hydralazine Hcl 25 Mg Tablet) 75 mg PO TID [facility]; Protocol Last Admin: 04/08/23 09:07 Dose: 75 mg Documented By: DAVID Insulin Glargine (Insulin Glargine,Hum.Rec.Anlog 100 Unit/Ml 10 Ml Vial) 5 unit SUBCUT BEDTIME [facility] Last Admin: 04/07/23 20:36 Dose: 5 unit Documented By: MEAGHAN Insulin Human Lispro (Insulin Lispro 100 Unit/Ml 3 Ml Vial) 0 unit SUBCUT QIDACHS [facility]; Protocol Last Admin: 04/08/23 07:53 Dose: Not Given Documented By: DAVID Non-Admin Reason: No Insulin Coverage Loratadine (Loratadine 10 Mg Tablet) 10 mg PO DAILY [facility] Last Admin: 04/08/23 09:08 Dose: 10 mg Documented By: DAVID Metoprolol Tartrate (Metoprolol Tartrate 25 Mg Tablet) 25 mg PO BID [facility]; Protocol Last Admin: 04/08/23 09:08 Dose: 25 mg Documented By: DAVID Multivitamins/Vitamin C (Multivitamin Tablet) 1 tab PO DAILY [facility] Last Admin: 04/08/23 09:07 Dose: 1 tab Documented By: DAVID Ondansetron HCl (Ondansetron Hcl 4 Mg/2 Ml Vial) 4 mg IVPUSH Q8H PRN PRN Reason: Nausea and Vomiting Last Admin: 03/12/23 12:12 Dose: 4 mg Documented By: MADDY Ondansetron HCl (Ondansetron Odt 4 Mg Tab.Rapdis) 4 mg TRANSLINGU Q6H PRN PRN Reason: Nausea and Vomiting Last Admin: 03/30/23 19:45 Dose: 4 mg Documented By: VINCE Polyethylene Glycol (Polyethylene Glycol 3350 17 Gm Powd.Pack) 17 gm PO DAILY [facility] Last Admin: 04/08/23 09:07 Dose: 17 gm Documented By: DAVID Sevelamer Carbonate (Sevelamer Carbonate Tablet 800 Mg Tablet) 800 mg PO TIDWM [facility] Last Admin: 04/08/23 09:11 Dose: 800 mg Documented By: DAVID Sodium Chloride (0.9 % Sodium Chloride Flush 3 Ml Syringe) 3 ml IVFLUSH QSHIFT [facility] Last Admin: 04/08/23 09:08 Dose: 3 ml Documented By: DAVID Labs 03/27/23 05:47 03/27/23 05:47 Labs: Laboratory Results - last 24 hr 04/07/23 04/07/23 04/07/23 11:53 16:26 20:14 POC Glucose 168 H 154 H 153 H 04/08/23 07:04 POC Glucose 105 Assessment and Plan (1) ESRD needing dialysis: Status: Acute (2) Physical deconditioning: Status: Acute Plan A 72 years old lady with PMH of ESRD on HD, asthma, HTN, DMII among others whi was brought to the hospital on 02/07 for confusion. ESRD on HD TTS Nephrology following Left Eyelid swelling No evidence of eye infection, close monitoring, discussed with Nephrology not related to renal disease, recommend outpatient opthalmology follow-up since patient has prior history of eye injections. added Claritin for allergy symptoms. 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 Quality Stroke Does the patient have a stroke diagnosis?: No VTE Prior VTE?: No VTE Risk Level:: Medical - moderate - high VTE Device Contraindication: Treatment Not Indicated VTE Drug Contraindication: N/A - Med Ordered
[2023-04-08 11:04] LABS: Glucose, Whole Blood 177 mg/dL (60-115)
[2023-04-08] MEDS: Insulin Lispro 100 UNIT/ML 3 ML VIAL SUBCUT ×2 (12:18→20:49)
[2023-04-08 15:36] VITALS: BP 145/66; PULSE 78; RESP 18; TEMP 36.6; O2SAT 100
[2023-04-08 16:24] LABS: Glucose, Whole Blood 127 mg/dL (60-115)
[2023-04-08 19:25] VITALS: BP 152/67; PULSE 86; RESP 15; TEMP 36.4; O2SAT 99
[2023-04-08 20:13] LABS: Glucose, Whole Blood 174 mg/dL (60-115)
[2023-04-08] MEDS: Insulin Glargine,Hum.rec.anlog 100 UNIT/ML 10 ML VIAL SUBCUT (20:50)
[2023-04-08 23:57] VITALS: BP 138/64; PULSE 84; RESP 16; TEMP 36.1; O2SAT 98
[2023-04-09 07:27] VITALS: BP 148/64; PULSE 77; RESP 18; TEMP 36.3; O2SAT 99
[2023-04-09 07:27] LABS: Glucose, Whole Blood 105 mg/dL (60-115)
[2023-04-09] MEDS: polyethylene glycoL 3350 17 GM POWD.PACK PO (08:00)
[2023-04-09] MEDS: Heparin Sodium,Porcine 5,000 UNIT/ML VIAL 5000 UNIT SUBCUT ×2 (08:00→21:20)
[2023-04-09] MEDS: Multivitamin TABLET 1 TAB PO (08:01)
[2023-04-09] MEDS: amLODIPine Besylate 10 MG TABLET PO (08:01)
[2023-04-09] MEDS: Metoprolol Tartrate 25 MG TABLET PO ×2 (08:01→21:19)
[2023-04-09] MEDS: hydrALAZINE HCl 25 MG TABLET 75 MG PO ×3 (08:01→21:19)
[2023-04-09] MEDS: Sevelamer Carbonate Tablet 800 MG TABLET PO ×3 (08:01→17:56)
[2023-04-09] MEDS: Loratadine 10 MG TABLET PO (08:01)
[2023-04-09 11:32] LABS: Glucose, Whole Blood 158 mg/dL (60-115)
[2023-04-09] MEDS: Insulin Lispro 100 UNIT/ML 3 ML VIAL SUBCUT ×2 (11:42→17:56)
--- NOTE | 2023-04-09 12:48 | P.PNIM_ITS ---
Subjective Subjective Date of Service: 04/09/23 Interval History: Seen and evaluated Feels well No complaints Physical Exam Vital Signs: Vital Signs: Last Vital Signs Temp 97.3 F 04/09/23 07:27 Pulse 77 04/09/23 07:27 Resp 18 04/09/23 07:27 BP 148/64 H 04/09/23 07:27 Pulse Ox 99 04/09/23 07:27 O2 Del Method Room Air 04/09/23 07:27 O2 Flow Rate 97 03/08/23 06:00 BMI result Body Mass Index 35.9 Const: Other: Constitutional : Awake, interactive, not in distress Eyes: normal vision. left eyelid edema, no tenderness or redness Cardiovascular : RRR, no lower extremity edema Respiratory : not in distress , chest wall moving bilaterally Gastrointestinal: soft, lax, Normal bowel sounds, Non tender Skin : Warm, Dry, fistula clean Neurological : Alert & oriented x3, No focal deficit Objective Data Active Medications Acetaminophen (Acetaminophen 325 Mg Tablet) 650 mg PO QID PRN PRN Reason: Pain, Mild (Pain Scale 1-3) Last Admin: 04/08/23 00:11 Dose: 650 mg Documented By: FARHAD Albuterol Sulfate (Albuterol Sulfate 90 Mcg 8 Gm Inhaler) 1 puff INHALE QID PRN PRN Reason: Shortness Of Breath Amlodipine Besylate (Amlodipine Besylate 10 Mg Tablet) 10 mg PO DAILY [facility]; Protocol Last Admin: 04/09/23 08:01 Dose: 10 mg Documented By: PATRICIA Artificial Tears (Artificial Tears 15 Ml Drops) 2 drop EYE-LEFT Q4H PRN PRN Reason: Dry Eyes Last Admin: 03/29/23 21:21 Dose: 2 drop Documented By: FERMÍN Dextrose (Dextrose 50 % 25 Gm/50 Ml Syringe) 25 gm IVPUSH Q15M PRN; Protocol PRN Reason: per Hypoglycemia Standing Ord. Glucose (Glucose Gel 15 Gm Gel..Gram.) 15 gm PO Q15M PRN; Protocol PRN Reason: per Hypoglycemia Standing Ord. Last Admin: 03/11/23 07:42 Dose: 15 gm Documented By: RITA Heparin Sodium (Porcine) (Heparin Sodium,Porcine 5,000 Unit/Ml Vial) 5,000 unit SUBCUT Q12H [facility] Last Admin: 04/09/23 08:00 Dose: 5,000 unit Documented By: PATRICIA Hydralazine HCl (Hydralazine Hcl 25 Mg Tablet) 75 mg PO TID [facility]; Protocol Last Admin: 04/09/23 08:01 Dose: 75 mg Documented By: PATRICIA Insulin Glargine (Insulin Glargine,Hum.Rec.Anlog 100 Unit/Ml 10 Ml Vial) 5 unit SUBCUT BEDTIME [facility] Last Admin: 04/08/23 20:50 Dose: 5 unit Documented By: MEAGHAN Insulin Human Lispro (Insulin Lispro 100 Unit/Ml 3 Ml Vial) 0 unit SUBCUT QIDACHS [facility]; Protocol Last Admin: 04/09/23 11:42 Dose: 2 unit Documented By: PATRICIA Loratadine (Loratadine 10 Mg Tablet) 10 mg PO DAILY [facility] Last Admin: 04/09/23 08:01 Dose: 10 mg Documented By: PATRICIA Metoprolol Tartrate (Metoprolol Tartrate 25 Mg Tablet) 25 mg PO BID [facility]; Protocol Last Admin: 04/09/23 08:01 Dose: 25 mg Documented By: PATRICIA Multivitamins/Vitamin C (Multivitamin Tablet) 1 tab PO DAILY [facility] Last Admin: 04/09/23 08:01 Dose: 1 tab Documented By: PATRICIA Ondansetron HCl (Ondansetron Hcl 4 Mg/2 Ml Vial) 4 mg IVPUSH Q8H PRN PRN Reason: Nausea and Vomiting Last Admin: 03/12/23 12:12 Dose: 4 mg Documented By: MADDY Ondansetron HCl (Ondansetron Odt 4 Mg Tab.Rapdis) 4 mg TRANSLINGU Q6H PRN PRN Reason: Nausea and Vomiting Last Admin: 03/30/23 19:45 Dose: 4 mg Documented By: VINCE Polyethylene Glycol (Polyethylene Glycol 3350 17 Gm Powd.Pack) 17 gm PO DAILY [facility] Last Admin: 04/09/23 08:00 Dose: 17 gm Documented By: PATRICIA Sevelamer Carbonate (Sevelamer Carbonate Tablet 800 Mg Tablet) 800 mg PO TIDWM [facility] Last Admin: 04/09/23 11:42 Dose: 800 mg Documented By: PATRICIA Sodium Chloride (0.9 % Sodium Chloride Flush 3 Ml Syringe) 3 ml IVFLUSH QSHIFT [facility] Last Admin: 04/09/23 07:56 Dose: Not Given Documented By: PATRICIA Non-Admin Reason: No Access Labs 03/27/23 05:47 03/27/23 05:47 Labs: Laboratory Results - last 24 hr 04/08/23 04/08/23 04/09/23 15:54 20:09 07:03 POC Glucose 127 H 174 H 105 04/09/23 11:01 POC Glucose 158 H Assessment and Plan (1) ESRD needing dialysis: Status: Acute (2) Physical deconditioning: Status: Acute Plan A 72 years old lady with PMH of ESRD on HD, asthma, HTN, DMII among others whi was brought to the hospital on 02/07 for confusion. ESRD on HD TTS Nephrology following Left Eyelid swelling No evidence of eye infection, close monitoring, discussed with Nephrology not related to renal disease, recommend outpatient opthalmology follow-up since patient has prior history of eye injections. added Claritin for allergy symptoms. 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 Quality Stroke Does the patient have a stroke diagnosis?: No VTE Prior VTE?: No VTE Risk Level:: Medical - moderate - high VTE Device Contraindication: Treatment Not Indicated VTE Drug Contraindication: N/A - Med Ordered
--- NOTE | 2023-04-09 14:47 | MHC.CM.PN ---
per rounds pt is ready for dc await completion of [facility]
[2023-04-09 15:04] VITALS: BP 148/64; PULSE 77; O2SAT 99
[2023-04-09 15:56] VITALS: BP 145/63; PULSE 79; RESP 20; TEMP 36.4; O2SAT 100
[2023-04-09 16:16] LABS: Glucose, Whole Blood 154 mg/dL (60-115)
[2023-04-09 19:42] VITALS: BP 148/65; PULSE 85; RESP 20; TEMP 36; O2SAT 99
[2023-04-09 20:47] LABS: Glucose, Whole Blood 132 mg/dL (60-115)
[2023-04-09] MEDS: Insulin Glargine,Hum.rec.anlog 100 UNIT/ML 10 ML VIAL SUBCUT (21:19)
[2023-04-10 03:09] VITALS: BP 147/67; PULSE 78; RESP 18; TEMP 36.1; O2SAT 98
[2023-04-10 07:20] VITALS: BP 150/69; PULSE 79; RESP 18; TEMP 36.4; O2SAT 100
[2023-04-10 07:46] LABS: Glucose, Whole Blood 101 mg/dL (60-115)
--- NOTE | 2023-04-10 10:09 | W.PM.DNNEP ---
Subjective Subjective This patient was seen during dialysis. Interval history: Seen and evaluated Feels well No complaints Physical Exam Vital Signs: Vital Signs: Last Vital Signs Temp 97.5 F 04/10/23 07:20 Pulse 79 04/10/23 07:20 Resp 18 04/10/23 07:20 BP 150/69 H 04/10/23 07:20 Pulse Ox 100 04/10/23 07:20 O2 Del Method Room Air 04/10/23 07:20 O2 Flow Rate 97 03/08/23 06:00 BMI result Body Mass Index 35.9 Const: Other: Constitutional : Awake, interactive, not in distress Eyes: normal vision. left eyelid edema, no tenderness or redness Cardiovascular : RRR, no lower extremity edema Respiratory : not in distress , chest wall moving bilaterally Gastrointestinal: soft, lax, Normal bowel sounds, Non tender Skin : Warm, Dry, fistula clean Neurological : Alert & oriented x3, No focal deficit General: no acute distress HEENT: Head: Yes normocephalic and Yes atraumatic Neck: Neck: Yes supple Resp: Auscultation: clear to auscultation bilaterally Cardio: Heart sounds: S1 normal heart sound present and S2 normal heart sound present GI: Palpation (GI): Soft to palpation and nontender Extrem: General: Yes normal to inspection Assessment & Plan Assessment and plan (1) Physical deconditioning: Status: Acute (2) ESRD needing dialysis: Status: Acute Plan ESRD: TTS [facility] unit AMS: improved Nephrogenic anemia MBD of CKD Await Placement Time Spent With Patient Time: Total time managing care of this patient today ____ minutes. Procedures Date of Service Date of Service: 04/12/23
[2023-04-10 11:29] LABS: Glucose, Whole Blood 113 mg/dL (60-115)
--- NOTE | 2023-04-10 12:10 | P.PNIM_ITS ---
Subjective Subjective Date of Service: 04/10/23 Interval History: Seen and evaluated [facility] dialysis session, Feels well No complaints Review of Systems Review of Systems: Yes all other systems are reviewed and are negative Physical Exam Vital Signs: Vital Signs: Last Vital Signs Temp 97.5 F 04/10/23 07:20 Pulse 79 04/10/23 07:20 Resp 18 04/10/23 07:20 BP 150/69 H 04/10/23 07:20 Pulse Ox 100 04/10/23 07:20 O2 Del Method Room Air 04/10/23 07:20 O2 Flow Rate 97 03/08/23 06:00 BMI result Body Mass Index 35.9 Const: Other: Constitutional : Awake, interactive, not in distress Eyes: normal vision. left eyelid edema, no tenderness or redness Respiratory : not in distress , chest wall moving bilaterally Skin : Warm, Dry, fistula clean Neurological : Alert & oriented x3, No focal deficit Objective Data Active Medications Acetaminophen (Acetaminophen 325 Mg Tablet) 650 mg PO QID PRN PRN Reason: Pain, Mild (Pain Scale 1-3) Last Admin: 04/08/23 00:11 Dose: 650 mg Documented By: FARHAD Albuterol Sulfate (Albuterol Sulfate 90 Mcg 8 Gm Inhaler) 1 puff INHALE QID PRN PRN Reason: Shortness Of Breath Amlodipine Besylate (Amlodipine Besylate 10 Mg Tablet) 10 mg PO DAILY COUNTS INCLUDE 234 BEDS AT THE [facility]; Protocol Last Admin: 04/10/23 09:06 Dose: Not Given Documented By: PATRICIA Non-Admin Reason: Off unit: Dialysis Artificial Tears (Artificial Tears 15 Ml Drops) 2 drop EYE-LEFT Q4H PRN PRN Reason: Dry Eyes Last Admin: 03/29/23 21:21 Dose: 2 drop Documented By: FERMÍN Dextrose (Dextrose 50 % 25 Gm/50 Ml Syringe) 25 gm IVPUSH Q15M PRN; Protocol PRN Reason: per Hypoglycemia Standing Ord. Glucose (Glucose Gel 15 Gm Gel..Gram.) 15 gm PO Q15M PRN; Protocol PRN Reason: per Hypoglycemia Standing Ord. Last Admin: 03/11/23 07:42 Dose: 15 gm Documented By: RITA Heparin Sodium (Porcine) (Heparin Sodium,Porcine 5,000 Unit/Ml Vial) 5,000 unit SUBCUT Q12H COUNTS INCLUDE 234 BEDS AT THE [facility] Last Admin: 04/10/23 09:06 Dose: Not Given Documented By: PATRICIA Non-Admin Reason: Off unit: Dialysis Hydralazine HCl (Hydralazine Hcl 25 Mg Tablet) 75 mg PO TID COUNTS INCLUDE 234 BEDS AT THE [facility]; Protocol Last Admin: 04/10/23 09:06 Dose: Not Given Documented By: PATRICIA Non-Admin Reason: Off unit: Dialysis Insulin Glargine (Insulin Glargine,Hum.Rec.Anlog 100 Unit/Ml 10 Ml Vial) 5 unit SUBCUT BEDTIME COUNTS INCLUDE 234 BEDS AT THE [facility] Last Admin: 04/09/23 21:19 Dose: 5 unit Documented By: YESI Insulin Human Lispro (Insulin Lispro 100 Unit/Ml 3 Ml Vial) 0 unit SUBCUT QIDACHS COUNTS INCLUDE 234 BEDS AT THE [facility]; Protocol Last Admin: 04/10/23 11:48 Dose: Not Given Documented By: PATRICIA Non-Admin Reason: No Insulin Coverage Loratadine (Loratadine 10 Mg Tablet) 10 mg PO DAILY COUNTS INCLUDE 234 BEDS AT THE [facility] Last Admin: 04/10/23 09:07 Dose: Not Given Documented By: PATRICIA Non-Admin Reason: Off unit: Dialysis Metoprolol Tartrate (Metoprolol Tartrate 25 Mg Tablet) 25 mg PO BID COUNTS INCLUDE 234 BEDS AT THE [facility]; Protocol Last Admin: 04/10/23 09:07 Dose: Not Given Documented By: PATRICIA Non-Charu Reason: Off unit: Dialysis Multivitamins/Vitamin C (Multivitamin Tablet) 1 tab PO DAILY COUNTS INCLUDE 234 BEDS AT THE [facility] Last Admin: 04/10/23 09:07 Dose: Not Given Documented By: PATRICIA Non-Charu Reason: Off unit: Dialysis Ondansetron HCl (Ondansetron Hcl 4 Mg/2 Ml Vial) 4 mg IVPUSH Q8H PRN PRN Reason: Nausea and Vomiting Last Admin: 03/12/23 12:12 Dose: 4 mg Documented By: MADDY Ondansetron HCl (Ondansetron Odt 4 Mg Tab.Rapdis) 4 mg TRANSLINGU Q6H PRN PRN Reason: Nausea and Vomiting Last Admin: 03/30/23 19:45 Dose: 4 mg Documented By: VINCE Polyethylene Glycol (Polyethylene Glycol 3350 17 Gm Powd.Pack) 17 gm PO DAILY COUNTS INCLUDE 234 BEDS AT THE [facility] Last Admin: 04/10/23 09:07 Dose: Not Given Documented By: PATRICIA Non-Admin Reason: Off unit: Dialysis Sevelamer Carbonate (Sevelamer Carbonate Tablet 800 Mg Tablet) 800 mg PO TIDWM COUNTS INCLUDE 234 BEDS AT THE [facility] Last Admin: 04/10/23 09:06 Dose: Not Given Documented By: PATRICIA Non-Admin Reason: Off unit: Dialysis Sodium Chloride (0.9 % Sodium Chloride Flush 3 Ml Syringe) 3 ml IVFLUSH QSHIFT COUNTS INCLUDE 234 BEDS AT THE [facility] Last Admin: 04/10/23 08:37 Dose: Not Given Documented By: PATRICIA Non-Admin Reason: Off unit: Dialysis Labs 03/27/23 05:47 03/27/23 05:47 Labs: Laboratory Results - last 24 hr 04/09/23 04/09/23 04/10/23 16:08 20:38 07:21 POC Glucose 154 H 132 H 101 04/10/23 11:25 POC Glucose 113 Assessment and Plan (1) ESRD needing dialysis: Status: Acute Plan A 72 years old lady with PMH of ESRD on HD, asthma, HTN, DMII among others whi was brought to the hospital on 02/07 for confusion. ESRD on HD TTS Nephrology following Left Eyelid swelling No evidence of eye infection, close monitoring, discussed with Nephrology not related to renal disease, recommend outpatient opthalmology follow-up since patient has prior history of eye injections. DC Claritin , no improvement after 10 days warm compressors HTN continue MEtoprolol, amlodipine hydralazine to 75 mg for better control DM II w hypoglycemia event SSI, diabetic diet Lantus decreased to 5 units Physical deconditioning PT rec STR The patient needs inpatient stay overnight for the need of dialysis pending safe discharge plan Time Spent With Patient Time: Total time managing care of this patient today ____ minutes. Quality Stroke Does the patient have a stroke diagnosis?: No VTE Prior VTE?: No VTE Risk Level:: Medical - moderate - high VTE Device Contraindication: Treatment Not Indicated VTE Drug Contraindication: N/A - Med Ordered
[2023-04-10] MEDS: Sevelamer Carbonate Tablet 800 MG TABLET PO ×2 (12:33→16:03)
[2023-04-10 15:40] VITALS: BP 143/63; PULSE 80; RESP 18; TEMP 36.3; O2SAT 99
[2023-04-10] MEDS: hydrALAZINE HCl 25 MG TABLET 75 MG PO (16:03)
[2023-04-10 16:14] LABS: Glucose, Whole Blood 150 mg/dL (60-115)
[2023-04-10 19:27] VITALS: BP 150/65; PULSE 86; RESP 18; TEMP 36.3; O2SAT 99
[2023-04-10 19:37] VITALS: BP 116/61; PULSE 109; RESP 18; TEMP 36.1; O2SAT 94
[2023-04-10 20:24] LABS: Glucose, Whole Blood 156 mg/dL (60-115)
[2023-04-10] MEDS: 0.9 % Sodium Chloride Flush 3 ML SYRINGE IVFLUSH (21:07)
[2023-04-10] MEDS: Insulin Glargine,Hum.rec.anlog 100 UNIT/ML 10 ML VIAL SUBCUT (21:07)
[2023-04-10] MEDS: Heparin Sodium,Porcine 5,000 UNIT/ML VIAL 5000 UNIT SUBCUT (21:07)
[2023-04-10] MEDS: Insulin Lispro 100 UNIT/ML 3 ML VIAL SUBCUT (21:08)
[2023-04-10] MEDS: Metoprolol Tartrate 25 MG TABLET PO (21:08)
[2023-04-11 00:20] VITALS: BP 134/61; PULSE 80; RESP 18; TEMP 36.2; O2SAT 98
[2023-04-11 06:54] VITALS: BP 133/60; PULSE 76; RESP 16; TEMP 36.6; O2SAT 100
[2023-04-11 07:11] LABS: Glucose, Whole Blood 116 mg/dL (60-115)
[2023-04-11] MEDS: Metoprolol Tartrate 25 MG TABLET PO ×2 (07:50→21:44)
[2023-04-11] MEDS: hydrALAZINE HCl 25 MG TABLET 75 MG PO ×3 (07:50→21:44)
[2023-04-11] MEDS: Heparin Sodium,Porcine 5,000 UNIT/ML VIAL 5000 UNIT SUBCUT ×2 (07:51→21:44)
[2023-04-11] MEDS: Sevelamer Carbonate Tablet 800 MG TABLET PO ×3 (07:51→17:04)
[2023-04-11] MEDS: Multivitamin TABLET 1 TAB PO (07:51)
[2023-04-11] MEDS: amLODIPine Besylate 10 MG TABLET PO (07:51)
[2023-04-11] MEDS: polyethylene glycoL 3350 17 GM POWD.PACK PO (07:52)
[2023-04-11] MEDS: Acetaminophen 325 MG TABLET 650 MG PO (07:57)
--- NOTE | 2023-04-11 10:13 | HO.PM.IMPN ---
Subjective Subjective Date of Service: 04/11/23 Interval History: no complaints Physical Exam Vital Signs: Vital Signs: Last Vital Signs Temp 98 F 04/11/23 06:54 Pulse 76 04/11/23 06:54 Resp 16 04/11/23 06:54 BP 133/60 04/11/23 06:54 Pulse Ox 100 04/11/23 06:54 O2 Del Method Room Air 04/11/23 06:54 O2 Flow Rate 97 03/08/23 06:00 BMI result Body Mass Index 35.9 General: AO X 3, no acute distress Resp: CTA bilateral, no accessory muscles used CVS: S1,S2,RRR GI: soft, non tender, non distended Neuro: motor grossly intact, alert Psych: appropriate affect, appropriate insight Objective Data Active Medications Acetaminophen (Acetaminophen 325 Mg Tablet) 650 mg PO QID PRN PRN Reason: Pain, Mild (Pain Scale 1-3) Last Admin: 04/11/23 07:57 Dose: 650 mg Documented By: JANE Albuterol Sulfate (Albuterol Sulfate 90 Mcg 8 Gm Inhaler) 1 puff INHALE QID PRN PRN Reason: Shortness Of Breath Amlodipine Besylate (Amlodipine Besylate 10 Mg Tablet) 10 mg PO DAILY [facility]; Protocol Last Admin: 04/11/23 07:51 Dose: 10 mg Documented By: JANE Artificial Tears (Artificial Tears 15 Ml Drops) 2 drop EYE-LEFT Q4H PRN PRN Reason: Dry Eyes Last Admin: 03/29/23 21:21 Dose: 2 drop Documented By: FERMÍN Dextrose (Dextrose 50 % 25 Gm/50 Ml Syringe) 25 gm IVPUSH Q15M PRN; Protocol PRN Reason: per Hypoglycemia Standing Ord. Glucose (Glucose Gel 15 Gm Gel..Gram.) 15 gm PO Q15M PRN; Protocol PRN Reason: per Hypoglycemia Standing Ord. Last Admin: 03/11/23 07:42 Dose: 15 gm Documented By: RITA Heparin Sodium (Porcine) (Heparin Sodium,Porcine 5,000 Unit/Ml Vial) 5,000 unit SUBCUT Q12H [facility] Last Admin: 04/11/23 07:51 Dose: 5,000 unit Documented By: JANE Hydralazine HCl (Hydralazine Hcl 25 Mg Tablet) 75 mg PO TID [facility]; Protocol Last Admin: 04/11/23 07:50 Dose: 75 mg Documented By: JANE Insulin Glargine (Insulin Glargine,Hum.Rec.Anlog 100 Unit/Ml 10 Ml Vial) 5 unit SUBCUT BEDTIME [facility] Last Admin: 04/10/23 21:07 Dose: 5 unit Documented By: MORENA Insulin Human Lispro (Insulin Lispro 100 Unit/Ml 3 Ml Vial) 0 unit SUBCUT QIDACHS [facility]; Protocol Last Admin: 04/11/23 07:21 Dose: Not Given Documented By: JANE Non-Admin Reason: No Insulin Coverage Metoprolol Tartrate (Metoprolol Tartrate 25 Mg Tablet) 25 mg PO BID [facility]; Protocol Last Admin: 04/11/23 07:50 Dose: 25 mg Documented By: JANE Multivitamins/Vitamin C (Multivitamin Tablet) 1 tab PO DAILY [facility] Last Admin: 04/11/23 07:51 Dose: 1 tab Documented By: JANE Ondansetron HCl (Ondansetron Hcl 4 Mg/2 Ml Vial) 4 mg IVPUSH Q8H PRN PRN Reason: Nausea and Vomiting Last Admin: 03/12/23 12:12 Dose: 4 mg Documented By: MADDY Ondansetron HCl (Ondansetron Odt 4 Mg Tab.Rapdis) 4 mg TRANSLINGU Q6H PRN PRN Reason: Nausea and Vomiting Last Admin: 03/30/23 19:45 Dose: 4 mg Documented By: VINCE Polyethylene Glycol (Polyethylene Glycol 3350 17 Gm Powd.Pack) 17 gm PO DAILY [facility] Last Admin: 04/11/23 07:52 Dose: 17 gm Documented By: JANE Sevelamer Carbonate (Sevelamer Carbonate Tablet 800 Mg Tablet) 800 mg PO TIDWM [facility] Last Admin: 04/11/23 07:51 Dose: 800 mg Documented By: JANE Sodium Chloride (0.9 % Sodium Chloride Flush 3 Ml Syringe) 3 ml IVFLUSH QSHIFT [facility] Last Admin: 04/11/23 07:50 Dose: Not Given Documented By: JANE Non-Admin Reason: No Access Labs 03/27/23 05:47 03/27/23 05:47 Labs: Laboratory Results - last 24 hr 04/10/23 04/10/23 04/10/23 11:25 16:06 20:20 POC Glucose 113 150 H 156 H 04/11/23 06:55 POC Glucose 116 H Assessment and Plan (1) ESRD needing dialysis: Status: Acute Plan A 72 years old lady with PMH of ESRD on HD, asthma, HTN, DMII among others whi was brought to the hospital on 02/07 for confusion. ESRD on HD TTS Nephrology following Left Eyelid swelling No evidence of eye infection, close monitoring, discussed with Nephrology not related to renal disease, recommend outpatient opthalmology follow-up since patient has prior history of eye injections. DC Claritin , no improvement after 10 days warm compressors HTN continue MEtoprolol, amlodipine hydralazine to 75 mg for better control DM II w hypoglycemia event SSI, diabetic diet Lantus decreased to 5 units Physical deconditioning PT rec STR The patient needs inpatient stay overnight for the need of dialysis pending safe discharge plan Time Spent With Patient Time: Total time managing care of this patient today ____ minutes. Quality Stroke Does the patient have a stroke diagnosis?: No VTE Prior VTE?: No VTE Risk Level:: Medical - moderate - high VTE Device Contraindication: Treatment Not Indicated VTE Drug Contraindication: N/A - Med Ordered
--- NOTE | 2023-04-11 10:37 | MHC.CM.PN ---
pt dcd home no services
[2023-04-11 11:05] LABS: Glucose, Whole Blood 153 mg/dL (60-115)
[2023-04-11] MEDS: Insulin Lispro 100 UNIT/ML 3 ML VIAL SUBCUT ×2 (11:47→17:04)
--- NOTE | 2023-04-11 13:33 | MHC.CM.PN ---
?pt going to [facility] call placed and message left for deepti schmitz who is doing admissions [phone] she isout today will be back thurs
[2023-04-11 14:14] VITALS: BP 136/60
[2023-04-11 15:16] VITALS: BP 141/62; PULSE 76; RESP 18; TEMP 36.1; O2SAT 100
[2023-04-11 16:37] LABS: Glucose, Whole Blood 178 mg/dL (60-115)
[2023-04-11 19:37] VITALS: BP 124/58; PULSE 82; RESP 18; TEMP 35.9; O2SAT 95
[2023-04-11 20:25] LABS: Glucose, Whole Blood 49 mg/dL (60-115)
[2023-04-11 20:38] LABS: Glucose, Whole Blood 61 mg/dL (60-115)
[2023-04-11 21:08] LABS: Glucose, Whole Blood 101 mg/dL (60-115)
--- NOTE | 2023-04-11 22:33 | MHC.PIE ---
p; 2000. poc 49. pt a&o x4. i; oj x2 and ice cream with syrup given. dr yost notified e; 2029. poc 61 e; 2099. poc 101
[2023-04-12 03:30] VITALS: BP 142/73; PULSE 77; RESP 18; TEMP 36.2; O2SAT 100
[2023-04-12 05:52] LABS: Hematocrit 21.1 % (37.0-47.0); Hemoglobin 7.1 g/dl (12.0-16.0); Mean Corpuscular HGB Conc 33.6 g/dl (31.0-35.0); Mean Corpuscular Volume 83.1 fL (80.0-98.0); Mean Platelet Volume 10.2 fL (9.4-12.3); Platelet Count 144 X10*3/uL (160-400); Red Blood Count 2.54 X10*6/uL (4.20-5.50); Red Cell Distribution Width 15.7 % (11.0-16.0); White Blood Count 3.1 X10*3/uL (4.8-10.8)
[2023-04-12 06:12] LABS: Anion Gap 16 (12-20); Blood Urea Nitrogen 64 mg/dL (9-16); Carbon Dioxide 21 mmol/L (22-29); Chloride 98 mmol/L (96-108); Creatinine Clr Calc Pharmacy 8.9; Estimated Glomerular Filt Rate 7; Glucose Fasting 121 mg/dL (60-99); Potassium 4.3 mmol/L (3.3-5.1); Sodium 131 mmol/L (135-145)
[2023-04-12 07:15] LABS: Glucose, Whole Blood 104 mg/dL (60-115)
--- NOTE | 2023-04-12 08:09 | HO.PM.IMPN ---
Subjective Subjective Date of Service: 04/12/23 Interval History: no complaints Physical Exam Vital Signs: Vital Signs: Last Vital Signs Temp 97.2 F 04/12/23 03:30 Pulse 77 04/12/23 03:30 Resp 18 04/12/23 03:30 BP 142/73 H 04/12/23 03:30 Pulse Ox 100 04/12/23 03:30 O2 Del Method Room Air 04/12/23 03:30 O2 Flow Rate 97 03/08/23 06:00 BMI result Body Mass Index 35.9 General: AO X 3, no acute distress Resp: CTA bilateral, no accessory muscles used CVS: S1,S2,RRR GI: soft, non tender, non distended Neuro: motor grossly intact, alert Psych: appropriate affect, appropriate insight Objective Data Active Medications Acetaminophen (Acetaminophen 325 Mg Tablet) 650 mg PO QID PRN PRN Reason: Pain, Mild (Pain Scale 1-3) Last Admin: 04/11/23 07:57 Dose: 650 mg Documented By: JANE Albuterol Sulfate (Albuterol Sulfate 90 Mcg 8 Gm Inhaler) 1 puff INHALE QID PRN PRN Reason: Shortness Of Breath Amlodipine Besylate (Amlodipine Besylate 10 Mg Tablet) 10 mg PO DAILY [facility]; Protocol Last Admin: 04/11/23 07:51 Dose: 10 mg Documented By: JANE Artificial Tears (Artificial Tears 15 Ml Drops) 2 drop EYE-LEFT Q4H PRN PRN Reason: Dry Eyes Last Admin: 03/29/23 21:21 Dose: 2 drop Documented By: FERMÍN Dextrose (Dextrose 50 % 25 Gm/50 Ml Syringe) 25 gm IVPUSH Q15M PRN; Protocol PRN Reason: per Hypoglycemia Standing Ord. Glucose (Glucose Gel 15 Gm Gel..Gram.) 15 gm PO Q15M PRN; Protocol PRN Reason: per Hypoglycemia Standing Ord. Last Admin: 03/11/23 07:42 Dose: 15 gm Documented By: RITA Heparin Sodium (Porcine) (Heparin Sodium,Porcine 5,000 Unit/Ml Vial) 5,000 unit SUBCUT Q12H [facility] Last Admin: 04/11/23 21:44 Dose: 5,000 unit Documented By: JOYCE Hydralazine HCl (Hydralazine Hcl 25 Mg Tablet) 75 mg PO TID [facility]; Protocol Last Admin: 04/11/23 21:44 Dose: 75 mg Documented By: JOYCE Insulin Human Lispro (Insulin Lispro 100 Unit/Ml 3 Ml Vial) 0 unit SUBCUT QIDACHS [facility]; Protocol Last Admin: 04/12/23 07:39 Dose: Not Given Documented By: MADDY Non-Admin Reason: No Insulin Coverage Metoprolol Tartrate (Metoprolol Tartrate 25 Mg Tablet) 25 mg PO BID [facility]; Protocol Last Admin: 04/11/23 21:44 Dose: 25 mg Documented By: JOYCE Multivitamins/Vitamin C (Multivitamin Tablet) 1 tab PO DAILY [facility] Last Admin: 04/11/23 07:51 Dose: 1 tab Documented By: JANE Ondansetron HCl (Ondansetron Hcl 4 Mg/2 Ml Vial) 4 mg IVPUSH Q8H PRN PRN Reason: Nausea and Vomiting Last Admin: 03/12/23 12:12 Dose: 4 mg Documented By: MADDY Ondansetron HCl (Ondansetron Odt 4 Mg Tab.Rapdis) 4 mg TRANSLINGU Q6H PRN PRN Reason: Nausea and Vomiting Last Admin: 03/30/23 19:45 Dose: 4 mg Documented By: VINCE Polyethylene Glycol (Polyethylene Glycol 3350 17 Gm Powd.Pack) 17 gm PO DAILY [facility] Last Admin: 04/11/23 07:52 Dose: 17 gm Documented By: JANE Sevelamer Carbonate (Sevelamer Carbonate Tablet 800 Mg Tablet) 800 mg PO TIDWM [facility] Last Admin: 04/12/23 07:40 Dose: Not Given Documented By: MADDY Non-Admin Reason: Off unit: Dialysis Sodium Chloride (0.9 % Sodium Chloride Flush 3 Ml Syringe) 3 ml IVFLUSH QSHIFT [facility] Last Admin: 04/12/23 07:40 Dose: Not Given Documented By: MADDY Non-Admin Reason: Off unit: Dialysis Labs 04/12/23 05:46 04/12/23 05:46 Labs: Laboratory Results - last 24 hr 04/11/23 04/11/23 04/11/23 10:59 16:17 20:09 MCV MCH MCHC RDW Plt Count MPV Absolute Nucleated RBC Nucleated RBC % (auto) Anion Gap Estim Creat Clear Calc Estimated GFR POC Glucose 153 H 178 H 49 L* Fasting Glucose Calcium 04/11/23 04/11/23 04/12/23 20:34 21:01 05:46 MCV 83.1 MCH 28.0 MCHC 33.6 RDW 15.7 Plt Count 144 L MPV 10.2 Absolute Nucleated RBC 0.000 Nucleated RBC % (auto) 0.0 Anion Gap Estim Creat Clear Calc Estimated GFR POC Glucose 61 101 Fasting Glucose Calcium 04/12/23 04/12/23 05:46 07:06 MCV MCH MCHC RDW Plt Count MPV Absolute Nucleated RBC Nucleated RBC % (auto) Anion Gap 16 Estim Creat Clear Calc 8.9 Estimated GFR 7 POC Glucose 104 Fasting Glucose 121 H Calcium 9.0 D Assessment and Plan (1) ESRD needing dialysis: Status: Acute Plan A 72 years old lady with PMH of ESRD on HD, asthma, HTN, DMII among others whi was brought to the hospital on 02/07 for confusion. ESRD on HD TTS Nephrology following Left Eyelid swelling No evidence of eye infection, close monitoring, discussed with Nephrology not related to renal disease, recommend outpatient opthalmology follow-up since patient has prior history of eye injections. DC Claritin , no improvement after 10 days warm compressors HTN continue MEtoprolol, amlodipine hydralazine to 75 mg for better control DM II w hypoglycemia event SSI, diabetic diet Lantus decreased to 5 units Physical deconditioning PT rec STR The patient needs inpatient stay overnight for the need of dialysis pending safe discharge plan Time Spent With Patient Time: Total time managing care of this patient today ____ minutes. Quality Stroke Does the patient have a stroke diagnosis?: No VTE Prior VTE?: No VTE Risk Level:: Medical - moderate - high VTE Device Contraindication: Treatment Not Indicated VTE Drug Contraindication: N/A - Med Ordered
--- NOTE | 2023-04-12 10:13 | W.PM.DNNEP ---
Subjective Subjective This patient was seen during dialysis. Interval history: no complaints Physical Exam Vital Signs: Vital Signs: Last Vital Signs Temp 97.2 F 04/12/23 03:30 Pulse 77 04/12/23 03:30 Resp 18 04/12/23 03:30 BP 142/73 H 04/12/23 03:30 Pulse Ox 100 04/12/23 03:30 O2 Del Method Room Air 04/12/23 03:30 O2 Flow Rate 97 03/08/23 06:00 BMI result Body Mass Index 35.9 Const: Other: Constitutional : Awake, interactive, not in distress Eyes: normal vision. left eyelid edema, no tenderness or redness Cardiovascular : RRR, no lower extremity edema Respiratory : not in distress , chest wall moving bilaterally Gastrointestinal: soft, lax, Normal bowel sounds, Non tender Skin : Warm, Dry, fistula clean Neurological : Alert & oriented x3, No focal deficit Assessment & Plan Assessment and plan (1) Physical deconditioning: Status: Acute (2) ESRD needing dialysis: Status: Acute Plan ESRD: TTS [facility] unit AMS: improved Nephrogenic anemia-ordered epogen today MBD of CKD Await Placement Time Spent With Patient Time: Total time managing care of this patient today ____ minutes. Procedures Date of Service Date of Service: 04/12/23
[2023-04-12 10:29] VITALS: BP 132/61; PULSE 90; RESP 18; TEMP 36.6; O2SAT 97
[2023-04-12] MEDS: hydrALAZINE HCl 25 MG TABLET 75 MG PO ×2 (10:48→20:00)
[2023-04-12] MEDS: Acetaminophen 325 MG TABLET 650 MG PO (10:48)
[2023-04-12] MEDS: Multivitamin TABLET 1 TAB PO (10:49)
[2023-04-12] MEDS: amLODIPine Besylate 10 MG TABLET PO (10:49)
[2023-04-12] MEDS: Metoprolol Tartrate 25 MG TABLET PO ×2 (10:49→20:00)
[2023-04-12] MEDS: Heparin Sodium,Porcine 5,000 UNIT/ML VIAL 5000 UNIT SUBCUT ×2 (10:53→20:00)
--- NOTE | 2023-04-12 10:54 | PC.NURSE ---
Patient received her am meds late due to being in dialysis.
[2023-04-12 11:09] LABS: Glucose, Whole Blood 161 mg/dL (60-115)
[2023-04-12] MEDS: Sevelamer Carbonate Tablet 800 MG TABLET PO ×2 (11:55→16:54)
[2023-04-12] MEDS: Insulin Lispro 100 UNIT/ML 3 ML VIAL SUBCUT ×3 (11:55→20:01)
--- NOTE | 2023-04-12 16:10 | MHC.CM.PN ---
[facility] sent a staff member to evaluate Ching for admission to the [facility]. They have clinically accepted Ching. The Application was completed and faxed to Farhana @ [facility]. Ching has called her bank to request her most recent bank statement. Patients sister/HCP Sita and cousin from out of state are assisting her with obtaining requirements for admission to the home.
[2023-04-12 16:11] VITALS: BP 96/64; PULSE 102; RESP 18; TEMP 36.5; O2SAT 97
[2023-04-12 16:13] LABS: Glucose, Whole Blood 188 mg/dL (60-115)
[2023-04-12 19:18] VITALS: BP 133/73; PULSE 96; RESP 20; TEMP 36; O2SAT 100
[2023-04-12 19:42] LABS: Glucose, Whole Blood 176 mg/dL (60-115)
[2023-04-13] MEDS: Acetaminophen 325 MG TABLET 650 MG PO ×3 (02:20→20:51)
[2023-04-13 03:29] VITALS: BP 146/63; PULSE 86; RESP 17; TEMP 36.1; O2SAT 100
[2023-04-13 06:57] VITALS: BP 145/65; PULSE 84; RESP 17; TEMP 36.1; O2SAT 99
[2023-04-13 07:23] LABS: Glucose, Whole Blood 124 mg/dL (60-115)
--- NOTE | 2023-04-13 08:15 | P.PNIM_ITS ---
Subjective Subjective Date of Service: 04/13/23 Interval History: no complaints Physical Exam Vital Signs: Vital Signs: Last Vital Signs Temp 97 F 04/13/23 06:57 Pulse 84 04/13/23 06:57 Resp 17 04/13/23 06:57 BP 145/65 H 04/13/23 06:57 Pulse Ox 99 04/13/23 06:57 O2 Del Method Room Air 04/13/23 06:57 O2 Flow Rate 97 03/08/23 06:00 BMI result Body Mass Index 35.9 Const: Other: Constitutional : Awake, interactive, not in distress Eyes: normal vision. left eyelid edema, no tenderness or redness Cardiovascular : RRR, no lower extremity edema Respiratory : not in distress , chest wall moving bilaterally Gastrointestinal: soft, lax, Normal bowel sounds, Non tender Skin : Warm, Dry, fistula clean Neurological : Alert & oriented x3, No focal deficit Objective Data Active Medications Acetaminophen (Acetaminophen 325 Mg Tablet) 650 mg PO QID PRN PRN Reason: Pain, Mild (Pain Scale 1-3) Last Admin: 04/13/23 02:20 Dose: 650 mg Documented By: JOYCE Albuterol Sulfate (Albuterol Sulfate 90 Mcg 8 Gm Inhaler) 1 puff INHALE QID PRN PRN Reason: Shortness Of Breath Amlodipine Besylate (Amlodipine Besylate 10 Mg Tablet) 10 mg PO DAILY [facility]; Protocol Last Admin: 04/12/23 10:49 Dose: 10 mg Documented By: MADDY Artificial Tears (Artificial Tears 15 Ml Drops) 2 drop EYE-LEFT Q4H PRN PRN Reason: Dry Eyes Last Admin: 03/29/23 21:21 Dose: 2 drop Documented By: FERMÍN Dextrose (Dextrose 50 % 25 Gm/50 Ml Syringe) 25 gm IVPUSH Q15M PRN; Protocol PRN Reason: per Hypoglycemia Standing Ord. Glucose (Glucose Gel 15 Gm Gel..Gram.) 15 gm PO Q15M PRN; Protocol PRN Reason: per Hypoglycemia Standing Ord. Last Admin: 03/11/23 07:42 Dose: 15 gm Documented By: RITA Heparin Sodium (Porcine) (Heparin Sodium,Porcine 5,000 Unit/Ml Vial) 5,000 unit SUBCUT Q12H [facility] Last Admin: 04/12/23 20:00 Dose: 5,000 unit Documented By: JOYCE Hydralazine HCl (Hydralazine Hcl 25 Mg Tablet) 75 mg PO TID [facility]; Protocol Last Admin: 04/12/23 20:00 Dose: 75 mg Documented By: JOYCE Insulin Human Lispro (Insulin Lispro 100 Unit/Ml 3 Ml Vial) 0 unit SUBCUT QIDACHS [facility]; Protocol Last Admin: 04/13/23 07:32 Dose: Not Given Documented By: BRIDGET Non-Admin Reason: No Insulin Coverage Metoprolol Tartrate (Metoprolol Tartrate 25 Mg Tablet) 25 mg PO BID [facility]; Protocol Last Admin: 04/12/23 20:00 Dose: 25 mg Documented By: JOYCE Multivitamins/Vitamin C (Multivitamin Tablet) 1 tab PO DAILY [facility] Last Admin: 04/12/23 10:49 Dose: 1 tab Documented By: MADDY Ondansetron HCl (Ondansetron Hcl 4 Mg/2 Ml Vial) 4 mg IVPUSH Q8H PRN PRN Reason: Nausea and Vomiting Last Admin: 03/12/23 12:12 Dose: 4 mg Documented By: MADDY Ondansetron HCl (Ondansetron Odt 4 Mg Tab.Rapdis) 4 mg TRANSLINGU Q6H PRN PRN Reason: Nausea and Vomiting Last Admin: 03/30/23 19:45 Dose: 4 mg Documented By: VINCE Polyethylene Glycol (Polyethylene Glycol 3350 17 Gm Powd.Pack) 17 gm PO DAILY [facility] Last Admin: 04/12/23 10:51 Dose: Not Given Documented By: MADDY Non-Admin Reason: Patient Refused Sevelamer Carbonate (Sevelamer Carbonate Tablet 800 Mg Tablet) 800 mg PO TIDWM [facility] Last Admin: 04/12/23 16:54 Dose: 800 mg Documented By: MADDY Sodium Chloride (0.9 % Sodium Chloride Flush 3 Ml Syringe) [facility] Last Admin: 04/13/23 07:32 Dose: Not Given Documented By: BRIDGET Non-Admin Reason: No Access Labs 04/12/23 05:46 04/12/23 05:46 Labs: Laboratory Results - last 24 hr 04/12/23 04/12/23 04/12/23 11:02 15:58 19:34 POC Glucose 161 H 188 H 176 H 04/13/23 06:56 POC Glucose 124 H Assessment and Plan (1) ESRD needing dialysis: Status: Acute Plan A 72 years old lady with PMH of ESRD on HD, asthma, HTN, DMII among others whi was brought to the hospital on 02/07 for confusion. ESRD on HD TTS Nephrology following Left Eyelid swelling No evidence of eye infection, close monitoring, discussed with Nephrology not related to renal disease, recommend outpatient opthalmology follow-up since patient has prior history of eye injections. DC Claritin , no improvement after 10 days warm compressors HTN continue MEtoprolol, amlodipine hydralazine to 75 mg for better control DM II w hypoglycemia event SSI, diabetic diet Lantus decreased to 5 units Physical deconditioning PT rec STR The patient needs inpatient stay overnight for the need of dialysis pending safe discharge plan Time Spent With Patient Time: Total time managing care of this patient today ____ minutes. Quality Stroke Does the patient have a stroke diagnosis?: No VTE Prior VTE?: No VTE Risk Level:: Medical - moderate - high VTE Device Contraindication: Treatment Not Indicated VTE Drug Contraindication: N/A - Med Ordered
[2023-04-13] MEDS: Heparin Sodium,Porcine 5,000 UNIT/ML VIAL 5000 UNIT SUBCUT ×2 (09:45→20:47)
[2023-04-13] MEDS: Sevelamer Carbonate Tablet 800 MG TABLET PO ×3 (09:46→16:37)
[2023-04-13] MEDS: Multivitamin TABLET 1 TAB PO (09:46)
[2023-04-13] MEDS: amLODIPine Besylate 10 MG TABLET PO (09:46)
[2023-04-13] MEDS: hydrALAZINE HCl 25 MG TABLET 75 MG PO ×3 (09:46→20:48)
[2023-04-13] MEDS: Metoprolol Tartrate 25 MG TABLET PO ×2 (09:46→20:48)
[2023-04-13 11:16] LABS: Glucose, Whole Blood 153 mg/dL (60-115)
--- NOTE | 2023-04-13 11:45 | MHC.CM.PN ---
The patient received her last bank statement. It has been faxed to the [facility], attn: Farhana. Contacted Farhana this am. Waiting for a return call.
[2023-04-13] MEDS: Insulin Lispro 100 UNIT/ML 3 ML VIAL SUBCUT ×2 (11:58→20:47)
[2023-04-13 15:25] VITALS: BP 141/60; PULSE 88; RESP 16; TEMP 36.6; O2SAT 100
[2023-04-13 16:27] LABS: Glucose, Whole Blood 133 mg/dL (60-115)
--- NOTE | 2023-04-13 17:20 | PM.PNNEP ---
Subjective Subjective Date of Service: 04/13/23 Interval history: no complaints and feels well; concerned about her left eye Physical Exam Vital Signs: Vital Signs: Last Vital Signs Temp 97.9 F 04/13/23 15:25 Pulse 88 04/13/23 15:25 Resp 16 04/13/23 15:25 BP 141/60 H 04/13/23 15:25 Pulse Ox 100 04/13/23 15:25 O2 Del Method Room Air 04/13/23 15:25 O2 Flow Rate 97 03/08/23 06:00 BMI result Body Mass Index 35.9 Const: Other: Constitutional : Awake, interactive, not in distress Eyes: normal vision. left eyelid edema, no tenderness or redness Cardiovascular : RRR, no lower extremity edema Respiratory : not in distress , chest wall moving bilaterally Gastrointestinal: soft, lax, Normal bowel sounds, Non tender Skin : Warm, Dry, fistula clean Neurological : Alert & oriented x3, No focal deficit General: comfortable and no acute distress Orientation/consciousness: patient oriented x3 HEENT: Head: Yes normocephalic and Yes atraumatic Eyes: Other: left eye red, reduced vision, partially closed EOM: EOMs intact bilaterally Neck: Neck: Yes supple Resp: Auscultation: clear to auscultation bilaterally and diminished lung sounds Cardio: Rate: regular rate Heart sounds: S1 normal heart sound present and S2 normal heart sound present GI: Palpation (GI): Soft to palpation and nontender Neuro: General: patient oriented x3 and moves all extremities Extrem: General: Yes normal to inspection Objective Data Labs 04/12/23 05:46 04/12/23 05:46 Labs: Laboratory Results - last 24 hr 04/12/23 04/13/23 04/13/23 19:34 06:56 11:09 POC Glucose 176 H 124 H 153 H 04/13/23 16:17 POC Glucose 133 H Procedures Date of Service Date of Service: 04/13/23 Assessment & Plan Assessment and plan (1) ESRD needing dialysis: Status: Acute (2) Anemia: Status: Acute Plan A 72 years old lady with PMH of ESRD on HD, asthma, HTN, DMII among others whi was brought to the hospital on 02/07 for confusion. Dialyzes at [facility] on . concerned about her left eye vision. Marked anemia. ESRD on HD TTS Plan for HD tomorrow HTN continue MEtoprolol, amlodipine Prefer ARB over hydralazine: suggest losartan 25-50 mg daily Anemia: given procrit 20,000 units tomorrow; check iron stores: may need IV iron Time Spent With Patient Time: Total time managing care of this patient today ____ minutes. Progress Note: Quality Stroke Does the patient have a stroke diagnosis?: No
[2023-04-13 19:39] VITALS: BP 148/71; PULSE 96; RESP 16; TEMP 36.2; O2SAT 99
[2023-04-13 20:11] LABS: Glucose, Whole Blood 259 mg/dL (60-115)
[2023-04-14 01:58] VITALS: BP 144/65; PULSE 85; RESP 18; TEMP 36.1; O2SAT 98
--- NOTE | 2023-04-14 08:21 | P.PNIM_ITS ---
Subjective Subjective Date of Service: 04/14/23 Interval History: no complaints Physical Exam Vital Signs: Vital Signs: Last Vital Signs Temp 97 F 04/14/23 01:58 Pulse 85 04/14/23 01:58 Resp 18 04/14/23 01:58 BP 144/65 H 04/14/23 01:58 Pulse Ox 98 04/14/23 01:58 O2 Del Method Room Air 04/14/23 01:58 O2 Flow Rate 97 03/08/23 06:00 BMI result Body Mass Index 35.9 Const: Other: Constitutional : Awake, interactive, not in distress Eyes: normal vision. left eyelid edema, no tenderness or redness Cardiovascular : RRR, no lower extremity edema Respiratory : not in distress , chest wall moving bilaterally Gastrointestinal: soft, lax, Normal bowel sounds, Non tender Skin : Warm, Dry, fistula clean Neurological : Alert & oriented x3, No focal deficit General: comfortable and no acute distress Orientation/consciousness: patient oriented x3 HEENT: Head: Yes normocephalic and Yes atraumatic Eyes: Other: left eye red, reduced vision, partially closed EOM: EOMs intact bilaterally Neck: Neck: Yes supple Resp: Auscultation: clear to auscultation bilaterally and diminished lung sounds Cardio: Rate: regular rate Heart sounds: S1 normal heart sound present and S2 normal heart sound present GI: Palpation (GI): Soft to palpation and nontender Neuro: General: patient oriented x3 and moves all extremities Extrem: General: Yes normal to inspection Objective Data Active Medications Acetaminophen (Acetaminophen 325 Mg Tablet) 650 mg PO QID PRN PRN Reason: Pain, Mild (Pain Scale 1-3) Last Admin: 04/13/23 20:51 Dose: 650 mg Documented By: YESI Albuterol Sulfate (Albuterol Sulfate 90 Mcg 8 Gm Inhaler) 1 puff INHALE QID PRN PRN Reason: Shortness Of Breath Amlodipine Besylate (Amlodipine Besylate 10 Mg Tablet) 10 mg PO DAILY [facility]; Protocol Last Admin: 04/13/23 09:46 Dose: 10 mg Documented By: COTEMA Artificial Tears (Artificial Tears 15 Ml Drops) 2 drop EYE-LEFT Q4H PRN PRN Reason: Dry Eyes Last Admin: 03/29/23 21:21 Dose: 2 drop Documented By: JORGE LUIS-JOZEB Dextrose (Dextrose 50 % 25 Gm/50 Ml Syringe) 25 gm IVPUSH Q15M PRN; Protocol PRN Reason: per Hypoglycemia Standing Ord. Glucose (Glucose Gel 15 Gm Gel..Gram.) 15 gm PO Q15M PRN; Protocol PRN Reason: per Hypoglycemia Standing Ord. Last Admin: 03/11/23 07:42 Dose: 15 gm Documented By: RITA Heparin Sodium (Porcine) (Heparin Sodium,Porcine 5,000 Unit/Ml Vial) 5,000 unit SUBCUT Q12H [facility] Last Admin: 04/13/23 20:47 Dose: 5,000 unit Documented By: YESI Hydralazine HCl (Hydralazine Hcl 25 Mg Tablet) 75 mg PO TID [facility]; Protocol Last Admin: 04/13/23 20:48 Dose: 75 mg Documented By: YESI Insulin Human Lispro (Insulin Lispro 100 Unit/Ml 3 Ml Vial) 0 unit SUBCUT QIDACHS [facility]; Protocol Last Admin: 04/13/23 20:47 Dose: 6 unit Documented By: YESI Metoprolol Tartrate (Metoprolol Tartrate 25 Mg Tablet) 25 mg PO BID [facility]; Protocol Last Admin: 04/13/23 20:48 Dose: 25 mg Documented By: YESI Multivitamins/Vitamin C (Multivitamin Tablet) 1 tab PO DAILY [facility] Last Admin: 04/13/23 09:46 Dose: 1 tab Documented By: BRIDGET Ondansetron HCl (Ondansetron Hcl 4 Mg/2 Ml Vial) 4 mg IVPUSH Q8H PRN PRN Reason: Nausea and Vomiting Last Admin: 03/12/23 12:12 Dose: 4 mg Documented By: MADDY Ondansetron HCl (Ondansetron Odt 4 Mg Tab.Rapdis) 4 mg TRANSLINGU Q6H PRN PRN Reason: Nausea and Vomiting Last Admin: 03/30/23 19:45 Dose: 4 mg Documented By: VINCE Polyethylene Glycol (Polyethylene Glycol 3350 17 Gm Powd.Pack) 17 gm PO DAILY [facility] Last Admin: 04/13/23 09:29 Dose: Not Given Documented By: BRIDGET Non-Admin Reason: Patient Refused Sevelamer Carbonate (Sevelamer Carbonate Tablet 800 Mg Tablet) 800 mg PO TIDWM [facility] Last Admin: 04/13/23 16:37 Dose: 800 mg Documented By: COTEMA Sodium Chloride (0.9 % Sodium Chloride Flush 3 Ml Syringe) 3 ml IVFLUSH QSHIFT [facility] Last Admin: 04/13/23 20:53 Dose: Not Given Documented By: YESI Non-Admin Reason: No Access Labs 04/12/23 05:46 04/12/23 05:46 Labs: Laboratory Results - last 24 hr 04/13/23 04/13/23 04/13/23 11:09 16:17 20:04 POC Glucose 153 H 133 H 259 H Assessment and Plan (1) ESRD needing dialysis: Status: Acute Plan A 72 years old lady with PMH of ESRD on HD, asthma, HTN, DMII among others whi was brought to the hospital on 02/07 for confusion. ESRD on HD TTS Nephrology following Left Eyelid swelling No evidence of eye infection, close monitoring, discussed with Nephrology not related to renal disease, recommend outpatient opthalmology follow-up since patient has prior history of eye injections. DC Claritin , no improvement after 10 days warm compressors HTN continue MEtoprolol, amlodipine hydralazine to 75 mg for better control DM II w hypoglycemia event SSI, diabetic diet Lantus decreased to 5 units Physical deconditioning PT rec STR The patient needs inpatient stay overnight for the need of dialysis pending safe discharge plan Time Spent With Patient Time: Total time managing care of this patient today ____ minutes. Quality Stroke Does the patient have a stroke diagnosis?: No VTE Prior VTE?: No VTE Risk Level:: Medical - moderate - high VTE Device Contraindication: Treatment Not Indicated VTE Drug Contraindication: N/A - Med Ordered
[2023-04-14] MEDS: Acetaminophen 325 MG TABLET 650 MG PO (08:35)
[2023-04-14 08:40] LABS: Glucose, Whole Blood 112 mg/dL (60-115)
[2023-04-14 09:54] VITALS: BP 147/67; PULSE 84; RESP 18; TEMP 36.7; O2SAT 98
[2023-04-14] MEDS: hydrALAZINE HCl 25 MG TABLET 75 MG PO ×3 (09:57→20:19)
[2023-04-14] MEDS: Multivitamin TABLET 1 TAB PO (09:57)
[2023-04-14] MEDS: Sevelamer Carbonate Tablet 800 MG TABLET PO ×3 (09:58→16:41)
[2023-04-14] MEDS: Metoprolol Tartrate 25 MG TABLET PO ×2 (09:58→20:19)
[2023-04-14] MEDS: Heparin Sodium,Porcine 5,000 UNIT/ML VIAL 5000 UNIT SUBCUT ×2 (09:58→20:19)
[2023-04-14] MEDS: amLODIPine Besylate 10 MG TABLET PO (09:58)
[2023-04-14 11:32] LABS: Glucose, Whole Blood 149 mg/dL (60-115)
[2023-04-14 15:35] VITALS: BP 133/64; PULSE 76; RESP 20; TEMP 36.1; O2SAT 100
[2023-04-14 16:32] LABS: Glucose, Whole Blood 226 mg/dL (60-115)
[2023-04-14] MEDS: Insulin Lispro 100 UNIT/ML 3 ML VIAL SUBCUT ×2 (16:41→20:51)
[2023-04-14 20:00] VITALS: BP 129/63; PULSE 89; RESP 20; TEMP 36.1; O2SAT 92
[2023-04-14 20:55] LABS: Glucose, Whole Blood 161 mg/dL (60-115)
[2023-04-15 03:40] VITALS: BP 139/65; PULSE 82; RESP 18; TEMP 36.6; O2SAT 99
[2023-04-15 07:57] LABS: Glucose, Whole Blood 140 mg/dL (60-115)
[2023-04-15 08:00] VITALS: BP 146/66; PULSE 84; RESP 18; TEMP 36.2; O2SAT 99
--- NOTE | 2023-04-15 08:17 | PM.PNNEP ---
Subjective Subjective Date of Service: 04/15/23 Interval history: no complaints feels better each day Physical Exam Vital Signs: Vital Signs: Last Vital Signs Temp 97.2 F 04/15/23 08:00 Pulse 84 04/15/23 08:00 Resp 18 04/15/23 08:00 BP 146/66 H 04/15/23 08:00 Pulse Ox 99 04/15/23 08:00 O2 Del Method Room Air 04/15/23 08:00 O2 Flow Rate 97 03/08/23 06:00 BMI result Body Mass Index 35.9 Const: Other: Constitutional : Awake, interactive, not in distress Eyes: normal vision. left eyelid edema, no tenderness or redness Cardiovascular : RRR, no lower extremity edema Respiratory : not in distress , chest wall moving bilaterally Gastrointestinal: soft, lax, Normal bowel sounds, Non tender Skin : Warm, Dry, fistula clean Neurological : Alert & oriented x3, No focal deficit General: comfortable and no acute distress Orientation/consciousness: patient oriented x3 HEENT: Head: Yes normocephalic and Yes atraumatic Eyes: Other: left eye red, reduced vision, partially closed EOM: EOMs intact bilaterally Neck: Neck: Yes supple Resp: Auscultation: clear to auscultation bilaterally and diminished lung sounds Cardio: Rate: regular rate Heart sounds: S1 normal heart sound present and S2 normal heart sound present GI: Palpation (GI): Soft to palpation and nontender Neuro: General: patient oriented x3 and moves all extremities Extrem: General: Yes normal to inspection Objective Data Labs 04/12/23 05:46 04/12/23 05:46 Labs: Laboratory Results - last 24 hr 04/14/23 04/14/23 04/14/23 08:34 11:07 16:23 POC Glucose 112 149 H 226 H 04/14/23 04/15/23 20:46 07:43 POC Glucose 161 H 140 H Procedures Date of Service Date of Service: 04/15/23 Assessment & Plan Assessment and plan (1) ESRD needing dialysis: Status: Acute Assessment and Plan: HD T TH S Stable (2) Anemia: Status: Acute Assessment and Plan: Pt has had drop in H/H and is pancytopenic Please start procrit 20,000 units weekly, check iron stores Time Spent With Patient Time: Total time managing care of this patient today ____ minutes. Progress Note: Quality Stroke Does the patient have a stroke diagnosis?: No
--- NOTE | 2023-04-15 08:22 | HO.PM.IMPN ---
Subjective Subjective Date of Service: 04/15/23 Interval History: no complaints Physical Exam Vital Signs: Vital Signs: Last Vital Signs Temp 97.2 F 04/15/23 08:00 Pulse 84 04/15/23 08:00 Resp 18 04/15/23 08:00 BP 146/66 H 04/15/23 08:00 Pulse Ox 99 04/15/23 08:00 O2 Del Method Room Air 04/15/23 08:00 O2 Flow Rate 97 03/08/23 06:00 BMI result Body Mass Index 35.9 Const: Other: Constitutional : Awake, interactive, not in distress Eyes: normal vision. left eyelid edema, no tenderness or redness Cardiovascular : RRR, no lower extremity edema Respiratory : not in distress , chest wall moving bilaterally Gastrointestinal: soft, lax, Normal bowel sounds, Non tender Skin : Warm, Dry, fistula clean Neurological : Alert & oriented x3, No focal deficit General: comfortable and no acute distress Orientation/consciousness: patient oriented x3 HEENT: Head: Yes normocephalic and Yes atraumatic Eyes: Other: left eye red, reduced vision, partially closed EOM: EOMs intact bilaterally Neck: Neck: Yes supple Resp: Auscultation: clear to auscultation bilaterally and diminished lung sounds Cardio: Rate: regular rate Heart sounds: S1 normal heart sound present and S2 normal heart sound present GI: Palpation (GI): Soft to palpation and nontender Neuro: General: patient oriented x3 and moves all extremities Extrem: General: Yes normal to inspection Objective Data Active Medications Acetaminophen (Acetaminophen 325 Mg Tablet) 650 mg PO QID PRN PRN Reason: Pain, Mild (Pain Scale 1-3) Last Admin: 04/14/23 08:35 Dose: 650 mg Documented By: MADDY Albuterol Sulfate (Albuterol Sulfate 90 Mcg 8 Gm Inhaler) 1 puff INHALE QID PRN PRN Reason: Shortness Of Breath Amlodipine Besylate (Amlodipine Besylate 10 Mg Tablet) 10 mg PO DAILY [facility]; Protocol Last Admin: 04/14/23 09:58 Dose: 10 mg Documented By: MADDY Artificial Tears (Artificial Tears 15 Ml Drops) 2 drop EYE-LEFT Q4H PRN PRN Reason: Dry Eyes Last Admin: 03/29/23 21:21 Dose: 2 drop Documented By: JORGE LUIS-GLENN Dextrose (Dextrose 50 % 25 Gm/50 Ml Syringe) 25 gm IVPUSH Q15M PRN; Protocol PRN Reason: per Hypoglycemia Standing Ord. Glucose (Glucose Gel 15 Gm Gel..Gram.) 15 gm PO Q15M PRN; Protocol PRN Reason: per Hypoglycemia Standing Ord. Last Admin: 03/11/23 07:42 Dose: 15 gm Documented By: RITA Heparin Sodium (Porcine) (Heparin Sodium,Porcine 5,000 Unit/Ml Vial) 5,000 unit SUBCUT Q12H [facility] Last Admin: 04/14/23 20:19 Dose: 5,000 unit Documented By: YESI Hydralazine HCl (Hydralazine Hcl 25 Mg Tablet) 75 mg PO TID [facility]; Protocol Last Admin: 04/14/23 20:19 Dose: 75 mg Documented By: YESI Insulin Human Lispro (Insulin Lispro 100 Unit/Ml 3 Ml Vial) 0 unit SUBCUT QIDACHS [facility]; Protocol Last Admin: 04/15/23 08:05 Dose: Not Given Documented By: NELDA Non-Admin Reason: No Insulin Coverage Metoprolol Tartrate (Metoprolol Tartrate 25 Mg Tablet) 25 mg PO BID [facility]; Protocol Last Admin: 04/14/23 20:19 Dose: 25 mg Documented By: YESI Multivitamins/Vitamin C (Multivitamin Tablet) 1 tab PO DAILY [facility] Last Admin: 04/14/23 09:57 Dose: 1 tab Documented By: MADDY Ondansetron HCl (Ondansetron Hcl 4 Mg/2 Ml Vial) 4 mg IVPUSH Q8H PRN PRN Reason: Nausea and Vomiting Last Admin: 03/12/23 12:12 Dose: 4 mg Documented By: MADDY Ondansetron HCl (Ondansetron Odt 4 Mg Tab.Rapdis) 4 mg TRANSLINGU Q6H PRN PRN Reason: Nausea and Vomiting Last Admin: 03/30/23 19:45 Dose: 4 mg Documented By: VINCE Polyethylene Glycol (Polyethylene Glycol 3350 17 Gm Powd.Pack) 17 gm PO DAILY [facility] Last Admin: 04/14/23 10:03 Dose: Not Given Documented By: MADDY Non-Admin Reason: Patient Refused Sevelamer Carbonate (Sevelamer Carbonate Tablet 800 Mg Tablet) 800 mg PO TIDWM [facility] Last Admin: 04/14/23 16:41 Dose: 800 mg Documented By: MADDY Sodium Chloride (0.9 % Sodium Chloride Flush 3 Ml Syringe) 3 ml IVFLUSH QSHIFT [facility] Last Admin: 04/15/23 08:06 Dose: Not Given Documented By: NELDA Non-Admin Reason: No Access Labs 04/12/23 05:46 04/12/23 05:46 Labs: Laboratory Results - last 24 hr 04/14/23 04/14/23 04/14/23 08:34 11:07 16:23 POC Glucose 112 149 H 226 H 04/14/23 04/15/23 20:46 07:43 POC Glucose 161 H 140 H Assessment and Plan (1) ESRD needing dialysis: Status: Acute Plan A 72 years old lady with PMH of ESRD on HD, asthma, HTN, DMII among others whi was brought to the hospital on 02/07 for confusion. ESRD on HD TTS Nephrology following Left Eyelid swelling No evidence of eye infection, close monitoring, discussed with Nephrology not related to renal disease, recommend outpatient opthalmology follow-up since patient has prior history of eye injections. DC Claritin , no improvement after 10 days warm compressors HTN continue MEtoprolol, amlodipine hydralazine to 75 mg for better control DM II w hypoglycemia event SSI, diabetic diet Lantus decreased to 5 units Physical deconditioning PT rec STR The patient needs inpatient stay overnight for the need of dialysis pending safe discharge plan Time Spent With Patient Time: Total time managing care of this patient today ____ minutes. Quality Stroke Does the patient have a stroke diagnosis?: No VTE Prior VTE?: No VTE Risk Level:: Medical - moderate - high VTE Device Contraindication: Treatment Not Indicated VTE Drug Contraindication: N/A - Med Ordered
[2023-04-15] MEDS: hydrALAZINE HCl 25 MG TABLET 75 MG PO ×3 (09:20→20:49)
[2023-04-15] MEDS: amLODIPine Besylate 10 MG TABLET PO (09:20)
[2023-04-15] MEDS: Heparin Sodium,Porcine 5,000 UNIT/ML VIAL 5000 UNIT SUBCUT ×2 (09:20→20:50)
[2023-04-15] MEDS: Multivitamin TABLET 1 TAB PO (09:20)
[2023-04-15] MEDS: Sevelamer Carbonate Tablet 800 MG TABLET PO ×3 (09:20→16:13)
[2023-04-15] MEDS: Metoprolol Tartrate 25 MG TABLET PO ×2 (09:20→20:49)
[2023-04-15 11:54] LABS: Glucose, Whole Blood 162 mg/dL (60-115)
[2023-04-15] MEDS: Insulin Lispro 100 UNIT/ML 3 ML VIAL SUBCUT ×2 (12:18→20:50)
[2023-04-15 15:13] VITALS: BP 114/55; PULSE 76; RESP 18; TEMP 36.1; O2SAT 100
[2023-04-15 16:37] LABS: Glucose, Whole Blood 146 mg/dL (60-115)
[2023-04-15 19:34] VITALS: BP 129/59; PULSE 90; RESP 18; TEMP 36.7; O2SAT 100
[2023-04-15 20:37] LABS: Glucose, Whole Blood 216 mg/dL (60-115)
[2023-04-16] MEDS: Acetaminophen 325 MG TABLET 650 MG PO ×2 (02:15→20:50)
[2023-04-16 04:00] VITALS: BP 122/63; PULSE 83; RESP 18; TEMP 36.1; O2SAT 97
[2023-04-16 07:40] VITALS: BP 150/67; PULSE 78; RESP 18; TEMP 36.1; O2SAT 99
[2023-04-16 08:01] LABS: Glucose, Whole Blood 159 mg/dL (60-115)
[2023-04-16] MEDS: Insulin Lispro 100 UNIT/ML 3 ML VIAL SUBCUT ×2 (08:04→16:30)
[2023-04-16] MEDS: Heparin Sodium,Porcine 5,000 UNIT/ML VIAL 5000 UNIT SUBCUT ×2 (08:05→20:51)
[2023-04-16] MEDS: Metoprolol Tartrate 25 MG TABLET PO ×2 (08:05→20:50)
[2023-04-16] MEDS: hydrALAZINE HCl 25 MG TABLET 75 MG PO ×3 (08:05→20:50)
[2023-04-16] MEDS: amLODIPine Besylate 10 MG TABLET PO (08:05)
[2023-04-16] MEDS: Multivitamin TABLET 1 TAB PO (08:05)
[2023-04-16] MEDS: Sevelamer Carbonate Tablet 800 MG TABLET PO ×3 (08:05→16:30)
--- NOTE | 2023-04-16 08:14 | HO.PM.IMPN ---
Subjective Subjective Date of Service: 04/16/23 Interval History: no complaints Physical Exam Vital Signs: Vital Signs: Last Vital Signs Temp 97.0 F 04/16/23 07:40 Pulse 78 04/16/23 07:40 Resp 18 04/16/23 07:40 BP 150/67 H 04/16/23 07:40 Pulse Ox 99 04/16/23 07:40 O2 Del Method Room Air 04/16/23 07:40 O2 Flow Rate 97 03/08/23 06:00 BMI result Body Mass Index 35.9 Const: Other: Constitutional : Awake, interactive, not in distress Eyes: normal vision. left eyelid edema, no tenderness or redness Cardiovascular : RRR, no lower extremity edema Respiratory : not in distress , chest wall moving bilaterally Gastrointestinal: soft, lax, Normal bowel sounds, Non tender Skin : Warm, Dry, fistula clean Neurological : Alert & oriented x3, No focal deficit General: comfortable and no acute distress Orientation/consciousness: patient oriented x3 HEENT: Head: Yes normocephalic and Yes atraumatic Eyes: Other: left eye red, reduced vision, partially closed EOM: EOMs intact bilaterally Neck: Neck: Yes supple Resp: Auscultation: clear to auscultation bilaterally and diminished lung sounds Cardio: Rate: regular rate Heart sounds: S1 normal heart sound present and S2 normal heart sound present GI: Palpation (GI): Soft to palpation and nontender Neuro: General: patient oriented x3 and moves all extremities Extrem: General: Yes normal to inspection Objective Data Active Medications Acetaminophen (Acetaminophen 325 Mg Tablet) 650 mg PO QID PRN PRN Reason: Pain, Mild (Pain Scale 1-3) Last Admin: 04/16/23 02:15 Dose: 650 mg Documented By: SYLVIA Albuterol Sulfate (Albuterol Sulfate 90 Mcg 8 Gm Inhaler) 1 puff INHALE QID PRN PRN Reason: Shortness Of Breath Amlodipine Besylate (Amlodipine Besylate 10 Mg Tablet) 10 mg PO DAILY [facility]; Protocol Last Admin: 04/16/23 08:05 Dose: 10 mg Documented By: NELDA Artificial Tears (Artificial Tears 15 Ml Drops) 2 drop EYE-LEFT Q4H PRN PRN Reason: Dry Eyes Last Admin: 03/29/23 21:21 Dose: 2 drop Documented By: FERMÍN Dextrose (Dextrose 50 % 25 Gm/50 Ml Syringe) 25 gm IVPUSH Q15M PRN; Protocol PRN Reason: per Hypoglycemia Standing Ord. Glucose (Glucose Gel 15 Gm Gel..Gram.) 15 gm PO Q15M PRN; Protocol PRN Reason: per Hypoglycemia Standing Ord. Last Admin: 03/11/23 07:42 Dose: 15 gm Documented By: RITA Heparin Sodium (Porcine) (Heparin Sodium,Porcine 5,000 Unit/Ml Vial) 5,000 unit SUBCUT Q12H [facility] Last Admin: 04/16/23 08:05 Dose: 5,000 unit Documented By: NELDA Hydralazine HCl (Hydralazine Hcl 25 Mg Tablet) 75 mg PO TID [facility]; Protocol Last Admin: 04/16/23 08:05 Dose: 75 mg Documented By: NELDA Insulin Human Lispro (Insulin Lispro 100 Unit/Ml 3 Ml Vial) 0 unit SUBCUT QIDACHS [facility]; Protocol Last Admin: 04/16/23 08:04 Dose: 2 unit Documented By: NELDA Metoprolol Tartrate (Metoprolol Tartrate 25 Mg Tablet) 25 mg PO BID [facility]; Protocol Last Admin: 04/16/23 08:05 Dose: 25 mg Documented By: NELDA Multivitamins/Vitamin C (Multivitamin Tablet) 1 tab PO DAILY [facility] Last Admin: 04/16/23 08:05 Dose: 1 tab Documented By: NELDA Ondansetron HCl (Ondansetron Hcl 4 Mg/2 Ml Vial) 4 mg IVPUSH Q8H PRN PRN Reason: Nausea and Vomiting Last Admin: 03/12/23 12:12 Dose: 4 mg Documented By: MADDY Ondansetron HCl (Ondansetron Odt 4 Mg Tab.Rapdis) 4 mg TRANSLINGU Q6H PRN PRN Reason: Nausea and Vomiting Last Admin: 03/30/23 19:45 Dose: 4 mg Documented By: VINCE Polyethylene Glycol (Polyethylene Glycol 3350 17 Gm Powd.Pack) 17 gm PO DAILY [facility] Last Admin: 04/16/23 08:08 Dose: Not Given Documented By: NELDA Non-Admin Reason: Patient Refused Sevelamer Carbonate (Sevelamer Carbonate Tablet 800 Mg Tablet) 800 mg PO TIDWM [facility] Last Admin: 04/16/23 08:05 Dose: 800 mg Documented By: NELDA Sodium Chloride (0.9 % Sodium Chloride Flush 3 Ml Syringe) 3 ml IVFLUSH QSHIFT [facility] Last Admin: 04/16/23 08:08 Dose: Not Given Documented By: NELDA Non-Admin Reason: No Access Labs 04/12/23 05:46 04/12/23 05:46 Labs: Laboratory Results - last 24 hr 04/15/23 04/15/23 04/15/23 11:32 16:28 20:20 POC Glucose 162 H 146 H 216 H 04/16/23 07:45 POC Glucose 159 H Assessment and Plan (1) ESRD needing dialysis: Status: Acute Plan A 72 years old lady with PMH of ESRD on HD, asthma, HTN, DMII among others whi was brought to the hospital on 02/07 for confusion. ESRD on HD TTS Nephrology following Left Eyelid swelling No evidence of eye infection, close monitoring, discussed with Nephrology not related to renal disease, recommend outpatient opthalmology follow-up since patient has prior history of eye injections. DC Claritin , no improvement after 10 days warm compressors HTN continue MEtoprolol, amlodipine hydralazine to 75 mg for better control DM II w hypoglycemia event SSI, diabetic diet Lantus decreased to 5 units Physical deconditioning PT rec STR The patient needs inpatient stay overnight for the need of dialysis pending safe discharge plan Time Spent With Patient Time: Total time managing care of this patient today ____ minutes. Quality Stroke Does the patient have a stroke diagnosis?: No VTE Prior VTE?: No VTE Risk Level:: Medical - moderate - high VTE Device Contraindication: Treatment Not Indicated VTE Drug Contraindication: N/A - Med Ordered
[2023-04-16 11:45] LABS: Glucose, Whole Blood 137 mg/dL (60-115)
[2023-04-16 15:07] VITALS: BP 133/61; PULSE 82; RESP 18; TEMP 36; O2SAT 99
[2023-04-16 16:17] LABS: Glucose, Whole Blood 262 mg/dL (60-115)
[2023-04-16 19:14] VITALS: BP 133/58; PULSE 79; RESP 18; TEMP 36; O2SAT 99
[2023-04-16 20:12] LABS: Glucose, Whole Blood 137 mg/dL (60-115)
[2023-04-17 04:00] VITALS: BP 141/62; PULSE 79; RESP 18; TEMP 36.2; O2SAT 99
[2023-04-17 07:36] LABS: Glucose, Whole Blood 145 mg/dL (60-115)
[2023-04-17 08:00] VITALS: BP 146/54; PULSE 78; RESP 17; TEMP 36; O2SAT 98
[2023-04-17] MEDS: Sevelamer Carbonate Tablet 800 MG TABLET PO ×3 (08:11→16:42)
[2023-04-17] MEDS: hydrALAZINE HCl 25 MG TABLET 75 MG PO ×3 (08:11→20:48)
[2023-04-17] MEDS: amLODIPine Besylate 10 MG TABLET PO (08:12)
[2023-04-17] MEDS: Metoprolol Tartrate 25 MG TABLET PO ×2 (08:12→20:48)
--- NOTE | 2023-04-17 08:47 | P.PNIM_ITS ---
Subjective Subjective Date of Service: 04/17/23 Interval History: no complaints Physical Exam Vital Signs: Vital Signs: Last Vital Signs Temp 96.8 F 04/17/23 08:00 Pulse 78 04/17/23 08:00 Resp 17 04/17/23 08:00 BP 146/54 H 04/17/23 08:00 Pulse Ox 98 04/17/23 08:00 O2 Del Method Room Air 04/17/23 08:00 O2 Flow Rate 97 03/08/23 06:00 BMI result Body Mass Index 35.9 Const: Other: Constitutional : Awake, interactive, not in distress Eyes: normal vision. left eyelid edema, no tenderness or redness Cardiovascular : RRR, no lower extremity edema Respiratory : not in distress , chest wall moving bilaterally Gastrointestinal: soft, lax, Normal bowel sounds, Non tender Skin : Warm, Dry, fistula clean Neurological : Alert & oriented x3, No focal deficit General: comfortable and no acute distress Orientation/consciousness: patient oriented x3 HEENT: Head: Yes normocephalic and Yes atraumatic Eyes: Other: left eye red, reduced vision, partially closed EOM: EOMs intact bilaterally Neck: Neck: Yes supple Resp: Auscultation: clear to auscultation bilaterally and diminished lung sounds Cardio: Rate: regular rate Heart sounds: S1 normal heart sound present and S2 normal heart sound present GI: Palpation (GI): Soft to palpation and nontender Neuro: General: patient oriented x3 and moves all extremities Extrem: General: Yes normal to inspection Objective Data Active Medications Acetaminophen (Acetaminophen 325 Mg Tablet) 650 mg PO QID PRN PRN Reason: Pain, Mild (Pain Scale 1-3) Last Admin: 04/16/23 20:50 Dose: 650 mg Documented By: OZORALLebron Albuterol Sulfate (Albuterol Sulfate 90 Mcg 8 Gm Inhaler) 1 puff INHALE QID PRN PRN Reason: Shortness Of Breath Amlodipine Besylate (Amlodipine Besylate 10 Mg Tablet) 10 mg PO DAILY [facility]; Protocol Last Admin: 04/17/23 08:12 Dose: 10 mg Documented By: ALMA ROSA Artificial Tears (Artificial Tears 15 Ml Drops) 2 drop EYE-LEFT Q4H PRN PRN Reason: Dry Eyes Last Admin: 03/29/23 21:21 Dose: 2 drop Documented By: JORGE LUISYESY Dextrose (Dextrose 50 % 25 Gm/50 Ml Syringe) 25 gm IVPUSH Q15M PRN; Protocol PRN Reason: per Hypoglycemia Standing Ord. Glucose (Glucose Gel 15 Gm Gel..Gram.) 15 gm PO Q15M PRN; Protocol PRN Reason: per Hypoglycemia Standing Ord. Last Admin: 03/11/23 07:42 Dose: 15 gm Documented By: RITA Heparin Sodium (Porcine) (Heparin Sodium,Porcine 5,000 Unit/Ml Vial) 5,000 unit SUBCUT Q12H [facility] Last Admin: 04/17/23 07:20 Dose: Not Given Documented By: ALMA ROSA Non-Admin Reason: dialsysi Hydralazine HCl (Hydralazine Hcl 25 Mg Tablet) 75 mg PO TID [facility]; Protocol Last Admin: 04/17/23 08:11 Dose: 75 mg Documented By: ALMA ROSA Insulin Human Lispro (Insulin Lispro 100 Unit/Ml 3 Ml Vial) 0 unit SUBCUT QIDACHS [facility]; Protocol Last Admin: 04/17/23 07:24 Dose: Not Given Documented By: ALMA ROSA Non-Admin Reason: No Insulin Coverage Metoprolol Tartrate (Metoprolol Tartrate 25 Mg Tablet) 25 mg PO BID [facility]; Protocol Last Admin: 04/17/23 08:12 Dose: 25 mg Documented By: ALMA ROSA Multivitamins/Vitamin C (Multivitamin Tablet) 1 tab PO DAILY [facility] Last Admin: 04/16/23 08:05 Dose: 1 tab Documented By: NELDA Ondansetron HCl (Ondansetron Hcl 4 Mg/2 Ml Vial) 4 mg IVPUSH Q8H PRN PRN Reason: Nausea and Vomiting Last Admin: 03/12/23 12:12 Dose: 4 mg Documented By: MADDY Ondansetron HCl (Ondansetron Odt 4 Mg Tab.Rapdis) 4 mg TRANSLINGU Q6H PRN PRN Reason: Nausea and Vomiting Last Admin: 03/30/23 19:45 Dose: 4 mg Documented By: VINCE Polyethylene Glycol (Polyethylene Glycol 3350 17 Gm Powd.Pack) 17 gm PO DAILY [facility] Last Admin: 04/17/23 08:13 Dose: Not Given Documented By: ALMA ROSA Non-Admin Reason: Patient Refused Sevelamer Carbonate (Sevelamer Carbonate Tablet 800 Mg Tablet) 800 mg PO TIDWM [facility] Last Admin: 04/17/23 08:11 Dose: 800 mg Documented By: ALMA ROSA Sodium Chloride (0.9 % Sodium Chloride Flush 3 Ml Syringe) 3 ml IVFLUSH QSHIFT [facility] Last Admin: 04/17/23 07:18 Dose: Not Given Documented By: ALMA ROSA Non-Admin Reason: No Access Labs 04/12/23 05:46 04/12/23 05:46 Labs: Laboratory Results - last 24 hr 04/16/23 04/16/23 04/16/23 11:27 16:09 20:06 POC Glucose 137 H 262 H 137 H 04/17/23 07:24 POC Glucose 145 H Assessment and Plan (1) ESRD needing dialysis: Status: Acute Plan A 72 years old lady with PMH of ESRD on HD, asthma, HTN, DMII among others whi was brought to the hospital on 02/07 for confusion. ESRD on HD TTS Nephrology following Left Eyelid swelling No evidence of eye infection, close monitoring, discussed with Nephrology not related to renal disease, recommend outpatient opthalmology follow-up since patient has prior history of eye injections. DC Claritin , no improvement after 10 days warm compressors HTN continue MEtoprolol, amlodipine hydralazine to 75 mg for better control DM II w hypoglycemia event SSI, diabetic diet Lantus decreased to 5 units Physical deconditioning PT rec STR The patient needs inpatient stay overnight for the need of dialysis pending safe discharge plan Time Spent With Patient Time: Total time managing care of this patient today ____ minutes. Quality Stroke Does the patient have a stroke diagnosis?: No VTE Prior VTE?: No VTE Risk Level:: Medical - moderate - high VTE Device Contraindication: Treatment Not Indicated VTE Drug Contraindication: N/A - Med Ordered
[2023-04-17] MEDS: Multivitamin TABLET 1 TAB PO (08:53)
[2023-04-17 14:38] LABS: Glucose, Whole Blood 157 mg/dL (60-115)
--- NOTE | 2023-04-17 14:52 | PM.PNNEP ---
Subjective Subjective Date of Service: 04/17/23 Interval history: Seen and examined on HD Physical Exam Vital Signs: Vital Signs: Last Vital Signs Temp 96.8 F 04/17/23 08:00 Pulse 78 04/17/23 08:00 Resp 17 04/17/23 08:00 BP 146/54 H 04/17/23 08:00 Pulse Ox 98 04/17/23 08:00 O2 Del Method Room Air 04/17/23 08:00 O2 Flow Rate 97 03/08/23 06:00 BMI result Body Mass Index 35.9 Const: Other: Constitutional : Awake, interactive, not in distress Eyes: normal vision. left eyelid edema, no tenderness or redness Cardiovascular : RRR, no lower extremity edema Respiratory : not in distress , chest wall moving bilaterally Gastrointestinal: soft, lax, Normal bowel sounds, Non tender Skin : Warm, Dry, fistula clean Neurological : Alert & oriented x3, No focal deficit General: comfortable and no acute distress Orientation/consciousness: patient oriented x3 HEENT: Head: Yes normocephalic and Yes atraumatic Eyes: EOM: EOMs intact bilaterally Neck: Neck: Yes supple Resp: Auscultation: clear to auscultation bilaterally and diminished lung sounds Cardio: Rate: regular rate Heart sounds: S1 normal heart sound present and S2 normal heart sound present GI: Palpation (GI): Soft to palpation and nontender Neuro: General: patient oriented x3 and moves all extremities Extrem: General: Yes normal to inspection Objective Data Labs 04/12/23 05:46 04/12/23 05:46 Labs: Laboratory Results - last 24 hr 04/16/23 04/16/23 04/17/23 16:09 20:06 07:24 POC Glucose 262 H 137 H 145 H 04/17/23 14:34 POC Glucose 157 H Procedures Date of Service Date of Service: 04/17/23 Assessment & Plan Assessment and plan (1) ESRD needing dialysis: Status: Acute Plan ESRD: tts Anemia: cont epo MBD: cont renvela D/C planning Time Spent With Patient Time: Total time managing care of this patient today ____ minutes. Progress Note: Quality Stroke Does the patient have a stroke diagnosis?: No
[2023-04-17 15:20] VITALS: BP 127/58; PULSE 77; RESP 18; TEMP 36; O2SAT 100
[2023-04-17 16:08] LABS: Glucose, Whole Blood 195 mg/dL (60-115)
[2023-04-17] MEDS: Insulin Lispro 100 UNIT/ML 3 ML VIAL SUBCUT ×2 (16:41→20:49)
[2023-04-17 19:28] VITALS: BP 140/61; PULSE 83; RESP 18; TEMP 36.1; O2SAT 99
[2023-04-17 20:43] LABS: Glucose, Whole Blood 222 mg/dL (60-115)
[2023-04-17] MEDS: Heparin Sodium,Porcine 5,000 UNIT/ML VIAL 5000 UNIT SUBCUT (20:49)
[2023-04-18 03:26] VITALS: BP 144/65; PULSE 83; RESP 16; TEMP 36; O2SAT 98
[2023-04-18 07:25] VITALS: BP 132/58; PULSE 79; RESP 18; TEMP 36.8; O2SAT 99
[2023-04-18] MEDS: hydrALAZINE HCl 25 MG TABLET 75 MG PO ×3 (07:46→21:16)
[2023-04-18] MEDS: Sevelamer Carbonate Tablet 800 MG TABLET PO ×3 (07:46→16:30)
[2023-04-18] MEDS: amLODIPine Besylate 10 MG TABLET PO (07:47)
[2023-04-18] MEDS: Metoprolol Tartrate 25 MG TABLET PO ×2 (07:47→21:16)
[2023-04-18] MEDS: Multivitamin TABLET 1 TAB PO (07:47)
[2023-04-18] MEDS: Heparin Sodium,Porcine 5,000 UNIT/ML VIAL 5000 UNIT SUBCUT ×2 (07:47→21:23)
[2023-04-18 11:07] LABS: Glucose, Whole Blood 127 mg/dL (60-115)
--- NOTE | 2023-04-18 11:22 | HO.PM.IMPN ---
Subjective Subjective Date of Service: 04/18/23 Interval History: Seen and evaluated Feels well No complaints Review of Systems Review of Systems: Yes all other systems are reviewed and are negative Physical Exam Vital Signs: Vital Signs: Last Vital Signs Temp 98.2 F 04/18/23 07:25 Pulse 79 04/18/23 07:25 Resp 18 04/18/23 07:25 BP 132/58 L 04/18/23 07:25 Pulse Ox 99 04/18/23 07:25 O2 Del Method Room Air 04/18/23 07:25 O2 Flow Rate 97 03/08/23 06:00 BMI result Body Mass Index 35.9 Const: Other: Constitutional : Awake, interactive, not in distress Eyes: normal vision. left eyelid edema, no tenderness or redness Respiratory : not in distress , chest wall moving bilaterally Skin : Warm, Dry, fistula clean Neurological : Alert & oriented x3, No focal deficit Objective Data Active Medications Acetaminophen (Acetaminophen 325 Mg Tablet) 650 mg PO QID PRN PRN Reason: Pain, Mild (Pain Scale 1-3) Last Admin: 04/16/23 20:50 Dose: 650 mg Documented By: SERGIO Albuterol Sulfate (Albuterol Sulfate 90 Mcg 8 Gm Inhaler) 1 puff INHALE QID PRN PRN Reason: Shortness Of Breath Amlodipine Besylate (Amlodipine Besylate 10 Mg Tablet) 10 mg PO DAILY [facility]; Protocol Last Admin: 04/18/23 07:47 Dose: 10 mg Documented By: ALMA ROSA Artificial Tears (Artificial Tears 15 Ml Drops) 2 drop EYE-LEFT Q4H PRN PRN Reason: Dry Eyes Last Admin: 03/29/23 21:21 Dose: 2 drop Documented By: FERMÍN Dextrose (Dextrose 50 % 25 Gm/50 Ml Syringe) 25 gm IVPUSH Q15M PRN; Protocol PRN Reason: per Hypoglycemia Standing Ord. Glucose (Glucose Gel 15 Gm Gel..Gram.) 15 gm PO Q15M PRN; Protocol PRN Reason: per Hypoglycemia Standing Ord. Last Admin: 03/11/23 07:42 Dose: 15 gm Documented By: RITA Heparin Sodium (Porcine) (Heparin Sodium,Porcine 5,000 Unit/Ml Vial) 5,000 unit SUBCUT Q12H [facility] Last Admin: 04/18/23 07:47 Dose: 5,000 unit Documented By: ALMA ROSA Hydralazine HCl (Hydralazine Hcl 25 Mg Tablet) 75 mg PO TID [facility]; Protocol Last Admin: 04/18/23 07:46 Dose: 75 mg Documented By: ALMA ROSA Insulin Human Lispro (Insulin Lispro 100 Unit/Ml 3 Ml Vial) 0 unit SUBCUT QIDACHS [facility]; Protocol Last Admin: 04/18/23 07:27 Dose: Not Given Documented By: ALMA ROSA Non-Admin Reason: No Insulin Coverage Metoprolol Tartrate (Metoprolol Tartrate 25 Mg Tablet) 25 mg PO BID [facility] [place]; Protocol Last Admin: 04/18/23 07:47 Dose: 25 mg Documented By: ALMA ROSA Multivitamins/Vitamin C (Multivitamin Tablet) 1 tab PO DAILY [facility] [place] Last Admin: 04/18/23 07:47 Dose: 1 tab Documented By: ALMA ROSA Ondansetron HCl (Ondansetron Hcl 4 Mg/2 Ml Vial) 4 mg IVPUSH Q8H PRN PRN Reason: Nausea and Vomiting Last Admin: 03/12/23 12:12 Dose: 4 mg Documented By: MADDY Ondansetron HCl (Ondansetron Odt 4 Mg Tab.Rapdis) 4 mg TRANSLINGU Q6H PRN PRN Reason: Nausea and Vomiting Last Admin: 03/30/23 19:45 Dose: 4 mg Documented By: VINCE Polyethylene Glycol (Polyethylene Glycol 3350 17 Gm Powd.Pack) 17 gm PO DAILY [facility] [place] Last Admin: 04/18/23 07:50 Dose: Not Given Documented By: ALMA ROSA Non-Admin Reason: Patient Refused Sevelamer Carbonate (Sevelamer Carbonate Tablet 800 Mg Tablet) 800 mg PO TIDWM [facility] Last Admin: 04/18/23 07:46 Dose: 800 mg Documented By: ALMA ROSA Sodium Chloride (0.9 % Sodium Chloride Flush 3 Ml Syringe) 3 ml IVFLUSH QSHIFT [facility] Last Admin: 04/18/23 06:31 Dose: Not Given Documented By: ALMA ROSA Non-Admin Reason: No Access Labs 04/12/23 05:46 04/12/23 05:46 Labs: Laboratory Results - last 24 hr 04/17/23 04/17/23 04/17/23 14:34 16:04 20:36 POC Glucose 157 H 195 H 222 H 04/18/23 07:23 POC Glucose 127 H Assessment and Plan (1) ESRD needing dialysis: Status: Acute (2) Physical deconditioning: Status: Acute Plan A 72 years old lady with PMH of ESRD on HD, asthma, HTN, DMII among others whi was brought to the hospital on 02/07 for confusion. ESRD on HD TTS Nephrology following Left Eyelid swelling No evidence of eye infection, close monitoring, discussed with Nephrology not related to renal disease, recommend outpatient opthalmology follow-up since patient has prior history of eye injections. DC Claritin , no improvement after 10 days warm compressors HTN continue MEtoprolol, amlodipine hydralazine to 75 mg for better control DM II w hypoglycemia event SSI, diabetic diet Lantus decreased to 5 units Physical deconditioning PT rec STR The patient needs inpatient stay overnight for the need of dialysis pending safe discharge plan Time Spent With Patient Time: Total time managing care of this patient today ____ minutes. Quality Stroke Does the patient have a stroke diagnosis?: No VTE Prior VTE?: No VTE Risk Level:: Medical - moderate - high VTE Device Contraindication: Treatment Not Indicated VTE Drug Contraindication: N/A - Med Ordered
[2023-04-18 11:31] LABS: Glucose, Whole Blood 187 mg/dL (60-115)
[2023-04-18] MEDS: Insulin Lispro 100 UNIT/ML 3 ML VIAL SUBCUT ×3 (11:39→21:16)
--- NOTE | 2023-04-18 14:04 | MHC.CM.PN ---
Addendum entered by Michelle Domingo 04/18/23 15:29: Patient's March Bank statement has been located. [facility] has been notified that the bank statement has been obtained and will bedelivered to the facility tomorrow.l Original Note: Spoke with Anny from [facility] [employer] office. She stated that the patients March bank statement is needed for admission. T/W alled pts sister Sita. She was notified that the March bank statement will be needed for admission. She will check mail daily and notify [facility] and [facility] once the document is received. The patient has also been updated on the discharge plan as well as barrier to discharge(bank statement). [facility] once financials have been approved. Patients sister Sita will provide transportation to [facility].
[2023-04-18 15:27] VITALS: BP 118/81; PULSE 82; RESP 17; TEMP 36.4; O2SAT 98
[2023-04-18 16:28] LABS: Glucose, Whole Blood 159 mg/dL (60-115)
[2023-04-18 20:00] VITALS: BP 146/63; PULSE 84; RESP 18; TEMP 36.2; O2SAT 98
[2023-04-18 20:52] LABS: Glucose, Whole Blood 224 mg/dL (60-115)
[2023-04-18] MEDS: Acetaminophen 325 MG TABLET 650 MG PO (21:25)
[2023-04-19 02:56] VITALS: BP 129/63; PULSE 80; RESP 16; TEMP 36.3; O2SAT 100
[2023-04-19 07:34] LABS: Glucose, Whole Blood 118 mg/dL (60-115)
[2023-04-19 07:44] VITALS: BP 153/68; PULSE 78; RESP 18; TEMP 36.1; O2SAT 98
[2023-04-19] MEDS: Metoprolol Tartrate 25 MG TABLET PO ×2 (07:52→20:24)
[2023-04-19] MEDS: amLODIPine Besylate 10 MG TABLET PO (07:52)
[2023-04-19] MEDS: Multivitamin TABLET 1 TAB PO (07:52)
[2023-04-19] MEDS: Sevelamer Carbonate Tablet 800 MG TABLET PO ×3 (07:52→16:27)
[2023-04-19] MEDS: hydrALAZINE HCl 25 MG TABLET 75 MG PO ×3 (07:53→20:24)
[2023-04-19 12:26] LABS: Glucose, Whole Blood 147 mg/dL (60-115)
--- NOTE | 2023-04-19 13:37 | MHC.CM.PN ---
Spoke with [facility]. She stated that she had not received the bank statement. I informed her that Sita delivered it. The front desk host accepted the document. She stated that she will try to review today. She stated that she will contact me possibly Sunday for an update. CM updated Sita, She stated that she will call [facility] with the news.
--- NOTE | 2023-04-19 13:49 | P.PNNP_ITS ---
Subjective Subjective Date of Service: 04/19/23 Interval history: Seen adn examined, evnts noted currently on HD Physical Exam 2 Vital Signs: Vital Signs: Last Vital Signs Temp 96.9 F 04/19/23 07:44 Pulse 78 04/19/23 07:44 Resp 18 04/19/23 07:44 BP 153/68 H 04/19/23 07:44 Pulse Ox 98 04/19/23 07:44 O2 Del Method Room Air 04/19/23 07:44 O2 Flow Rate 97 03/08/23 06:00 BMI result Body Mass Index 35.9 Const: Other: Constitutional : Awake, interactive, not in distress Eyes: normal vision. left eyelid edema, no tenderness or redness Cardiovascular : RRR, no lower extremity edema Respiratory : not in distress , chest wall moving bilaterally Gastrointestinal: soft, lax, Normal bowel sounds, Non tender Skin : Warm, Dry, fistula clean Neurological : Alert & oriented x3, No focal deficit General: comfortable and no acute distress Orientation/consciousness: p atient oriented x3 HEENT: Head: Yes normocephalic and Yes atraumatic Eyes: Other: left eye red, reduced vision, partially closed EOM: EOMs intact bilaterally Neck: Neck: Yes supple Resp: Auscultation: clear to auscultation bilaterally and diminished lung sounds Cardio: Rate: regular rate Heart sounds: S1 normal heart sound present and S2 normal heart sound present GI: Palpation (GI): Soft to palpation and nontender Neuro: General: patient oriented x3 and moves all extremities Extrem: General: Yes normal to inspection Objective Data Labs 04/12/23 05:46 04/12/23 05:46 Labs: Laboratory Results - last 24 hr 04/18/23 04/18/23 04/19/23 16:14 20:38 07:24 POC Glucose 159 H 224 H 118 H 04/19/23 12:23 POC Glucose 147 H Procedures Date of Service Date of Service: 04/19/23 Assessment & Plan Assessment and plan (1) ESRD needing dialysis: Status: Acute Plan ESRD: tts Anemia: cont epo MBD: cont renvela D/C planning Time Spent With Patient Time: Total time managing care of this patient today ____ minutes. Progress Note: Quality Stroke Does the patient have a stroke diagnosis?: No
--- NOTE | 2023-04-19 15:05 | P.PNIM_ITS ---
Subjective Subjective Date of Service: 04/19/23 Interval History: Seen and evaluated Feels well No complaints Having dialysis Review of Systems Review of Systems: Yes all other systems are reviewed and are negative Physical Exam 2 Vital Signs: Vital Signs: Last Vital Signs Temp 96.9 F 04/19/23 07:44 Pulse 78 04/19/23 07:44 Resp 18 04/19/23 07:44 BP 153/68 H 04/19/23 07:44 Pulse Ox 98 04/19/23 07:44 O2 Del Method Room Air 04/19/23 07:44 O2 Flow Rate 97 03/08/23 06:00 BMI result Body Mass Index 35.9 Const: Other: Constitutional : Awake, interactive, not in distress Eyes: normal vision. left eyelid edema, no tenderness or redness Respiratory : not in distress , chest wall moving bilaterally Skin : Warm, Dry, fistula clean Neurological : Alert & oriented x3, No focal deficit Objective Data Active Medications Acetaminophen (Acetaminophen 325 Mg Tablet) 650 mg PO QID PRN PRN Reason: Pain, Mild (Pain Scale 1-3) Last Admin: 04/18/23 21:25 Dose: 650 mg Documented By: RODRIGUEZ Albuterol Sulfate (Albuterol Sulfate 90 Mcg 8 Gm Inhaler) 1 puff INHALE QID PRN PRN Reason: Shortness Of Breath Amlodipine Besylate (Amlodipine Besylate 10 Mg Tablet) 10 mg PO DAILY [facility]; Protocol Last Admin: 04/19/23 07:52 Dose: 10 mg Documented By: ALMA ROSA Artificial Tears (Artificial Tears 15 Ml Drops) 2 drop EYE-LEFT Q4H PRN PRN Reason: Dry Eyes Last Admin: 03/29/23 21:21 Dose: 2 drop Documented By: FERMÍN Dextrose (Dextrose 50 % 25 Gm/50 Ml Syringe) 25 gm IVPUSH Q15M PRN; Protocol PRN Reason: per Hypoglycemia Standing Ord. Glucose (Glucose Gel 15 Gm Gel..Gram.) 15 gm PO Q15M PRN; Protocol PRN Reason: per Hypoglycemia Standing Ord. Last Admin: 03/11/23 07:42 Dose: 15 gm Documented By: RITA Heparin Sodium (Porcine) (Heparin Sodium,Porcine 5,000 Unit/Ml Vial) 5,000 unit SUBCUT Q12H [facility] Last Admin: 04/19/23 07:53 Dose: Not Given Documented By: ALMA ROSA Non-Admin Reason: dialysis Hydralazine HCl (Hydralazine Hcl 25 Mg Tablet) 75 mg PO TID [facility]; Protocol Last Admin: 04/19/23 07:53 Dose: 75 mg Documented By: ALMA ROSA Insulin Human Lispro (Insulin Lispro 100 Unit/Ml 3 Ml Vial) 0 unit SUBCUT QIDACHS [facility]; Protocol Last Admin: 04/19/23 12:25 Dose: Not Given Documented By: ALMA ROSA Non-Admin Reason: No Insulin Coverage Metoprolol Tartrate (Metoprolol Tartrate 25 Mg Tablet) 25 mg PO BID [facility]; Protocol Last Admin: 04/19/23 07:52 Dose: 25 mg Documented By: ALMA ROSA Multivitamins/Vitamin C (Multivitamin Tablet) 1 tab PO DAILY [facility] Last Admin: 04/19/23 07:52 Dose: 1 tab Documented By: ALMA ROSA Ondansetron HCl (Ondansetron Hcl 4 Mg/2 Ml Vial) 4 mg IVPUSH Q8H PRN PRN Reason: Nausea and Vomiting Last Admin: 03/12/23 12:12 Dose: 4 mg Documented By: MADDY Ondansetron HCl (Ondansetron Odt 4 Mg Tab.Rapdis) 4 mg TRANSLINGU Q6H PRN PRN Reason: Nausea and Vomiting Last Admin: 03/30/23 19:45 Dose: 4 mg Documented By: VINCE Polyethylene Glycol (Polyethylene Glycol 3350 17 Gm Powd.Pack) 17 gm PO DAILY [facility] Last Admin: 04/19/23 07:49 Dose: Not Given Documented By: ALMA ROSA Non-Admin Reason: Patient Refused Sevelamer Carbonate (Sevelamer Carbonate Tablet 800 Mg Tablet) 800 mg PO TIDWM [facility] Last Admin: 04/19/23 12:30 Dose: 800 mg Documented By: ALMA ROSA Sodium Chloride (0.9 % Sodium Chloride Flush 3 Ml Syringe) 3 ml IVFLUSH QSHIFT [facility] Last Admin: 04/19/23 07:53 Dose: Not Given Documented By: ALMA ROSA Non-Admin Reason: No Access Labs 04/12/23 05:46 04/12/23 05:46 Labs: Laboratory Results - last 24 hr 04/18/23 04/18/23 04/19/23 16:14 20:38 07:24 POC Glucose 159 H 224 H 118 H 04/19/23 12:23 POC Glucose 147 H Assessment and Plan (1) ESRD needing dialysis: Status: Acute (2) Physical deconditioning: Status: Acute Plan A 72 years old lady with PMH of ESRD on HD, asthma, HTN, DMII among others whi was brought to the hospital on 02/07 for confusion. ESRD on HD TTS Nephrology following Left Eyelid swelling No evidence of eye infection, close monitoring, discussed with Nephrology not related to renal disease, recommend outpatient opthalmology follow-up since patient has prior history of eye injections. DC Claritin , no improvement after 10 days warm compressors HTN continue MEtoprolol, amlodipine hydralazine to 75 mg for better control DM II w hypoglycemia event SSI, diabetic diet Lantus decreased to 5 units Physical deconditioning PT rec STR The patient needs inpatient stay overnight for the need of dialysis pending safe discharge plan Time Spent With Patient Time: Total time managing care of this patient today ____ minutes. Quality Stroke Does the patient have a stroke diagnosis?: No VTE Prior VTE?: No VTE Risk Level:: Medical - moderate - high VTE Device Contraindication: Treatment Not Indicated VTE Drug Contraindication: N/A - Med Ordered
[2023-04-19 15:25] VITALS: BP 145/63; PULSE 76; RESP 18; TEMP 36.4; O2SAT 99
[2023-04-19 16:27] LABS: Glucose, Whole Blood 178 mg/dL (60-115)
[2023-04-19] MEDS: Insulin Lispro 100 UNIT/ML 3 ML VIAL SUBCUT (16:27)
[2023-04-19 19:24] VITALS: BP 145/61; PULSE 78; RESP 18; TEMP 36; O2SAT 98
[2023-04-19 19:54] LABS: Glucose, Whole Blood 126 mg/dL (60-115)
[2023-04-19] MEDS: Heparin Sodium,Porcine 5,000 UNIT/ML VIAL 5000 UNIT SUBCUT (20:24)
[2023-04-20 03:40] VITALS: BP 110/50; PULSE 77; RESP 18; TEMP 36.2; O2SAT 99
[2023-04-20 07:37] VITALS: BP 142/66; PULSE 78; RESP 16; TEMP 36.1; O2SAT 97
[2023-04-20 07:58] LABS: Glucose, Whole Blood 148 mg/dL (60-115)
[2023-04-20] MEDS: Sevelamer Carbonate Tablet 800 MG TABLET PO ×3 (08:26→17:44)
[2023-04-20] MEDS: Heparin Sodium,Porcine 5,000 UNIT/ML VIAL 5000 UNIT SUBCUT ×2 (08:26→20:28)
[2023-04-20] MEDS: polyethylene glycoL 3350 17 GM POWD.PACK PO (08:26)
[2023-04-20] MEDS: hydrALAZINE HCl 25 MG TABLET 75 MG PO ×3 (08:26→20:27)
[2023-04-20] MEDS: amLODIPine Besylate 10 MG TABLET PO (08:27)
[2023-04-20] MEDS: Multivitamin TABLET 1 TAB PO (08:27)
[2023-04-20] MEDS: Metoprolol Tartrate 25 MG TABLET PO ×2 (08:27→20:28)
[2023-04-20 12:01] LABS: Glucose, Whole Blood 169 mg/dL (60-115)
[2023-04-20] MEDS: Insulin Lispro 100 UNIT/ML 3 ML VIAL SUBCUT ×2 (12:08→17:43)
--- NOTE | 2023-04-20 13:36 | HO.PM.IMPN ---
Subjective Subjective Date of Service: 04/20/23 Interval History: Seen and evaluated Feels well No complaints Review of Systems Review of Systems: Yes all other systems are reviewed and are negative Physical Exam Vital Signs: Vital Signs: Last Vital Signs Temp 96.9 F 04/20/23 07:37 Pulse 78 04/20/23 07:37 Resp 16 04/20/23 07:37 BP 142/66 H 04/20/23 07:37 Pulse Ox 97 04/20/23 07:37 O2 Del Method Room Air 04/20/23 07:37 O2 Flow Rate 97 03/08/23 06:00 BMI result Body Mass Index 35.9 Const: Other: Constitutional : Awake, interactive, not in distress Eyes: normal vision. left eyelid edema, no tenderness or redness Respiratory : not in distress , chest wall moving bilaterally Skin : Warm, Dry, fistula clean Neurological : Alert & oriented x3, No focal deficit Objective Data Active Medications Acetaminophen (Acetaminophen 325 Mg Tablet) 650 mg PO QID PRN PRN Reason: Pain, Mild (Pain Scale 1-3) Last Admin: 04/18/23 21:25 Dose: 650 mg Documented By: RODRIGUEZ Albuterol Sulfate (Albuterol Sulfate 90 Mcg 8 Gm Inhaler) 1 puff INHALE QID PRN PRN Reason: Shortness Of Breath Amlodipine Besylate (Amlodipine Besylate 10 Mg Tablet) 10 mg PO DAILY [facility]; Protocol Last Admin: 04/20/23 08:27 Dose: 10 mg Documented By: PATRICIA Artificial Tears (Artificial Tears 15 Ml Drops) 2 drop EYE-LEFT Q4H PRN PRN Reason: Dry Eyes Last Admin: 03/29/23 21:21 Dose: 2 drop Documented By: FERMÍN Dextrose (Dextrose 50 % 25 Gm/50 Ml Syringe) 25 gm IVPUSH Q15M PRN; Protocol PRN Reason: per Hypoglycemia Standing Ord. Glucose (Glucose Gel 15 Gm Gel..Gram.) 15 gm PO Q15M PRN; Protocol PRN Reason: per Hypoglycemia Standing Ord. Last Admin: 03/11/23 07:42 Dose: 15 gm Documented By: RITA Heparin Sodium (Porcine) (Heparin Sodium,Porcine 5,000 Unit/Ml Vial) 5,000 unit SUBCUT Q12H [facility] Last Admin: 04/20/23 08:26 Dose: 5,000 unit Documented By: PATRICIA Hydralazine HCl (Hydralazine Hcl 25 Mg Tablet) 75 mg PO TID [facility]; Protocol Last Admin: 04/20/23 08:26 Dose: 75 mg Documented By: PATRICIA Insulin Human Lispro (Insulin Lispro 100 Unit/Ml 3 Ml Vial) 0 unit SUBCUT QIDACHS [facility]; Protocol Last Admin: 04/20/23 12:08 Dose: 2 unit Documented By: PATRICIA Metoprolol Tartrate (Metoprolol Tartrate 25 Mg Tablet) 25 mg PO BID [facility]; Protocol Last Admin: 04/20/23 08:27 Dose: 25 mg Documented By: PATRICIA Multivitamins/Vitamin C (Multivitamin Tablet) 1 tab PO DAILY [facility] Last Admin: 04/20/23 08:27 Dose: 1 tab Documented By: PATRICIA Ondansetron HCl (Ondansetron Hcl 4 Mg/2 Ml Vial) 4 mg IVPUSH Q8H PRN PRN Reason: Nausea and Vomiting Last Admin: 03/12/23 12:12 Dose: 4 mg Documented By: MADDY Ondansetron HCl (Ondansetron Odt 4 Mg Tab.Rapdis) 4 mg TRANSLINGU Q6H PRN PRN Reason: Nausea and Vomiting Last Admin: 03/30/23 19:45 Dose: 4 mg Documented By: VINCE Polyethylene Glycol (Polyethylene Glycol 3350 17 Gm Powd.Pack) 17 gm PO DAILY [facility] Last Admin: 04/20/23 08:26 Dose: 17 gm Documented By: PATRICIA Sevelamer Carbonate (Sevelamer Carbonate Tablet 800 Mg Tablet) 800 mg PO TIDWM [facility] Last Admin: 04/20/23 12:07 Dose: 800 mg Documented By: PATRICIA Sodium Chloride (0.9 % Sodium Chloride Flush 3 Ml Syringe) [facility] Last Admin: 04/20/23 08:27 Dose: Not Given Documented By: PATRICIA Non-Admin Reason: No Access Labs 04/12/23 05:46 04/12/23 05:46 Labs: Laboratory Results - last 24 hr 04/19/23 04/19/23 04/20/23 16:18 19:37 07:27 POC Glucose 178 H 126 H 148 H 04/20/23 11:45 POC Glucose 169 H Assessment and Plan (1) ESRD needing dialysis: Status: Acute (2) Physical deconditioning: Status: Acute Plan A 72 years old lady with PMH of ESRD on HD, asthma, HTN, DMII among others whi was brought to the hospital on 02/07 for confusion. ESRD on HD TTS Nephrology following Left Eyelid swelling No evidence of eye infection, close monitoring, discussed with Nephrology not related to renal disease, recommend outpatient opthalmology follow-up since patient has prior history of eye injections. warm compressors prn HTN continue MEtoprolol, amlodipine hydralazine to 75 mg for better control DM II w hypoglycemia event SSI, diabetic diet Lantus decreased to 5 units Physical deconditioning PT rec STR The patient needs inpatient stay overnight for the need of dialysis pending safe discharge plan Time Spent With Patient Time: Total time managing care of this patient today ____ minutes. Quality Stroke Does the patient have a stroke diagnosis?: No VTE Prior VTE?: No VTE Risk Level:: Medical - moderate - high VTE Device Contraindication: Treatment Not Indicated VTE Drug Contraindication: N/A - Med Ordered
--- NOTE | 2023-04-20 14:20 | P.PNNP_ITS ---
Subjective Subjective Date of Service: 04/20/23 Interval history: dialyzed yesterday Physical Exam 2 Vital Signs: Vital Signs: Last Vital Signs Temp 96.9 F 04/20/23 07:37 Pulse 78 04/20/23 07:37 Resp 16 04/20/23 07:37 BP 142/66 H 04/20/23 07:37 Pulse Ox 97 04/20/23 07:37 O2 Del Method Room Air 04/20/23 07:37 O2 Flow Rate 97 03/08/23 06:00 BMI result Body Mass Index 35.9 Const: Other: Constitutional : Awake, interactive, not in distress Eyes: normal vision. left eyelid edema, no tenderness or redness Cardiovascular : RRR, no lower extremity edema Respiratory : not in distress , chest wall moving bilaterally Gastrointestinal: soft, lax, Normal bowel sounds, Non tender Skin : Warm, Dry, fistula clean Neurological : Alert & oriented x3, No focal deficit Objective Data Labs 04/12/23 05:46 04/12/23 05:46 Labs: Laboratory Results - last 24 hr 04/19/23 04/19/23 04/20/23 16:18 19:37 07:27 POC Glucose 178 H 126 H 148 H 04/20/23 11:45 POC Glucose 169 H Procedures Date of Service Date of Service: 04/20/23 Assessment & Plan Assessment and plan (1) ESRD needing dialysis: Status: Acute Plan ESRD on TTS schedule Anemic now on EPO dosed 04/20/23 Will add iron panel to dose IV Venofer c/w Sevalmer c/w Amlodipine / COreg / Hydralazine Time Spent With Patient Time: Total time managing care of this patient today ____ minutes. Progress Note: Quality Stroke Does the patient have a stroke diagnosis?: No
--- NOTE | 2023-04-20 15:22 | MHC.CM.PN ---
A call was received from [facility]. She stated that the patient is financially accepted to the facility. She has an appointment for admission at 10am Sunday04/23/23. has been notified. He stated that the patient will be ready at 9:30am Sunday for transfer. All discharge paperwork will be ready. CM will continue to follow.
[2023-04-20 15:32] VITALS: BP 116/55; PULSE 76; RESP 18; TEMP 36.6; O2SAT 99
[2023-04-20 16:18] LABS: Iron 61 mcg/dL (30-160); Percent Iron Saturation 32 % (15-50); Total Iron Binding Capacity 191 mcg/dL (228-428); Unsaturated Iron Binding 130 ug/dL
[2023-04-20 16:19] LABS: Glucose, Whole Blood 204 mg/dL (60-115)
[2023-04-20 19:38] VITALS: BP 131/59; PULSE 82; RESP 20; TEMP 36; O2SAT 100
[2023-04-20 20:27] LABS: Glucose, Whole Blood 120 mg/dL (60-115)
[2023-04-20] MEDS: Acetaminophen 325 MG TABLET 650 MG PO (20:27)
[2023-04-21] MEDS: Ondansetron ODT 4 MG TAB.RAPDIS TRANSLINGU (03:37)
[2023-04-21 04:00] VITALS: BP 155/66; PULSE 75; RESP 16; TEMP 36; O2SAT 99
[2023-04-21 07:44] LABS: Glucose, Whole Blood 130 mg/dL (60-115)
[2023-04-21] MEDS: Multivitamin TABLET 1 TAB PO (09:31)
[2023-04-21] MEDS: amLODIPine Besylate 10 MG TABLET PO (09:32)
[2023-04-21] MEDS: hydrALAZINE HCl 25 MG TABLET 75 MG PO ×3 (09:32→20:23)
[2023-04-21 09:33] LABS: Glucose, Whole Blood 127 mg/dL (60-115)
[2023-04-21] MEDS: Metoprolol Tartrate 25 MG TABLET PO ×2 (09:33→20:23)
[2023-04-21] MEDS: Heparin Sodium,Porcine 5,000 UNIT/ML VIAL 5000 UNIT SUBCUT ×2 (09:33→21:33)
[2023-04-21] MEDS: Sevelamer Carbonate Tablet 800 MG TABLET PO ×3 (09:34→17:15)
--- NOTE | 2023-04-21 12:10 | P.PNNP_ITS ---
Subjective Subjective Date of Service: 04/21/23 Interval history: HD today tolerated well. Physical Exam 2 Vital Signs: Vital Signs: Last Vital Signs Temp 96.8 F 04/21/23 04:00 Pulse 75 04/21/23 04:00 Resp 16 04/21/23 04:00 BP 155/66 H 04/21/23 04:00 Pulse Ox 99 04/21/23 04:00 O2 Del Method Room Air 04/21/23 04:00 O2 Flow Rate 97 03/08/23 06:00 BMI result Body Mass Index 35.9 Const: Other: Constitutional : Awake, interactive, not in distress Eyes: normal vision. left eyelid edema, no tenderness or redness Cardiovascular : RRR, no lower extremity edema Respiratory : not in distress , chest wall moving bilaterally Gastrointestinal: soft, lax, Normal bowel sounds, Non tender Skin : Warm, Dry, fistula clean Neurological : Alert & oriented x3, No focal deficit Objective Data Labs 04/12/23 05:46 04/12/23 05:46 Labs: Laboratory Results - last 24 hr 04/20/23 04/20/23 04/20/23 15:44 16:01 20:22 POC Glucose 204 H 120 H Iron 61 TIBC 191 L % Saturation 32 Unsat Iron Binding 130 04/21/23 04/21/23 07:38 09:27 POC Glucose 130 H 127 H Iron TIBC % Saturation Unsat Iron Binding Procedures Date of Service Date of Service: 04/21/23 Assessment & Plan Assessment and plan (1) ESRD needing dialysis: Status: Acute Plan ESRD on TTS schedule EPO dosed 04/20/23 Tsat 32% does not need IV Venofer c/w Sevalmer c/w Amlodipine / COreg / Hydralazine Time Spent With Patient Time: Total time managing care of this patient today ____ minutes. Progress Note: Quality Stroke Does the patient have a stroke diagnosis?: No
--- NOTE | 2023-04-21 12:50 | P.PNIM_ITS ---
Subjective Subjective Date of Service: 04/21/23 Interval History: Seen and evaluated Feels well Having dialysis No complaints Review of Systems Review of Systems: Yes all other systems are reviewed and are negative Physical Exam 2 Vital Signs: Vital Signs: Last Vital Signs Temp 96.8 F 04/21/23 04:00 Pulse 75 04/21/23 04:00 Resp 16 04/21/23 04:00 BP 155/66 H 04/21/23 04:00 Pulse Ox 99 04/21/23 04:00 O2 Del Method Room Air 04/21/23 04:00 O2 Flow Rate 97 03/08/23 06:00 BMI result Body Mass Index 35.9 Const: Other: Constitutional : Awake, interactive, not in distress Eyes: normal vision. left eyelid edema, no tenderness or redness Respiratory : not in distress , chest wall moving bilaterally Skin : Warm, Dry, fistula clean Neurological : Alert & oriented x3, No focal deficit Objective Data Active Medications Acetaminophen (Acetaminophen 325 Mg Tablet) 650 mg PO QID PRN PRN Reason: Pain, Mild (Pain Scale 1-3) Last Admin: 04/20/23 20:27 Dose: 650 mg Documented By: SERGIO Albuterol Sulfate (Albuterol Sulfate 90 Mcg 8 Gm Inhaler) 1 puff INHALE QID PRN PRN Reason: Shortness Of Breath Amlodipine Besylate (Amlodipine Besylate 10 Mg Tablet) 10 mg PO DAILY [facility]; Protocol Last Admin: 04/21/23 09:32 Dose: 10 mg Documented By: DORETHA Artificial Tears (Artificial Tears 15 Ml Drops) 2 drop EYE-LEFT Q4H PRN PRN Reason: Dry Eyes Last Admin: 03/29/23 21:21 Dose: 2 drop Documented By: FERMÍN Dextrose (Dextrose 50 % 25 Gm/50 Ml Syringe) 25 gm IVPUSH Q15M PRN; Protocol PRN Reason: per Hypoglycemia Standing Ord. Glucose (Glucose Gel 15 Gm Gel..Gram.) 15 gm PO Q15M PRN; Protocol PRN Reason: per Hypoglycemia Standing Ord. Last Admin: 03/11/23 07:42 Dose: 15 gm Documented By: RITA Heparin Sodium (Porcine) (Heparin Sodium,Porcine 5,000 Unit/Ml Vial) 5,000 unit SUBCUT Q12H [facility] Last Admin: 04/21/23 09:33 Dose: 5,000 unit Documented By: DORETHA Hydralazine HCl (Hydralazine Hcl 25 Mg Tablet) 75 mg PO TID [facility]; Protocol Last Admin: 04/21/23 09:32 Dose: 75 mg Documented By: DORETHA Insulin Human Lispro (Insulin Lispro 100 Unit/Ml 3 Ml Vial) 0 unit SUBCUT QIDACHS [facility]; Protocol Last Admin: 04/21/23 08:02 Dose: Not Given Documented By: DORETHA Non-Admin Reason: No Insulin Coverage Metoprolol Tartrate (Metoprolol Tartrate 25 Mg Tablet) 25 mg PO BID [facility]; Protocol Last Admin: 04/21/23 09:33 Dose: 25 mg Documented By: DORETHA Multivitamins/Vitamin C (Multivitamin Tablet) 1 tab PO DAILY [facility] Last Admin: 04/21/23 09:31 Dose: 1 tab Documented By: DORETHA Ondansetron HCl (Ondansetron Hcl 4 Mg/2 Ml Vial) 4 mg IVPUSH Q8H PRN PRN Reason: Nausea and Vomiting Last Admin: 03/12/23 12:12 Dose: 4 mg Documented By: MADDY Ondansetron HCl (Ondansetron Odt 4 Mg Tab.Rapdis) 4 mg TRANSLINGU Q6H PRN PRN Reason: Nausea and Vomiting Last Admin: 04/21/23 03:37 Dose: 4 mg Documented By: SERGIO Polyethylene Glycol (Polyethylene Glycol 3350 17 Gm Powd.Pack) 17 gm PO DAILY [facility] Last Admin: 04/21/23 09:33 Dose: Not Given Documented By: DORETHA Non-Admin Reason: Patient Refused Sevelamer Carbonate (Sevelamer Carbonate Tablet 800 Mg Tablet) 800 mg PO TIDWM [facility] Last Admin: 04/21/23 09:34 Dose: 800 mg Documented By: DORETHA Sodium Chloride (0.9 % Sodium Chloride Flush 3 Ml Syringe) 3 ml IVFLUSH QSHIFT [facility] Last Admin: 04/21/23 08:06 Dose: Not Given Documented By: DORETHA Non-Admin Reason: No Access Labs 04/12/23 05:46 04/12/23 05:46 Labs: Laboratory Results - last 24 hr 09/04/0404/20/23 04/20/23 15:44 16:01 20:22 POC Glucose 204 H 120 H Iron 61 TIBC 191 L % Saturation 32 Unsat Iron Binding 130 04/21/23 04/21/23 07:38 09:27 POC Glucose 130 H 127 H Iron TIBC % Saturation Unsat Iron Binding Assessment and Plan (1) ESRD needing dialysis: Status: Acute (2) Physical deconditioning: Status: Acute Plan A 72 years old lady with PMH of ESRD on HD, asthma, HTN, DMII among others whi was brought to the hospital on 02/07 for confusion. ESRD on HD TTS Nephrology following Left Eyelid swelling No evidence of eye infection, close monitoring, discussed with Nephrology not related to renal disease, recommend outpatient opthalmology follow-up since patient has prior history of eye injections. 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 Quality Stroke Does the patient have a stroke diagnosis?: No VTE Prior VTE?: No VTE Risk Level:: Medical - moderate - high VTE Device Contraindication: Treatment Not Indicated VTE Drug Contraindication: N/A - Med Ordered
[2023-04-21 13:04] LABS: Glucose, Whole Blood 187 mg/dL (60-115)
[2023-04-21] MEDS: Insulin Lispro 100 UNIT/ML 3 ML VIAL SUBCUT ×2 (13:10→20:33)
[2023-04-21 15:19] VITALS: BP 101/49; PULSE 80; RESP 16; TEMP 36.1; O2SAT 98
[2023-04-21 16:18] LABS: Glucose, Whole Blood 104 mg/dL (60-115)
[2023-04-21 19:46] VITALS: BP 132/62; PULSE 82; RESP 18; TEMP 36.2; O2SAT 99
[2023-04-21 20:23] LABS: Glucose, Whole Blood 171 mg/dL (60-115)
[2023-04-21] MEDS: Acetaminophen 325 MG TABLET 650 MG PO (20:23)
[2023-04-22 04:00] VITALS: BP 152/68; PULSE 74; RESP 18; TEMP 36.4; O2SAT 99
[2023-04-22 06:56] VITALS: BP 140/63; PULSE 76; RESP 16; TEMP 36.1; O2SAT 100
[2023-04-22 07:14] LABS: Glucose, Whole Blood 133 mg/dL (60-115)
[2023-04-22] MEDS: hydrALAZINE HCl 25 MG TABLET 75 MG PO ×3 (08:38→20:15)
[2023-04-22] MEDS: Sevelamer Carbonate Tablet 800 MG TABLET PO ×3 (08:39→18:25)
[2023-04-22] MEDS: amLODIPine Besylate 10 MG TABLET PO (08:39)
[2023-04-22] MEDS: Metoprolol Tartrate 25 MG TABLET PO ×2 (08:39→20:15)
[2023-04-22] MEDS: polyethylene glycoL 3350 17 GM POWD.PACK PO (08:39)
[2023-04-22] MEDS: Heparin Sodium,Porcine 5,000 UNIT/ML VIAL 5000 UNIT SUBCUT ×2 (08:39→20:15)
[2023-04-22] MEDS: Multivitamin TABLET 1 TAB PO (08:39)
[2023-04-22] MEDS: Acetaminophen 325 MG TABLET 650 MG PO (08:42)
[2023-04-22 11:17] LABS: Glucose, Whole Blood 141 mg/dL (60-115)
--- NOTE | 2023-04-22 13:31 | P.PNNP_ITS ---
Subjective Subjective Date of Service: 04/22/23 Interval history: no issues Physical Exam 2 Vital Signs: Vital Signs: Last Vital Signs Temp 97 F 04/22/23 06:56 Pulse 76 04/22/23 06:56 Resp 16 04/22/23 06:56 BP 140/63 H 04/22/23 06:56 Pulse Ox 100 04/22/23 06:56 O2 Del Method Room Air 04/22/23 06:56 O2 Flow Rate 97 03/08/23 06:00 BMI result Body Mass Index 35.9 Const: Other: Constitutional : Awake, interactive, not in distress Eyes: normal vision. left eyelid edema, no tenderness or redness Cardiovascular : RRR, no lower extremity edema Respiratory : not in distress , chest wall moving bilaterally Gastrointestinal: soft, lax, Normal bowel sounds, Non tender Skin : Warm, Dry, fistula clean Neurological : Alert & oriented x3, No focal deficit Objective Data Labs 04/12/23 05:46 04/12/23 05:46 Labs: Laboratory Results - last 24 hr 04/21/23 04/21/23 04/22/23 16:09 20:11 07:10 POC Glucose 104 171 H 133 H 04/22/23 11:14 POC Glucose 141 H Procedures Date of Service Date of Service: 04/22/23 Assessment & Plan Assessment and plan (1) ESRD needing dialysis: Status: Acute Plan ESRD on TTS schedule EPO dosed 04/20/23 Tsat 32% does not need IV Venofer c/w Sevalmer c/w Amlodipine / COreg / Hydralazine Time Spent With Patient Time: Total time managing care of this patient today ____ minutes. Progress Note: Quality Stroke Does the patient have a stroke diagnosis?: No
--- NOTE | 2023-04-22 14:45 | P.PNIM_ITS ---
Subjective Subjective Date of Service: 04/22/23 Interval History: Seen and evaluated Feels well No complaints Physical Exam 2 Vital Signs: Vital Signs: Last Vital Signs Temp 97 F 04/22/23 06:56 Pulse 76 04/22/23 06:56 Resp 16 04/22/23 06:56 BP 140/63 H 04/22/23 06:56 Pulse Ox 100 04/22/23 06:56 O2 Del Method Room Air 04/22/23 06:56 O2 Flow Rate 97 03/08/23 06:00 BMI result Body Mass Index 35.9 Const: Other: Constitutional : Awake, interactive, not in distress Eyes: normal vision. left eyelid edema, no tenderness or redness Respiratory : not in distress , chest wall moving bilaterally Skin : Warm, Dry, fistula clean Neurological : Alert & oriented x3, No focal deficit Objective Data Active Medications Acetaminophen (Acetaminophen 325 Mg Tablet) 650 mg PO QID PRN PRN Reason: Pain, Mild (Pain Scale 1-3) Last Admin: 04/22/23 08:42 Dose: 650 mg Documented By: DORETHA Albuterol Sulfate (Albuterol Sulfate 90 Mcg 8 Gm Inhaler) 1 puff INHALE QID PRN PRN Reason: Shortness Of Breath Amlodipine Besylate (Amlodipine Besylate 10 Mg Tablet) 10 mg PO DAILY FORMERLY [facility], [facility]1983; Protocol Last Admin: 04/22/23 08:39 Dose: 10 mg Documented By: DORETHA Artificial Tears (Artificial Tears 15 Ml Drops) 2 drop EYE-LEFT Q4H PRN PRN Reason: Dry Eyes Last Admin: 03/29/23 21:21 Dose: 2 drop Documented By: FERMÍN Dextrose (Dextrose 50 % 25 Gm/50 Ml Syringe) 25 gm IVPUSH Q15M PRN; Protocol PRN Reason: per Hypoglycemia Standing Ord. Glucose (Glucose Gel 15 Gm Gel..Gram.) 15 gm PO Q15M PRN; Protocol PRN Reason: per Hypoglycemia Standing Ord. Last Admin: 03/11/23 07:42 Dose: 15 gm Documented By: RITA Heparin Sodium (Porcine) (Heparin Sodium,Porcine 5,000 Unit/Ml Vial) 5,000 unit SUBCUT Q12H FORMERLY [facility], 1928–1983 Last Admin: 04/22/23 08:39 Dose: 5,000 unit Documented By: DORETHA Hydralazine HCl (Hydralazine Hcl 25 Mg Tablet) 75 mg PO TID FORMERLY [facility], [facility]1983; Protocol Last Admin: 04/22/23 08:38 Dose: 75 mg Documented By: DORETHA Insulin Human Lispro (Insulin Lispro 100 Unit/Ml 3 Ml Vial) 0 unit SUBCUT QIDACHS FORMERLY [facility], 1928–1983; Protocol Last Admin: 04/22/23 11:47 Dose: Not Given Documented By: DORETHA Non-Admin Reason: No Insulin Coverage Metoprolol Tartrate (Metoprolol Tartrate 25 Mg Tablet) 25 mg PO BID FOR[facility]LY [facility], [facility]–1983; Protocol Last Admin: 04/22/23 08:39 Dose: 25 mg Documented By: DORETHA Multivitamins/Vitamin C (Multivitamin Tablet) 1 tab PO DAILY FOR[facility]LY [facility], [facility]1983 Last Admin: 04/22/23 08:39 Dose: 1 tab Documented By: DORETHA Ondansetron HCl (Ondansetron Hcl 4 Mg/2 Ml Vial) 4 mg IVPUSH Q8H PRN PRN Reason: Nausea and Vomiting Last Admin: 03/12/23 12:12 Dose: 4 mg Documented By: MADDY Ondansetron HCl (Ondansetron Odt 4 Mg Tab.Rapdis) 4 mg TRANSLINGU Q6H PRN PRN Reason: Nausea and Vomiting Last Admin: 04/21/23 03:37 Dose: 4 mg Documented By: SERGIO Polyethylene Glycol (Polyethylene Glycol 3350 17 Gm Powd.Pack) 17 gm PO DAILY FOR[facility]LY [facility], [facility]1983 Last Admin: 04/22/23 08:39 Dose: 17 gm Documented By: DORETHA Sevelamer Carbonate (Sevelamer Carbonate Tablet 800 Mg Tablet) 800 mg PO TIDWM FOR[facility]LY [facility], [facility]1983 Last Admin: 04/22/23 11:52 Dose: 800 mg Documented By: DORETHA Sodium Chloride (0.9 % Sodium Chloride Flush 3 Ml Syringe) 3 ml IVFLUSH QSHIFT FOR[facility], [facility]–1983 Last Admin: 04/22/23 07:58 Dose: Not Given Documented By: DORETHA Non-Admin Reason: No Access Labs 04/12/23 05:46 04/12/23 05:46 Labs: Laboratory Results - last 24 hr 04/21/23 04/21/23 04/22/23 16:09 20:11 07:10 POC Glucose 104 171 H 133 H 04/22/23 11:14 POC Glucose 141 H Assessment and Plan (1) ESRD needing dialysis: Status: Acute (2) Physical deconditioning: Status: Acute Plan A 72 years old lady with PMH of ESRD on HD, asthma, HTN, DMII among others whi was brought to the hospital on 02/07 for confusion. ESRD on HD TTS Nephrology following Left Eyelid swelling Looks better recommend outpatient opthalmology follow-up since patient has prior history of eye injections. 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 Quality Stroke Does the patient have a stroke diagnosis?: No VTE Prior VTE?: No VTE Risk Level:: Medical - moderate - high VTE Device Contraindication: Treatment Not Indicated VTE Drug Contraindication: N/A - Med Ordered
[2023-04-22 15:31] VITALS: BP 147/65; PULSE 74; RESP 16; TEMP 36.3; O2SAT 97
[2023-04-22 16:15] LABS: Glucose, Whole Blood 168 mg/dL (60-115)
[2023-04-22] MEDS: Insulin Lispro 100 UNIT/ML 3 ML VIAL SUBCUT (18:25)
[2023-04-22 19:37] VITALS: BP 125/60; PULSE 82; RESP 18; TEMP 36.3; O2SAT 100
[2023-04-22 20:34] LABS: Glucose, Whole Blood 123 mg/dL (60-115)
[2023-04-22 23:59] VITALS: BP 148/68; PULSE 86; RESP 18; TEMP 36.1; O2SAT 98
[2023-04-23 07:37] LABS: Glucose, Whole Blood 130 mg/dL (60-115)
[2023-04-23 07:49] VITALS: BP 178/71; PULSE 81; RESP 16; TEMP 36.7; O2SAT 100
[2023-04-23] MEDS: Sevelamer Carbonate Tablet 800 MG TABLET PO (09:02)
[2023-04-23] MEDS: hydrALAZINE HCl 25 MG TABLET 75 MG PO (09:02)
[2023-04-23] MEDS: Heparin Sodium,Porcine 5,000 UNIT/ML VIAL 5000 UNIT SUBCUT (09:02)
[2023-04-23] MEDS: Multivitamin TABLET 1 TAB PO (09:03)
[2023-04-23] MEDS: Metoprolol Tartrate 25 MG TABLET PO (09:03)
[2023-04-23] MEDS: amLODIPine Besylate 10 MG TABLET PO (09:07)
--- NOTE | 2023-04-23 10:22 | P.DS_ITS ---
DS: Providers Provider Date of Service: 04/23/23 Date of admission: 03/08/23 15:18 Primary care physician: Cassidy Segura MD Consults: 02/07/23 22:24 Consult to Nephrology Stat Consulting Provider: Rob Clay Reason for consultation: ESRD on Dialysis will be in ER and needs dialysis Turs/Sat/Tues Has provider been notified: Yes 02/07/23 23:07 Consult to Psychiatry Stat Consulting Provider: Psych Covering Reason for consultation: 72F with concerns by sister of dementia/ confusiuon , medically cleared Has provider been notified: No 02/21/23 09:04 Consult to Nephrology Stat Consulting Provider: Nikita Grossman Reason for consultation: needs HD Has provider been notified: Yes 02/22/23 10:21 Consult to Nephrology Stat Consulting Provider: Nikita Grossman Reason for consultation: dialysis Has provider been notified: Yes 02/22/23 10:22 Consult to Nephrology Stat Consulting Provider: Nikita Grossman Reason for consultation: dialysis Has provider been notified: Yes 03/08/23 15:21 Consult to Nephrology Routine Consulting Provider: Elvin Wilson Reason for consultation: Needs of dialysis 04/03/23 14:58 Consult to Hematology / Oncology Routine Consulting Provider: Cornelia Velarde Reason for consultation: hx of pe now sob Has provider been notified: No DS: Diagnosis Discharge Diagnosis (1) ESRD needing dialysis: Status: Acute (2) Physical deconditioning: Status: Acute (3) Hypoglycemia associated with type 2 diabetes mellitus: Status: Acute (4) Uncontrolled hypertension: Status: Acute DS: Summary Hospital Course Hospital Course: The patient had prolonged hospital stay. for full details please return to EMR. Admission note HPI A 72 years old lady with PMH of ESRD on HD, asthma, HTN, DMII among others [email or web address] was brought to the hospital on 02/07 for confusion. She has been sitting in ED waiting placement since then. confusion improved and she has capacity per psychiatry evaluation. but could not be placed up to this point. Seen by PT who recommended STR. she is not safe to leave the hospital. She is able to describes all of her medical conditions and medications she takes for them. Denies any fever, chills, pain, nausea, vomiting, diarrhea or urinary symptoms Admitted for the need of dialysis pending safe discharge plan Hospital course ESRD on HD TTS Nephrology following, had dialysis sessions per schedule. Left Eyelid swelling Looks better , will need outpatient opthalmology follow-up since patient has prior history of eye injections. 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 Use sliding scale insulin only and follow with PCP to prevent hypogylcemic events Physical deconditioning PT rec STR Increase Metoprolol to 25 mg twice a day Increase Hydralazine to 75 mg three time a day Start Amlodipine 10 mg daily Follow blood pressure readings with PCP for further adjustments Time Spent with Patient Time attestation: Total time managing care of this patient today ____ minutes. Discharge coordination time: Greater than 30 minutes Quality: Safe Use of Opioids Does Pt have an Active Cancer Diagnosis on the Problem List?: No Quality: Stroke Does the patient have a stroke diagnosis?: No Physical Exam Vital Signs: Vital Signs: Last Vital Signs Temp 98.0 F 04/23/23 07:49 Pulse 81 04/23/23 07:49 Resp 16 04/23/23 07:49 BP 178/71 H 04/23/23 07:49 Pulse Ox 100 04/23/23 07:49 O2 Del Method Room Air 04/23/23 07:49 O2 Flow Rate 97 03/08/23 06:00 BMI result Body Mass Index 35.9 Const: Other: Constitutional : Awake, interactive, not in distress Eyes: normal vision. left eyelid edema, no tenderness or redness Respiratory : not in distress , chest wall moving bilaterally Skin : Warm, Dry, fistula clean Neurological : Alert & oriented x3, No focal deficit DS: Data Data Completed and Pending Labs on day of discharge: Laboratory Results - last 24 hr 04/22/23 04/22/23 04/22/23 11:14 16:10 20:20 POC Glucose 141 H 168 H 123 H 04/23/23 07:31 POC Glucose 130 H Imaging Chest x-ray: Radiologist's impression: ITS Impressions Chest X-Ray 02/17/23 22:51 IMPRESSION: No acute findings. Shoulder X-Ray 03/08/23 11:00 IMPRESSION: Mild to moderate right shoulder degenerative joint changes without overt fracture. Discharge Plan Discharge Anticipated Discharge Date/Time: 04/23/23 10:20 Patient Disposition: Xfer SNF Discharge Diagnosis: Need of dialysis physical deconditioning Referrals: Physician,None [Physician] - 1 Week Discharge Medications: New amlodipine 10 mg Tablet 10 mg PO DAILY Qty: 30 0RF Protocol: Hold for SBP< HOLD for SBP < : 90 Continued albuterol sulfate 2.5 mg /3 mL (0.083 %) Solution For Nebulization 2.5 mg INHALATION Q4H PRN (Reason: Shortness Of Breath) repaglinide 0.5 mg Tablet 0.5 mg PO TIDWM Rx Instructions: administer within 30 minutes of a meal or snack sevelamer carbonate [Renvela] 800 mg Tablet 800 mg PO TIDWM Rx Instructions: must administer with a meal/food albuterol sulfate [ProAir HFA] 90 mcg/actuation Hfa Aerosol Inhaler 1 puff INHALATION QID PRN (Reason: Shortness Of Breath) Changed hydralazine 50 mg Tablet 75 mg PO TID Qty: 150 0RF metoprolol tartrate 25 mg Tablet 25 mg PO BID Qty: 60 0RF Discontinued insulin glargine [Lantus Solostar U-100 Insulin] 100 unit/mL (3 mL) Insulin Pen 20 unit SUBCUT BEDTIME Discharge Orders: Discharge Order (Routine); Ordered 04/23/23 Ordered By: Yousif Hood Diet: Advance to usual diet Activity on Discharge: As tolerated Stand Alone Forms: Patient Portal Discharge page Activity Restrictions/Additional Instructions: 1. Resume all home medications. 2. All prescriptions that you given us have been sent to [facility] pharmacy. 3. It is important that you follow-up with getting an appointment with the primary care doctor tomorrow. Return to the ER for any worsening symptoms. Care Plan Goals: Read below Health Concerns: Read below Plan of Treatment: Read below Assessment: Increase Metoprolol to 25 mg twice a day Increase Hydralazine to 75 mg three time a day Start Amlodipine 10 mg daily Follow blood pressure readings with PCP for further adjustments
--- NOTE | 2023-04-23 10:48 | MHC.CM.PN ---
IMM 04/23/23 Patient is discharged to [facility]. She transported via [facility]. Information requested was faxed to the facility. HD [facility] will resume Sunday. Patient is scheduled 7:20am chair time T-TH-SUN. Patient will need assist with transport. She needs to be at the center at 7am. Anny was notified via phone and Fax. Patients sister may need to assist with transportation until it can be set up thru the HD center. 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
== END 2023-04-23 10:57 | disposition skilled nursing facility (03) | DRG 682 ==
LOC: HO.ED 03-07 14:19 → HO.EDOVER 03-08 16:00 → HO.S3 03-08 16:14
PROVIDERS: Emergency Medicine; Hospitalist; Internal Medicine; Internal Medicine Nephrology; Nurse Practitioner Family; Physician Assistant; Registered Nurse Emergency; Student in an Organized Health Care Education/Training Program; Admitting Provider Student in an Organized Health Care Education/Training Program; Emergency Provider Emergency Medicine Emergency Medical Services; PCP Internal Medicine; Visit Provider Student in an Organized Health Care Education/Training Program
DX: I12.0 Hypertensive chronic kidney disease with stage 5 chronic kidney disease or end stage renal disease (principal); N18.6 End stage renal disease; D61.818 Other pancytopenia; E11.22 Type 2 diabetes mellitus with diabetic chronic kidney disease; E11.649 Type 2 diabetes mellitus with hypoglycemia without coma; N25.0 Renal osteodystrophy; Z99.2 Dependence on renal dialysis; H02.846 Edema of left eye, unspecified eyelid; D63.1 Anemia in chronic kidney disease; Z59.02 Unsheltered homelessness; Z75.1 Person awaiting admission to adequate facility elsewhere; Z91.148 Patient's other noncompliance with medication regimen for other reason; Z87.891 Personal history of nicotine dependence; Z91.041 Radiographic dye allergy status; Z79.899 Other long term (current) drug therapy; Z11.59 Encounter for screening for other viral diseases; Z72.89 Other problems related to lifestyle
CPT/HCPCS: 36415; 71045; 73030; 80048; 80053; 82140; 82947; 83540; 83690; 84100; 84484; 85014; 85018; 85025; 85027; 86704; 86706; 87340; 90999; 93005; 94640; 97110; 97116; 97162; 97530; 99285; J0885; J1643; J2405

== ENCOUNTER → 2023-03-08 10:11 | Outpatient (BNV) | payer MEDICARE, SELFPAY | PROVIDERS: Admitting Provider Student in an Organized Health Care Education/Training Program; Emergency Provider Emergency Medicine Emergency Medical Services; Visit Provider Internal Medicine Cardiovascular Disease | DX: R07.9 Chest pain, unspecified (principal) | CPT/HCPCS: 93010 ==

== ENCOUNTER → 2023-03-08 15:18 | Outpatient (BNV) | payer MEDICARE, MEDICAID, SELFPAY | PROVIDERS: Admitting Provider Student in an Organized Health Care Education/Training Program; Emergency Provider Emergency Medicine Emergency Medical Services; Visit Provider Student in an Organized Health Care Education/Training Program | DX: I12.0 Hypertensive chronic kidney disease with stage 5 chronic kidney disease or end stage renal disease (principal); E11.22 Type 2 diabetes mellitus with diabetic chronic kidney disease; N18.6 End stage renal disease; Z99.2 Dependence on renal dialysis; E11.649 Type 2 diabetes mellitus with hypoglycemia without coma | CPT/HCPCS: 99223; 99231; 99232; 99233; 99239; 99499 ==